=== PATIENT | female | born 1985 | race Caucasian/White ===

== ENCOUNTER 2022-11-20 17:04 | Emergency (ER) | payer OTHER, SELFPAY ==
[2022-11-20 17:05] VITALS: BP 129/73; PULSE 72; RESP 18; TEMP 36.4; O2SAT 99; BMI 31.2
[2022-11-20] MEDS: Ondansetron 4 MG/2 ML Vial IV (17:41)
[2022-11-20] MEDS: Ketorolac 15 MG/ML Vial IV (17:41)
[2022-11-20 17:51] LABS: Absolute Lymphocyte Count 1.77 X10^3/uL (0.83-4.51); Absolute Neutrophil Count 5.7 X10^3/uL (2.0-7.7); Basophil# 0.03 X10^3/uL; Basophil% 0.4 % (0-1); Eosinophil# 0.22 X10^3/uL; Eosinophils% 2.6 % (0-5); Hematocrit 34.5 % (37-47); Hemoglobin 11.7 g/dL (12.0-15.0); Lymphocyte # 1.77 X10^3/ul (0.83-4.51); Lymphocyte % 20.8 % (19-41); Mean Corp Hgb Conc 33.9 g/dL (32-36); Mean Corpuscular Hgb 28.2 pg (27.0-32.0); Mean Corpuscular Volume 83.1 fL (81-99); Mean Platelet Vol. 10.9 fl (6.2-12.0); Monocyte# 0.76 X10^3/uL; Monocyte% 8.9 % (0-10); NRBC Flagged by Analyzer 0 % (0-5); Neutrophil % 66.9 % (47-70); Platelet Count 283 K/mm3 (150-450); RBC Distribution Width CV 12.7 % (11.6-14.6); RBC Distribution Width SD 38.4 fl (35.1-43.9); Red Blood Count 4.15 M/mm3 (4.2-5.4); White Blood Count 8.5 K/mm3 (4.4-11.0)
[2022-11-20 17:56] LABS: Bacteria 0 SEEN /hpf (None Seen); Mucous, Urine 0 SEEN /hpf (<or=2+); Squamous Epithelial Cells - UA 0 SEEN /hpf (5-10); White Blood Cells 0 SEEN /hpf (0-5)
[2022-11-20 17:57] LABS: Color, Urine Yellow (Yellow); Glucose, Dipstick Normal (Normal); Ketone-Dipstick 5 mg/dl (Negative); Leukocyte Esterase-Dipstick 25 /ul (Negative); Nitrite-Dipstick Negative (Negative); Occult Blood-Urine 250 /ul (Negative); Protein-Dipstick 15 mg/dl (Negative); Specific Gravity, Urine 1.025 (1.002-1.030); Urine Bilirubin Dipstick Negative (Negative); Urine Clarity Clear (Clear); Urine Urobilinogen 4 mg/dl (Normal)
[2022-11-20 18:05] LABS: Internal QC Validated? YES +Cl - CLEAR BKGD; Pregnancy, Urine Negative Negative; Red Blood Cells-Urine 10-25 SEEN /hpf (0-5)
[2022-11-20 18:17] LABS: ALB/GLOB Ratio 1.3 RATIO (0.9-2.4); AST(SGOT) 14 U/L (15-37); Alanine Aminotransfer ALT/SGPT 16 U/L (13-56); Albumin, Serum 3.6 g/dL (3.2-5.0); Alkaline Phosphatase 52 U/L (45-117); Anion Gap 8 (5-15); BUN 16 mg/dL (7-18); BUN/Creat Ratio 26.8 RATIO (10-20); Calcium,Total 8.5 mg/dL (8.5-10.1); Chloride 106 mmol/L (98-107); EST Glomerular Filtration Rate 120 mL/min (>60); Est Glom Filt Rate - Afr Amer 145 mL/min (>60); Estimated Creatinine Clearance 120.18 ml/min; Globulin 2.8 g/dL (2.2-4.2); Glucose 99 mg/dL (74-106); Lipase 34 U/L (13-75); Potassium 3.7 mmol/L (3.5-5.1); Protein, Total 6.4 g/dL (6.4-8.2); Sodium Level 140 mmol/L (136-145)
--- NOTE | 2022-11-20 18:48 | EDS_ITS ---
HPI <JUAN ALBERTO Miner - Last Filed: 11/20/22 19:24> History of Present Illness Chief Complaint: Abd Pain Narrative Narrative: Patient presenting today due to pain above her epigastrium that she has had since earlier today. She reports that over the past few days she has felt nauseous and yesterday at work she felt a little lightheaded. She denies any fever, chills, vomiting, diarrhea, constipation, and urinary symptoms. She denies any previous abdominal surgery. Eating seems to make the pain worse and nothing seems to make it better. PFSH <JUAN ALBERTO Miner - Last Filed: 11/20/22 19:24> PFSH Medical History Anxiety and depression Home Medications clindamycin HCl 300 mg capsule (Cleocin HCl) 300 mg PO Q6H ##12 01/05/17 [Rx Last Taken Unknown] ondansetron 4 mg disintegrating tablet 4 mg PO Q8H PRN PRN Nausea #10 tabs 11/20/22 [Rx Last Taken Unknown] Allergy/AdvReac Type Severity Reaction Status Date / Time amoxicillin [Amoxicillin] Allergy Hives Verified 11/20/22 17:04 Penicillins Allergy Hives Verified 11/20/22 17:04 Social History Smoking Status: Never smoker ROS <JUAN ALBERTO Miner - Last Filed: 11/20/22 19:24> ROS ED Constitutional Constitutional ED: Denies chills or fever(s) Cardiovascular Cardiovascular: Denies chest pain Respiratory/Chest Respiratory/Chest: Denies cough or dyspnea Gastrointestinal Gastrointestinal: Reports abdominal pain and nausea; Denies constipation, diarrhea or vomiting Genitourinary Genitourinary ED: Denies dysuria, hematuria or urinary urgency Musculoskeletal Musculoskeletal: Denies arthralgias, back pain or myalgias Integumentary Denies rash Neurologic Neurologic: Denies weakness EXAM <JUAN ALBERTO Miner - Last Filed: 11/20/22 19:24> Physical Exam Const Vital Signs: 11/20/22 17:05 Temperature 97.6 F L Temperature Source Temporal Pulse Rate 72 Respiratory Rate 18 Blood Pressure 129/73 H Blood Pressure Mean 91 Pulse Ox 99 Oxygen Delivery Method Room Air Positive well nourished, well developed and no apparent distress General Appearance ED: well developed HEENT Reports normocephalic and head/scalp atraumatic Mouth ED: Yes moist mucous membranes normal Eyes PERRL and EOMs intact bilaterally Neck full ROM and supple Chest Wall inspection of chest normal Resp normal respiratory effort and clear to auscultation bilaterally Cardio regular rate and regular rhythm GI soft to palpation, non-distended and no masses GI Narrative: Very mild tenderness above the umbilicus without any tenderness to McBurney's point, negative Rovsing sign, no rigidity or guarding, no rebound tenderness. Back/Spine normal ROM and normal to inspection Extremity normal to inspection and full ROM Neuro oriented x3, CN's II-XII intact bilaterally, moves all extremities, no focal motor deficits and no sensory deficits noted Sensorium / Orientation: awake and alert Psych mental status grossly normal and thought process normal Skin no rashes or lesions noted and no wounds <Dr. Blas Xiao DO - Last Filed: 11/20/22 19:04> Physical Exam Const Vital Signs: 11/20/22 17:05 Temperature 97.6 F L Temperature Source Temporal Pulse Rate 72 Respiratory Rate 18 Blood Pressure 129/73 H Blood Pressure Mean 91 Pulse Ox 99 Oxygen Delivery Method Room Air MDM <JUAN ALBERTO Miner - Last Filed: 11/20/22 19:24> MDM MDM Narrative Medical decision making narrative: Patient presenting today due to pain just above her umbilicus that started today as well as nausea that she has had for the past few days. She is well- appearing and in distress vitals are unremarkable. Her abdomen is very benign on exam without any rigidity, guarding, or peritoneal signs. She has mild tenderness to palpation above the umbilicus/epigastrium but I do not feel that a CT scan is warranted at this time. Labs obtained to rule out leukocytosis, anemia, electrolyte abnormality, UTI, LANCE, and pancreatitis. Labs overall are unremarkable. She was given IV Toradol and Zofran and on repeat examination reports improvement of her symptoms. She was given a prescription for Zofran and is encouraged to follow-up with her PCP. She has been given return instructions and will be discharged home in stable condition. She is comfortable with plan. Lab Data Attestation: I reviewed the patient's lab results. Lab results narrative: H&H 11.7 and 34.5, lipase 34, CMP unremarkable, UA negative for UTI Labs: Laboratory Results - last 24 hr 11/20/22 11/20/22 17:42 17:50 WBC 8.5 RBC 4.15 L Hgb 11.7 L Hct 34.5 L MCV 83.1 MCH 28.2 MCHC 33.9 RDW Std Deviation 38.4 RDW Coeff of Bruce 12.7 Plt Count 283 MPV 10.9 Immature Gran % (Auto) 0.400 Neut % (Auto) 66.9 Lymph % (Auto) 20.8 [place] % (Auto) 8.9 Eos % (Auto) 2.6 Baso % (Auto) 0.4 Absolute Neuts (auto) 5.7 Absolute Lymphs (auto) 1.77 Nucleated RBC % 0 Sodium 140 Potassium 3.7 Chloride 106 Carbon Dioxide 26.0 Anion Gap 8 BUN 16 Creatinine 0.60 Estim Creat Clear Calc 120.18 Est GFR (MDRD) Af Amer 145 Est GFR (MDRD) Non-Af 120 BUN/Creatinine Ratio 26.8 H Glucose 99 Calcium 8.5 Total Bilirubin 0.40 AST 14 L ALT 16 Alkaline Phosphatase 52 Total Protein 6.4 Albumin 3.6 Globulin 2.8 Albumin/Globulin Ratio 1.3 Lipase 34 Urine Color Yellow Urine Clarity Clear Urine pH 6.0 Ur Specific [place] 1.025 Urine Protein 15 H Urine Glucose (UA) Normal Urine Ketones 5 H Urine Occult Blood 250 H Urine Nitrite Negative Urine Bilirubin Negative Urine Urobilinogen 4 H Ur Leukocyte Esterase 25 H Urine RBC 10-25 SEEN Urine WBC 0 SEEN Ur Squamous Epith Cells 0 SEEN Urine Bacteria 0 SEEN Urine Mucus 0 SEEN Urine Test Negative <Dr. Blas Xiao, DO - Last Filed: 11/20/22 19:04> [facility] Lab Data Labs: Laboratory Results - last 24 hr 11/20/22 11/20/22 17:42 17:50 WBC 8.5 RBC 4.15 L Hgb 11.7 L Hct 34.5 L MCV 83.1 MCH 28.2 MCHC 33.9 RDW Std Deviation 38.4 RDW Coeff of Bruce 12.7 Plt Count 283 MPV 10.9 Immature Gran % (Auto) 0.400 Neut % (Auto) 66.9 Lymph % (Auto) 20.8 [place] % (Auto) 8.9 Eos % (Auto) 2.6 Baso % (Auto) 0.4 Absolute Neuts (auto) 5.7 Absolute Lymphs (auto) 1.77 Nucleated RBC % 0 Sodium 140 Potassium 3.7 Chloride 106 Carbon Dioxide 26.0 Anion Gap 8 BUN 16 Creatinine 0.60 Estim Creat Clear Calc 120.18 Est GFR (MDRD) Af Amer 145 Est GFR (MDRD) Non-Af 120 BUN/Creatinine Ratio 26.8 H Glucose 99 Calcium 8.5 Total Bilirubin 0.40 AST 14 L ALT 16 Alkaline Phosphatase 52 Total Protein 6.4 Albumin 3.6 Globulin 2.8 Albumin/Globulin Ratio 1.3 Lipase 34 Urine Color Yellow Urine Clarity Clear Urine pH 6.0 Ur Specific [place] 1.025 Urine Protein 15 H Urine Glucose (UA) Normal Urine Ketones 5 H Urine Occult Blood 250 H Urine Nitrite Negative Urine Bilirubin Negative Urine Urobilinogen 4 H Ur Leukocyte Esterase 25 H Urine RBC 10-25 SEEN Urine WBC 0 SEEN Ur Squamous Epith Cells 0 SEEN Urine Bacteria 0 SEEN Urine Mucus 0 SEEN Urine Test Negative Treatment and Re-Evaluation :: I have personally performed a face to face assessment of the patient and have reviewed the RON Note. I performed a substantive portion of the visit including all aspects of the following. My [place] findings include: History: Patient presents with epigastric abdominal pain that began yesterday. Patient states it became worse today. Patient states pain is mainly over the epigastric and supraumbilical area. Patient admits to nausea but denies any vomiting. Patient denies any diarrhea, melena, or hematochezia. Patient denies any dysuria or hematuria. Patient denies any radiation of the pain into her back. Patient denies any chest pain or shortness of breath. Patient denies any fevers or chills. Exam: Vital signs are stable. Patient is afebrile. Patient is in no acute distress. Oral mucosa is pink and moist. Neck is supple. Trachea is midline. There is no JVD. Heart with regular rate and rhythm. Lungs are clear and equal bilaterally. Abdomen is soft. Bowel sounds are normal. There is epigas tric tenderness. There is no rebound or guarding noted. Cranial nerves II through XII are intact. There are no focal motor or sensory deficits noted. Medical Decision Making: Differential diagnosis includes gastric ulcer, pancreatitis, duodenal ulcer, pyelonephritis, urinary tract infection, and gastritis. CBC will be obtained to assess for leukocytosis and anemia. C omprehensive metabolic profile will be obtained to assess for electrolyte abnormality, hepatic function, and renal function. Urine hCG will be obtained to assess for . Urinalysis will be obtained to assess for urinary tract infection and hematuria. Lipase will be obtained to assess for pancreatitis. CBC was reviewed. There is mild anemia with a hemoglobin of 11.7 and hematocrit 34.5. Comprehensive metabolic profile was reviewed and was within normal limits. Urinalysis was reviewed. There is no evidence of urinary tract infection. There were 10-25 red blood cells and occult blood was 250. Urine hCG was reviewed and was negative. Lipase was reviewed and was normal at 34. Patient was advised of her findings. Patient was instructed to eat a bland diet. Patient was instructed to follow-up with her primary care physician in 5 to 7 days. Patient was instructed return if worse in any way. Patient understood and was agreeable with the plan. All questions were answered. Discharge Plan Triage Chief Complaint: Abd Pain ED Midlevel Provider: Kelsey Hansen ED Provider: Blas Xiao Dx/Rx/DC Orders Clinical Impression: Abdominal pain, Nausea Prescriptions: New ondansetron 4 mg tablet,disintegrating 4 mg PO Q8H PRN PRN (Reason: Nausea) Qty: 10 0RF No Action clindamycin HCl [Cleocin HCl] 300 MG capsule 300 mg PO Q6H Qty: 12 0RF Primary Care Provider: Zulma Goyal Referrals: Zulma Goyal MD [Primary Care Provider] - 5-7 Days Activity Restrictions/Additional Instructions: Please follow-up with your PCP and return for any worsening of your symptoms. Disposition Disposition: Home, Self Care Discharge Date/Time: 11/20/22 19:01
== END 2022-11-20 19:01 | disposition home or self-care (01) ==
PROVIDERS: Physician Assistant; Emergency Provider Emergency Medicine; PCP Internal Medicine; Visit Provider Emergency Medicine
DX: R10.9 Unspecified abdominal pain (principal); R11.0 Nausea
CPT/HCPCS: 80053; 81001; 81025; 83690; 85025; 96374; 96375; 99282; A4216; J2405

== ENCOUNTER 2023-10-18 11:26 | Emergency (ER) | payer OTHER, SELFPAY ==
[2023-10-18 11:27] VITALS: BP 136/85; PULSE 81; RESP 16; TEMP 36.4; O2SAT 98; BMI 33.0
[2023-10-18 11:48] LABS: Absolute Lymphocyte Count 1.44 X10^3/uL (0.83-4.51); Absolute Neutrophil Count 4.4 X10^3/uL (2.0-7.7); Basophil# 0.02 X10^3/uL; Basophil% 0.3 % (0-1); Eosinophil# 0.19 X10^3/uL; Eosinophils% 2.8 % (0-5); Hematocrit 35.3 % (37-47); Hemoglobin 11.9 g/dL (12.0-15.0); Lymphocyte # 1.44 X10^3/ul (0.83-4.51); Lymphocyte % 21.6 % (19-41); Mean Corp Hgb Conc 33.7 g/dL (32-36); Mean Corpuscular Volume 74.2 fL (81-99); Mean Platelet Vol. 10.7 fl (6.2-12.0); Monocyte# 0.59 X10^3/uL; Monocyte% 8.8 % (0-10); NRBC Flagged by Analyzer 0 % (0-5); Neutrophil # 4.41 X10^3/uL (2.7-7.7); Neutrophil % 66.2 % (47-70); Platelet Count 270 K/mm3 (150-450); RBC Distribution Width CV 13.2 % (11.6-14.6); RBC Distribution Width SD 34.6 fl (35.1-43.9); Red Blood Count 4.76 M/mm3 (4.2-5.4); White Blood Count 6.7 K/mm3 (4.4-11.0)
[2023-10-18 11:51] LABS: Mucous, Urine 0 SEEN /hpf (<or=2+); Red Blood Cells-Urine 0 SEEN /hpf (0-5)
[2023-10-18 11:54] LABS: Color, Urine Yellow (Yellow); Glucose, Dipstick Normal (Normal); Ketone-Dipstick Negative (Negative); Leukocyte Esterase-Dipstick 25 /ul (Negative); Nitrite-Dipstick Negative (Negative); Occult Blood-Urine Negative /ul (Negative); Protein-Dipstick Negative (Negative); Urine Bilirubin Dipstick Negative (Negative); Urine Clarity Sl. Cloudy (Clear); Urine Urobilinogen 1 mg/dl (Normal)
[2023-10-18 12:04] LABS: Bacteria 1+ /hpf (None Seen); Squamous Epithelial Cells - UA 0-5 SEEN /hpf (5-10); White Blood Cells 0-5 SEEN /hpf (0-5)
[2023-10-18 12:12] LABS: AST(SGOT) 27 U/L (15-37); Alanine Aminotransfer ALT/SGPT 19 U/L (13-56); Albumin, Serum 3.6 g/dL (3.2-5.0); Alkaline Phosphatase 61 U/L (45-117); Anion Gap 6 (5-15); BUN 13 mg/dL (7-18); BUN/Creat Ratio 19.2 RATIO (10-20); Calcium,Total 8.9 mg/dL (8.5-10.1); Chloride 107 mmol/L (98-107); Creatinine, Serum 0.68 mg/dL (0.55-1.02); EST Glomerular Filtration Rate 103 mL/min (>60); Est Glom Filt Rate - Afr Amer 125 mL/min (>60); Estimated Creatinine Clearance 128.71 ml/min; Globulin 3.7 g/dL (2.2-4.2); Glucose 111 mg/dL (74-106); Protein, Total 7.3 g/dL (6.4-8.2); Sodium Level 135 mmol/L (136-145)
--- NOTE | 2023-10-18 12:48 | US_ITS ---
STUDY: FIRST TRIMESTER OBSTETRICAL ULTRASOUND REASON FOR EXAM: Female, 38 years old Pelvic pain LMP: September 02, 2023. TECHNIQUE: Transvaginal TECHNICAL QUALITY: Adequate. PRIOR ULTRASOUND: None. FINDINGS: There is visualization of a single gestational sac in a normal intrauterine position. The mean sac diameter (MSD) measures 1.79 cm, indicating an estimated gestational age (EGA) of 6 weeks, 5 days. The gestational sac shape is within normal limits. There is a visualized yolk sac. The yolk sac measures 3.1 mm. The placenta is non-visualized. There is visualization of a live embryo. The crown-rump length (CRL) measures 6.2 mm, indicating an estimated gestational age (EGA) of 6 weeks, 4 days. There is demonstrated cardiac activity with a heart rate of 123 bpm. The estimated gestation age (EGA) by LMP is 6 weeks, 4 days. The estimated date of delivery (KESHAV) by LMP is June 08, 2024. The estimated gestation age (EGA) by US is 6 weeks, 5 days. The estimated date of delivery (KESHAV) by US is March 07, 2025. The uterus measures 11.2 cm x 6.6 cm x 6.7 cm. A large fibroid in the superior aspect of the uterus measuring 2.4 cm x 3.1+ by 2.8 cm is seen. There is a 1.5 cm x 1.4 cm x 0.4 cm subchorionic bleed. The cervix is closed. The right ovary measures 2.4 cm x 2.1 cm x 1.5 cm. There is no right ovarian cyst. There is no visualized right adnexal mass or complex lesion. The left ovary measures 2.6 cm x 2.2 cm x 2.4 cm. There is no left ovarian cyst. There is no visualized left adnexal mass or complex lesion. There is no fluid in the cul de sac. US/Transvaginal w/Preg US IMPRESSION: Single live intrauterine gestation with a mean gestational age of 6 weeks and 5 days. Uterine fibroid. Findings suggestive a 1.5 cm x 1.4 cm x 0.4 cm subchorionic bleed. Electronically Signed: Channing Roper MD at 15:30 EDT ,
--- NOTE | 2023-10-18 12:50 | EDS_ITS ---
HPI History of Present Illness Chief Complaint: Flank Pain Informant: patient Onset/Context/Timing Onset: Yesterday Context: Gradual Onset Timing: Continuous and Waxes and wanes Quality: Sharp Location: Right lower abdomen and lower back Worsened by: Nothing Relieved by: Nothing Narrative Narrative: Patient presents with right lower abdomen and back pain that began yesterday. Patient states the is almost 7 weeks . Patient states her pain has been waxing and waning since yesterday evening. Patient describes the pain as sharp. Patient states nothing makes it better and nothing makes it worse. Patient states she is 5 para 4. Patient denies any dysuria or hematuria. Patient denies any abnormal vaginal bleeding or discharge. Patient denies any nausea or vomiting. [facility] Medical History Anxiety and depression Home Medications ?Medication ?Instructions ?Recorded ?Last Taken ?Type clindamycin HCl 300 mg capsule 300 mg PO Q6H ##12 01/05/17 Unknown Rx (Cleocin HCl) ondansetron 4 mg disintegrating 4 mg PO Q8H PRN PRN Nausea #10 tabs 11/20/22 Un known Rx tablet Allergy/AdvReac Type Severity Reaction Status Date / Time amoxicillin (Amoxicillin) Allergy Hives Verified 10/18/23 11:27 Penicillins Allergy Hives Verified 10/18/23 11:27 Social History Smoking Status: Never smoker ROS ROS ED Constitutional Constitutional ED: Denies chills or fever(s) Eyes Eyes: Denies blurry vision or change in vision ENT ENT ED: Denies rhinorrhea or sore throat Cardiovascular Cardiovascular: Denies chest pain or palpitations Respiratory/Chest Respiratory/Chest: Denies cough or dyspnea Gastrointestinal Gastrointestinal: Reports abdominal pain; Denies nausea or vomiting Genitourinary Genitourinary ED: Denies dysuria or hematuria Musculoskeletal Musculoskeletal: Reports back pain; Denies neck pain Integumentary Denies abscess or rash Neurologic Neurologic: Denies headache(s) or weakness Allergic/Immunologic Allergic/Immunologic ED: Denies mouth swelling or urticaria EXAM Physical Exam Const Vital Signs: 10/18/23 11:27 10/18/23 13:26 10/18/23 15:00 Temperature 97.5 F L Temperature Source Temporal Pulse Rate 81 73 74 Respiratory Rate 16 16 16 Blood Pressure 136/85 H 114/68 117/71 Blood Pressure Mean 102 83 86 Pulse Ox 98 98 98 Oxygen Delivery Method Room Air Room Air Room Air 10/18/23 16:55 Temperature 97.6 F L Temperature Source Pulse Rate 72 Respiratory Rate 16 Blood Pressure 118/67 Blood Pressure Mean 84 Pulse Ox 98 Oxygen Delivery Method Positive well nourished and well developed General Appearance ED: well developed and NAD HEENT Reports moist mucous membranes Neck supple and no JVD Resp normal respiratory effort and clear to auscultation bilaterally Cardio regular rate and regular rhythm GI non-tender and non-distended Palpation: soft Extremity normal to inspection General Extremety ED: Negative for edema or tenderness General Extremity: Negative for edema Neuro oriented x3, CN's II-XII intact bilaterally and no sensory deficits noted Sensorium / Orientation: alert Motor Exam: strength 5/5 throughout Psych mental status grossly normal MDM MDM MDM Narrative Medical decision making narrative: Differential diagnosis includes ectopic , urinary tract infection, ureteral calculus, colitis, diverticulitis, and ovarian cyst. CBC will be obtained to assess for leukocytosis and anemia. Comprehensive metabolic profile will be obtained to assess for hepatic function, renal function, and electrolyte abnormality. Quantitative hCG will be obtained to assess for type and Rh will be obtained to assess for blood type urinalysis will be obtained to assess for urinary tract infection and hematuria. Pelvic ultrasound will be obtained to assess for ectopic , ovarian cyst, and ovarian torsion. Lab Data Attestation: I reviewed the patient's lab results. Lab results narrative: CBC was reviewed. There is a slight anemia with a hemoglobin of 11.9 and hematocrit of 35.3. Platelets were normal. Comprehensive metabolic profile was reviewed. Sodium was slightly low at 135. The remainder was within normal limits. Urinalysis was reviewed. There is no evidence of urinary tract infection or hematuria. Blood type was reviewed and was O+. Quantitative hCG was reviewed and was 17044. Labs: Laboratory Results - last 24 hr 10/18/23 10/18/23 10/18/23 11:40 11:47 12:50 WBC 6.7 RBC 4.76 Hgb 11.9 L Hct 35.3 L MCV 74.2 L MCH 25.0 L MCHC 33.7 RDW Std Deviation 34.6 L RDW Coeff of Bruce 13.2 Plt Count 270 MPV 10.7 Immature Gran % (Auto) 0.300 Neut % (Auto) 66.2 Lymph % (Auto) 21.6 [place] % (Auto) 8.8 Eos % (Auto) 2.8 Baso % (Auto) 0.3 Absolute Neuts (auto) 4.4 Absolute Lymphs (auto) 1.44 Nucleated RBC % 0 Sodium 135 L Potassium 4.0 Chloride 107 Carbon Dioxide 22.0 Anion Gap 6 BUN 13 Creatinine 0.68 Estim Creat Clear Calc 128.71 Est GFR (MDRD) Af Amer 125 Est GFR (MDRD) Non-Af 103 BUN/Creatinine Ratio 19.2 Glucose 111 H Calcium 8.9 Total Bilirubin 0.50 AST 27 ALT 19 Alkaline Phosphatase 61 Total Protein 7.3 Albumin 3.6 Globulin 3.7 Albumin/Globulin Ratio 1.0 HCG, Quant 38046 H Urine Color Yellow Urine Clarity Sl. Cloudy Urine pH 7.0 Ur Specific [place] 1.010 Urine Protein Negative Urine Glucose (UA) Normal Urine Ketones Negative Urine Occult Blood Negative Urine Nitrite Negative Urine Bilirubin Negative Urine Urobilinogen 1 H Ur Leukocyte Esterase 25 H Urine RBC 0 SEEN Urine WBC 0-5 SEEN Ur Squamous Epith Cells 0-5 SEEN Urine Bacteria 1+ Urine Mucus 0 SEEN Blood Type O POSITIVE Radiography Diagnostic Testing: Clinical Impression(s) from Imaging Studies Obstetrics Ultrasound 10/18/23 12:48 IMPRESSION: Single live intrauterine gestation with a mean gestational age of 6 weeks and 5 days. Uterine fibroid. Findings suggestive a 1.5 cm x 1.4 cm x 0.4 cm subchorionic bleed. Electronically Signed: Channing Roper MD at 15:30 EDT , Pelvic ultrasound was obtained. There is a single live intrauterine gestation with a mean gestational age of 6 weeks 5 days. There is a uterine fibroid. There is a 1.5 cm x 1.4 cm x 0.4 cm subchorionic bleed. This was interpreted by the radiologist was also independently reviewed by myself. Management Discussion w/another healthcare provider: Identifier Horse Treatment and Re-Evaluation :: Patient is resting comfortably on reevaluation. Patient was advised of her findings. Case was discussed with Dr. Greene from [facility]. She recommended to having the patient do pelvic rest. Patient will follow-up with [facility] in 3 to 5 days. Patient understood and was agreeable with the plan. All questions were answered. Discharge Plan Triage Chief Complaint: Flank Pain ED Provider: Blas Xiao Dx/Rx/DC Orders Clinical Impression: Pelvic pain, First trimester , Subchorionic hemorrhage in first trimester Instructions: ED Pelvic Pain, Unknown Cause, ED Established ... Prescriptions: No Action clindamycin HCl [Cleocin HCl] 300 MG capsule 300 mg PO Q6H Qty: 12 0RF ondansetron 4 mg tablet,disintegrating 4 mg PO Q8H PRN PRN (Reason: Nausea) Qty: 10 0RF Primary Care Provider: Zulma Goyal Referrals: Rani Dumont MD [Med Staff - Active Staff] - 3-5 Days Zulma Goyal MD [Primary Care Provider] - Activity Restrictions/Additional Instructions: Abstain from putting anything in the vagina, this includes no intercourse, no tampons, and no douching. Print Language: Tristanian Disposition Disposition: Home, Self Care Discharge Date/Time: 10/18/23 17:02
[2023-10-18 13:26] VITALS: BP 114/68; PULSE 73; RESP 16; O2SAT 98
[2023-10-18 14:18] LABS: hCG Titer Quant., Serum 23363 mIU/mL (1-3)
[2023-10-18 15:00] VITALS: BP 117/71; PULSE 74; RESP 16; O2SAT 98
[2023-10-18 16:55] VITALS: BP 118/67; PULSE 72; RESP 16; TEMP 36.4; O2SAT 98
== END 2023-10-18 17:02 | disposition home or self-care (01) ==
PROVIDERS: Emergency Provider Emergency Medicine; PCP Internal Medicine; Visit Provider Emergency Medicine
DX: O26.891 Other specified pregnancy related conditions, first trimester (principal); R10.2 Pelvic and perineal pain; O20.8 Other hemorrhage in early pregnancy; O09.521 Supervision of elderly multigravida, first trimester; Z3A.01 Less than 8 weeks gestation of pregnancy
CPT/HCPCS: 76817; 80053; 81001; 84702; 85025; 86900; 86901; 99282; A4216

== ENCOUNTER 2023-11-21 23:18 | Emergency (ER) | payer OTHER, SELFPAY ==
[2023-11-21 23:19] VITALS: BP 152/88; PULSE 72; RESP 16; TEMP 36.4; O2SAT 100; BMI 31.8
--- NOTE | 2023-11-21 23:49 | US_ITS ---
INDICATION: Vaginal bleeding EXAMINATION: Ultrasound US OB Transvaginal TECHNIQUE: Transabdominal pelvic ultrasound was performed. Grayscale, spectral waveform, and color flow Doppler evaluation of the adnexa. COMPARISON: No relevant prior comparison study available FINDINGS: UTERUS: 12 x 9 x 6.8 cm. Echogenic lesion in the uterus measures 3 cm and most likely represents a fibroid. RIGHT OVARY: 2.4 cm. Normal. LEFT OVARY: 3.9 cm. Normal. FREE FLUID: None. INTRAUTERINE GESTATIONAL SAC(s) (size/shape): Single. Size (Mean sac diameter) and shape. YOLK SAC: Identified POLE: Identified CRL 4.27 cm. ESTIMATED GESTATION AGE: 11 weeks and 4 days. HEART MOTION: 174 bpm. PLACENTA: Not visualized due to age. SUBCHORIONIC HEMORRHAGE: None. AMNIOTIC FLUID: Qualitatively normal. US/Transvaginal w/Preg US IMPRESSION: Single live intrauterine . Estimated gestational age is 11 weeks and 4 days. KESHAV is 06/15/2024. Electronically Signed: Cooper Trevino MD at 1:47 EDT ,
[2023-11-22 00:20] LABS: Absolute Lymphocyte Count 2.07 X10^3/uL (0.83-4.51); Basophil# 0.02 X10^3/uL; Basophil% 0.2 % (0-1); Eosinophil# 0.19 X10^3/uL; Eosinophils% 2.3 % (0-5); Hematocrit 37.4 % (37-47); Hemoglobin 12.5 g/dL (12.0-15.0); Lymphocyte # 2.07 X10^3/ul (0.83-4.51); Lymphocyte % 25.3 % (19-41); Mean Corp Hgb Conc 33.4 g/dL (32-36); Mean Corpuscular Hgb 25.4 pg (27.0-32.0); Mean Platelet Vol. 11.4 fl (6.2-12.0); Monocyte# 0.82 X10^3/uL; NRBC Flagged by Analyzer 0 % (0-5); Neutrophil # 4.99 X10^3/uL (2.7-7.7); Neutrophil % 61.1 % (47-70); Platelet Count 319 K/mm3 (150-450); RBC Distribution Width CV 14.3 % (11.6-14.6); RBC Distribution Width SD 38.9 fl (35.1-43.9); Red Blood Count 4.92 M/mm3 (4.2-5.4); White Blood Count 8.2 K/mm3 (4.4-11.0)
[2023-11-22 00:39] LABS: Bacteria 0 SEEN /hpf (None Seen); Mucous, Urine 0 SEEN /hpf (<or=2+); Red Blood Cells-Urine 0 SEEN /hpf (0-5); Squamous Epithelial Cells - UA 0 SEEN /hpf (5-10); White Blood Cells 0 SEEN /hpf (0-5)
[2023-11-22 00:40] LABS: Color, Urine Yellow (Yellow); Glucose, Dipstick Normal (Normal); Ketone-Dipstick 15 mg/dl (Negative); Leukocyte Esterase-Dipstick Negative /ul (Negative); Nitrite-Dipstick Negative (Negative); Occult Blood-Urine 10 /ul (Negative); Protein-Dipstick Negative (Negative); Specific Gravity, Urine 1.015 (1.002-1.030); Urine Bilirubin Dipstick Negative (Negative); Urine Clarity Clear (Clear); Urine Urobilinogen Normal (Normal)
[2023-11-22 00:55] LABS: hCG Titer Quant., Serum 118885 mIU/mL (1-3)
[2023-11-22 01:19] VITALS: BP 139/73; PULSE 92; RESP 18; O2SAT 97
--- NOTE | 2023-11-22 02:21 | EDS_ITS ---
HPI HPI - Female History of Present Illness Chief Complaint: Vag Bld, Preg Informant: patient Narrative Narrative: Patient is a G4, P5 female approximately 11 weeks . She states that this evening she went to get up and get ready for bed and use the bathroom and noticed that her underwear felt wet and there is a small amount of blood present. After that she noticed there has been mild blood-tinged discoloration with wiping. She denies any abdominal discomfort dysuria history of bleeding disorder or blood thinner use. However because of her status and the bleeding she was concerned about a potential miscarriage and comes in for evaluation [facility] Medical History Anxiety and depression Home Medications ?Medication ?Instructions ?Recorded ?Last Taken ?Type vit no.95-ferrous 1 tab PO DAILY 11/21/23 Unknown History fumarate 28 mg-folic acid 800 mcg tablet () Allergy/AdvReac Type Severity Reaction Status Date / Time amoxicillin (Amoxicillin) Allergy Hives Verified 11/21/23 23:19 Penicillins Allergy Hives Verified 11/21/23 23:19 Social History Smoking Status: Never smoker ROS ROS ED Constitutional Constitutional ED: Denies chills or fever(s) ENT ENT ED: Denies sore throat Cardiovascular Cardiovascular: Denies chest pain Respiratory/Chest Respiratory/Chest: Denies cough or dyspnea Gastrointestinal Gastrointestinal: Denies abdominal pain, diarrhea, nausea or vomiting Genitourinary Genitourinary ED: Reports other Details: Positive vaginal bleeding ; Denies dysuria Musculoskeletal Musculoskeletal: Denies myalgias Integumentary Denies rash Neurologic Neurologic: Denies headache(s) Psychiatric Psychiatric: Reports anxiety and depression Hematologic/Lymphatic Hematologic/Lymphatic: Denies easy bleeding or easy bruising EXAM Physical Exam Const Vital Signs: 11/21/23 23:19 11/22/23 01:19 Temperature 97.5 F L Temperature Source Temporal Pulse Rate 72 92 Respiratory Rate 16 18 Blood Pressure 152/88 H 139/73 H Blood Pressure Mean 109 95 Pulse Ox 100 97 Oxygen Delivery Method Room Air Positive well nourished and well developed General Appearance ED: well developed; Negative for pallor HEENT HEENT Narrative: Normocephalic atraumatic Eyes PERRL and EOMs intact bilaterally General Eye ED: Negative for pale conjunctiva or scleral icterus Neck supple Resp normal respiratory effort and clear to auscultation bilaterally Cardio regular rate and regular rhythm GI normal to inspection, nondistended, normoactive bowel sounds, soft to palpation, non-tender, non-distended and no masses Auscultation: normoactive bowel sounds Palpation: soft Narrative: Patient deferred Back/Spine no CVA tenderness Extremity normal to inspection and full ROM Neuro oriented x3, CN's II-XII intact bilaterally and no sensory deficits noted Sensorium / Orientation: alert Motor Exam: strength 5/5 throughout Psych mental status grossly normal Skin no rashes or lesions noted and no wounds Skin Narrative: Capillary refills less than 3 seconds General Skin Exam: Negative for jaundice or pallor MDM MDM MDM Narrative Medical decision making narrative: Patient arrived to the ER hypertensive but otherwise with stable vitals. With report of spontaneous vaginal bleeding there is concern for a threatened versus spontaneous miscarriage versus subchorionic hemorrhage versus UTI. Basic blood work was obtained and shows stable H&H indicating no acute blood loss anemia. Urine sample showed no sign of infection. The patient's quantitative hCG value has increased from approximately 23,000-119,000 indicating viable . Blood type is Rh+ and therefore there is no need for RhoGAM. An ultrasound was obtained secondary to her report of vaginal bleeding in and shows a single IUP with stable heart rate of 174 bpm. Therefore at this time without signs of acute blood loss anemia or infectious process or miscarriage I do not feel there is need for emergent MEDICAL BILLING SPECIALIST consultation and patient is otherwise safe for discharge History & Record Review Discussion w/independent historian: Patient Lab Data Attestation: I reviewed the patient's lab results. Labs: Laboratory Results - last 24 hr 11/21/23 11/22/23 23:52 00:34 WBC 8.2 RBC 4.92 Hgb 12.5 Hct 37.4 MCV 76.0 L MCH 25.4 L MCHC 33.4 RDW Std Deviation 38.9 RDW Coeff of Bruce 14.3 Plt Count 319 MPV 11.4 Immature Gran % (Auto) 1.100 H Neut % (Auto) 61.1 Lymph % (Auto) 25.3 [place] % (Auto) 10.0 Eos % (Auto) 2.3 Baso % (Auto) 0.2 Absolute Neuts (auto) 5.0 Absolute Lymphs (auto) 2.07 Nucleated RBC % 0 HCG, Quant [id number] H Urine Color Yellow Urine Clarity Clear Urine pH 6.0 Ur Specific [place] 1.015 Urine Protein Negative Urine Glucose (UA) Normal Urine Ketones 15 H Urine Occult Blood 10 H Urine Nitrite Negative Urine Bilirubin Negative Urine Urobilinogen Normal Ur Leukocyte Esterase Negative Urine RBC 0 SEEN Urine WBC 0 SEEN Ur Squamous Epith Cells 0 SEEN Urine Bacteria 0 SEEN Urine Mucus 0 SEEN Radiography Diagnostic Testing: Clinical Impression(s) from Imaging Studies Obstetrics Ultrasound 11/21/23 23:49 IMPRESSION: Single live intrauterine . Estimated gestational age is 11 weeks and 4 days. KESHAV is 06/15/2024. Electronically Signed: Cooper Trevino MD at 1:47 EDT , Discharge Plan Triage Chief Complaint: Vag Bld, Preg ED Provider: Jayson Alonso Dx/Rx/DC Orders Clinical Impression: Vaginal bleeding in , Anxiety and depression Instructions: Vaginal Bleeding During Prescriptions: No Action PNV cmb#95-ferrous fumarate-FA [] 28 mg iron- 800 mcg tablet 1 tab PO DAILY Primary Care Provider: Zulma Goyal Referrals: Zulma Goyal MD [Primary Care Provider] - Activity Restrictions/Additional Instructions: Your ultrasound shows the baby has a normal heart rate at 174 bpm but no obvious source of your bleeding. Follow-up with your MEDICAL BILLING SPECIALIST for repeat evaluation and return to the ER should you have any further concerns Print Language: Nigerian Disposition Disposition: Home, Self Care Discharge Date/Time: 11/22/23 02:27
[2023-11-22 02:26] VITALS: BP 118/75; PULSE 75; RESP 16; TEMP 37.1; O2SAT 97
== END 2023-11-22 02:27 | disposition home or self-care (01) ==
PROVIDERS: Emergency Provider Emergency Medicine; PCP Internal Medicine; Visit Provider Emergency Medicine
DX: O20.9 Hemorrhage in early pregnancy, unspecified (principal); O99.341 Other mental disorders complicating pregnancy, first trimester; O09.521 Supervision of elderly multigravida, first trimester; F41.9 Anxiety disorder, unspecified; F32.A Depression, unspecified; Z3A.11 11 weeks gestation of pregnancy
CPT/HCPCS: 76817; 81001; 84702; 85025; 99283; A4216

== ENCOUNTER 2024-09-20 05:57 | Day surgery (SDC) | payer OTHER, SELFPAY ==
--- NOTE | 2024-09-18 15:36 | PAT.ANE_ITS ---
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 When Was Last Pacemaker Check QUESTION #4 FULL TEXT: You/Your Family Experience fever (hyperthermia) with Anesthesia Last Oral Intake Last Oral intake: Last Oral Intake NPO since Meds taken in AM with sips of water? 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 Has anyone observed you stop No 09/18/24 10:13 breathing during sleep? STOP Results Negative 09/18/24 10:13 QUESTION #5 FULL TEXT : Do you snore loudly (louder than talking or can be heard through closed doors)? 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 Specify any problems Hx of Preganancy in last 3 No 09/18/24 10:13 Months Nurse Filling Out Transfusion DSCHRIBER 09/18/24 10:13 & Questions: Date: 09/18/24 09/18/24 10:13 Time: 10:14 09/18/24 10:13 Patient unable to answer at this time (ie. 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 cellar worker: /Reproductive Hx- brewery cellar worker Hx Now No 09/18/24 10:13 Gestational Age (in weeks): EDC: Hx Hx Para Hx Section SAB Yes 09/18/24 10:13 PFS Medical History History of a child Anxiety Syncope Non-smoker Cardiology follow-up encounter History of echocardiogram Hypertension Home Medications ?Medication ?Instructions ?Recorded ?Last Taken ?Type vit no.95-ferrous 1 tab PO DAILY 11/21/2304/03 History fumarate 28 mg-folic acid 800 mcg tablet () hydrochlorothiazide 25 mg tablet 25 mg PO DAILY 09/19/24 History losartan 50 mg tablet 50 mg PO BID 09/18/24 History nifedipine 60 mg tablet,extended 60 mg PO BID 09/18/24 09/19/24 History release 24 hr acetaminophen 325 mg tablet 650 mg (2 x 325 mg) PO Q6H PRN 09/20/24 Unknown Rx (Tylenol) pain #30 tabs ibuprofen 600 mg tablet 600 mg PO Q6H PRN pain #30 t abs 09/20/24 Unknown Rx Allergy/AdvReac Type Severity Reaction Status Date / Time amoxicillin (Amoxicillin) Allergy Hives Verified 09/20/24 06:39 Penicillins Allergy Hives Verified 09/20/24 06:39 Surgical History Hx of colonoscopy Social History Smoking Status: Never smoker Recommendation Anesthesia Recommendation Anesthesia recommendation: OPTIMIZED for anesthesia
--- NOTE | 2024-09-18 15:37 | PAT.ANESEVAL ---
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 When Was Last Pacemaker Check QUESTION #4 FULL TEXT: You/Your Family Experience fever (hyperthermia) with Anesthesia Last Oral Intake Last Oral intake: Last Oral Intake NPO since Meds taken in AM with sips of water? 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 Has anyone observed you stop No 09/18/24 10:13 breathing during sleep? STOP Results Negative 09/18/24 10:13 QUESTION #5 FULL TEXT : Do you snore loudly (louder than talking or can be heard through closed doors)? 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 Specify any problems Hx of Preganancy in last 3 No 09/18/24 10:13 Months Nurse Filling Out Transfusion DSCHRIBER 09/18/24 10:13 & Questions: Date: 09/18/24 09/18/24 10:13 Time: 10:14 09/18/24 10:13 Patient unable to answer at this time (ie. 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: /Reproductive Hx- construction director Hx Now No 09/18/24 10:13 Gestational Age (in weeks): EDC: Hx Hx Para Hx Section SAB Yes 09/18/24 10:13 PFS Medical History (Updated 09/18/24 @ 10:25 by Chelly Sweeney) History of a child Anxiety Syncope Non-smoker Cardiology follow-up encounter History of echocardiogram Hypertension Home Medications ?Medication ?Instructions ?Recorded ?Last Taken ?Type vit no.95-ferrous 1 tab PO DAILY 11/21/23 Unknown History fumarate 28 mg-folic acid 800 mcg tablet () hydrochlorothiazide 25 mg tablet 25 mg PO DAILY 09/18/24 Unknown History losartan 50 mg tablet 50 mg PO BID 09/18/24 Unknown History nifedipine 60 mg tablet,extended 60 mg PO BID 09/18/24 Unknown History release 24 hr Allergy/AdvReac Type Severity Reaction Status Date / Time amoxicillin (Amoxicillin) Allergy Hives Verified 09/18/24 10:09 Penicillins Allergy Hives Verified 09/18/24 10:09 Surgical History (Updated 09/18/24 @ 10:25 by Chelly Sweeney) Hx of colonoscopy Social History Smoking Status: Never smoker Audit: Pertinent Findings Pertinent Findings EKG Perinent findings: 06/12/2024. Normal sinus rhythm 66 bpm. Consult pertinent findings: Cardiology [facility]. 06/12/2024. For diagnosis of preeclampsia in third trimester. Echocardiogram was ordered July 2024. Showed EF of 61+/- 5%. Normal size and function. No further workup Recommendation Anesthesia Recommendation Anesthesia recommendation: OPTIMIZED for anesthesia
[2024-09-20] VITALS (9 sets, daily range): BP systolic 110–125; BP diastolic 68–83; PULSE 53–101; RESP 16; TEMP 36.3–36.9; O2SAT 95–100; BMI 36.3
--- OUTSIDE RECORDS SUMMARY | 2024-09-20 06:00 | XMS RPT_ITS | CCD ---
Author Organization [facility] Care Team Providers Care Fluorescent Lamp Replacer Name Role Phone Catherine Goyally Unavailable Unavailable [place], Ottoniel S Unavailable Unavailable Thomae DO, Luther Unavailable Unavailable [place] DO, Ottoniel Unavailable Unavailable [place], Ottoniel S Unavailable Unavailable [place], Ottoniel S Unavailable Unavailable Unavailable Ottoniel Goyal DO S Primary Care Provider Dr. Kiara Ramirez Attending Unavail able James, Dr. Kiara Ocampo Referring Unavail able , Dr. Ottoniel Fountain Primary Care Unavailabl e [place], Dr. Ottoniel Fountain Primary Care Unavailabl e [place], Dr. Ottoniel Fountain Attending Unavailabl e , Dr. Ottoniel Fountain Referring Unavailabl e [place], Dr. Ottoniel Fountain Primary Care Unavailabl e MD XIOMARA GUTIERREZ Attending Unava ilable MD XIOMARA GUTIERREZ Referring Unava ilable , Dr. Ottoniel Fountain Primary Care Unavailabl e MD XIOMARA GUTIERREZ Attending Unava ilable [place] Catherine JIMÉNEZly S Primary Care Provider [phone] [place] DO, Ottoniel S Unavailable XIOMARA GUTIERREZ Attending Unavailable NADIR GOYALBERLY S Primary Care Unavailable OTTONIEL GOYAL S Attending Unavailable ROYAL, OTTONIEL S Primary Care Unavailable GURMEET HUNTER Attending Unavailable GURMEET HUNTER Referring Unavailable PHYSICIAN, MISC. Primary Care Unavailable PHYSICIAN, MISC. Primary Care Unavailable LYNNETTE MONTESINOS Attending Unavailable LYNNETTE MONTESINOS Referring Unavailable ELISABET EASON Referring Unavailable PHYSICIAN, MISC. Primary Care Unavailable ELISABET EASON Attending Unavailable [place] DO Ottoniel S Primary Care Provider ROYAL, OTTONIEL S Primary Care Unavailable INES BURROWS Attending Unavailable XIOMARA GUTIERREZ Referring Unavailable ROYAL, OTTONIEL S Primary Care Unavailable ANILA PEPPER Attending Unavailable ROYAL, OTTONIEL S Primary Care Unavailable STEFANO CAMPOVERDE Admitting Unavailable ROYAL, OTTONIEL S Primary Care Unavailable RACHEL ROACH Admitting Unavailable KELIN JENKINS Attending Unavaila Jayson Jauregui Attending Unavailable [place], Ottoniel Primary Care Unavailable Blas Xiao Attending Unavailable [place], Ottoniel Primary Care Unavailable Wiswell, Ramona Referring Unavailable Wiswell, Ramona Attending Unavailable [place], Ottoniel Primary Care Unavailable ROYAL, OTTONIEL S Primary Care Unavailable FABBY PEDROZA Referring Unavailable RODO NOLAN Attending Unavailable ROYAL, OTTONIEL S Primary Care Unavailable MATRODO NAPOLES Referring Unavailable ROYAL, OTTONIEL S Primary Care Unavailable WISWELL RAMONA Attending Unavailable ROYAL, OTTONIEL S Primary Care Unavailable YULIYA GERONIMO Attending Unavailable ROYAL, OTTONIEL S Primary Care Unavailable ROYAL, OTTONIEL S Primary Care Unavailable ROYAL, OTTONIEL S Primary Care Unavailable EDIE SO Attending Unavailable ROYAL, OTTONIEL S Primary Care Unavailable RONAK BECK Attending Unavail able WISWELL, RAMONA Referring Unavailable ROYAL, OTTONIEL S Primary Care Unavailable ROYAL, OTTONIEL S Primary Care Unavailable WISWELL, RAMONA Referring Unavailable ROYAL, OTTONIEL S Primary Care Unavailable RODO NOLAN Referring Unavailable ROYAL, OTTONIEL S Primary Care Unavailable WISWELL, RAMONA Referring Unavailable ROYAL, OTTONIEL S Primary Care Unavailable WISWELL RAMONA Attending Unavailable ROYAL, OTTONIEL S Primary Care Unavailable HAURY, BALBINA Referring Unavailable ROYAL, OTTONIEL S Primary Care Unavailable WISWELL RAMONA Attending Unavailable ROYAL, OTTONIEL S Primary Care Unavailable HAURY, BALBINA Referring Unavailable ROYAL, OTTONIEL S Primary Care Unavailable LEIA QUIROZ Referring Unavailable ROYAL, OTTONIEL S Primary Care Unavailable LEIA QUIROZ Referring Unavailable WISWELL RAMONA Attending Unavailable ROYAL, OTTONIEL S Primary Care Unavailable JERRY MAAYA Attending Unavailable ROYAL, OTTONIEL S Primary Care Unavailable LEIA QUIROZ Attending Unavailable ROYAL, OTTONIEL S Primary Care Unavailable PEDRITO UMANZRO Attending Unavailable ROYAL, OTTONIEL S Primary Care Unavailable LEIA QUIROZ Referring Unavailable OTTONIEL GOYAL S Primary Care Unavailable YULIYA GERONIMO Attending Unavailable OTTONIEL GOYAL S Primary Care Unavailable BALBINA CORTES Attending Unavailable OTTONIEL GOYAL S Primary Care Unavailable EDIE SO Referring Unavailable OTTONIEL GOYAL S Primary Care Unavailable RAMONA ALEXANDER Attending Unavailable Allergies Allergy Classification Reported Allergen(s) Allergy Type Date of Onset Reaction(s) Facility Penicillins (antibiotic) (5 sources) Penicillins; Translations: [Penicillins] Drug Allergy [facility] and [address] Work Phone: Serotonin Reuptake Inhibitors (SSRIs) (5 sources) Sertraline; Translations: [Zoloft] Drug Allergy [facility] and [address] Work Phone: (16 sources) Penicillins; Translations: [Penicillins] drug allergy 10-25-2016 [place] [id number] Repository (10 sources) Sertraline; Translations: [Zoloft] Drug Allergy [facility] Work Phone: (20 sources) Penicillins Drug Allergy 10-25-2016 [facility] (20 sources) Sertraline; Translations: [SERTRALINE HCL] Drug Allergy 05-24-[address] [facility] (1 source) Amoxicillin Drug Allergy 11-20-2022 [facility] (1 source) Penicillins Allergy to substance 11-20-2022 [facility] (9 sources) Penicillins Drug Allergy 10-25-2016 [facility] (1 source) Amoxicillin Drug Allergy 11-21-2023 [facility] Repository (1 source) Penicillins Drug allergy (disorder) 11-21-2023 [facility] Repository Medications Current Medications Medication Drug Class(es) Dates Sig (Normalized) Sig (Original) clindamycin 300 mg oral capsule (1 source) Lincosamide Antibacterial Start: 01-06-20 17 take 1 capsule by mouth every six hours Clindamycin Hcl (Cleocin Hcl) 300 MG capsule Active 300 MG PO EVERY 6 HOURS January 05, 2017 12:00am hydrALAZINE hydrochloride 10 mg oral tablet (1 source) Arteriolar Vasodilator Start: 05-01-19 25 take 1 tablet by mouth three times daily hydrALAZINE (APRESOLINE) 10 mg tablet Take 1 tablet by mouth three times a day. 90 tablet 1 05/01/2024 Active hydroCHLOROthiazide 25 mg oral tablet (7 sources) Thiazide Diuretic Start: 07-19-19 take 1 tablet by mouth once daily hydroCHLOROthiazide 25 mg tablet Indications: Essential hypertension Take 1 tablet by mouth once daily. 90 tablet 3 07/18/2024 Active ketorolac tromethamine 10 mg oral tablet (3 sources) Nonsteroidal Anti-inflammatory Drug, Cyclooxygenase Inhibitor Start: 01-14-20 End: 01-19-20 take 1 tablet by mouth every six hours for pain ketorolac (Toradol) 10 mg tablet Indications: Cyst of left ovary Take 1 tablet (10 mg) by mouth every 6 hours if needed for moderate pain (4 - 6) for up to 5 days. 20 tablet 0 01/13/2023 01/18/2023 Active Start: 01-13-2023 End: 01-13-2023 ketorolac (Toradol) injectio n 15 mg losartan potassium 50 mg oral tablet (14 sources) Angiotensin 2 Receptor Edie Start: 07-18-2024 take 1 tablet by mouth twice daily losartan (COZAAR) 50 mg tablet Take 1 tablet by mouth two times a day. 07/18/2024 Active Start: 05-03-2024 End: 07-18-2024 take 3 tablets by mouth once daily losartan (COZAAR) 25 mg tablet Take 3 tablets by mouth once daily. 60 tablet 1 05/03/2024 07/18/2024 Discontinued lubiprostone 0.008 mg oral capsule (6 sources) Chloride Channel Activator Start: 10-15-2020 End: 12-30-2020 take 1 capsule by mouth twice daily Amitiza 8 MCG Oral Capsule Take 1 capsule twice daily Quantity: 60 Refills: 11 Ordered: 15-Oct-2020 Luther Rodas DO Start : 15-Oct-2020 End : 30-Dec-2020 Complete Start: 07-02-2020 take 1 capsule by [facility] twice daily Lubiprostone 8 MCG Oral Capsule TAKE 1 CAPSULE BY MOUTH TWICE A DAY Quantity: 60 Refills: 5 Ordered: 02-Jul-2020 Luther Rodas DO Start : 02-Jul-2020 Active NIFEdipine 30 mg osmotic 24 hr extended release oral tablet (19 sources) Dihydropyridine Calcium Channel Edie Start: 05-01-2024 take 1 tablet by mouth once daily NIFEdipine ER (PROCARDIA XL) 30 mg 24 hr tablet Take 1 tablet by mouth once daily. take with the 60 mg for a total of 90 mg a day 30 tablet 1 05/01/2024 Active Start: 04-27-2024 End: 10-24-2024 take 1 tablet by mouth twice daily NIFEdipine ER (PROCARDIA XL) 60 mg 24 hr tablet Take 1 tablet by mouth two times a day. 180 tablet 1 04/27/2024 11:58 AM EST 04/27/2024 10/24/2024 Active plecanatide 3 mg oral tablet (1 source) Start: 12-30-2020 take 1 tablet by mouth once daily Trulance 3 MG Oral Tablet Take 1 tablet daily Quantity: 30 Refills: 5 Ordered: 30-Dec-2020 Luther Rodas DO Start : 30-Dec-2020 Active Start: 12-30-2020 take 1 tablet by anirudh once daily Trulance 3 MG Oral Tablet Take 1 tablet daily Quantity: 30 Refills: 5 Ordered: 30-Dec-2020 Luther Rodas DO Start : 30-Dec-2020 Active vit/iron fum/folic ac ( VITAMIN WITH MINERALS ORAL) (14 sources) take 1 capsule by mo uth once daily before mealtime vit/iron fum/folic ac ( VITAMIN WITH MINERALS ORAL) Take 1 capsule by mouth once daily. Suspended take 1 capsule by mo uth once daily before mealtime vit/iron fum/folic ac ( VITAMIN WITH MINERALS ORAL) Take 1 capsule by mouth once daily. Active triamcinolone acetonide 1 mg/ml topical cream (1 source) Corticosteroid Start: 10-26-2023 End: 11-09-2023 triamcinolone acetonide (KENALOG) 0.1 % cream Indications: Contact dermatitis due to plant Apply 1 application to affected area two times a day for 14 days. Apply to affected area. Location: poison romero rash. Do not use on the face, arm pits, or groin. 30 g 0 10/26/2023 11/09/2023 Active Completed/Discontinued Medications Medication Drug Class(es) Dates Sig (Normalized) Sig (Original) acetaminophen 500 mg oral tablet (9 sources) Start: 04-27-2024 End: 06-12-2024 take 2 tablets by mouth every six hours as needed acetaminophen (TYLENOL) 500 mg tablet Take 2 tablets by mouth every 6 hours as needed for pain. 30 tablet 04/27/2024 11:58 AM EST 04/27/2024 06/12/2024 Discontinued ARIPiprazole 2 mg oral tablet (3 sources) Atypical Antipsychotic Start: 06-01-2022 take 1 tablet by mouth once daily ARIPiprazole 2 MG Oral Tablet TAKE 1 TABLET DAILY. Quantity: 30 Refills: 5 Ordered: 01-Jun-2022 Ottoniel Goyal DO Start : 01-Jun-2022 Active aspirin 81 mg delayed release oral tablet (19 sources) Platelet Aggregation Inhibitor, Nonsteroidal Anti-inflammatory Drug Start: 12-01-2023 End: 05-01-2024 take 1 tablet by mouth once daily aspirin, enteric coated (ECOTRIN LOW STRENGTH) 81 mg EC tablet Indications: with uncertain dates in first trimester Take 1 tablet by mouth once daily. 90 tablet 3 12/01/2023 05/01/2024 Discontinued azithromycin 250 mg oral tablet (3 sources) Macrolide Antimicrobial Start: 07-27-2021 Azithromycin 250 MG Oral Tablet TAKE DIRECTED PER PACKAGE INSTRUCTIONS. Quantity: 1 Refills: 0 Ordered: 27-Jul-2021 Ottoniel Goyal DO Start : 27-Jul-2021 Active Start: 04-16-2021 take 7 tablets by mouth once A zithromycin 250 MG Oral Tablet TAKE DIRECTED PER PACKAGE INSTRUCTIONS. Quantity: 1 Refills: 0 Ordered: 16-Apr-2021 Ottoniel Goyal DO Start : 16-Apr-2021 Active Probiotic CAPS (1 source) Probiotic CAPS R efills: 0 DO Active Biotin (14 sources) Biotin CAPS Tony tity: 0 Refills: 0 Ordered: 02-Jul-2020 DO Active Biotin CAPS Refi lls: 0 DO Active docusate sodium 100 mg oral capsule (9 sources) Start: 04-27-2024 End: 06-12-2024 take 1 capsule by mouth every twelve hours as needed docusate sodium (COLACE) 100 mg capsule Take 1 capsule by mouth two times a day as needed for constipation. 30 capsule 1 04/27/2024 11:58 AM EST 04/27/2024 06/12/2024 Discontinued ergocalciferol 1.25 mg oral capsule (14 sources) Provitamin D2 Compound take 1 capsule by mouth once Vitamin D (Ergocalciferol) 1.25 MG (88266 UT) Oral Capsule Quantity: 0 Refills: 0 Ordered: 02-Jul-2020 DO Active Vitamin D (Ergoc alciferol) 1.25 MG (85960 UT) Oral Capsule Refills: 0 DO Active escitalopram 20 mg oral tablet (14 sources) Serotonin Reuptake Inhibitor Start: 12-08-2021 take 1 tablet by mouth once daily Escitalopram Oxalate 20 MG Oral Tablet Take 1 tablet daily Quantity: 30 Refills: 5 Ordered: 08-Dec-2021 Ottoniel Goyal DO Start : 08-Dec-2021 Active Start: 11-04-2019 take 1 tablet by anirudh th once daily Escitalopram Oxalate 10 MG Oral Tablet take 1 tablet by mouth once daily Quantity: 30 Refills: 5 Ordered: 21-Apr-2021 Ottoniel Goyal DO Start : 04-Nov-2019 Active Ethinyl Estradiol / Ferrous fumarate / Norethindrone (2 sources) Estrogen Start: 01-09-2017 End: 08-14-2023 take 1 tablet by mouth once daily Norethin Ean-Eth Estrad-FE (LOESTRIN FE 1.5/30) 1.5 mg-30 mcg (21)/75 mg (7) tablet Take 1 tablet by mouth once daily. 1 Package 11 01/09/2017 08/14/2023 Discontinued (Course of therapy completed) Start: 01-09-2017 take 1 tablet by anirudh th once daily Norethin Ean-Eth Estrad-FE (LOESTRIN FE 1.5/30) 1.5 mg-30 mcg (21)/75 mg (7) tablet Take 1 tablet by mouth once daily. 1 Package 11 01/09/2017 Active Comment on above: Take 1 tablet by anirudh th once daily. famotidine 40 mg oral tablet (20 sources) Histamine-2 Receptor Antagonist Start: End: take 1 tablet by mouth once famotidine (PEPCID) 40 mg tablet Take 1 tablet by mouth every afternoon. 02/24/2024 06/12/2024 Discontinued Start: 01-19-2024 End: 02-18-2024 take 1 tablet by mouth once daily famotidine (PEPCID) 40 mg tablet Take 1 tablet by mouth once daily. 30 tablet 2 01/19/2024 02/18/2024 Active fluticasone propionate 0.05 mg/actuat metered dose nasal spray (20 sources) Corticosteroid Start: 03-02-2020 take 2 spray(s) nasal route once daily Fluticasone Propionate 50 MCG/ACT Nasal Suspension USE 2 SPRAY(S) IN EACH NOSTRIL ONCE DAILY Quantity: 16 Refills: 2 Ordered: 11-Oct-2021 Ottoniel Goyal DO Start : 02-Mar-2020 Active Start: 11-12-2017 End: 06-12-2024 take 2 spray(s) by mouth once daily fluticasone (FLONASE) 50 mcg/actuation nasal spray Use 2 Sprays in each nostril once daily. Rinse mouth after use. 1 Bottle 11/12/2017 06/12/2024 Discontinued Comment on above: Use 2 Sprays in each nostril once daily. Rinse mouth after use. hydrOXYzine hydrochloride 25 mg oral tablet (14 sources) Antihistamine Start: 11-04-19 hydrOXYzine HCl - 25 MG Oral Tablet TAKE 1 TABLET EVERY 6 TO 8 HOURS NEEDED FOR ANXIETY Quantity: 30 Refills: 1 Ordered: 04-Nov-2019 Ottoniel Goyal DO Start : 04-Nov-2019 Active ibuprofen 600 mg oral tablet (9 sources) Nonsteroidal Anti-inflammatory Drug Start: 04-27-19 End: 06-13-19 take 1 tablet by mouth every six hours as needed ibuprofen (MOTRIN) 600 mg tablet Take 1 tablet by mouth every 6 hours as needed for pain. 30 tablet 04/27/2024 11:58 AM EST 04/27/2024 06/12/2024 Discontinued iohexol (OMNIPaque) 350 mg iodine/mL injection 90 mL (1 source) Start: 01-13-20 End: 01-13-20 iohexol (OMNIPaque) 350 mg iodine/mL injection 90 mL labetalol hydrochloride 200 mg oral tablet (3 sources) beta-Adrenergic Edie Start: 04-27-19 End: 10-25-19 take 1 tablet by mouth every eight hours labetalol (TRANDATE) 200 mg tablet Take 1 tablet by mouth every 8 hours. 270 tablet 1 04/27/2024 05/01/2024 Discontinued linaclotide 0.145 mg oral capsule (8 sources) Guanylate Cyclase-C Agonist Start: 01-13-20 21 take 1 capsule by mouth once daily Linzess 145 MCG Oral Capsule TAKE 1 CAPSULE Daily Quantity: 30 Refills: 11 Ordered: 13-Jan-2021 Luther Rodas DO Start : 12-Jan-2021 Active LORazepam 0.5 mg oral tablet (7 sources) Benzodiazepine Start: 10-26-19 17 End: 12-01-19 24 take 1 tablet by mouth every eight hours LORazepam (ATIVAN) 0.5 mg tab Take 1 tablet by mouth every 8 hours. 0 10/25/2016 12/01/2023 Discontinued Comment on above: Take 1 tablet by anirudh th every 8 hours. MiraLax POWD (13 sources) MiraLax POWD Quantity: 0 Refills: 0 Ordered: 02-Jul-2020 DO Active ondansetron 4 mg oral tablet (13 sources) Serotonin-3 Receptor Antagonist Start: 02-24-20 24 End: 05-01-19 take 1 tablet by mouth every eight hours as needed ondansetron (ZOFRAN) 4 mg tablet Take 4 mg by mouth every 8 hours as needed. 02/24/2024 05/01/2024 Discontinued Start: 11-20-2022 take 4 mg by mouth e very eight hours as needed Ondansetron Active 4 MG PO EVERY 8 HOURS NEEDED November 20, 2022 12:00am MiraLax POWD (1 source) Osmotic Laxative MiraLax POWD Refills: 0 DO Active predniSONE 20 mg oral tablet (1 source) Start: 2 take 2 tablets by mouth once daily predniSONE 20 MG Oral Tablet TAKE 2 TABLETS DAILY. Quantity: 10 Refills: 0 Ordered: 14-Mar-2022 Kiara Ramirez MD Start : 14-Mar-2022 Active Probiotic CAPS (13 sources) Probiotic CAPS Quantity: 0 Refills: 0 Ordered: 02-Jul-2020 DO Active traZODone hydrochloride 50 mg oral tablet (19 sources) Serotonin Reuptake Inhibitor Start: 0 End: 4 take 1 tablet by mouth every twenty-four hours as needed traZODone (DESYREL) 50 mg tablet Take 50 mg by mouth at bedtime as needed. 0 03/14/2022 11/24/2023 Discontinued (Course of therapy completed) Comment on above: Take 50 mg by mouth at bedtime as needed. Problems Active Problems Problem Classification Problem Date Documented Da te Episodic/Chronic Abdominal pain (2 sources) Abdominal pain; Translations: [Unspecified abdominal pain] 11-20-2022 Episodic Anxiety disorders (20 sources) Anxiety; Translations: [Anxiety state, unspecified] Onset: 12-01-2023 Resolved: 12-01-2023 10-25-2016 Chronic Benign neoplasm of uterus (8 sources) Submucous leiomyoma of uterus; Translations: [Submucous leiomyoma of uterus] Onset: 08-02-2024 08-10-2024 Episodic Contraceptive and procreative management (1 source) Sterilization requested; Translations: [Encounter for sterilization] 09-16-2024 Episodic Diabetes mellitus without complication (3 sources) Hyperglycemia; Translations: [Other abnormal glucose] Episodic Endometriosis (1 source) Uterine adenomyosis; Translations: [Adenomyosis of the uterus] 08-10-2024 Chronic Essential hypertension (2 sources) Essential hypertension; Translations: [Essential (primary) hypertension] Onset: 08-02-2024 07-18-2024 Chronic Hypertension complicating ; childbirth and the puerperium (3 sources) Hypertension complicating , childbirth and the puerperium; Translations: [Unspecified maternal hypertension, complicating childbirth] Onset: 04-27-2024 04-27-2024 Chronic Immunizations and screening for infectious disease (20 sources) Patient encounter status; Translations: [Other specified vaccination] Onset: 04-23-2024 Resolved: 04-25-2024 12-01-2023 Episodic Menopausal disorders (1 source) Menorrhagia; Translations: [Excessive bleeding in the premenopausal period] 09-16-2024 Chronic Menstrual disorders (2 sources) Dysmenorrhea; Translations: [Dysmenorrhea, unspecified] 08-14-2023 Chronic Mood disorders (3 sources) Moderate major depression, single episode; Translations: [Major depressive affective disorder, single episode, moderate] Chronic Nausea and vomiting (1 source) Nausea; Translations: [Nausea] 11-20-2022 Episodic Other circulatory disease (6 sources) Elevated blood-pressure reading without diagnosis of hypertension; Translations: [Elevated blood-pressure reading, without diagnosis of hypertension] Onset: 04-18-2024 04-18-2024 Episodic Other complications of (1 source) Obesity complicating , second trimester; Translations: [Obesity affecting in second trimester, unspecified obesity type] Onset: 04-18-2024 Chronic Other female genital disorders (1 source) Abnormal uterine bleeding; Translations: [Other specified abnormal uterine and vaginal bleeding] 08-10-2024 Chronic Other female genital disorders (1 source) Abnormal uterine and vaginal bleeding, unspecified; Translations: [Abnormal uterine and vaginal bleeding, unspecified] Onset: 12-01-2023 Chronic Other female genital disorders (1 source) Other specified abnormal uterine and vaginal bleeding; Translations: [DUB (dysfunctional uterine bleeding)] Onset: 08-02-2024 Chronic Other gastrointestinal disorders (14 sources) Irritable bowel syndrome characterized by constipation; Translations: [Irritable bowel syndrome] Chronic Other gastrointestinal disorders (9 sources) Chronic constipation; Translations: [Constipation, unspecified] Episodic Other nutritional; endocrine; and metabolic disorders (5 sources) Obesity; Translations: [Obesity, unspecified] 10-25-2016 Chronic Other screening for suspected conditions (not mental disorders or infectious disease) (19 sources) Cancer cervix screening status; Translations: [Screening for malignant neoplasms of cervix] Onset: 12-07-2022 Episodic Other upper respiratory infections (5 sources) Acute sinusitis; Translations: [Acute sinusitis, unspecified] Episodic Otitis media and related conditions (18 sources) Dysfunction of eustachian tube; Translations: [Dysfunction of Eustachian tube] Episodic Residual codes; unclassified (14 sources) Insomnia; Translations: [Insomnia, unspecified] Chronic Residual codes; unclassified (15 sources) H/O: Disorder; Translations: [Personal history of other specified diseases] Episodic Residual codes; unclassified (14 sources) H/O: ; Translations: [Personal history of other genital system and obstetric disorders] Episodic Comment on above: 11/24/2003-38 WEEKS, VAGINAL, MALE, #7 8oz02/08/2007-39 WEEKS, VAGINAL, MALE, #8 7.5oz04/12/2008-36 WEEKS, VAGINAL, MALE, #7 4oz04/-38 WEEKS, VAGINAL, FEMALE, #7 1oz; Residual codes; unclassified (1 source) Gestation period, 12 weeks; Translations: [12 weeks gestation of ] 11-24-2023 Episodic Residual codes; unclassified (2 sources) Gestation period, 13 weeks; Translations: [13 weeks gestation of ] 12-01-2023 Episodic Residual codes; unclassified (1 source) Gestation period, 17 weeks; Translations: [17 weeks gestation of ] 12-29-2023 Episodic Residual codes; unclassified (1 source) Gestation period, 20 weeks; Translations: [20 weeks gestation of ] 01-24-2024 Episodic Residual codes; unclassified (1 source) Gestation period, 21 weeks; Translations: [21 weeks gestation of ] 01-26-2024 Episodic Residual codes; unclassified (1 source) Gestation period, 26 weeks; Translations: [26 weeks gestation of ] 03-04-2024 Episodic Residual codes; unclassified (2 sources) Gestation period, 29 weeks; Translations: [29 weeks gestation of ] 03-22-2024 Episodic Residual codes; unclassified (5 sources) Gestation period, 32 weeks; Translations: [32 weeks gestation of ] Onset: 04-18-2024 04-15-2024 Episodic Residual codes; unclassified (1 source) History of pre-eclampsia; Translations: [Personal history of other complications of , childbirth and the puerperium] 05-17-2024 Episodic Unclassified (18 sources) [facility] Onset: 04-27-2024 04-27-2024 Unclassified (4 sources) Patient encounter status 06-12-2024 Unclassified (1 source) Other specified diseases and conditions complicating ; Translations: [Other specified diseases and conditions complicating ] Onset: 11-14-2023 Unclassified (1 source) Pre-Op Visit Onset: 09-16-2024 Past or Other Problems Problem Classification Problem Date Documented Date Episodic/Chronic Administrative/social admission (1 source) Exercise counseling; Translations: [Exercise counseling] Onset: 06-12-2024 Episodic Allergic reactions (20 sources) Contact dermatitis due to plants; Translations: [Unspecified contact dermatitis due to plants, except food] Onset: 12-01-2023 10-26-2023 Episodic Early or threatened labor (12 sources) Premature delivery; Translations: [ labor with delivery, unspecified trimester, not applicable or unspecified] Onset: 06-12-2024 06-12-2024 Episodic Hemorrhage during ; abruptio placenta; placenta previa (20 sources) Bleeding from female genital tract during ; Translations: [Antepartum hemorrhage, unspecified, unspecified trimester] Onset: 12-01-2023 Resolved: 12-01-2023 11-24-2023 Episodic Hypertension complicating ; childbirth and the puerperium (20 sources) Severe pre-eclampsia; Translations: [Severe pre-eclampsia, third trimester] Onset: 04-18-2024 04-18-2024 Episodic Other complications of (20 sources) Maternal obesity complicating , childbirth and the puerperium, antepartum; Translations: [Obesity complicating , second trimester] Resolved: 08-10-2024 12-01-2023 Chronic Other complications of (20 sources) Multigravida of advanced maternal age; Translations: [Supervision of elderly multigravida, second trimester] Onset: 12-01-2023 Resolved: 08-10-2024 11-24-2023 Episodic Other complications of (20 sources) High risk ; Translations: [Supervision of high risk , unspecified, second trimester] Onset: 12-01-2023 12-01-2023 Episodic Other complications of (20 sources) Vomiting of , unspecified; Translations: [Unspecified vomiting of , unspecified as to episode of care or not applicable] Onset: 12-01-2023 Resolved: 04-18-2024 12-01-2023 Episodic Other complications of (15 sources) Pain in female pelvis; Translations: [Other specified related conditions, unspecified trimester] Onset: 01-24-2024 Resolved: 01-31-2024 01-24-2024 Episodic Other complications of (20 sources) Uterine leiomyoma; Translations: [Maternal care for benign tumor of corpus uteri, unspecified trimester] Onset: 01-31-2024 Resolved: 04-25-2024 01-31-2024 Episodic Other complications of (1 source) Supervision of elderly multigravida, unspecified trimester; Translations: [Antepartum multigravida of advanced maternal age] Onset: 06-12-2024 Episodic Other complications of (1 source) Supervision of elderly multigravida, second trimester; Translations: [Multigravida of advanced maternal age in second trimester] Onset: 04-18-2024 Episodic Other complications of (1 source) Supervision of high risk , unspecified, second trimester; Translations: [Encounter for supervision of high risk in second trimester, antepartum] Onset: 12-01-2023 Episodic Other connective tissue disease (3 sources) Swelling of lower limb; Translations: [Other specified soft tissue disorders] Onset: 04-26-2024 Resolved: 04-27-2024 04-27-2024 Episodic Other and delivery including normal (20 sources) with uncertain dates; Translations: [Encounter for supervision of normal , unspecified, first trimester] Onset: 12-01-2023 Resolved: 08-10-2024 12-01-2023 Episodic Ovarian cyst (9 sources) Cyst of left ovary; Translations: [Unspecified ovarian cyst, left side] Onset: 01-12-2023 01-12-2023 Episodic Residual codes; unclassified (20 sources) H/O: depression; Translations: [Personal history of other complications of , childbirth and the puerperium] Onset: 12-01-2023 12-01-2023 Episodic Residual codes; unclassified (20 sources) History of gestational hypertension; Translations: [Personal history of other complications of , childbirth and the puerperium] Onset: 12-01-2023 12-01-2023 Episodic Residual codes; unclassified (20 sources) Edema of foot; Translations: [Localized edema] Onset: 04-18-2024 Resolved: 04-18-2024 04-18-2024 Episodic Residual codes; unclassified (1 source) 32 weeks gestation of ; Translations: [32 weeks gestation of ] Onset: 04-15-2024 Episodic Residual codes; unclassified (1 source) 26 weeks gestation of ; Translations: [26 weeks gestation of ] Onset: 03-22-2024 Episodic Residual codes; unclassified (1 source) 21 weeks gestation of ; Translations: [21 weeks gestation of ] Onset: 01-26-2024 Episodic Residual codes; unclassified (1 source) 17 weeks gestation of ; Translations: [17 weeks gestation of ] Onset: 12-29-2023 Episodic Residual codes; unclassified (1 source) Personal history of other complications of , childbirth and the puerperium; Translations: [History of gestational hypertension] Onset: 12-01-2023 Episodic Residual codes; unclassified (1 source) 12 weeks gestation of ; Translations: [12 weeks gestation of ] Onset: 12-01-2023 Episodic Screening and history of mental health and substance abuse codes (20 sources) H/O: psychological trauma; Translations: [Personal history of other mental disorders] Onset: 12-01-2023 12-01-2023 Episodic Short gestation; low weight; and growth retardation (20 sources) Prematurity of infant; Translations: [ , unspecified weeks of gestation] Onset: 04-18-2024 Resolved: 04-26-2024 04-18-2024 Episodic Varicose veins of lower extremity (20 sources) Asymptomatic varicose veins of unspecified lower extremity; Translations: [Asymptomatic varicose veins] Onset: 03-04-2024 Resolved: 04-18-2024 03-04-2024 Episodic NEGATED: Highlighted row has not occurred!Residual codes; unclassified (8 sources) Disease Episodic Results Test Name Value Interpretation Reference Range Facility [facility] 09-18-2024 CNPN Telephone (CARDBD) -------- HARRISON GUNDERSON ([id number]) 1985 F Date Time Provider Department 09/18/24 RODO NOLAN During your visit today, we recorded the following information about you: Brannon Owen 09/18/2024 10:34 AM Signed Harrison is calling Rodo Nolan MD today with concern regarding Results ([facility] requesting last office visit note, echo and EKG report please be faxed to [phone]/Any questions, Brown [phone]) Patient has been identified by name and birthdate. Duration of symptoms: N/A Person calling: caregiver: Chelly Call patient at: [phone] (home) [phone] (cell) Was an appointment scheduled: No Closing statement: Symptom Call: Thank you for calling [facility], your call is very important. A nurse will call in approximately 2-4 hours during business hours. If this is an emergency, please contact 911. Teri Mcintosh RN 09/18/2024 11:55 AM Signed Printed off JOSE MANUEL, echo and EKG and faxed to Chelly at [facility] [phone] Allergies As of Date: 09/18/2024 Noted Allergy Reaction PENICILLINS 10/25/2016 2 - Rash ZOLOFT (SERTRALINE HCL) 05/24/2017 5 - Intolerance Date Reviewed: 09/16/2024 Reviewed by: Ramona Alexander MD - Fully Assessed Reason for Visit: Results [95] Cmt: [facility] requesting last office visit note, echo and EKG report please be faxed to [phone] Any questions, Brown [phone] Prescriptions as of 09/18/2024 - hydroCHLOROthiazide 25 mg tablet Take 1 tablet by mouth once daily. - losartan (COZAAR) 50 mg tablet Take 1 tablet by mouth two times a day. - NIFEdipine ER (PROCARDIA XL) 60 mg 24 hr tablet Take 1 tablet by mouth two times a day. Facility-Administered Medications as of 09/18/2024 - bupivacaine (PF) 0.0625%-fentaNYL (PF) 2 mcg/mL epidural in NaCl 0.9% 250 mL Problem List As Of Date 09/18/2024 Noted Resolved Obesity affecting in third trimester * 08/10/2024 Anxiety [F41.9] Antepartum multigravida of advanced maternal ag*12/01/2023 08/10/2024 PTSD (post-traumatic stress disorder) [F43.10] 12/01/2023 History of depression [Z87.59, Z86.5*12/01/2023 Penicillin allergy [Z88.0] 12/01/2023 Uterine fibroid during , antepartum [O*01/31/2024 04/25/2024 Varicose veins of lower leg [I83.90] 03/04/2024 04/18/2024 Pedal edema [R60.0] 04/18/2024 04/18/2024 Pre-eclampsia, severe, antepartum, third trimes*04/18/2024 Prematurity of fetus [P07.30] 04/18/2024 04/26/2024 care and examination (HCC) [Z39.2] 04/25/2024 08/10/2024 Pre-eclampsia in third trimester [O14.93] 05/01/2024 Exercise counseling [Z71.82] 06/12/2024 delivery [O60.10X0] 06/12/2024 Low weight [P07.10] 06/12/2024 Submucous uterine fibroid [D25.0] 08/10/2024 Encounter Status:Closed by BRANNON OWEN on 09/18/24 [facility] 09-17-2024 [facility] ([facility] -------- HARRISON GUNDERSON ([id number]) 1985 F Date Time Provider Department 09/17/24 RAMONA ALEXANDER OBGYW During your visit today, we recorded the following information about you: Anjum Sumner RN 09/17/2024 3:49 PM Addendum [facility] PAT called because they are unable to get ahold of patient for PAT. They do have her correct phone number that we have listed and are asking for message be sent to patient to call them [facility]. Surgery is scheduled for 09/20/24. Anjum Sumner RN Allergies As of Date: 09/17/2024 Noted Allergy Reaction PENICILLINS 10/25/2016 2 - Rash ZOLOFT (SERTRALINE HCL) 05/24/2017 5 - Intolerance Date Reviewed: 09/16/2024 Reviewed by: Ramona Alexander MD - Fully Assessed Reason for Visit: PAT appointment [Other] Prescriptions as of 09/17/2024 - hydroCHLOROthiazide 25 mg tablet Take 1 tablet by mouth once daily. - losartan (COZAAR) 50 mg tablet Take 1 tablet by mouth two times a day. - NIFEdipine ER (PROCARDIA XL) 60 mg 24 hr tablet Take 1 tablet by mouth two times a day. Facility-Administered Medications as of 09/17/2024 - bupivacaine (PF) 0.0625%-fentaNYL (PF) 2 mcg/mL epidural in NaCl 0.9% 250 mL Problem List As Of Date 09/17/2024 Noted Resolved Obesity affecting in third trimester * 08/10/2024 Anxiety [F41.9] Antepartum multigravida of advanced maternal ag*12/01/2023 08/10/2024 PTSD (post-traumatic stress disorder) [F43.10] 12/01/2023 History of depression [Z87.59, Z86.5*12/01/2023 Penicillin allergy [Z88.0] 12/01/2023 Uterine fibroid during , antepartum [O*01/31/2024 04/25/2024 Varicose veins of lower leg [I83.90] 03/04/2024 04/18/2024 Pedal edema [R60.0] 04/18/2024 04/18/2024 Pre-eclampsia, severe, antepartum, third trimes*04/18/2024 Prematurity of fetus [P07.30] 04/18/2024 04/26/2024 care and examination (HCC) [Z39.2] 04/25/2024 08/10/2024 Pre-eclampsia in third trimester [O14.93] 05/01/2024 Exercise counseling [Z71.82] 06/12/2024 delivery [O60.10X0] 06/12/2024 Low weight [P07.10] 06/12/2024 Submucous uterine fibroid [D25.0] 08/10/2024 Encounter Status:Closed by ANJUM SUMNER on 09/17/24 [facility] CNOVon 09-16-2024 CNOV Office Visit (OBGYWM ) -------- HARRISON GUNDERSON ([id number]) 1985 F Date Time Provider Department 09/16/24 9:30 AM RAMONA ALEXANDER During your visit today, we recorded the following information about you: Pulse Respiration Blood pressure Weight 78/minute 16/minute 110/78 95.8 kg Height 1.626 m Ramona Alexander MD 09/16/2024 11:25 AM Signed DATE OF SERVICE: September 16, 2024 PROBLEM: request sterilization, menorrhagia, dysmenorrhea DIAGNOSIS: as above PAST SURGICAL HISTORY: PAST SURGICAL HISTORY Procedure Laterality Date COLONOSCOPY SCREENING 2020 polyp, 5 year follow up PAST MEDICAL HISTORY: PAST MEDICAL HISTORY Diagnosis Date Anxiety History of gestational hypertension 12/01/2023 History of depression 12/01/2023 Obesity Uterine fibroid 2022 Vaginal bleeding during (HCC) 12/01/2023 SUBJECTIVE: Periods irregular while . Not sexually active at this time as she does not desire SOCIAL HISTORY: Social History Tobacco Use Smoking status: Never Smokeless tobacco: Never Vaping Use Vaping status: Never Used Substance Use Topics Alcohol use: No Drug use: No ALLERGIES Allergen Reactions Penicillins Rash Zoloft [Sertraline * Intolerance Current Outpatient Medications on File Prior to Visit Medication Sig hydroCHLOROthiazide 25 mg tablet Take 1 tablet by mouth once daily. losartan (COZAAR) 50 mg tablet Take 1 tablet by mouth two times a day. NIFEdipine ER (PROCARDIA XL) 60 mg 24 hr tablet Take 1 tablet by mouth two times a day. Current Facility-Administered Medications on File Prior to Visit Medication bupivacaine (PF) 0.0625%-fentaNYL (PF) 2 mcg/mL epidural in NaCl 0.9% 250 mL OBJECTIVE: VITALS: BP 110/78 Pulse 78 Resp 16 Ht 162.6 cm (5' 4) Wt 95.8 kg (211 lb 3.2 oz) LMP 09/02/2023 Yes BMI 36.25 kg/m? HEENT: Normocephalic, atraumatic, Mucus membranes moist without lesions. SKIN: No lesions. CHEST: Clear to auscultation. No wheezes or rales. Good air exchange. HEART: Regular rate and rhythm No S3 or S4. No gallops or rubs. BACK: Nontender. ABDOMEN: Non-distended. LOWER EXTREMITIES: There was no pitting edema. ASSESSMENT: pre op PLAN: 1) Discussed r/b/a hysteroscopy, DANDC, fibroid resection, progesterone IUD insertion, laparoscopic bilateral salpingectomy in detail. The rationale for the proposed surgery was discussed in addition to risks, benefits, and alternatives. General pre- and post-operative care was reviewed. Questions were answered. After discussion, the patient indicated a desire to proceed with the planned surgery. Ramona Alexander DO Medical Decision Making: Problems: Moderate: New problem with uncertain prognosis and 2+ stable chronic illnesses Risk: Moderate: Decision on minor surgery w/ risk factors Medical Decision Making Level: 4 - Moderate Allergies As of Date: 09/16/2024 Noted Allergy Reaction PENICILLINS 10/25/2016 2 - Rash ZOLOFT (SERTRALINE HCL) 05/24/2017 5 - Intolerance Date Reviewed: 09/16/2024 Reviewed by: Ramona Alexander MD - Fully Assessed Reason for Visit: Pre-Op Visit [1235] Primary Visit Diagnosis:Request for sterilization [Z30.2] Other Visit Diagnoses:Visit for pre-operative examination [Z01.818] Excessive bleeding in premenopausal period [N92.4] Dysmenorrhea [N94.6] Submucous leiomyoma of uterus [D25.0] Prescriptions as of 09/16/2024 - hydroCHLOROthiazide 25 mg tablet Take 1 tablet by mouth once daily. - losartan (COZAAR) 50 mg tablet Take 1 tablet by mouth two times a day. - NIFEdipine ER (PROCARDIA XL) 60 mg 24 hr tablet Take 1 tablet by mouth two times a day. Facility-Administered Medications as of 09/16/2024 - bupivacaine (PF) 0.0625%-fentaNYL (PF) 2 mcg/mL epidural in NaCl 0.9% 250 mL Problem List As Of Date 09/16/2024 Noted Resolved Obesity affecting in third trimester * 08/10/2024 Anxiety [F41.9] Antepartum multigravida of advanced maternal ag*12/01/2023 08/10/2024 PTSD (post-traumatic stress disorder) [F43.10] 12/01/2023 History of depression [Z87.59, Z86.5*12/01/2023 Penicillin allergy [Z88.0] 12/01/2023 Uterine fibroid during , antepartum [O*01/31/2024 04/25/2024 Varicose veins of lower leg [I83.90] 03/04/2024 04/18/2024 Pedal edema [R60.0] 04/18/2024 04/18/2024 Pre-eclampsia, severe, antepartum, third trimes*04/18/2024 Prematurity of fetus [P07.30] 04/18/2024 04/26/2024 care and examination (HCC) [Z39.2] 04/25/2024 08/10/2024 Pre-eclampsia in third trimester [O14.93] 05/01/2024 Exercise counseling [Z71.82] 06/12/2024 delivery [O60.10X0] 06/12/2024 Low weight [P07.10] 06/12/2024 Submucous uterine fibroid [D25.0] 08/10/2024 Disposition: Return in about 1 week (around 09/23/2024) for post op SW. Follow-up and Disposition History for Encounter Date Provider Depar (more content not included)... [facility] HISTORY PHYSICALon HISTORY PHYSICAL HNO ID: [id number] Author: RAMONA ALEXANDER MD Service: ? Author Type: Physician Type: H&P Filed: 09/16/2024 11:25 Note Text: DATE OF SERVICE: September 16, 2024 PROBLEM: request sterilization, menorrhagia, dysmenorrhea DIAGNOSIS: as above PAST SURGICAL HISTORY: PAST SURGICAL HISTORY Procedure Laterality Date COLONOSCOPY SCREENING 2020 polyp, 5 year follow up PAST MEDICAL HISTORY: PAST MEDICAL HISTORY Diagnosis Date Anxiety History of gestational hypertension 12/01/2023 History of depression 12/01/2023 Obesity Uterine fibroid 2022 Vaginal bleeding during (HCC) 12/01/2023 SUBJECTIVE: Periods irregular while . Not sexually active at this time as she does not desire SOCIAL HISTORY: Social History Tobacco Use Smoking status: Never Smokeless tobacco: Never Vaping Use Vaping status: Never Used Substance Use Topics Alcohol use: No Drug use: No ALLERGIES Allergen Reactions Penicillins Rash Zoloft [Sertraline * Intolerance Current Outpatient Medications on File Prior to Visit Medication Sig hydroCHLOROthiazide 25 mg tablet Take 1 tablet by mouth once daily. losartan (COZAAR) 50 mg tablet Take 1 tablet by mouth two times a day. NIFEdipine ER (PROCARDIA XL) 60 mg 24 hr tablet Take 1 tablet by mouth two times a day. Current Facility-Administered Medications on File Prior to Visit Medication bupivacaine (PF) 0.0625%-fentaNYL (PF) 2 mcg/mL epidural in NaCl 0.9% 250 mL OBJECTIVE: VITALS: BP 110/78 Pulse 78 Resp 16 Ht 162.6 cm (5' 4) Wt 95.8 kg (211 lb 3.2 oz) LMP 09/02/2023 Yes BMI 36.25 kg/m? HEENT: Normocephalic, atraumatic, Mucus membranes moist without lesions. SKIN: No lesions. CHEST: Clear to auscultation. No wheezes or rales. Good air exchange. HEART: Regular rate and rhythm No S3 or S4. No gallops or rubs. BACK: Nontender. ABDOMEN: Non-distended. LOWER EXTREMITIES: There was no pitting edema. ASSESSMENT: pre op PLAN: 1) Discussed r/b/a hysteroscopy, DANDC, fibroid resection, progesterone IUD insertion, laparoscopic bilateral salpingectomy in detail. The rationale for the proposed surgery was discussed in addition to risks, benefits, and alternatives. General pre- and post-operative care was reviewed. Questions were answered. After discussion, the patient indicated a desire to proceed with the planned surgery. Ramona Alexander, Medical Decision Making: Problems: Moderate: New problem with uncertain prognosis and 2+ stable chronic illnesses Risk: Moderate: Decision on minor surgery w/ risk factors Medical Decision Making Level: 4 - Moderate [facility] US Pelvison 08-10-2024 Indication Dysfunctional uterine bleeding, uterine leiomyoma Impression The uterus is anteverted and measures 96 mm x 51 mm x 62 mm. The myometrium is asymmetrically thickened, heterogeneous, and contains cystic lakes and is suggestive of adenomyosis. The endometrial thickness is 18 mm. There is an anterior submucous fibroid that measures 9 mm x 9 mm x 12 mm. The right ovary measures 25 mm x 16 mm x 15 mm. The left ovary measures 29 mm x 32 mm x 32 mm. There is no free fluid visualized. Technique: Three dimensional imaging was created on a dedicated stand-alone 3D workstation with images created and archived, and supervised and reviewed by the interpreting physician utilizing images from a US Scan performed on 08/07/24. Duplex scan was performed using B-Mode/hoffman scale imaging and Doppler spectral analysis and color flow. Recommendations Consider SIS for further evaluation of endometrial cavity if clinically indicated. Ultrasound findings suggestive for adenomyosis. Clinical correlation is recommended. Menstrual History LMP on 07/19/2024 Method Transabdominal, transvaginal, 3D ultrasound examination, Color Doppler examination. View: Adequate visualization Uterus Uterus: Visualized Uterus position: anteverted Description of uterine malformations: none Myometrium: asymmetrically thickened, heterogeneous, and contains cystic lakes Endometrium: submucosal fibroid noted, three-layer pattern, endometrial-myometrial junction: not defined Cervix details: normal Uterus length 96 mm Uterus width 62 mm Uterus height 51 mm Uterus Vol 159.2 cm Endometrial thickness, total 18.0 mm Fibroids: Fibroids identified Uterine fibroid D1 9 mm Uterine fibroid D2 9 mm Uterine fibroid D3 12 mm Uterine fibroid mean 9.9 mm Uterine fibroid vol 0.498 cm Uterine fibroids findings: anterior Submucous, visualized without fluid enhancement Polyps: No polyps identified Right Ovary Rt ovary: Visualized Rt ovary morphology: premenopausal normal follicular Rt ovary D1 25 mm Rt ovary D2 16 mm Rt ovary D3 15 mm Rt ovary Vol 3.0 cm Rt ovarian cyst(s): No cysts identified Left Ovary Lt ovary: Visualized Lt ovary morphology: premenopausal with dominant follicle Lt ovary D1 29 mm Lt ovary D2 32 mm Lt ovary D3 32 mm Lt ovary Vol 15.4 cm Lt ovarian cyst(s): No cysts identified Lt ovarian follicle(s): Follicles identified Lt ovarian follicle findings: Leading follicle Cul de Sac Visualized. no free fluid visualized Procedure To characterize the submucosal fibroid, three dimensional imaging was created on a dedicated stand-alone 3D workstation with images created and archived, and supervised and reviewed by the interpreting physician utilizing images from an ultrasound scan performed today. Performed By: Viktoriya Martinez RDMS Read By: Alcira Alvarado M.D. MATERNAL MEDICINE [facility] Cherie 08-09-2024 RONY Telephone (OBGYWM) -------- HARRISON GUNDERSON ([id number]) 1985 F Date Time Provider Department 08/09/24 RAMONA ALEXANDER OBGYWMiguel During your visit today, we recorded the following information about you: Kena Mario RN 08/09/2024 11:25 AM Signed Ramona Alexander MD to [facility] Scientist Pool 08/09/24 8:22 AM Result Note Please notify pt her pap test is normal but HPV test is positive. Given prior normal pap smear, and HPV 16 and 18 are negative, the recommendation is for repeat cotesting at 12 months BACTERIAL VAGINOSIS NAAT; TI/TRICHOMONAS NAAT; PAP TEST; HIGH RISK HUMAN PAPILLOMA VIRUS (HPV), PCR FOR DETECTION AND GENOTYPING Kena Mario RN 08/09/2024 11:25 AM Signed Left message for patient to call office. RENATE Romero Jennifer, RN 08/09/2024 11:31 AM Signed Patient notified. Yuliya Villatoro RN Allergies As of Date: 08/09/2024 Noted Allergy Reaction PENICILLINS 10/25/2016 2 - Rash ZOLOFT (SERTRALINE HCL) 05/24/2017 5 - Intolerance Date Reviewed: 08/02/2024 Reviewed by: Lucien An MA - Fully Assessed Reason for Visit: Results [95] Prescriptions as of 08/09/2024 - hydroCHLOROthiazide 25 mg tablet Take 1 tablet by mouth once daily. - losartan (COZAAR) 50 mg tablet Take 1 tablet by mouth two times a day. - NIFEdipine ER (PROCARDIA XL) 60 mg 24 hr tablet Take 1 tablet by mouth two times a day. Facility-Administered Medications as of 08/09/2024 - bupivacaine (PF) 0.0625%-fentaNYL (PF) 2 mcg/mL epidural in NaCl 0.9% 250 mL Problem List As Of Date 08/09/2024 Noted Resolved Obesity affecting in third trimester * Anxiety [F41.9] Antepartum multigravida of advanced maternal ag*12/01/2023 PTSD (post-traumatic stress disorder) [F43.10] 12/01/2023 History of depression [Z87.59, Z86.5*12/01/2023 Penicillin allergy [Z88.0] 12/01/2023 Uterine fibroid during , antepartum [O*01/31/2024 04/25/2024 Varicose veins of lower leg [I83.90] 03/04/2024 04/18/2024 Pedal edema [R60.0] 04/18/2024 04/18/2024 Pre-eclampsia, severe, antepartum, third trimes*04/18/2024 Prematurity of fetus [P07.30] 04/18/2024 04/26/2024 care and examination [Z39.2] 04/25/2024 Pre-eclampsia in third trimester [O14.93] 05/01/2024 Exercise counseling [Z71.82] 06/12/2024 delivery [O60.10X0] 06/12/2024 Low weight [P07.10] 06/12/2024 Encounter Status:Closed by YULIYA VILLATORO on 08/09/24 Normal [facility] US Pelvison 08-08-2024 Radiology Study observation (narrative) [facility] BACTERIAL VAGINOSIS NAATon 0 08-02-2024 Lactobacillus crispatus+gasseri+roya senii + Gardnerella vaginalis + Atopobium vaginae rRNA ROSAMARIA+probe Ql (Vag fld) Not detected Normal Not detected [facility] Comment on above: Order Comment: Speci men Type: SWABOrdering Facility: [facility] Address: [address] [place] [address] Performed By: #### C VTV, BVAMP ####[facility] LABCLIA [id number] [address] [place] [facility] TI/TRICHOMONAS NAATon 0 08-02-2024 C. glabrata RNA ROSAMARIA+probe Ql (Vag fld) Not detected Normal Not detected [facility] Comment on above: Order Comment: Speci men Type: SWABOrdering Facility: [facility] Address: [address] [place] [address] Performed By: #### C VTV, BVAMP ####[facility] LABCLIA [id number] [place] [address] [place] Ti sp DNA ROSAMARIA+probe Ql (Vag fld) Not detected Normal Not detected [facility] Comment on above: Order Comment: Speci men Type: SWABOrdering Facility: [facility] Address: [address] [place] [address] Result Comment: The Ti species group target includes C. albicans, C. tropicalis, C. parapsilosis, and C. dubliniensis. Performed By: #### C VTV, BVAMP ####[facility] LABCLIA [id number] [place] [address] [place] T. vaginalis DNA ROSAMARIA+probe Ql (Unsp spec) Not detected Normal Not detected [facility] Comment on above: Order Comment: Speci men Type: SWABOrdering Facility: [facility] Address: [address] [place] [address] Performed By: #### C VTV, BVAMP ####[facility] LABIA [id number] [place] [address] [place] CBC panel Auto (Bld)on 08-02 Erythrocyte distribution width (RBC) [Ratio] 13.3 % Normal 11.5-15.0 [facility] Comment on above: Order Comment: Speci men Type: BLOOD SPECIMENOrdering Facility: [facility] Address: [address] [place] [address] Performed By: #### 5 [id number] ####[facility] [id number] [place] [address] [place] Hematocrit (Bld) [Volume fraction] 37.4 % Normal 36.0-46.0 [facility] Comment on above: Order Comment: Speci men Type: BLOOD SPECIMENOrdering Facility: [facility] Address: [address] [place] [address] Performed By: #### 5 8410-2 ####[facility] GENEVAWEMILYLIA [id number] [place] [address] [place] Hemoglobin (Bld) [Mass/Vol] 13.5 g/dL Normal 11.5-15.5 [facility] Comment on above: Order Comment: Speci men Type: BLOOD SPECIMENOrdering Facility: [facility] Address: [address] [place] [address] Performed By: #### 5 8410-2 ####[facility] BOULEVARDEMILYLIA [id number] [place] [address] [place] MCH (RBC) [Entitic mass] 28.3 pg Normal 26.0-34.0 [facility] Comment on above: Order Comment: Speci men Type: BLOOD SPECIMENOrdering Facility: [facility] Address: [address] [place] [address] Performed By: #### 5 8410-2 ####[facility] BOULEVARDEMILYLIA [id number] [place] [address] [place] MCHC (RBC) [Mass/Vol] 36.1 g/dL High 30.5-36.0 [facility] Comment on above: Order Comment: Speci men Type: BLOOD SPECIMENOrdering Facility: [facility] Address: [address] [place] [address] Performed By: #### 5 8410-2 ####[facility] BOULEVARDEMILYLIA [id number] [place] [address] [place] MCV (RBC) [Entitic vol] 78.4 fL Low 80.0-100.0 [facility] Comment on above: Order Comment: Speci men Type: BLOOD SPECIMENOrdering Facility: [facility] Address: [address] [place] [address] Performed By: #### 5 8410-2 ####[facility] BOULEVARDEMILYRamin [id number] [place] [address] [place] Nucleated RBC (Bld) [#/Vol] 10*3/uL Normal <0.01 [facility] Comment on above: Order Comment: Speci men Type: BLOOD SPECIMENOrdering Facility: [facility] Address: [address] [place] [address] Performed By: #### 5 8410-2 ####[facility] [id number] [place] [address] [place] Platelet mean volume (Bld) [Entitic vol] 10.0 fL Normal 9.0-12.7 [facility] Comment on above: Order Comment: Speci men Type: BLOOD SPECIMENOrdering Facility: [facility] Address: [address] [place] [address] Performed By: #### 5 8410-2 ####[facility] [id number] [place] [address] [place] Platelets (Bld) [#/Vol] 332 10*3/uL Normal 150-400 [facility] Comment on above: Order Comment: Speci men Type: BLOOD SPECIMENOrdering Facility: [facility] Address: [address] [place] [address] Performed By: #### 5 8410-2 ####[facility] SYSTEM[facility] [id number] [place] [address] [place] RBC (Bld) [#/Vol] 4.77 10*6/uL Normal 3.90-5.20 [facility] Comment on above: Order Comment: Speci men Type: BLOOD SPECIMENOrdering Facility: [facility] Address: [address] [place] [address] Performed By: #### 5 8410-2 ####[facility] [id number] [place] [address] [place] WBC (Bld) [#/Vol] 6.96 10*3/uL Normal 3.70-11.00 [facility] Comment on above: Order Comment: Speci men Type: BLOOD SPECIMENOrdering Facility: [facility] Address: [address] [place] [address] Performed By: #### 5 8410-2 ####[facility] RAYA KASHLANKINNCLIRamin [id number] [place] [address] [place] CNOVon 08-02-2024 CNOV Office Visit (OBGYWM ) -------- HARRISON GUNDERSON ([id number]) 1985 F Date Time Provider Department 08/02/24 10:50 AM RAMONA ALEXANDER OBGYWM During your visit today, we recorded the following information about you: Blood pressure Weight 120/80 95.3 kg Ramona Alexander MD 08/02/2024 1:57 PM Signed Harrison Gunderson is a 39 year old female who presents for problem visit - discuss sterilization. HPI: She had a pelvic US in 2022 that showed a 2.8 cm submucosal fibroid. She is interested in a hysterectomy or sterilization. Daughter is 3 months old and . Bleeding is sporadic without a pattern. Bleeding can last 3-5 days with clots, dysmenorrhea and menorrhagia. Pap smear normal 2016. Had colonoscopy 2020 and she reports there was a polyp and to have 5 year follow up. Reports she was on control pills and a patch in the past and had irregular bleeding. Had migraines using CHC. Right now abstinent. 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 Scientist History Comments: Sexual Activity: Yes; Male Contraception: Condom PAST MEDICAL HISTORY Diagnosis Date Anxiety History of gestational hypertension 12/01/2023 History of depression 12/01/2023 Obesity Uterine fibroid 2022 Vaginal bleeding during (HCC) 12/01/2023 PAST SURGICAL HISTORY Procedure Laterality Date COLONOSCOPY SCREENING 2020 polyp, 5 year follow up FAMILY HISTORY Problem Relation Age of Onset Diabetes Mother Anxiety disorder Mother Hypertension Mother None Father Social History Tobacco Use Smoking status: Never Smokeless tobacco: Never Vaping Use Vaping status: Never Used Substance Use Topics Alcohol use: No Drug use: No Current Outpatient Medications Medication Sig hydroCHLOROthiazide 25 mg tablet Take 1 tablet by mouth once daily. losartan (COZAAR) 50 mg tablet Take 1 tablet by mouth two times a day. NIFEdipine ER (PROCARDIA XL) 60 mg 24 hr tablet Take 1 tablet by mouth two times a day. No current facility-administered medications for this visit. Facility-Administered Medications Ordered in Other Visits Medication Dose Route Frequency bupivacaine (PF) 0.0625%-fentaNYL (PF) 2 mcg/mL epidural in NaCl 0.9% 250 mL EPIDURAL X (ONE-STEP ONLY) CONTINUOUS PRN Allergies As of Date: 08/02/2024 Allergen Noted Reaction PENICILLINS 10/25/2016 Rash ZOLOFT [SERTRALINE HCL] 05/24/2017 Intolerance Fully Assessed 08/02/2024 REVIEW OF SYSTEMS Expanded ROS: N/A Allergies and current medication updated:Yes SENSITIVE EXAM: The sensitive examination was discussed with the Patient or Patient's Authorized Fluorescent Lamp Replacer. As applicable, any other physician, advance practice provider, medical student, or other health professional student that will be observing or involved in the sensitive examination for educational or training purposes was discussed with the Patient or Authorized Fluorescent Lamp Replacer. The Patient or Authorized Fluorescent Lamp Replacer has agreed to proceed with the sensitive examination. (Sensitive examination includes inspection and/or palpation of the breasts, pelvis, prostate and anorectal regions). EXAM: BP 120/80 Wt 210 lb (95.3kg) LMP 09/02/2023 GENERAL: pleasant, female in no apparent distress HEENT: Normocephalic and atraumatic CHEST: Normal inspiratory effort ABDOMEN: soft, non-tender, and no masses PELVIC: external genitalia normal, normal Bartholin's glands, urethra, [place]'s glands, no vulvar lesions, no cervical lesions, good vaginal support, normal appearing perineal body and perianal region, thin yellow discharge present and bleeding after pap test NEURO: exam grossly non-focal EXTREMITIES: normal ASSESSMENT AND PLAN: Assessment AND Plan DUB (dysfunctional uterine bleeding) Orders: PELVIC US WHI; Future Uterine leiomyoma, unspecified location Orders: PELVIC US WHI; Future Pap smear for cervical cancer screening Orders: PAP TEST Screening for HPV (human papillomavirus) Orders: PAP TEST Vaginal discharge Orders: BACTERIAL VAGINOSIS NAAT TI/TRICHOMONAS NAAT Request for sterilization Discussed r/b/a hysterectomy vs laparoscopic bilateral salpingectomy, hysteroscopy, DANDC, fibroid resection and possible progesterone IUD insertion. Patient considering IUD. She has a 3 month old at home so would like to proceed with laparoscopic bilateral salpingectomy, hysteroscopy, DANDC, fibroid resection and possible IUD at this time. Questions answered. Check pap test and BV, yeast. Check pelvic US prior to any surgical intervention. Surgery sheet completed. Ramona Alexander DO Medical Decision Making: Problems: Low: Acute, uncomplicated illness or injury Moderate: 1+ chronic illne (more content not included)... Normal [facility] CRP SerPl HS-mCncon 08-03-19 CRP High sensitivity method [Mass/Vol] 0.6 mg/L Normal <3.1 [facility] Comment on above: Order Comment: Speci men Type: BLOOD SPECIMEN Ordering Facility: [facility] Address: [address] [place] [address] Result Comment: hsCR P < 1.0 mg/L, relative risk is low hsCRP 1.0-3.0 mg/L, relative risk is average hsCRP > 3.0 mg/L, relative risk is high Reference: Beverly TA, Alexander GA, Mina RW, et al. Markers of Inflammation and Cardiovascular Disease. Application to Clinical and Public Health Practice. A Statement for Healthcare Professionals from the Centers for Disease Control and Prevention and the [place] [employer]. Circulation 2003;107:499-511. Performed By: #### A FPMAT #### [facility] CLIA [id number] [address] [place] [address] [place] [address] [place] Comprehensive metabolic 2000 panelon 08-02-2024 Albumin [Mass/Vol] 4.6 g/dL Normal 3.9-4.9 [facility] Comment on above: Order Comment: Speci men Type: BLOOD SPECIMENOrdering Facility: [facility] Address: [address] [place], [place] [address] Performed By: #### 2 4323-8 ####[facility] RAYA MILLTOWNCLIA [id number] [place] [address] [place] ALP [Catalytic activity/Vol] 83 U/L Normal 34-123 [facility] Comment on above: Order Comment: Speci men Type: BLOOD SPECIMENOrdering Facility: [facility] Address: [address] [place] [address] Performed By: #### 2 4323-8 ####[facility] MILLTOWNCLIA [id number] [place] [address] [place] ALT [Catalytic activity/Vol] 15 U/L Normal 7-38 [facility] Comment on above: Order Comment: Speci men Type: BLOOD SPECIMENOrdering Facility: [facility] Address: [address] [place] [address] Performed By: #### 2 4323-8 ####[facility] MILLSUSANWNCLIA [id number] [place] [address] [place] Anion gap [Moles/Vol] 8 mmol/L Normal 8-15 [facility] Comment on above: Order Comment: Speci men Type: BLOOD SPECIMENOrdering Facility: [facility] Address: [address] [place] [address] Performed By: #### 2 4323-8 ####[facility] MILLTOWNCLIA [id number] [place] [address] [place] AST [Catalytic activity/Vol] 18 U/L Normal 13-35 [facility] Comment on above: Order Comment: Speci men Type: BLOOD SPECIMENOrdering Facility: [facility] Address: [address] [place], [place] [address] Performed By: #### 2 4323-8 ####[facility] RAYA MILLTOWNCLIA [id number] [place] [address] [place] Bilirubin [Mass/Vol] 0.5 mg/dL Normal 0.2-1.3 [facility] Comment on above: Order Comment: Speci men Type: BLOOD SPECIMENOrdering Facility: [facility] Address: [address] [place] [address] Performed By: #### 2 4323-8 ####[facility] MILLWNCLIA [id number] [place] [address] [place] Calcium [Mass/Vol] 9.9 mg/dL Normal 8.5-10.2 [facility] Comment on above: Order Comment: Speci men Type: BLOOD SPECIMENOrdering Facility: [facility] Address: [address] [place] [address] Performed By: #### 2 4323-8 ####[facility] SYSTEM[facility] [id number] [place] [address] [place] Chloride [Moles/Vol] 101 mmol/L Normal 98-107 [facility] Comment on above: Order Comment: Speci men Type: BLOOD SPECIMENOrdering Facility: [facility] Address: [address] [place] [address] Performed By: #### 2 4323-8 ####[facility] SYSTEMWNCLIA [id number] [place] [address] [place] CO2 [Moles/Vol] 29 mmol/L Normal 22-30 [facility] Comment on above: Order Comment: Speci men Type: BLOOD SPECIMENOrdering Facility: [facility] Address: [address] [place] [address] Performed By: #### 2 4323-8 ####[facility] BOULEVARDNCLIA [id number] [place] [address] [place] Creatinine [Mass/Vol] 0.59 mg/dL Normal 0.58-0.96 [facility] Comment on above: Order Comment: Rylee rodgers Type: BLOOD SPECIMENOrdering Facility: [facility] Address: [address] [place] [address] Performed By: #### 2 4323-8 ####[facility] [id number] [place] [address] [place] Creatinine and Glomerular filtration rate.predicted panel (S/P/Bld) 118 mL/min/1.73m??? Normal >=60 [facility] Comment on above: Order Comment: Rylee rodgers Type: BLOOD SPECIMENOrdering Facility: [facility] Address: [address] [place] [address] Result Comment: Harshal mated Glomerular Filtration Rate (eGFR) is calculated using the 2020 CKD-EPI creatinine equation. This equation utilizes serum creatinine, sex, and age as parameters. The creatinine assay has traceable calibration to isotope dilution-mass spectrometry. Refer to KDIGO guidelines for clinical interpretation. In patients with unstable renal function, e.g. those with acute kidney injury, the eGFR may not accurately reflect actual GFR. Performed By: #### 2 4323-8 ####[facility] [id number] [place] [address] [place] Glucose [Mass/Vol] 101 mg/dL High 74-99 [facility] Comment on above: Order Comment: Rylee rodgers Type: BLOOD SPECIMENOrdering Facility: [facility] Address: [address] [place] [address] Result Comment: The [place] Diabetes Association (ADA) provides guidance for cutoff values for fasting glucose and random glucose. The ADA defines fasting as no caloric intake for at least 8 hours. Fasting plasma glucose results between 100 to 125 mg/dL indicate increased risk for diabetes (prediabetes). Fasting plasma glucose results greater than or equal to 126 mg/dL meet the criteria for diagnosis of diabetes. In the absence of unequivocal hyperglycemia, results should be confirmed by repeat testing. In a patient with classic symptoms of hyperglycemia or hyperglycemic crisis, random plasma glucose results greater than or equal to 200 mg/dL meet the criteria for diagnosis of diabetes. Reference: Standards of Medical Care in Diabetes 2016, [place] Diabetes Association. Diabetes Care. 2016.39(Suppl 1). Performed By: #### 2 4323-8 ####[facility] RAYA HEWITTKIELLIA [id number] [place] [address] [place] Potassium [Moles/Vol] 4.3 mmol/L Normal 3.7-5.1 [facility] Comment on above: Order Comment: Speci men Type: BLOOD SPECIMENOrdering Facility: [facility] Address: [address] [place] [address] Performed By: #### 2 4323-8 ####[facility] KASHKIELLIRamin [id number] [place] [address] [place] Protein [Mass/Vol] 7.3 g/dL Normal 6.3-8.0 [facility] Comment on above: Order Comment: Speci men Type: BLOOD SPECIMENOrdering Facility: [facility] Address: [address] [place] [address] Performed By: #### 2 4323-8 ####[facility] [id number] [place] [address] [place] Sodium [Moles/Vol] 138 mmol/L Normal 136-144 [facility] Comment on above: Order Comment: Speci men Type: BLOOD SPECIMENOrdering Facility: [facility] Address: [address] [place] [address] Performed By: #### 2 4323-8 ####[facility] KASHKIELLIA [id number] [place] [address] [place] Urea nitrogen [Mass/Vol] 18 mg/dL Normal 7-21 [facility] Comment on above: Order Comment: Speci men Type: BLOOD SPECIMENOrdering Facility: [facility] Address: [address] [place] [address] Performed By: #### 2 4323-8 ####[facility] [id number] [place] [address] [place] HIGH RISK HUMAN PAPILLOMA GHASSAN (HPV), PCR FOR DETECTION AND GENOTYPINGon 08-02-2024 HPV 16 Ag Ql (Unsp spec) Not detected Normal Not detected [facility] Comment on above: Order Comment: Speci men Type: BLOOD SPECIMEN Order[facility] Facility: [facility] Address: [address] [place] [address] Performed By: #### A FPMAT #### [facility] CLIA [id number] [address] [place] [address] [place] HPV 18 Ag Ql (Unsp spec) Not detected Normal Not detected [facility] Comment on above: Order Comment: Speci men Type: BLOOD SPECIMEN Ordering Facility: [facility] Address: [address] [place] [address] Performed By: #### A FPMAT #### [facility] CLIA [id number] [address] [place] [address] [place] HPV 31+33+35+39+45+51+52+ 56+58+59+66+68 DNA ROSAMARIA+probe Ql (Cvx) Detected Abnormal Not detected [facility] Comment on above: Order Comment: Speci men Type: BLOOD SPECIMEN Ordering Facility: [facility] Address: [address] [place] [address] Result Comment: High Risk HPV Other Type includes HPV types 31, 33, 35, 39, 45, 51, 52, 56, 58, 59, 66 and 68. Performed By: #### A FPMAT #### [facility] CLIA [id number] [address] [place] [address] [place] LIPID PANEL, NONFASTINGon Cholesterol [Mass/Vol] 275 mg/dL High <200 [facility] Comment on above: Order Comment: Speci men Type: BLOOD SPECIMEN Ordering Facility: [facility] Address: [address] [place] [address] Result Comment: <200 mg/dL, Desirable 200-239 mg/dL, Borderline high >239 mg/dL, High Performed By: #### A FPMAT #### [facility] CLIA [id number] [address] [place] [address] HDL CHOLESTEROL, NF 47 mg/dL Normal >39 [facility] Comment on above: Order Comment: Rylee rodgers Type: BLOOD SPECIMEN Order[facility] Facility: [facility] Address: [address] [place] [address] Result Comment: 40-5 9 mg/dL, Acceptable >59 mg/dL, High: Negative risk factor for coronary heart disease <40 mg/dL, Low: Positive risk factor for coronary heart disease Performed By: #### A FPMAT #### [facility] CLIA [id number] [address] [place] [address] LDL CHOLESTEROL CALCULATED, NF 168 mg/dL High <100 [facility] Comment on above: Order Comment: Rylee rodgers Type: BLOOD SPECIMEN Order[facility] Facility: [facility] Address: [address] [place] [address] Result Comment: <100 mg/dL, Optimal 100-129 mg/dL, Near optimal/above optimal 130-159 mg/dL, Borderline high 160-189 mg/dL, High >189 mg/dL, Very high Secondary prevention optimal LDL Cholesterol levels are recommended to be <70 mg/dL LDL cholesterol is calculated using the Siu-NIH equation. Performed By: #### A FPMAT #### [facility] CLIA [id number] [address] [place] [address] [facility] LDL/HDL RATIO, NF 3.57 mg/dL High <2.54 [facility] Comment on above: Order Comment: Rylee vishal Type: BLOOD SPECIMEN Ordering Facility: [facility] Address: [address] [place] [address] Result Comment: Refe rence: 1. National Cholesterol Education Program ATP III Guideline At-A-Glance Quick Desk Reference: National Heart, Lung, and Blood [place]. National Institutes of Health. 2001: NIH Publication No. 01-3305. 2. An International Atherosclerosis Society position paper: global recommendations for the management of dyslipidemia: executive summary, Atherosclerosis. 2014: 232(2):410-413. Performed By: #### A FPMAT #### [facility] CLIA [id number] [address] [place] [address] [place] NON HDL CHOL, NF 228 mg/dL High <130 [facility] Comment on above: Order Comment: Rylee rodgers Type: BLOOD SPECIMEN Ordering Facility: [facility] Address: [address] [place] [address] Result Comment: <130 mg/dL, Optimal 130-159 mg/dL, Near optimal/above optimal 160-189 mg/dL, Borderline high 190-219 mg/dL, High >219 mg/dL, Very high Secondary prevention optimal non HDL Cholesterol levels are recommended to be <100 mg/dL Performed By: #### A FPMAT #### [facility] CLIA [id number] [address] [place] [address] [facility] T CHOL/HDL RATIO NF 5.85 mg/dL High <5.10 [facility] Comment on above: Order Comment: Rylee rodgers Type: BLOOD SPECIMEN Ordering Facility: [facility] Address: [address] [place] [address] Performed By: #### A FPMAT #### [facility] CLIA [id number] [address] [place] [address] [place] TRIGLYCERIDES, NF 317 mg/dL High <150 [facility] Comment on above: Order Comment: Rylee rodgers Type: BLOOD SPECIMEN Ordering Facility: [facility] Address: [address] [place] [address] Result Comment: <150 mg/dL, Normal 150-199 mg/dL, Borderline high 200-499 mg/dL, High >499 mg/dL, Very high Performed By: #### A FPMAT #### [facility] CLIA [id number] [address] [place] [address] [place] VLDL CHOLESTEROL, NF 63 mg/dL High <30 [facility] Comment on above: Order Comment: Speci men Type: BLOOD SPECIMEN Ordering Facility: [facility] Address: [address] [place] [address] Performed By: #### A FPMAT #### [facility] CLIA [id number] [address] [place] [address] [place] NT-proBNP SerPl-mCncon 08-02 Natriuretic peptide.B prohormone N-Terminal [Mass/Vol] <36 Normal <125 [facility] Comment on above: Order Comment: Speci men Type: BLOOD SPECIMEN Ordering Facility: [facility] Address: [address] [place] [address] Performed By: #### A FPMAT #### [facility] CLIA [id number] [address] [place] [address] [place] PAP TESTon 08-02-2024 ADEQUACY Normal [facility] Comment on above: Order Comment: Speci men Type: FLUID SPECIMENOrdering Facility: [facility] Address: [address] [place] [address] Result Comment: Sati sfactory for interpretation. Transformation zone present Performed By: #### L [id number] ####[facility] LABCLIA [id number] [address] [place] CASE REPORT Normal [facility] Comment on above: Order Comment: Speci men Type: FLUID SPECIMENOrdering Facility: [facility] Address: [address] [place] [address] Result Comment: Gyne cologic Cytology Report Case: [id number] Authorizing Provider: Ramona Alexander MD Collected: 08/02/2024 11:31 AM Ordering Location: OB/Gynecology Received: 08/02/2024 11:56 AM First Screen: Brenda Prince, CT, ASCP Pathologist: Giorgi Renteria MD Specimen: Pap Test, ThinPrep, Cervix Performed By: #### L [id number] ####[facility] LABCLIA [id number] [address] [place] [address] [place] CLINICAL HISTORY, CYTOLOGY, MIRROR INSPECTOR Routine Exam Normal [facility] Comment on above: Order Comment: Speci men Type: FLUID SPECIMENOrdering Facility: [facility] Address: [address] [place], [place] [address] Performed By: #### L [id number] ####[facility] LABCLIA [id number] [address] [place] [address] [place] FINAL PERFORMING LAB [facility] Comment on above: Order Comment: Speci men Type: FLUID SPECIMENOrdering Facility: [facility] Address: [address] [place] [address] Result Comment: Tech nical component, excel vba developer screening performed at: [facility], [address] [place], [place] [id number] CLIA: [id number] Diagnostic interpretation performed at: [facility], [address] [place] [address] [place] [address] CLIA# [id number] Plate Grinder: Boone Delgado MD Performed By: #### L [id number] ####[facility] LABCLIA [id number] [address] [place] [address] [place] INTERPRETATION, CYTOLOGY, MIRROR INSPECTOR [facility] Comment on above: Order Comment: Speci men Type: FLUID SPECIMENOrdering Facility: [facility] Address: [address] [place] [address] Result Comment: Nega tive for intraepithelial lesion or malignancy. at 1238 EDT Performed By: #### L [id number] ####[facility] LABCLIA [id number] [address] [place] [address] [place] LMP 08/02/2024 [facility] Comment on above: Order Comment: Speci men Type: FLUID SPECIMENOrdering Facility: [facility] Address: [address] [place] [address] Result Comment: Comm ent: unknown - Performed By: #### L [id number] ####[facility] LABCLIA [id number] [place] [address] [place] PAP DISCLAIMER COMMENT The Pap Smear is a screening test for cervical cancer. False negative results occur with all screening tests, emphasizing the need for rescreening at recommended intervals, and clinical correlation. [facility] Comment on above: Order Comment: Speci men Type: FLUID SPECIMENOrdering Facility: [facility] Address: [address] [place] [address] Performed By: #### L [id number] ####[facility] LABCLIA [id number] [place] [address] [place] PAP CUT OFF SAW OPERATOR PIPE BLANKS COMMENT This specimen has be en analyzed by the ThinPrep Imaging System, an automated imaging and review system, which assists the laboratory in evaluating cells on ThinPrep Pap tests. Following automated imaging, selected elaine from every slide are reviewed by a excel vba developer. [facility] Comment on above: Order Comment: Speci men Type: FLUID SPECIMENOrdering Facility: [facility] Address: [address] [place] [address] Performed By: #### L [id number] ####[facility] LABCLIA [id number] [place] [address] [place] T4 Free SerPl-mCncon 025 Free T4 [Mass/Vol] 1.1 ng/dL Normal 0.9-1.7 [facility] Comment on above: Order Comment: Speci men Type: BLOOD SPECIMEN [facility] Address: [address] [place] [address] Performed By: #### A FPMAT #### [facility] CLIA [id number] [address] [place], [place] [address] [place] [address] [place] TSH SerPl-aCncon 08-02-2024 TSH Qn 1.880 m[IU]/L Normal 0.270-4.200 [facility] Comment on above: Order Comment: Speci men Type: BLOOD SPECIMEN [facility] Address: [address] [place] [address] Result Comment: If t he patient is , TSH reference range varies by gestational period: First Trimester (weeks 9-12): 0.180-2.990 mIU/L Second Trimester: 0.110-3.980 mIU/L Third Trimester: 0.480-4.710 mIU/L Mirza Villegas et al. A Practical Approach for the Verifications and Determination of Site- and Trimester-Specific Reference Intervals for Thyroid Function tests in . Thyroid, 2019:29:3:412-420. Mina Toney et al. 2017 Guidelines of the [place] Thy[employer] for the Diagnosis and Management of Thyroid Disease during and the . Thyroid, 2017:27:3:315-389. Performed By: #### A FPMAT #### [facility] CLIA [id number] [address] [place] [address] [place] ANES POSTPROC EVALon 025 ANES POSTPROC EVAL HNO ID: [id number] Author: GORDY GARCIA APRN.CRNA Service: Anesthesiology Author Type: Nurse Toby Maker Type: Anesthesia Postprocedure Evaluation Filed: 08/01/2024 08:46 Note Text: POST ANESTHESIA EVALUATION NOTE : 1985 Procedure Summary Date: 04/23/24 Room / Location: Anesthesia Start: Anesthesia Stop: Procedure: LABOR ANALGESIA Diagnosis: Scheduled Providers: Responsible Provider: Gordy Garcia APRN.REPAIRER PUMP Anesthesia Type: epidural ASA Status: 3 Anesthesia Type: No value filed. Last Vitals Vitals Value Taken Time BP 110/60 08/01/24 0843 Temp 36.7 08/01/24 0843 Pulse 69 08/01/24 0843 Resp 16 08/01/24 0843 SpO2 98 08/01/24 0843 Janusz Morejon [[id number]] Baby Delivery: 04/24/2024 1124 Post Anesthesia Patient Status Patient Evaluation: bedside. Anticipated Disposition: inpatient floor planned admission. Neurological Status: aware and responsive. Pulmonary Status: breathing comfortably on room air Airway Control: returned to baseline unsupported. Cardiovascular Status: stable. Pain Management: clinically adequate Postoperative Hydration: acceptable. Intraoperative Events: no significant anesthesia events Post Operative Nausea/Vomiting Status: no significant post operative nausea or vomiting Recommendation: continue current plan of care. Anesthesia Observations No Documentation SIGNATURE: Gordy Garcia APRN.CRNA PATIENT NAME: Harrison Gunderson DATE: August 01, 2024 TIME: 8:43 AM CSN: [id number] [facility] 07-18-2024 CNPN Telephone (CARDBD) -------- HARRISON GUNDERSON ([id number]) 1985 F Date Time Provider Department 07/18/24 RODO NOLAN CARDJESSICA During your visit today, we recorded the following information about you: Rodo Nolan MD 07/18/2024 4:10 PM Signed Request from Dr. 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 Hysterectomy She was last seen by me on 06/12/2024 for preeclampsia, AMA, /LBW delivery in the heart clinic. In the interim we have titrated her medication as OPD for better control. Echo showed normal structure and function. She cannot tolerate hormonal control and is planning sterilization procedure. Impression CONCLUSIONS: - Exam indication: Hypertension - The left ventricle is normal in size. Left ventricular systolic function is normal. EF = 61 ? 5% (2D 4-ch.) Normal left ventricular diastolic function. - The right ventricle is normal in size. Right ventricular systolic function is normal. - The patient has not had a prior CC echocardiographic exam for comparison. I have reviewed her most recent home blood pressure log. Blood pressure remains borderline elevated and we will add hydrochlorothiazide 25 mg daily. She is at acceptable cardiovascular risk to proceed with intermediate risk gynecological surgery as indicated. This was communiciated to Dr. Alexander via secure chat Rodo Nolan MD Time spent: 7 minutes MD Catherine Carreno Sara, MD 07/19/2024 8:20 AM Signed Patient marked as no show for visit 05/30/24 for BP check and to discuss tubal sterilization. Please check with patient to see if she would still like to proceed with sterilization Portia Sadler RN 07/19/2024 9:05 AM Signed Left message to call office. Portia Sadler RN Allergies As of Date: 07/18/2024 Noted Allergy Reaction PENICILLINS 10/25/2016 2 - Rash ZOLOFT (SERTRALINE HCL) 05/24/2017 5 - Intolerance Date Reviewed: 06/12/2024 Reviewed by: Erika Rabago MA - Fully Assessed Reason for Visit: Cardiac Clearance [4105] Primary Visit Diagnosis:Pre-operative cardiovascular examination [Z01.810] Other Visit Diagnosis:Essential hypertension [I10] Order(s):hydroCHLOROthia zide 25 mg tabletTake 1 tablet by mouth once daily.Disp: 90 tabletRfl: 3 BASIC METABOLIC PANEL [SQBMP] Order #: [id number] FUTURE losartan (COZAAR) 50 mg tabletTake 1 tablet by mouth two times a day.Disp: Rfl: Prescriptions as of 07/19/2024 - hydroCHLOROthiazide 25 mg tablet Take 1 tablet by mouth once daily. - losartan (COZAAR) 50 mg tablet Take 1 tablet by mouth two times a day. - NIFEdipine ER (PROCARDIA XL) 60 mg 24 hr tablet Take 1 tablet by mouth two times a day. Facility-Administered Medications as of 07/19/2024 - bupivacaine (PF) 0.0625%-fentaNYL (PF) 2 mcg/mL epidural in NaCl 0.9% 250 mL Problem List As Of Date 07/18/2024 Noted Resolved Obesity affecting in third trimester * Anxiety [F41.9] Antepartum multigravida of advanced maternal ag*12/01/2023 PTSD (post-traumatic stress disorder) [F43.10] 12/01/2023 History of depression [Z87.59, Z86.5*12/01/2023 Penicillin allergy [Z88.0] 12/01/2023 Uterine fibroid during , antepartum [O*01/31/2024 04/25/2024 Varicose veins of lower leg [I83.90] 03/04/2024 04/18/2024 Pedal edema [R60.0] 04/18/2024 04/18/2024 Pre-eclampsia, severe, antepartum, third trimes*04/18/2024 Prematurity of fetus [P07.30] 04/18/2024 04/26/2024 care and examination [Z39.2] 04/25/2024 Pre-eclampsia in third trimester [O14.93] 05/01/2024 Exercise counseling [Z71.82] 06/12/2024 delivery [O60.10X0] 06/12/2024 Low weight [P07.10] 06/12/2024 Prescriptions ordered this encounter Disp Refills Start End HYDROCHLOROTHIAZIDE 25 MG TABLET 90 t* 3 07/18/2024 Route: ORAL Sig: Take 1 tablet by mouth once daily. LOSARTAN 50 MG TABLET 07/18/2024 Class: Med Update Route: ORAL Sig: Take 1 tablet by mouth two times a day. Medications Discontinued During This Encounter Prescriptions - losartan (COZAAR) 25 mg tablet (Discontinued) Take 3 tablets by mouth once daily. Encounter Status:Closed by RODO NOLAN on 07/18/24 [facility] ECHOon 07-10-2024 Echocardiography Echocardiography Rep ort: Transthoracic Echo [facility] Office Date of service: 07/10/2024 7:55:14 AM ASSISTANT Ordering physician: RODO NOLAN Indication: Hypertension Technologist: Shanae Bradford [facility] Interpreting physician: Leanne Lizarraga MD PATIENT: Name: HARRISON GUNDERSON : 1985 Age: 39 years Gender: F Primary rhythm: sinus. Height: 165.10 cm BSA: 2.09 m Weight: 94.80 kg BMI: 34.8 kg/m Heart rate 71 bpm Blood pressure 117/75 mmHg Color Doppler was utilized to interrogate the cardiac valves assessed and spectral Doppler was utilized to determine the flow velocities and pressure gradients reported in this exam. Myocardial strain analysis was performed in this exam to aid in the assessment of cardiac function. MEASUREMENTS: Value Indexed Normal Max aortic dimension 2.9 cm Ao < 3.8 Left atrial volume 42 ml (Farfan's) 21 ml/m Genoveva <= 34 LV ID (diastole) 4.6 cm (2D) 2.19 cm/m LV ID (systole) 2.6 cm (2D) 1.24 cm/m IVS, leaflet tips 1.0 cm (2D) Posterior wall thickness 1.0 cm (2D) Left ventricular mass 156 g (2D) 75 g/m Global peak long strain -23.6 % LV stroke volume 66 ml (2D 4-ch.) LV end diastolic volume 108 ml (2D 4-ch.) 51.9 ml/m 29<=EDVi<62 LV end systolic volume 42 ml (2D 4-ch.) 20.1 ml/m Ejection Fraction 61 % (2D 4-ch.) EF > 54 FINDINGS: LEFT VENTRICLE The left ventricle is normal in size. Left ventricular systolic function is normal. Global LV myocardial strain is normal. Normal left ventricular diastolic function. Mitral annular lateral E/e': 10.7. Mitral annular septal E/e': 12.2. Wall Motion: All scored segments are normal. RIGHT VENTRICLE The right ventricle is normal in size. Right ventricular systolic function is normal. RV systolic tissue Doppler velocity is 12.2 cm/s. Tricuspid annular displacement is 2.2 cm. Estimated right ventricular systolic pressure is 23 mmHg consistent with normal pulmonary artery pressures. Estimated right atrial pressure is 8 mmHg based on IVC assessment. LEFT ATRIUM The left atrial cavity is normal in size. RIGHT ATRIUM The right atrial cavity is normal in size. Inferior Vena Cava: The inferior vena cava appears normal measuring 1.6 cm. The vessel decreases less than 50 percent with inspiration. MITRAL VALVE The mitral valve leaflets are structurally normal. There is trace mitral valve regurgitation. There is mild thickening. The pressure half time is 70 msec. The peak mitral E/A ratio is 1.10. The average mitral E/e' ratio is 11.4. The mitral flow deceleration time is 243 msec. TRICUSPID VALVE The tricuspid valve leaflets are structurally normal. There is trace (trace - 1+) tricuspid valve regurgitation. AORTIC VALVE The aortic valve morphology was not well seen. There is trace aortic valve regurgitation. PULMONIC VALVE The pulmonic valve cusps are structurally normal. There is trace pulmonic valve regurgitation. AORTA The visualized aorta is normal in size. Measurements - Mid ascending aorta 2.9 cm. PERICARDIUM There is a trivial pericardial effusion adjacent to the right ventricle. There is an epicardial fat pad. CONCLUSIONS: - Exam indication: Hypertension - The left ventricle is normal in size. Left ventricular systolic function is normal. EF = 61 5% (2D 4-ch.) Normal left ventricular diastolic function. - The right ventricle is normal in size. Right ventricular systolic function is normal. - The patient has not had a prior CC echocardiographic exam for comparison. * * * Final * * * CC [employer] [facility] Image : [id number] ID [facility] CNOVon 06-12-2024 CNOV Office Visit (CARDBD ) -------- HARRISON GUNDERSON ([id number]) 1985 F Date Time Provider Department 06/12/24 1:00 PM RODO NOLAN During your visit today, we recorded the following information about you: Pulse Blood pressure Weight Height 66/minute 124/86 94.8 kg 1.651 m Rodo Nolan MD 06/12/2024 2:37 PM Signed [facility] [place] Department of Cardiology [address] [place] [address] (office) [phone] (fax) 06/12/2024 This note was written using medical terminology and is intended to be used for medical purposes by other health adult care manager Patient presents with: Care HPI: Ms. Gunderson is a 39 year old female with below PMH who is referred for a Heart visit for severe preeclampsia, AMA, /LBW delivery. She presented at 32 +6 for preeclampsia with severe features. The decision was made to induce at 33+5. She was discharged with labetalol 200 mg every 8 hours and nifedipine 60 mg twice daily. She then presented back to the hospital after an increase in nifedipine and the addition of hydralazine did not control her blood pressures. Her blood pressure normalized with nifedipine 60 mg twice daily and losartan 75 mg daily. She is still taking both medications. At home her blood pressures have been ranging from 140/80-90 to 115/90. She has also had some normal range blood pressures. She has had some chest tightness and upper back tightness with activity along with some shortness of breath. The swelling in her feet and and ankles has resolved. She has had headaches with increases in activity which will become migraines if she does not stop her activity. This is new since her delivery. This was her 5th . She had preeclampsia with her first and was induced but did not require medications. The subsequent 3 were uneventful. She lives at home with her 5 kids and her boyfriend. She plans on having a hysterectomy for fibroids. She is not currently sexually active because she is not able to use control due to increased bleeding. If she were to decide to be sexually active she would use condoms. 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 She feels safe at home. Her mood is stable. Her mom has type 2 diabetes otherwise her family history is unremarkable for cardiac concerns. Home Bps 120-150/60-80's. Weight 206lbs pre-baby. Delivery Date: 04/24/2024 Weeks at Delivery: 33+5 Mode of Delivery: Vaginal ?: Yes On aspirin for PEC prevention during ?: Yes, aspirin 81 mg daily Discharged on blood pressure meds?: Yes Discharged on diabetes meds?: No Cardiology: The review of symptoms was negative for shortness of breath, orthopnea, paroxysmal nocturnal dyspnea, palpitation, edema General ROS: Otherwise 14 systems ROS is negative except as stated above. PAST MEDICAL HISTORY Diagnosis Date Anxiety History of gestational hypertension 12/01/2023 History of depression 12/01/2023 Obesity Uterine fibroid 2022 Vaginal bleeding during 12/01/2023 PAST SURGICAL HISTORY Procedure Laterality Date COLONOSCOPY SCREENING 2019 Current Outpatient Medications: losartan (COZAAR) 25 mg tablet, Take 3 tablets by mouth once daily., Disp: 60 tablet, Rfl: 1 NIFEdipine ER (PROCARDIA XL) 60 mg 24 hr tablet, Take 1 tablet by mouth two times a day., Disp: 180 tablet, Rfl: 1 No current facility-administered medications for this visit. Facility-Administered Medications Ordered in Other Visits: bupivacaine (PF) 0.0625%-fentaNYL (PF) 2 mcg/mL epidural in NaCl 0.9% 250 mL, , EPIDURAL, X (ONE-STEP ONLY) CONTINUOUS PRN, Negin, Shantel, CIRCULATION MAN.REPAIRER PUMP ALLERGIES Allergen Reactions Penicillins Rash Zoloft [Sertraline * Intolerance AVAILABLE LABS, EKGS, CARDIAC TESTING/PROCEDURES, FAMILY HISTORY AND SOCIAL HISTORY WERE REVIEWED AND UPDATED IN [facility]. ECG 06/12/2024 Normal Sinus Rhythm Normal ECG No previous cardiac testing available LABORATORY TESTS: CBC: WBC HGB PLT 8.25 11.8 292 CHEMISTRY: NA K CA CHLOR CO2 GLUC BUN CREAT 138 4.6 9.5 102 23 88 16 0.66 HEPATIC: ALT AST 9 22 METABOLIC: CHOL LDL HDL TG TSH HBA1C No results found for this basename: CHOL:1 No results found for this basename: LDL:1 No results found for this basename: HDL:1 No results found for this basename: T 1.530 4.8 COAG: APTT INR No results found for this basename: APTT:1 No results found for this basename: INR:1 PHYSICAL EXAM: BP 124/86 Pulse 66 Ht 165.1 cm (5' 5) Wt 94.8 kg (209 lb) LMP 09/02/2023 Yes BMI 34.78 kg/m? PHQ= 2 , Med Diet Score= 9 General: Well appearing, in no acute distress, speaking in complete sentences. Skin: No clubbing, no cyanosis. Eyes: Extra ocular movements int (more content not included)... [facility] ECG COMPLETEon 06-12-2024 Atrial Rate 66 BPM [facility] Calculated P [place] [facility] Calculated R [place] 43 degrees [facility] Calculated T Victoria 35 degrees [facility] P-R Interval [address] [facility] QRS Duration 98 ms [facility] QT Interval [address] [facility] QTC Calculation (Bazett) [address] [facility] Ventricular Rate 66 BPM [facility] NORMAL SINUS RHYTHM NORMAL ECG Confirmed by RODO NOLAN MD ([id number]), editor producer ERIKA RABAGO ([id number]) on 06/12/2024 3:24:22 PM [facility] NAME : HARRISON GUNDERSON PID : [id number] : 1985 Gender : Female Race : ORD : [id number] Procedure Date : Jun 12 2024 12:55:04 Edit Date : Jun 12 2024 15:24:24 Diagnosis: NORMAL SINUS RHYTHM NORMAL ECG Confirmed by RODO NOLAN MD ([id number]), editor producer ERIKA RABAGO ([id number]) on 06/12/2024 3:24:22 PM Test Reason : O14.93 Pre-eclampsia in third trimester Location : 503 : [facility] Overread By : RODO NOLAN MD Edited By : ERIKA RABAGO Referred By : FABBY PEDROZA Acquired by : [facility] ECG COMPLETE Ventricular Rate : 6 6 BPM Atrial Rate : 66 BPM P-R Interval : 126 ms QRS Duration : 98 ms Q-T Interval : 408 ms QTC Calculation(Bazett) : 427 ms Calculated P Victoria : 13 degrees Calculated R Victoria : 43 degrees Calculated T Victoria : 35 degrees NORMAL SINUS RHYTHM NORMAL ECG Confirmed by RODO NOLAN MD ([id number]), editor producer ERIKA RABAGO ([id number]) on 06/12/2024 3:24:22 PM NAME : HARRISON GUNDERSON PID : [id number] : 1985 Gender : Female Race : ORD : [id number] Procedure Date : Jun 12 2024 12:55:04 Edit Date : Jun 12 2024 15:24:24 Diagnosis: NORMAL SINUS RHYTHM NORMAL ECG Confirmed by RODO NOLAN MD ([id number]), editor producer ERIKA RABAGO ([id number]) on 06/12/2024 3:24:22 PM Test Reason : O14.93 Pre-eclampsia in third trimester Location : 503 : [facility] Overread By : RODO NOLAN MD Edited By : ERIKA RABAGO Referred By : FABBY PEDROZA [facility] HNO ID: [id number] Author: SUMIT ALLEN MD Service: Obstetrics Author Type: Resident Type: Discharge Summary Filed: 05/03/2024 12:22 Note Text: -------- Attestation signed by Sumit Allen MD at 05/03/2024 12:22 PM I reviewed the progress note and agree with the resident?s findings and plans as written. Case discussed with resident. Sumit Allen MD Maternal Medicine -------- DISCHARGE NOTE (Patient Admitted Less than 48 Hours) SERVICE DATE: 05/03/2024 SERVICE TIME: 7:23 AM ADMISSION DATE: 05/01/2024 DISCHARGE DISPOSITION: Home with Self Care Patient is a 39-year-old now readmitted on PPD#5 for severe pre-eclampsia based on BP criteria. She is status post magnesium from her prior admission, she did not require acute treatment during this admission. Blood pressures were initially mild range to high mild range on admission. Patient's current regimen is Procardia 60 mg XL twice daily and losartan 75 mg daily. She has had normal range blood pressures overnight with this new regimen and has remained asymptomatic. Patient is asymptomatic other than mild headache yesterday resolving with tylenol. DIET: Regular ACTIVITY AFTER DISCHARGE: Resume pre-hospital activity FOLLOW UP CARE REQUIRED: Follow up with primary OBGYN as scheduled for blood pressure check DISCHARGE MEDICATIONS: Medication List START taking these medications losartan 25 mg tablet Commonly known as: COZAAR Take 3 tablets by mouth once daily. CHANGE how you take these medications NIFEdipine ER 60 mg 24 hr tablet Commonly known as: PROCARDIA XL Take 1 tablet by mouth two times a day. What changed: Another medication with the same name was removed. Continue taking this medication, and follow the directions you see here. CONTINUE taking these medications acetaminophen 500 mg tablet Commonly known as: TYLENOL Take 2 tablets by mouth every 6 hours as needed for pain. docusate sodium 100 mg capsule Commonly known as: COLACE Take 1 capsule by mouth two times a day as needed for constipation. famotidine 40 mg tablet Commonly known as: PEPCID fluticasone 50 mcg/actuation nasal spray Commonly known as: FLONASE Use 2 Sprays in each nostril once daily. Rinse mouth after use. ibuprofen 600 mg tablet Commonly known as: MOTRIN Take 1 tablet by mouth every 6 hours as needed for pain. STOP taking these medications hydrALAZINE 10 mg tablet Commonly known as: APRESOLINE VITAMIN WITH MINERALS ORAL Where to Get Your Medications These medications were sent to [facility] [address] [place] [id number] [place] [address] losartan 25 mg tablet FINAL DIAGNOSIS: complicated by preeclampsia with severe features in the period Plan of care discussed with Provider, RN, Patient SIGNATURE: Kaykay Muñoz DO PATIENT NAME: Harrison Gunderson DATE: May 03, 2024 TIME: 7:19 AM Normal [facility] CBC panel Auto (Bld)on 05-02 Erythrocyte distribution width (RBC) [Ratio] 16.3 % High 11.5-15.0 [facility] Comment on above: Order Comment: Specrachael rodgers Type: BLOOD SPECIMENOrdering Facility: [facility] Address: [address] [place] [address] Performed By: #### 5 8410-2 ####[facility] LABORATORYCLIA [id number] [place] [address] [place] Hematocrit (Bld) [Volume fraction] 37.7 % Normal 36.0-46.0 [facility] Comment on above: Order Comment: Rylee rodgers Type: BLOOD SPECIMENOrdering Facility: [facility] Address: [address] [place] [address] Performed By: #### 5 8410-2 ####[facility] LABORATORYCLIA [id number] [place] [address] Hemoglobin (Bld) [Mass/Vol] 11.8 g/dL Normal 11.5-15.5 [facility] Comment on above: Order Comment: Speci men Type: BLOOD SPECIMENOrdering Facility: [facility] Address: [address] [place] [address] Performed By: #### 5 8410-2 ####[facility] LABORATORYCLIA [id number] [address] STATES [place] [facility] MCH (RBC) [Entitic mass] 24.7 pg Low 26.0-34.0 [facility] Comment on above: Order Comment: Speci men Type: BLOOD SPECIMENOrdering Facility: [facility] Address: [address] [place] [address] Performed By: #### 5 8410-2 ####[facility] LABORATORYCLIA [id number] [address] STATES [facility] MCHC (RBC) [Mass/Vol] 31.3 g/dL Normal 30.5-36.0 [facility] Comment on above: Order Comment: Speci men Type: BLOOD SPECIMENOrdering Facility: [facility] Address: [address] [place] [address] Performed By: #### 5 8410-2 ####[facility]ORATORYCLIA [id number] [address] OF [facility] MCV (RBC) [Entitic vol] 78.9 fL Low 80.0-100.0 [facility] Comment on above: Order Comment: Speci men Type: BLOOD SPECIMENOrdering Facility: [facility] Address: [address] [place] [address] Performed By: #### 5 8410-2 ####[facility] LABORATORYCLIA [id number] [address] Nucleated RBC (Bld) [#/Vol] 10*3/uL Normal <0.01 [facility] Comment on above: Order Comment: Speci men Type: BLOOD SPECIMENOrdering Facility: [facility] Address: [address] [place] [address] Performed By: #### 5 8410-2 ####[facility]ORATORYCLIA [id number] [address] Platelet mean volume (Bld) [Entitic vol] 10.4 fL Normal 9.0-12.7 [facility] Comment on above: Order Comment: Speci men Type: BLOOD SPECIMENOrdering Facility: [facility] Address: [address] [place] [address] Performed By: #### 5 8410-2 ####[facility]ORATORYCLIA [id number] [address] [place] Platelets (Bld) [#/Vol] 292 10*3/uL Normal 150-400 [facility] Comment on above: Order Comment: Speci men Type: BLOOD SPECIMENOrdering Facility: [facility] Address: [address] [place] [address] Performed By: #### 5 8410-2 ####[facility]ORATORYCLIA [id number] [address] STATES [facility] RBC (Bld) [#/Vol] 4.78 10*6/uL Normal 3.90-5.20 [facility] Comment on above: Order Comment: Speci men Type: BLOOD SPECIMENOrdering Facility: [facility] Address: [address] [place] [address] Performed By: #### 5 8410-2 ####[facility]ORATORYCLIA [id number] [place] [address] [place] WBC (Bld) [#/Vol] 8.25 10*3/uL Normal 3.70-11.00 [facility] Comment on above: Order Comment: Speci men Type: BLOOD SPECIMENOrdering Facility: [facility] Address: [address] [place] [address] Performed By: #### 5 8410-2 ####[facility]ORATORYCLIA [id number] [address] [place] Comprehensive metabolic 2000 panelon 05-02-2024 Albumin [Mass/Vol] 3.8 g/dL Low 3.9-4.9 [facility] Comment on above: Order Comment: Speci men Type: BLOOD SPECIMENOrdering Facility: [facility] Address: [address] [place] [address] Performed By: #### 2 4323-8 ####[facility]ORATORYCLIA [id number] [address] [place] ALP [Catalytic activity/Vol] 102 U/L Normal 34-123 [facility] Comment on above: Order Comment: Speci men Type: BLOOD SPECIMENOrdering Facility: [facility] Address: [address] [place] [address] Performed By: #### 2 4323-8 ####[facility]ORATORYCLIA [id number] [address] STATES [facility] ALT With P-5'-P [Catalytic activity/Vol] Normal [facility] Comment on above: Order Comment: Speci men Type: BLOOD SPECIMENOrdering Facility: [facility] Address: [address] [place] [address] Result Comment: Unab le to assay due to interference from hemolysis. Suggest reorder as clinically indicated. Performed By: #### 2 4323-8 ####[facility]ORATORYCLIA [id number] [address] Anion gap [Moles/Vol] 13 mmol/L Normal 8-15 [facility] Comment on above: Order Comment: Speci men Type: BLOOD SPECIMENOrdering Facility: [facility] Address: [address] [place] [address] Performed By: #### 2 4323-8 ####[facility]ORATORYCLIA [id number] [address] [place] AST With P-5'-P [Catalytic activity/Vol] Normal [facility] Comment on above: Order Comment: Speci men Type: BLOOD SPECIMENOrdering Facility: [facility] Address: [address] [place] [address] Result Comment: Unab le to assay due to interference from hemolysis. Suggest reorder as clinically indicated. Performed By: #### 2 4323-8 ####[facility]ATORYCLIA [id number] [address] [place] Bilirubin [Mass/Vol] 0.2 mg/dL Normal 0.2-1.3 [facility] Comment on above: Order Comment: Speci men Type: BLOOD SPECIMENOrdering Facility: [facility] Address: [address] [place] [address] Performed By: #### 2 4323-8 ####[facility]ORATORYCLIA [id number] [place] [address] [place] Calcium [Mass/Vol] 9.5 mg/dL Normal 8.5-10.2 [facility] Comment on above: Order Comment: Speci men Type: BLOOD SPECIMENOrdering Facility: [facility] Address: [address] [place] [address] Performed By: #### 2 4323-8 ####[facility]ORATORYCLIA [id number] [place] [address] [place] Chloride [Moles/Vol] 102 mmol/L Normal 98-107 [facility] Comment on above: Order Comment: Speci men Type: BLOOD SPECIMENOrdering Facility: [facility] Address: [address] [place] [address] Performed By: #### 2 4323-8 ####[facility]ORATORYCLIA [id number] [place] [address] [place] CO2 [Moles/Vol] 23 mmol/L Normal 22-30 [facility] Comment on above: Order Comment: Speci men Type: BLOOD SPECIMENOrdering Facility: [facility] Address: [address] [place] [address] Performed By: #### 2 4323-8 ####[facility]ORATORYCLIA [id number] [address] [place] Creatinine [Mass/Vol] 0.66 mg/dL Normal 0.58-0.96 [facility] Comment on above: Order Comment: Speci men Type: BLOOD SPECIMENOrdering Facility: [facility] Address: [address] [place] [address] Performed By: #### 2 4323-8 ####[facility]MELCLIA [id number] [place] [id number] [place] Creatinine and Glomerular filtration rate.predicted panel (S/P/Bld) 115 mL/min/1.73m??? Normal >=60 [facility] Comment on above: Order Comment: Rylee rodgers Type: BLOOD SPECIMENOrdering Facility: [facility] Address: [address] [place] [address] Result Comment: Harshal mated Glomerular Filtration Rate (eGFR) is calculated using the 2020 CKD-EPI creatinine equation. This equation utilizes serum creatinine, sex, and age as parameters. The creatinine assay has traceable calibration to isotope dilution-mass spectrometry. Refer to KDIGO guidelines for clinical interpretation. In patients with unstable renal function, e.g. those with acute kidney injury, the eGFR may not accurately reflect actual GFR. Performed By: #### 2 4323-8 ####[facility] HAMMONDIA [id number] [place] [address] [place] Glucose [Mass/Vol] 88 mg/dL Normal 74-99 [facility] Comment on above: Order Comment: Rylee rodgers Type: BLOOD SPECIMENOrdering Facility: [facility] Address: [address] [place] [address] Result Comment: The [place] [employer] (ADA) provides guidance for cutoff values for fasting glucose and random glucose. The ADA defines fasting as no caloric intake for at least 8 hours. Fasting plasma glucose results between 100 to 125 mg/dL indicate increased risk for diabetes (prediabetes). Fasting plasma glucose results greater than or equal to 126 mg/dL meet the criteria for diagnosis of diabetes. In the absence of unequivocal hyperglycemia, results should be confirmed by repeat testing. In a patient with classic symptoms of hyperglycemia or hyperglycemic crisis, random plasma glucose results greater than or equal to 200 mg/dL meet the criteria for diagnosis of diabetes. Reference: Standards of Medical Care in Diabetes 2016, [place] [employer]. Diabetes Care. 2016.39(Suppl 1). Performed By: #### 2 4323-8 ####[facility]ORATORYCLIA [id number] [address] [place] [facility] Potassium [Moles/Vol] 4.6 mmol/L Normal 3.7-5.1 [facility] Comment on above: Order Comment: Speci men Type: BLOOD SPECIMENOrdering Facility: [facility] Address: [address] [place] [address] Performed By: #### 2 4323-8 ####[facility]ORATORYCLIA [id number] [address] [place] [facility] Protein [Mass/Vol] 7.0 g/dL Normal 6.3-8.0 [facility] Comment on above: Order Comment: Speci men Type: BLOOD SPECIMENOrdering Facility: [facility] Address: [address] [place] [address] Performed By: #### 2 4323-8 ####[facility]ORATORYCLIA [id number] [address] Sodium [Moles/Vol] 138 mmol/L Normal 136-144 [facility] Comment on above: Order Comment: Speci men Type: BLOOD SPECIMENOrdering Facility: [facility] Address: [address] [place] [address] Performed By: #### 2 4323-8 ####[facility]ORATORYCLIA [id number] [address] STATES [facility] Urea nitrogen [Mass/Vol] 16 mg/dL Normal 7-21 [facility] Comment on above: Order Comment: Speci men Type: BLOOD SPECIMENOrdering Facility: [facility] Address: [address] [place] [address] Performed By: #### 2 4323-8 ####[facility]ORATORYCLIA [id number] [address] OF [facility] HISTORY PHYSICALon HISTORY PHYSICAL HNO ID: [id number] Author: SUMIT ALLEN MD Service: Obstetrics Author Type: Resident Type: H&P Filed: 05/02/2024 10:47 Note Text: -------- Attestation signed by Sumit Allen MD at 05/02/2024 10:47 AM Attending Note I evaluated the patient and personally participated in the pinzon components. I agree with the resident's findings and plan as documented and have discussed the case and management of the patient's care with the resident. BP improved with losartan but still above goal, will increase to 75 daily and continue to monitor. Mild headache improves with Tylenol, otherwise asymptomatic. Signature: Dr. Sumit Allen MD Date: May 02, 2024 Time: 10:46 AM -------- OBSTETRICS HISTORY AND PHYSICAL SERVICE DATE: May 02, 2024 SERVICE TIME: 12:01 AM Subjective Patient's stated reason for arrival: follow up to pre e symptoms. CHIEF COMPLAINT: High blood pressure HISTORY OF THE PRESENT ILLNESS: The patient is a 39 year old female, , who is day #6 after . Patient is here due to elevated blood pressures. She will be admitted for better control of BP. She was seen by her primary OBGYN yesterday who started her on Procardia 90mg XL BID and Hydralazine 10mg. She has only taken her Procardia 60mg XL this morning, which was her medication regimen at discharge. She is asymptomatic, denies headache, vision changes, chest pain, shortness of breath, and right upper quadrant pain. HISTORY REVIEW PAST MEDICAL HISTORY Diagnosis Date Anxiety History of gestational hypertension 12/01/2023 History of depression 12/01/2023 Obesity Uterine fibroid 2022 Vaginal bleeding during 12/01/2023 PAST SURGICAL HISTORY Procedure Laterality Date COLONOSCOPY SCREENING 2019 FAMILY HISTORY Problem Relation Age of Onset Diabetes Mother Anxiety disorder Mother Hypertension Mother None Father Social History Tobacco Use Smoking status: Never Smokeless tobacco: Never Vaping Use Vaping status: Never Used Substance Use Topics Alcohol use: No Drug use: No Obstetric History T5 L6 SAB0 IAB0 Ectopic0 Multiple0 Live Births6 Name of Baby 1: Not recorded Date: Not recorded GA: Not recorded Type: Not recorded Apgar1: Not recorded Apgar5: Not recorded Living: Living Name of Baby 2: Not recorded Date: 11/24/03 GA: 38w0d Type: Vaginal, Spontaneous Apgar1: Not recorded Apgar5: Not recorded Living: Living Name of Baby 3: Not recorded Date: 05/15/07 GA: 39w0d Type: Vaginal, Spontaneous Apgar1: Not recorded Apgar5: Not recorded Living: Living Name of Baby 4: Not recorded Date: 07/17/08 GA: 38w0d Type: Vaginal, Spontaneous Apgar1: Not recorded Apgar5: Not recorded Living: Living Name of Baby 5: Not recorded Date: 08/06/10 GA: 38w3d Type: Vaginal, Spontaneous Apgar1: Not recorded Apgar5: Not recorded Living: Living Name of Baby 6: Leilani Gunderson Date: 04/24/24 GA: 33w5d Type: Vaginal, Spontaneous Apgar1: 8 Apgar5: 9 Living: Living Name of Baby 7: Not recorded Date: Not recorded GA: Not recorded Type: Not recorded Apgar1: Not recorded Apgar5: Not recorded Living: Not recorded ALLERGIES Allergen Reactions Penicillins Rash Zoloft [Sertraline * Intolerance Prior to Admission Medications Prescriptions Last Dose Informant Patient Reported? Taking? NIFEdipine ER (PROCARDIA XL) 30 mg 24 hr tablet No No Sig: Take 1 tablet by mouth once daily. take with the 60 mg for a total of 90 mg a day NIFEdipine ER (PROCARDIA XL) 60 mg 24 hr tablet No No Sig: Take 1 tablet by mouth two times a day. acetaminophen (TYLENOL) 500 mg tablet No No Sig: Take 2 tablets by mouth every 6 hours as needed for pain. docusate sodium (COLACE) 100 mg capsule No No Sig: Take 1 capsule by mouth two times a day as needed for constipation. famotidine (PEPCID) 40 mg tablet Yes No Sig: Take 1 tablet by mouth every afternoon. fluticasone (FLONASE) 50 mcg/actuation nasal spray No No Sig: Use 2 Sprays in each nostril once daily. Rinse mouth after use. hydrALAZINE (APRESOLINE) 10 mg tablet No No Sig: Take 1 tablet by mouth three times a day. ibuprofen (MOTRIN) 600 mg tablet No No Sig: Take 1 tablet by mouth every 6 hours as needed for pain. vit/iron fum/folic ac ( VITAMIN WITH MINERALS ORAL) Yes No Sig: Take 1 capsule by mouth once daily. Facility-Administered Medications: None REVIEW OF SYSTEMS: See HPI. Objective LAST VITALS: Pulse BP Resp O2 Sat Temp Pain 63 151/107 16 98 % 36.1 ?C (97 ?F) 3 Patient Vitals for the past 24 hrs: BP 05/02/24 0056 147/100 05/02/24 0015 156/108 05/02/24 0000 156/101 05/01/24 2345 151/107 05/01/24 2330 145/103 05/01/24 2315 144/100 05/01/24 2300 154/105 05/01/24 2245 159/83 05/01/24 22 (more content not included)... Normal [facility] CNDSon 04-27-2024 [facility] HNO ID: [id number] Author: FABBY PEDROZA DO Service: Obstetrics Author Type: Physician Type: Discharge Summary Filed: 04/27/2024 09:00 Note Text: DISCHARGE SUMMARY OBSTETRICS PATIENT NAME: Harrison Gunderson ADMISSION DATE: 04/18/2024 DISCHARGE DATE: 04/27/2024 Attending Physician: Yuliya Kapadia, * Code Status: Not on file Treatment Team: Attending Provider: Yuliya Kapadia MD Maternal Obstetric Provider: Edie So Reason for Hospitalization: Intrauterine . Principal Problem: Pre-eclampsia, severe, antepartum, third trimester (POA: Yes) Active Problems: Obesity affecting in third trimester (POA: Yes) Hypertension complicating , delivered, current hospitalization (POA: Yes) Resolved Problems: Multigravida of advanced maternal age in second trimester (POA: Yes) Uterine fibroid during , antepartum (POA: Yes) Prematurity of fetus (POA: Unknown) Encounter for induction of labor (POA: Unknown) care following vaginal delivery (POA: Unknown) Leg swelling (POA: Unknown) PROCEDURES/SURGERY DURING HOSPITALIZATION: Delivery Summary: Leilani Gunderson [[id number]] Delivery Information: Delivery Date: 04/24/24 Delivery type: Vaginal, Spontaneous Delivering Clinician: Ayden Trevizo I, MD Vacuum Used: No Forceps Used: No Shoulder Dystocia Present: No Lacerations: None Episiotomy: None [place]: Gender: Female Weight (grams): 1700 g One Minute : 8 Five Minute : 9 Procedures (if applicable) OB Bedside Procedures (From admission, onward) Cervical Ripening Balloon ONCE Hospital Course: 39 year old female who is Day #3 from delivery as noted above. Pt's peripartum course was complicated by preeclampsia with severe features. Consulting Teams During Hospitalization: None Patient Condition @ Discharge: Good Discharge Disposition: Home/Self Care Specific Concerns for Follow-up Post Discharge: Routine Care and Pre- eclampsia Information Provided to Patient: Activity When You Leave the Hospital Gradually increase your activity until back to normal. Walking and stairs as tolerated. You are expected to maintain pelvic rest for six weeks post which includes no sexual activity, tampons or douching. You may drive as tolerated You may shower daily. Gently pat your perineum with a soapy washcloth and rinse. Sitz baths are also helpful, but avoid baths until your bleeding has stopped. Diet Instructions Resume a regular diet with emphasis on healthy and iron rich foods. Nursing moms need 500 EXTRA calories a day to support breast milk production. Wound/Surgical Site Care Use kapil/squirt bottle to rinse your perineal area with warm water after urination or bowel movements Use kapil/squirt bottle to rinse your perineal area with warm water until vaginal bleeding/drainage ceases You may spot bleed for up to six week post- Discharge Medications: Medication List START taking these medications acetaminophen 500 mg tablet Commonly known as: TYLENOL Take 2 tablets by mouth every 6 hours as needed for pain. Blood Pressure Monitor Use as directed docusate sodium 100 mg capsule Commonly known as: COLACE Take 1 capsule by mouth two times a day as needed for constipation. ibuprofen 600 mg tablet Commonly known as: MOTRIN Take 1 tablet by mouth every 6 hours as needed for pain. labetalol 200 mg tablet Commonly known as: TRANDATE Take 1 tablet by mouth every 8 hours. NIFEdipine ER 60 mg 24 hr tablet Commonly known as: PROCARDIA XL Take 1 tablet by mouth two times a day. CONTINUE taking these medications aspirin, enteric coated 81 mg EC tablet Commonly known as: ECOTRIN LOW STRENGTH Take 1 tablet by mouth once daily. famotidine 40 mg tablet Commonly known as: PEPCID fluticasone 50 mcg/actuation nasal spray Commonly known as: FLONASE Use 2 Sprays in each nostril once daily. Rinse mouth after use. ondansetron 4 mg tablet Commonly known as: ZOFRAN VITAMIN WITH MINERALS ORAL Where to Get Your Medications These medications were sent to [facility] [address] [place] [address] Hours: Monday-Monday, 8am-7pm, Monday 9am-1pm acetaminophen 500 mg tablet docusate sodium 100 mg capsule ibuprofen 600 mg tablet labetalol 200 mg tablet NIFEdipine ER 60 mg 24 hr tablet You can get these medications from any pharmacy Bring a paper prescription for each of these medications Blood Pressure Monitor ALLERGIES Allergen Reactions Penicillins Rash Zoloft [Sertraline * Intolerance Future Appointments: Follow Up Appointments Follow-Up Appointment - Pre-eclampsia with severe features and/or Superimposed Pre-Eclampsia with Meds (within 72 hours) for Blood Pressure check within 72 hours With: Primary OBGYN When: In: Comment - within 72 (more content not included)... 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 Plan of Care: Follow-Up: Tech Reassessment Nursing Admission Assessment Malnutrition Score: Nutrition Intake: Diet Orders (From admission, onward) Start Ordered 04/24/24 1200 DIET REGULAR START NOW 04/24/24 1158 Average intake over: Unable to determine Appetite: Good GI Symptoms: Gaseous (no bowel movement post delivery) Anthropometrics: Body mass index is 39.99 kg/m?. Usual Weight: 83.9 kg (185 lb) (pre- weight) Weight Change: Decreased (post delivery) MNT Billing: $ Routine Care : 1-15 minutes SIGNATURE: Krista Adair DTR PATIENT NAME: Harrison Gunderson DATE: April 26, 2024 TIME: 3:31 PM Normal [facility] NURSING PROGon 04-25-2024 NURSING PROG HNO ID: [id number] Author: STEFANO FRANKS RN Service: ? Author Type: Registered Nurse Type: Nursing Progress Note Filed: 04/25/2024 21:54 Note Text: Patient presents with +2 bilateral lower extremity edema. Right foot is slightly more edematous than the left foot and Harrison expresses some discomfort in her right lower extremity. Normal [facility] US DVT LOWER BILon US DVT LOWER JAMEY * * *Final Report* * * DATE OF EXAM: Apr 25 2024 11:22PM [place] 1005 - US DVT LOWER JAMEY / PROCEDURE REASON: Leg swelling * * * * Physician Interpretation * * * * EXAMINATION: RIGHT AND LEFT LOWER EXTREMITY DEEP VENOUS ULTRASOUND WITH DOPPLER IMAGING CLINICAL HISTORY: with right greater than left foot swelling TECHNIQUE: Grayscale with compression maneuvers, color Doppler and spectral Doppler imaging of the right and left proximal deep veins was performed. Grayscale with compression maneuvers of the right and left peroneal and posterior tibial veins was performed. The right and left great and small saphenous veins were evaluated at their insertion to the deep system. Images were obtained and stored in a permanent archive. MQ: [id number]_1 COMPARISON: None RESULT: RIGHT LOWER EXTREMITY PROXIMAL DEEP VEINS Distal External Iliac, Common Femoral and Proximal Profunda Veins: Compression: Normal Doppler: Normal, spontaneous respirophasic flow. Normal response to augmentation. Femoral vein: Compression: Normal Doppler: Normal, spontaneous respirophasic flow. Normal response to augmentation. Popliteal vein: Compression: Normal Doppler: Normal, spontaneous respirophasic flow. Normal response to augmentation. CALF DEEP VEINS Peroneal veins: Normal compression. Posterior tibial veins: Normal compression. Gastrocnemius and Soleal veins: Not imaged. SUPERFICIAL VEINS Great saphenous: Patent and compressible at insertion into common femoral vein; not otherwise assessed. Small Saphenous: Patent and compressible in the proximal calf, not otherwise assessed. LEFT LOWER EXTREMITY PROXIMAL DEEP VEINS Distal External Iliac, Common Femoral and Proximal Profunda Veins: Compression: Normal Doppler: Normal, spontaneous respirophasic flow. Normal response to augmentation. Femoral vein: Compression: Normal Doppler: Normal, spontaneous respirophasic flow. Normal response to augmentation. Popliteal vein: Compression: Normal Doppler: Normal, spontaneous respirophasic flow. Normal response to augmentation. CALF DEEP VEINS Peroneal veins: Normal compression. Posterior tibial veins: Normal compression. Gastrocnemius and Soleal veins: Not imaged. SUPERFICIAL VEINS Great saphenous: Patent and compressible at insertion into common femoral vein; not otherwise assessed. Small Saphenous: Patent and compressible in the proximal calf, not otherwise assessed. IMPRESSION: Negative study for proximal DVT in the left and right lower extremities. Negative study for calf DVT in the left and right lower extremities. Negative study for superficial thrombophlebitis in the imaged segments of the left and right lower extremities. Conductor And Engineer: [facility] Transcribe Date/Time: Apr 26 2024 12:47A Dictated by : RORO DYE MD This examination was interpreted and the report reviewed and electronically signed by: RORO DYE MD on Apr 26 2024 12:50AM EST [id number] Normal [facility] LD NOTEon 04-24-2024 LD NOTE HNO ID: [id number] Author: AYDEN TREVIZO MD Service: Obstetrics Author Type: Physician Type: L&D Delivery Note Filed: 04/25/2024 06:30 Note Text: OBSTETRICS DELIVERY SUMMARY - VAGINAL DELIVERY Gestational Age at Delivery: 33w5d Service Date: 04/24/24 Service Time: 11:24 AM Labor Events Rupture Date: 04/24/2024 Rupture Time: 2:10 AM Total Time from ROM to Delivery: 9h 14m Rupture Type: AROM Total Hours from ROM to Onset of Labor hours Fluid Color: Clear Fluid Odor: No Odor Induction: Yes Induction Method: Oxytocin;Misoprostol;VALENTE Gunderson, Leilani Salazar [[id number]] Episiotomy/Laceration: Episiotomy: None Lacerations: None Date and Time of : Date of : 04/24/24 Time of : 1124 Delivery Information: Primary Reason for Delivery : Hypertension Additional Clinicial Indicator(s) for delivery: N/A Hypertension Type: Severe Pre/Eclampsia Delivery type: Vaginal, Spontaneous Intrapartum Complications: None Delivery between 22w0d - 36w6d?: Yes What was the indication for ?: Medically-indicated (preeclampsia, maternal complications, distress or other complications) Has the patient completed their course of steroids?: Full Course Was the course Initiated?: Yes Shoulder Dystocia Present: No Vacuum Used: No Forceps Used: No Presentation AND Position Presentation: Vertex Was patient breech in the past month and version attempted?: No Position: OA Cord: Complications: None Delayed Cord Clampin-60 sec Placenta: Delivered: 04/24/2024 11:30 AM Removal: Spontaneous Appearance: Intact Anesthesia: Method: None Measurements, Apgars: Resuscitation Team Present: Yes Type of Resuscitation Team Needed: Planned Resuscitation Needed: Yes, see Resuscitation Record I/O Blood Loss per time range on right. Intrapartum AND : 04/23/24 2324 - 04/24/24 1147 Delivery Admission: 04/18/24 1718 - 04/24/24 1147 Intrapartum AND Delivery Admission Calculated Blood Loss (mL) Hospital Encounter 294 294 Total 294 cc 294 cc Clinical Course: Harrison Gunderson is a 39 year old year old female who presented to [facility] with Estimated Date of Delivery: 06/07/24 at 32w6d for pre-eclampsia with severe features managed expectantly. Patient developed persistently severe range blood pressures requiring several acute treatments. Decision was made to proceed with induction of labor for pre-eclampsia with severe features at 33w5d. Patient was otherwise complicated by advanced maternal age, BMI. The patient was GBS negative. Labor Course: At the time of initiating induction, the patient was found to be 0.5cm dilated. She was started on cytotec and pitocin for induction. Amniotomy was performed for clear fluid. Patient then made quick change to active phase of labor followed by rapid progression through active phase to 7cm. Patient was then brought to the OR to prepare for possible epidural for maternal analgesia and to be prepared for imminent delivery with NICU team available for potential resuscitation. While in OR, patient made further rapid change to complete cervical dilation with a strong urge to push. Vertex began to crown and was delivered over an intact perineum from the occiput anterior position which restituted to the maternal right. After delivery of the head, the anterior and posterior shoulders were then delivered without difficulty followed by the remainder of the infant's body. The infant was crying spontaneously. Delayed cord clamping was performed for one minute. The cord was then doubly clamped and cut and the was passed above to the NICU team. The placenta delivered spontaneously. pitocin was then started. Vaginal exploration revealed no perineal lacerations. Excellent hemostasis was noted. The patient tolerated the procedure well without complications. All needle, sponge and instrument counts were correct x2. Sponge, lap, and needle counts were correct times two. Mother is stable, baby is with NICU team. Expected post-delivery care and anticipated transfer reviewed. Plan of care discussed with: Provider, RN, Patient. SIGNATURE: Kaykay Muñoz DO PATIENT NAME: Harrison Gunderson DATE: April 24, 2024 TIME: 11:47 AM Normal [facility] SURGICAL PATHOLOGYon 025 CASE REPORT Normal [facility] Comment on above: Order Comment: Speci men Type: TISSUE SPECIMENOrdering Facility: [facility] Address: [address] [place] [address] Result Comment: Surg ica Pathology Report Case: [id number] Authorizing Provider: Yuliya Kapadia MD Collected: 04/24/2024 05:40 PM Ordering Location: [place] [address] POST Received: 04/25/2024 12:23 PM Pathologist: Karen Fermin MD Specimen: Placenta, Single Performed By: #### S ####[facility] LABCLIA [id number] [place] [address] [place] CLINICAL HISTORY pre-eclampsia Normal [facility] Comment on above: Order Comment: Speci men Type: TISSUE SPECIMENOrdering Facility: [facility] Address: [address] [place] [address] Performed By: #### S ####[facility] LABCLIA [id number] [place] [address] [place] DIAGNOSIS COMMENT The birthweig ht to placental weight ratio is diminished, but within normal limits at 5.2. The expected mean ratio at this gestational age is 6.0. [facility] Comment on above: Order Comment: Speci men Type: TISSUE SPECIMENOrdering Facility: [facility] Address: [address] [place] [address] Performed By: #### S ####[facility] LABCLIA [id number] [address] [place] FINAL DIAGNOSIS [facility] Comment on above: Order Comment: Speci men Type: TISSUE SPECIMENOrdering Facility: [facility] Address: [address] [place] [address] Result Comment: Jes waldrop, 33 weeks and 5 days gestation, vaginal delivery: - Formalin fixed placenta weight 324 g, appropriate for gestational age - Hypercoiled umbilical cord - Villous maturation appropriate for age - Incomplete adaptation of basal decidual vessels for (decidual arteriopathy), suggestive of maternal vascular malperfusion - Laminar decidual necrosis AH 04/30/2024 Performed By: #### S ####[facility] LABCLIA [id number] [address] STATES [facility] FINAL PERFORMING LAB Normal [facility] Comment on above: Order Comment: Speci men Type: TISSUE SPECIMENOrdering Facility: [facility] Address: [address] [place] [address] Result Comment: Diag nostic interpretation performed at: [facility], [address] [place] [address] CLIA# [id number] Plate Grinder: Boone Delgado MD Performed By: #### S ####[facility] LABCLIA [id number] [address] [place] GROSS DESCRIPTION [facility] Comment on above: Order Comment: Speci men Type: TISSUE SPECIMENOrdering Facility: [facility] Address: [address] [place] [address] Result Comment: Jes waldrop, Single Received in formalin, labeled as placenta single is a single placental disc with an attached umbilical cord and membranes. The white umbilical cord measures 18 cm in length x 1.5 cm in maximum diameter. It shows 12 coils and inserts eccentrically, 3 cm from the nearest disc margin. It contains 3 vessels on the cut section. The translucent membranes attach 100% circummarginate. The area of membrane rupture is located 1.0 cm from the closest placental margin. The round trimmed placental disc weighs 324 g and measures 12.5 x 12.5 x 3.0 cm. The surface is purple-blue with magistral dispersion of chorionic plate vessels. The maternal surface demonstrates a partially detached cotyledon. Serial sectioning through the placental disc at 1 cm intervals reveals spongy dark red parenchyma with no gross identifiable lesions. Photographs are taken before and after sectioning. Fluorescent Lamp Replacer sections are submitted as follows: A1-Umbilical cord, end, and two membrane rolls A2-Umbilical cord, placental end, and chorionic plate section near cord insertion P6-O8-[id number] placenta, full-thickness section A5-area of partially detached cotyledon Gross examination performed at [facility], [address] [place] [address] April 26, 2024 9:21 AM Performed By: #### S ####[facility] S[facility]IA [id number] [address] STATES [facility] MICROSCOPIC DESCRIPTION Normal [facility] Comment on above: Order Comment: Speci men Type: TISSUE SPECIMENOrdering Facility: [facility] Address: [address] [place] [address] Result Comment: Umbi lical cord: 3 vessels, no abnormalities membranes: No abnormalities Membranous decidua: Focal laminar necrosis Chorionic plate: No abnormalities Chorionic plate vasculature: No abnormalities Stem villi: No abnormalities Terminal villi: Slightly immature, appropriately developed for gestational age; nucleated red blood cells in circulation #5 in 10 high-power elaine Intervillous space: No abnormalities Basal plate/decidua basalis: Focal persistence of vascular smooth muscle Performed By: #### S ####[facility] LABIA [id number] [address] [place] ANES PRE-OPon 04-23-2024 ANES PRE-OP HNO ID: [id number] Author: LYNNETTE BANG APRN.REPAIRER PUMP Service: Anesthesiology Author Type: Nurse Toby Maker Type: Anesthesia Preprocedure Evaluation Filed: 04/23/2024 21:55 Note Text: OB ANESTHESIA PRE-PROCEDURE ASSESSMENT PATIENT NAME: Harrison Gunderson : 1985 [facility] 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 pre-eclampsia pre-eclampsia GERD: GERD well controlled with no positional symptoms induction for pre-e with severe features Relevant Problems CARDIO (+) Pre-eclampsia, severe, antepartum, third trimester NEURO-PSYCH (+) History of anxiety (+) History of gestational hypertension (+) History of depression I - PHYSICAL EVALUATION AIRWAY Patient intubated: No. Tracheostomy tube not present Mallampati: III. TM distance: >3 FB. Neck ROM: full ROM without neurological symptoms. Mouth opening: adequate. Short neck: no. Thick neck: no DENTAL Dental findings: teeth intact. II - ANESTHESIA PLAN ASA Score: 3 Anesthetic Plan: epidural The patient is not a current smoker. NPO Status: inadequate (clears in labor) Anesthetic plan additional comments: Pt admitted for pre-e with severe features, now being induced d/t persistent severe BP readings. Per pt, never labored with an epidural in the past, but open to the option if needed. Thorough discussion with pt regarding risks/benefits of labor epidural, especially with BP readings and in the event of labor to section (including GA risk w/o epidural/non-functioning epidural), and timing of placement. All questions answered, written consent signed. Plts 217k today. Beta Edie Monitoring Plan Monitoring plan: standard ASA. Post Procedure Analgesic Plan Informed Consent Anesthetic risks, benefits, alternatives, personnel and consent discussed: yes. Patient / Responsible Libertarian agrees to proceed: yes Patient / Surrogate agrees to blood products: Yes EPIC CHART REVIEW: ACTIVE PROBLEM LIST Obesity Affecting in Second Trimester Encounter for Supervision of High Risk in Second Trimester, Antepartum Multigravida of Advanced Maternal Age in Second Trimester Ptsd (Post-Traumatic Stress Disorder) History of Depression Penicillin Allergy History of Gestational Hypertension History of Anxiety Uterine Fibroid During , Antepartum Elevated Blood Pressure Reading Without Diagnosis of Hypertension Pre-Eclampsia, Severe, Antepartum, Third Trimester Prematurity of Fetus Encounter for Induction of Labor PAST MEDICAL HISTORY Diagnosis Date Anxiety History of gestational hypertension 12/01/2023 History of depression 12/01/2023 Obesity Uterine fibroid 2022 Vaginal bleeding during 12/01/2023 PAST SURGICAL HISTORY Procedure Laterality Date COLONOSCOPY SCREENING 2019 FAMILY HISTORY Problem Relation Age of Onset Diabetes Mother Anxiety disorder Mother Hypertension Mother None Father Social History Tobacco Use Smoking status: Never Smokeless tobacco: Never Vaping Use Vaping status: Never Used Substance Use Topics Alcohol use: No Drug use: No famotidine (PEPCID) 40 mg tablet, Take 1 tablet by mouth every afternoon., Disp: , Rfl: ondansetron (ZOFRAN) 4 mg tablet, Take 4 mg by mouth every 8 hours as needed., Disp: , Rfl: vit/iron fum/folic ac ( VITAMIN WITH MINERALS ORAL), Take 1 capsule by mouth once daily., Disp: , Rfl: aspirin, enteric coated (ECOTRIN LOW STRENGTH) 81 mg EC tablet, Take 1 tablet by mouth once daily., Disp: 90 tablet, Rfl: 3 fluticasone (FLONASE) 50 mcg/actuation nasal spray, Use 2 Sprays in each nostril once daily. Rinse mouth after use., Disp: 1 Bottle, Rfl: 0 Inpatient medications reviewed in EPIC I have interviewed and examined the patient. I have reviewed the medical record and/or the pre-anesthesia evaluation, pertinent labs, and test results. This contains updated information obtained within 48 hours of Surgery/Procedure. SIGNATURE: Lynnette Bang APRN.REPAIRER PUMP PATIENT NAME: Harrison Gunderson DATE: April 23, 2024 TIME: 9:39 PM : 1985 Normal [facility] CBC panel Auto (Bld)on 04-23 Erythrocyte distribution width (RBC) [Ratio] 14.5 % Normal 11.5-15.0 [facility] Comment on above: Order Comment: Speci men Type: BLOOD SPECIMENOrdering Facility: [facility] Address: [address] [place] [address] Performed By: #### 5 8410-2 ####[facility] LABORATORYCLIA [id number] [address] STATES [facility] Hematocrit (Bld) [Volume fraction] 35.4 % Low 36.0-46.0 [facility] Comment on above: Order Comment: Speci men Type: BLOOD SPECIMENOrdering Facility: [facility] Address: [address] [place] [address] Performed By: #### 5 8410-2 ####[facility] LABORATORYCLIA [id number] [address] STATES [facility] Hemoglobin (Bld) [Mass/Vol] 11.3 g/dL Low 11.5-15.5 [facility] Comment on above: Order Comment: Speci men Type: BLOOD SPECIMENOrdering Facility: [facility] Address: [address] [place] [address] Performed By: #### 5 8410-2 ####[facility] LABORATORYCLIA [id number] [address] STATES [facility] MCH (RBC) [Entitic mass] 24.2 pg Low 26.0-34.0 [facility] Comment on above: Order Comment: Speci men Type: BLOOD SPECIMENOrdering Facility: [facility] Address: [address] [place] [address] Performed By: #### 5 8410-2 ####[facility] LABORATORYCLIA [id number] [address] [place] MCHC (RBC) [Mass/Vol] 31.9 g/dL Normal 30.5-36.0 [facility] Comment on above: Order Comment: Speci men Type: BLOOD SPECIMENOrdering Facility: [facility] Address: [address] [place] [address] Performed By: #### 5 8410-2 ####[facility] LABORATORYCLIA [id number] [address] MCV (RBC) [Entitic vol] 75.8 fL Low 80.0-100.0 [facility] Comment on above: Order Comment: Speci men Type: BLOOD SPECIMENOrdering Facility: [facility] Address: [address] [place] [address] Performed By: #### 5 8410-2 ####[facility] LABORATORYCLIA [id number] [address] [place] Nucleated RBC (Bld) [#/Vol] 0.03 10*3/uL High <0.01 [facility] Comment on above: Order Comment: Speci men Type: BLOOD SPECIMENOrdering Facility: [facility] Address: [address] [place] [address] Performed By: #### 5 8410-2 ####[facility]ORATORYCLIA [id number] [address] [place] Platelet mean volume (Bld) [Entitic vol] 11.5 fL Normal 9.0-12.7 [facility] Comment on above: Order Comment: Speci men Type: BLOOD SPECIMENOrdering Facility: [facility] Address: [address] [place] [address] Performed By: #### 5 8410-2 ####[facility] LABORATORYCLIA [id number] [address] [place] Platelets (Bld) [#/Vol] 217 10*3/uL Normal 150-400 [facility] Comment on above: Order Comment: Speci men Type: BLOOD SPECIMENOrdering Facility: [facility] Address: [address] [place] [address] Performed By: #### 5 8410-2 ####[facility]ORATORYCLIA [id number] [address] [place] RBC (Bld) [#/Vol] 4.67 10*6/uL Normal 3.90-5.20 [facility] Comment on above: Order Comment: Speci men Type: BLOOD SPECIMENOrdering Facility: [facility] Address: [address] [place] [address] Performed By: #### 5 8410-2 ####[facility] LABORATORYCLIA [id number] [place] [address] [place] WBC (Bld) [#/Vol] 12.32 10*3/uL High 3.70-11.00 [facility] Comment on above: Order Comment: Speci men Type: BLOOD SPECIMENOrdering Facility: [facility] Address: [address] [place] [address] Performed By: #### 5 8410-2 ####[facility] LABORATORYCLIA [id number] [address] OF [facility] Comprehensive metabolic 2000 panelon 04-23-2024 Albumin [Mass/Vol] 3.2 g/dL Low 3.9-4.9 [facility] Comment on above: Order Comment: Speci men Type: BLOOD SPECIMENOrdering Facility: [facility] Address: [address] [place] [address] Performed By: #### 2 4323-8 ####[facility] LABORATORYCLIA [id number] [address] [place] ALP [Catalytic activity/Vol] 120 U/L Normal 34-123 [facility] Comment on above: Order Comment: Speci men Type: BLOOD SPECIMENOrdering Facility: [facility] Address: [address] [place] [address] Performed By: #### 2 4323-8 ####[facility] LABORATORYCLIA [id number] [address] ALT With P-5'-P [Catalytic activity/Vol] 9 U/L Normal 7-38 [facility] Comment on above: Order Comment: Speci men Type: BLOOD SPECIMENOrdering Facility: [facility] Address: [address] [place] [address] Performed By: #### 2 4323-8 ####[facility] LABORATORYCLIA [id number] [address] Anion gap [Moles/Vol] 12 mmol/L Normal 8-15 [facility] Comment on above: Order Comment: Speci men Type: BLOOD SPECIMENOrdering Facility: [facility] Address: [address] [place] [address] Performed By: #### 2 4323-8 ####[facility]ORATORYCLIA [id number] [place] [address] [place] AST With P-5'-P [Catalytic activity/Vol] 22 U/L Normal 13-35 [facility] Comment on above: Order Comment: Speci men Type: BLOOD SPECIMENOrdering Facility: [facility] Address: [address] [place] [address] Performed By: #### 2 4323-8 ####[facility]ORATORYCLIA [id number] [place] [address] [place] Bilirubin [Mass/Vol] 0.2 mg/dL Normal 0.2-1.3 [facility] Comment on above: Order Comment: Speci men Type: BLOOD SPECIMENOrdering Facility: [facility] Address: [address] [place] [address] Performed By: #### 2 4323-8 ####[facility] LABORATORYCLIA [id number] [address] [place] Calcium [Mass/Vol] 8.6 mg/dL Normal 8.5-10.2 [facility] Comment on above: Order Comment: Speci men Type: BLOOD SPECIMENOrdering Facility: [facility] Address: [address] [place] [address] Performed By: #### 2 4323-8 ####[facility] LABORATORYCLIA [id number] [address] [place] Chloride [Moles/Vol] 100 mmol/L Normal 98-107 [facility] Comment on above: Order Comment: Speci men Type: BLOOD SPECIMENOrdering Facility: [facility] Address: [address] [place] [address] Performed By: #### 2 4323-8 ####[facility]ORATORYCLIA [id number] [place] [address] [place] CO2 [Moles/Vol] 20 mmol/L Low 22-30 [facility] Comment on above: Order Comment: Speci men Type: BLOOD SPECIMENOrdering Facility: [facility] Address: [address] [place] [address] Performed By: #### 2 4323-8 ####[facility] LABORATORYCLIA [id number] [place] [id number] [place] [facility] Creatinine [Mass/Vol] 0.64 mg/dL Normal 0.58-0.96 [facility] Comment on above: Order Comment: Rylee rodgers Type: BLOOD SPECIMENOrdering Facility: [facility] Address: [address] [place] [address] Performed By: #### 2 4323-8 ####[facility]ELCLIA [id number] [address] Creatinine and Glomerular filtration rate.predicted panel (S/P/Bld) 115 mL/min/1.73m??? Normal >=60 [facility] Comment on above: Order Comment: Rylee rodgers Type: BLOOD SPECIMENOrdering Facility: [facility] Address: [address] [place] [address] Result Comment: Harshal mated Glomerular Filtration Rate (eGFR) is calculated using the 2020 CKD-EPI creatinine equation. This equation utilizes serum creatinine, sex, and age as parameters. The creatinine assay has traceable calibration to isotope dilution-mass spectrometry. Refer to KDIGO guidelines for clinical interpretation. In patients with unstable renal function, e.g. those with acute kidney injury, the eGFR may not accurately reflect actual GFR. Performed By: #### 2 4323-8 ####[facility]ORATORYCLIA [id number] [address] [place] [facility] Glucose [Mass/Vol] 72 mg/dL Low 74-99 [facility] Comment on above: Order Comment: Rylee rodgers Type: BLOOD SPECIMENOrdering Facility: [facility] Address: [address] [place] [address] Result Comment: The [place] Diabetes [employer] (ADA) provides guidance for cutoff values for fasting glucose and random glucose. The ADA defines fasting as no caloric intake for at least 8 hours. Fasting plasma glucose results between 100 to 125 mg/dL indicate increased risk for diabetes (prediabetes). Fasting plasma glucose results greater than or equal to 126 mg/dL meet the criteria for diagnosis of diabetes. In the absence of unequivocal hyperglycemia, results should be confirmed by repeat testing. In a patient with classic symptoms of hyperglycemia or hyperglycemic crisis, random plasma glucose results greater than or equal to 200 mg/dL meet the criteria for diagnosis of diabetes. Reference: Standards of Medical Care in Diabetes 2016, [place] [employer]. Diabetes Care. 2016.39(Suppl 1). Performed By: #### 2 4323-8 ####[facility]ORATORYCLIA [id number] [place] [address] [place] Potassium [Moles/Vol] 4.2 mmol/L Normal 3.7-5.1 [facility] Comment on above: Order Comment: Speci [facility] Type: BLOOD SPECIMENOrdering Facility: [facility] Address: [address] [place] [address] Performed By: #### 2 4323-8 ####[facility]ORATORYCLIA [id number] [place] [address] [place] Protein [Mass/Vol] 6.0 g/dL Low 6.3-8.0 [facility] Comment on above: Order Comment: Speci men Type: BLOOD SPECIMENOrdering Facility: [facility] Address: [address] [place] [address] Performed By: #### 2 4323-8 ####[facility] LABORATORYCLIA [id number] [address] [place] Sodium [Moles/Vol] 132 mmol/L Low 136-144 [facility] Comment on above: Order Comment: Speci men Type: BLOOD SPECIMENOrdering Facility: [facility] Address: [address] [place] [address] Performed By: #### 2 4323-8 ####[facility] LABORATORYCLIA [id number] [place] [address] [place] Urea nitrogen [Mass/Vol] 17 mg/dL Normal 7-21 [facility] Comment on above: Order Comment: Speci men Type: BLOOD SPECIMENOrdering Facility: [facility] Address: [address] [place] [address] Performed By: #### 2 4323-8 ####[facility] LABORATORYCLIA [id number] [place] [id number] [place] TYPE + SCREEN PRENATALon ABO O Normal [facility] Comment on above: Order Comment: Speci men Type: BLOOD SPECIMENOrdering Facility: [facility] Address: [address] [place] [address] Performed By: #### T SPN ####[facility] BLOOD BANKCLIA [id number] [place] [address] [place] Rh Nom (Bld) Positive Normal [facility] Comment on above: Order Comment: Speci men Type: BLOOD SPECIMENOrdering Facility: [facility] Address: [address] [place] [address] Performed By: #### T SPN ####[facility] BLOOD BANKCLIA [id number] [address] STATES [facility] TYPE AND SCREEN EXPIRATION 04/26/2024 23:59 Normal [facility] Comment on above: Order Comment: Speci men Type: BLOOD SPECIMENOrdering Facility: [facility] Address: [address] [place] [address] Performed By: #### T SPN ####[facility] BLOOD BANKCLIA [id number] [address] [place] TYPE + SCREEN PRENATALon ABO O [facility] Comment on above: Order Comment: Speci men Type: BLOOD SPECIMENOrdering Facility: [facility] Address: [address] [place] [address] Performed By: #### T SPN ####[facility] BLOOD BANKCLIA [id number] [address] [place] Rh Nom (Bld) Positive [facility] Comment on above: Order Comment: Speci men Type: BLOOD SPECIMENOrdering Facility: [facility] Address: [address] [place] [address] Performed By: #### T SPN ####[facility] BLOOD BANKCLIA [id number] [address] [place] TYPE AND SCREEN EXPIRATION 04/24/2024 23:59 Normal [facility] Comment on above: Order Comment: Speci men Type: BLOOD SPECIMENOrdering Facility: [facility] Address: [address] [place] [address] Performed By: #### T SPN ####[facility] BLOOD BANKCLIA [id number] [address] [place] CBC panel Auto (Bld)on 04-20 Erythrocyte distribution width (RBC) [Ratio] 14.6 % Normal 11.5-15.0 [facility] Comment on above: Order Comment: Speci men Type: BLOOD SPECIMENOrdering Facility: [facility] Address: [address] [place] [address] Performed By: #### 5 8410-2 ####[facility] LABORATORYCLIA [id number] [address] STATES [facility] Hematocrit (Bld) [Volume fraction] 30.9 % Low 36.0-46.0 [facility] Comment on above: Order Comment: Speci men Type: BLOOD SPECIMENOrdering Facility: [facility] Address: [address] [place] [address] Performed By: #### 5 8410-2 ####[facility] LABORATORYCLIA [id number] [address] [place] Hemoglobin (Bld) [Mass/Vol] 9.9 g/dL Low 11.5-15.5 [facility] Comment on above: Order Comment: Speci men Type: BLOOD SPECIMENOrdering Facility: [facility] Address: [address] [place] [address] Performed By: #### 5 8410-2 ####[facility] LABORATORYCLIA [id number] [address] [place] MCH (RBC) [Entitic mass] 24.3 pg Low 26.0-34.0 [facility] Comment on above: Order Comment: Speci men Type: BLOOD SPECIMENOrdering Facility: [facility] Address: [address] [place] [address] Performed By: #### 5 8410-2 ####[facility] LABORATORYCLIA [id number] [address] MCHC (RBC) [Mass/Vol] 32.0 g/dL Normal 30.5-36.0 [facility] Comment on above: Order Comment: Speci men Type: BLOOD SPECIMENOrdering Facility: [facility] Address: [address] [place] [address] Performed By: #### 5 8410-2 ####[facility] LABORATORYCLIA [id number] [address] MCV (RBC) [Entitic vol] 75.9 fL Low 80.0-100.0 [facility] Comment on above: Order Comment: Speci men Type: BLOOD SPECIMENOrdering Facility: [facility] Address: [address] [place] [address] Performed By: #### 5 8410-2 ####[facility] LABORATORYCLIA [id number] [address] Nucleated RBC (Bld) [#/Vol] 0.02 10*3/uL High <0.01 [facility] Comment on above: Order Comment: Speci men Type: BLOOD SPECIMENOrdering Facility: [facility] Address: [address] [place] [address] Performed By: #### 5 8410-2 ####[facility] LABORATORYCLIA [id number] [address] Platelet mean volume (Bld) [Entitic vol] 11.7 fL Normal 9.0-12.7 [facility] Comment on above: Order Comment: Speci men Type: BLOOD SPECIMENOrdering Facility: [facility] Address: [address] [place] [address] Performed By: #### 5 8410-2 ####[facility] LABORATORYCLIA [id number] [address] [place] Platelets (Bld) [#/Vol] 223 10*3/uL Normal 150-400 [facility] Comment on above: Order Comment: Speci men Type: BLOOD SPECIMENOrdering Facility: [facility] Address: [address] [place] [address] Performed By: #### 5 8410-2 ####[facility] LABORATORYCLIA [id number] [address] STATES OF [facility] RBC (Bld) [#/Vol] 4.07 10*6/uL Normal 3.90-5.20 [facility] Comment on above: Order Comment: Speci men Type: BLOOD SPECIMENOrdering Facility: [facility] Address: [address] [place] [address] Performed By: #### 5 8410-2 ####[facility] LABORATORYCLIA [id number] [address] OF [facility] WBC (Bld) [#/Vol] 10.97 10*3/uL Normal 3.70-11.00 [facility] Comment on above: Order Comment: Speci men Type: BLOOD SPECIMENOrdering Facility: [facility] Address: [address] [place] [address] Performed By: #### 5 8410-2 ####[facility] LABORATORYCLIA [id number] [address] OF [facility] Comprehensive metabolic 2000 panelon 04-20-2024 Albumin [Mass/Vol] 3.0 g/dL Low 3.9-4.9 [facility] Comment on above: Order Comment: Speci men Type: BLOOD SPECIMENOrdering Facility: [facility] Address: [address] [place] [address] Performed By: #### 2 4323-8 ####[facility] LABORATORYCLIA [id number] [address] ALP [Catalytic activity/Vol] 113 U/L Normal 34-123 [facility] Comment on above: Order Comment: Speci men Type: BLOOD SPECIMENOrdering Facility: [facility] Address: [address] [place] [address] Performed By: #### 2 4323-8 ####[facility] LABORATORYCLIA [id number] [place] [address] [place] ALT With P-5'-P [Catalytic activity/Vol] 8 U/L Normal 7-38 [facility] Comment on above: Order Comment: Speci men Type: BLOOD SPECIMENOrdering Facility: [facility] Address: [address] [place] [address] Performed By: #### 2 4323-8 ####[facility] LABORATORYCLIA [id number] [place] [address] [place] Anion gap [Moles/Vol] 11 mmol/L Normal 8-15 [facility] Comment on above: Order Comment: Speci men Type: BLOOD SPECIMENOrdering Facility: [facility] Address: [address] [place] [address] Performed By: #### 2 4323-8 ####[facility] LABORATORYCLIA [id number] [address] [place] AST With P-5'-P [Catalytic activity/Vol] 16 U/L Normal 13-35 [facility] Comment on above: Order Comment: Speci men Type: BLOOD SPECIMENOrdering Facility: [facility] Address: [address] [place] [address] Performed By: #### 2 4323-8 ####[facility] LABORATORYCLIA [id number] [place] [address] [place] Bilirubin [Mass/Vol] 0.2 mg/dL Normal 0.2-1.3 [facility] Comment on above: Order Comment: Speci men Type: BLOOD SPECIMENOrdering Facility: [facility] Address: [address] [place] [address] Performed By: #### 2 4323-8 ####[facility] LABORATORYCLIA [id number] [address] [place] Calcium [Mass/Vol] 6.9 mg/dL Low 8.5-10.2 [facility] Comment on above: Order Comment: Speci men Type: BLOOD SPECIMENOrdering Facility: [facility] Address: [address] [place] [address] Performed By: #### 2 4323-8 ####[facility] LABORATORYCLIA [id number] [address] [place] Chloride [Moles/Vol] 104 mmol/L Normal 98-107 [facility] Comment on above: Order Comment: Speci men Type: BLOOD SPECIMENOrdering Facility: [facility] Address: [address] [place] [address] Performed By: #### 2 4323-8 ####[facility] LABORATORYCLIA [id number] [address] [place] CO2 [Moles/Vol] 16 mmol/L Low 22-30 [facility] Comment on above: Order Comment: Speci men Type: BLOOD SPECIMENOrdering Facility: [facility] Address: [address] [place] [address] Performed By: #### 2 4323-8 ####[facility] LABORATORYCLIA [id number] [address] [facility] Creatinine [Mass/Vol] 0.59 mg/dL Normal 0.58-0.96 [facility] Comment on above: Order Comment: Speci men Type: BLOOD SPECIMENOrdering Facility: [facility] Address: [address] [place] [address] Performed By: #### 2 4323-8 ####[facility] LABORATORYCLIA [id number] [address] Creatinine and Glomerular filtration rate.predicted panel (S/P/Bld) 118 mL/min/1.73m??? Normal >=60 [facility] Comment on above: Order Comment: Speci men Type: BLOOD SPECIMENOrdering Facility: [facility] Address: [address] [place] [address] Result Comment: Harshal mated Glomerular Filtration Rate (eGFR) is calculated using the 2020 CKD-EPI creatinine equation. This equation utilizes serum creatinine, sex, and age as parameters. The creatinine assay has traceable calibration to isotope dilution-mass spectrometry. Refer to KDIGO guidelines for clinical interpretation. In patients with unstable renal function, e.g. those with acute kidney injury, the eGFR may not accurately reflect actual GFR. Performed By: #### 2 4323-8 ####[facility] LABORATORYCLIA [id number] [place] [address] [place] Glucose [Mass/Vol] 129 mg/dL High 74-99 [facility] Comment on above: Order Comment: Rylee vishal Type: BLOOD SPECIMENOrdering Facility: [facility] Address: [address] [place] [address] Result Comment: The [place] Diabetes [employer] (ADA) provides guidance for cutoff values for fasting glucose and random glucose. The ADA defines fasting as no caloric intake for at least 8 hours. Fasting plasma glucose results between 100 to 125 mg/dL indicate increased risk for diabetes (prediabetes). Fasting plasma glucose results greater than or equal to 126 mg/dL meet the criteria for diagnosis of diabetes. In the absence of unequivocal hyperglycemia, results should be confirmed by repeat testing. In a patient with classic symptoms of hyperglycemia or hyperglycemic crisis, random plasma glucose results greater than or equal to 200 mg/dL meet the criteria for diagnosis of diabetes. Reference: Standards of Medical Care in Diabetes 2016, [place] [employer] Association. Diabetes Care. 2016.39(Suppl 1). Performed By: #### 2 4323-8 ####[facility] LABORATORYCLIA [id number] [place] [address] [place] Potassium [Moles/Vol] 3.7 mmol/L Normal 3.7-5.1 [facility] Comment on above: Order Comment: Rylee rodgers Type: BLOOD SPECIMENOrdering Facility: [facility] Address: [address] [place] [address] Performed By: #### 2 4323-8 ####[facility] LABORATORYCLIA [id number] [place] [id number] [place] Protein [Mass/Vol] 5.5 g/dL Low 6.3-8.0 [facility] Comment on above: Order Comment: Rylee vishal Type: BLOOD SPECIMENOrdering Facility: [facility] Address: [address] [place] [address] Performed By: #### 2 4323-8 ####[facility] LABORATORYCLIA [id number] [place] [address] [place] [facility] Sodium [Moles/Vol] 131 mmol/L Low 136-144 [facility] Comment on above: Order Comment: Speci men Type: BLOOD SPECIMENOrdering Facility: [facility] Address: [address] [place] [address] Performed By: #### 2 4323-8 ####[facility] LABORATORYCLIA [id number] [place] [id number] [place] Urea nitrogen [Mass/Vol] 16 mg/dL Normal 7-21 [facility] Comment on above: Order Comment: Speci men Type: BLOOD SPECIMENOrdering Facility: [facility] Address: [address] [place] [address] Performed By: #### 2 4323-8 ####[facility] LABORATORYCLIA [id number] [place] [id number] [facility] CONSULTon 04-19-2024 CONSULT HNO ID: [id number] Author: CHANDANA QUIÑONES MD Service: Neonatology Author Type: Physician Type: Consults Filed: 04/19/2024 13:47 Note Text: NEONATOLOGY CONSULT SERVICE DATE: 04/19/2024 Admission Date: 04/18/2024 SERVICE TIME: 1:30PM Date of : 1985 Age: [age] year old Sex: female Primary Care Physician: Ottoniel Goyal DO Consulting Data Analyst: Chandana Quiñones MD Subjective Consultation for this evaluation was requested by Dr. Thomas. Reason for consultation: with Preeclampsia Recommendations will be communicated back to the requesting physician by way of shared medical record or letter. Objective MATERNAL HISTORY: Mother is a 39 year old female, , who is at 33w0d with an KESHAV of 06/07/2024, by Ultrasound dating method. LMP: Patient's last menstrual period was 09/02/2023. Maternal Hospital Problems: ACTIVE PROBLEM LIST Obesity Affecting in Second Trimester Encounter for Supervision of High Risk in Second Trimester, Antepartum Multigravida of Advanced Maternal Age in Second Trimester Ptsd (Post-Traumatic Stress Disorder) History of Depression Penicillin Allergy History of Gestational Hypertension History of Anxiety Uterine Fibroid During , Antepartum Elevated Blood Pressure Reading Without Diagnosis of Hypertension Pre-Eclampsia, Severe, Antepartum, Third Trimester 32 Weeks Gestation of Prematurity of Fetus Maternal Meds: No current facility-administered medications on file prior to encounter. Current Outpatient Medications on File Prior to Encounter Medication Sig famotidine (PEPCID) 40 mg tablet Take 1 tablet by mouth every afternoon. ondansetron (ZOFRAN) 4 mg tablet Take 4 mg by mouth every 8 hours as needed. vit/iron fum/folic ac ( VITAMIN WITH MINERALS ORAL) Take 1 capsule by mouth once daily. aspirin, enteric coated (ECOTRIN LOW STRENGTH) 81 mg EC tablet Take 1 tablet by mouth once daily. fluticasone (FLONASE) 50 mcg/actuation nasal spray Use 2 Sprays in each nostril once daily. Rinse mouth after use. Current Facility-Administered Medications Medication Dose Route Frequency famotidine 40 mg tab(s) (PEPCID) 40 mg ORAL DAILY acetaminophen 1,000 mg tab(s) (TYLENOL) 1,000 mg ORAL Pre-Op PRN sodium citrate-citric acid 500-334 mg/5 mL 30 mL oral liquid (BICITRA) 30 mL ORAL Pre-Op PRN metoclopramide HCl 10 mg injection (REGLAN) 10 mg INTRAVENOUS Pre-Op PRN NaCl 0.9% iv flush bag 20 mL INTRAVENOUS PRN ceFAZolin iv piggyback 2 g in D5W (iso-osmotic) 100 mL (ANCEF) 2 g INTRAVENOUS Pre-Op PRN azithromycin 500 mg in D5W 250 mL Vial-Bag (ZITHROMAX) 500 mg INTRAVENOUS Pre-Op PRN betamethasone acetate-betamethasone sodium phosphate 12 mg injection (CELESTONE) 12 mg INTRAMUSCULAR q 24 HR NIFEdipine ER 30 mg tab(s) (PROCARDIA XL) 30 mg ORAL BID vitamin with folic acid 1 mg 1 tablet 1 tablet ORAL DAILY magnesium sulfate 20 gram/500mL iv 2 g/hr INTRAVENOUS CONTINUOUS calcium gluconate 1 g injection 1 g INTRAVENOUS PRN complications: Pre-eclampsia The following was discussed with mother GENERAL: Neonatology presence and role at delivery: Yes Possible need for resuscitation: Yes DNR status: Full resuscitation requested Need for admission to NICU: Yes Offered tour of NICU: No Discharge criteria: Yes Survival odds/morbidity AND mortality: Yes RESPIRATORY Risk of RDS/breathing problems: Yes Possible need for respiratory support: Yes CARDIOVASCULAR Discussed Hypotension, potential medical treatment: N/A Other (e.g. congenital heart disease): N/A NEUROLOGIC Risk of IVH/Neuro developmental delays: N/A Discussed need for evaluation by Stop Attacher for ROP: N/A Discussed risk for hearing deficit: N/A FEN Mother?s Preference: Breast: Yes. Benefits of breast milk: Yes Bottle: Yes Need for supplemental nutrition and/or IVFs: Yes INFECTION Risk factors for infection- congenital and nosocomial: Yes Need to start antibiotics: Yes HEME Possible need for blood transfusion: Yes. Verbal consent obtained: N/A ACCESS Possible need for UAC/UVC/PICC: N/A. Verbal consent obtained: No MISC. Name if [employer], if known: Unknown, please contact patient's primary care physician Possible need for transfer to outside hospital: No Possible need for subspecialty evaluation: No Additional discussion: N/A Impression/Recommendatio ns Assessment: A 33 week mother with a galvez fetus, mom has preeclampsia on magnesium infusion, received 1 dose of steroid. OB team plan to deliver the baby at 34 weeks of gestation. Plan: - NICU team will attend the delivery, full code - Baby will be admitted to the NICU due to prematurity Physician [id number] total time, including discussion: 30 minutes, more than 50 % of time devoted to coordination of care and/or counseling. SIGNATURE (more content not included)... Normal [facility] Prot/Creat Uron 04-19-2024 Protein/Creatinine (U) [Mass ratio] 0.70 mg/mg High <0.15 [facility] Comment on above: Order Comment: Speci men Type: URINE SPECIMENOrdering Facility: [facility] Address: [address] [place] [address] Result Comment: Adul t Proteinuria Categories: <0.15 mg/mg is considered normal to mildly increased 0.15 - 0.50 mg/mg is considered moderately increased >0.50 mg/mg is considered severely increased KDIGO. (2013). KDIGO 2012 Clinical Practice Guideline for the Evaluation and Management of Chronic Kidney Disease. Official Journal of the International Society of Nephrology, 3(1), 1-150. Performed By: #### 2 890-2 ####[facility] LABORATORYCLIA [id number] [address] [place] [facility] Protein/Creatinine (U) [Mass ratio]on 04-19-2024 Creatinine (U) [Mass/Vol] 70.4 mg/dL Normal 42.2-237.9 [facility] Comment on above: Order Comment: Speci men Type: URINE SPECIMENOrdering Facility: [facility] Address: [address] [place] [address] Performed By: #### 2 890-2 ####[facility] LABORATORYCLIA [id number] [address] [place] Protein (U) [Mass/Vol] 49 mg/dL High 0-20 [facility] Comment on above: Order Comment: Speci men Type: URINE SPECIMENOrdering Facility: [facility] Address: [address] [place] [address] Performed By: #### 2 890-2 ####[facility] LABORATORYCLIA [id number] [address] CBC panel Auto (Bld)on 04-18 Erythrocyte distribution width (RBC) [Ratio] 14.4 % Normal 11.5-15.0 [facility] Comment on above: Order Comment: Speci men Type: BLOOD SPECIMENOrdering Facility: [facility] Address: [address] [place] [address] Performed By: #### 5 8410-2 ####[facility] LABORATORYCLIA [id number] [address] [place] Hematocrit (Bld) [Volume fraction] 32.9 % Low 36.0-46.0 [facility] Comment on above: Order Comment: Speci men Type: BLOOD SPECIMENOrdering Facility: [facility] Address: [address] [place] [address] Performed By: #### 5 8410-2 ####[facility] LABORATORYCLIA [id number] [address] [place] Hemoglobin (Bld) [Mass/Vol] 10.8 g/dL Low 11.5-15.5 [facility] Comment on above: Order Comment: Speci men Type: BLOOD SPECIMENOrdering Facility: [facility] Address: [address] [place] [address] Performed By: #### 5 8410-2 ####[facility] LABORATORYCLIA [id number] [address] MCH (RBC) [Entitic mass] 24.9 pg Low 26.0-34.0 [facility] Comment on above: Order Comment: Speci men Type: BLOOD SPECIMENOrdering Facility: [facility] Address: [address] [place] [address] Performed By: #### 5 8410-2 ####[facility] LABORATORYCLIA [id number] [address] MCHC (RBC) [Mass/Vol] 32.8 g/dL Normal 30.5-36.0 [facility] Comment on above: Order Comment: Speci men Type: BLOOD SPECIMENOrdering Facility: [facility] Address: [address] [place] [address] Performed By: #### 5 8410-2 ####[facility] LABORATORYCLIA [id number] [address] MCV (RBC) [Entitic vol] 76.0 fL Low 80.0-100.0 [facility] Comment on above: Order Comment: Speci men Type: BLOOD SPECIMENOrdering Facility: [facility] Address: [address] [place] [address] Performed By: #### 5 8410-2 ####[facility] LABORATORYCLIA [id number] [address] Nucleated RBC (Bld) [#/Vol] 0.02 10*3/uL High <0.01 [facility] Comment on above: Order Comment: Speci men Type: BLOOD SPECIMENOrdering Facility: [facility] Address: [address] [place] [address] Performed By: #### 5 8410-2 ####[facility] LABORATORYCLIA [id number] [address] STATES [facility] Platelet mean volume (Bld) [Entitic vol] 12.1 fL Normal 9.0-12.7 [facility] Comment on above: Order Comment: Speci men Type: BLOOD SPECIMENOrdering Facility: [facility] Address: [address] [place] [address] Performed By: #### 5 8410-2 ####[facility] LABORATORYCLIA [id number] [address] [place] Platelets (Bld) [#/Vol] 230 10*3/uL Normal 150-400 [facility] Comment on above: Order Comment: Speci men Type: BLOOD SPECIMENOrdering Facility: [facility] Address: [address] [place] [address] Performed By: #### 5 8410-2 ####[facility] [id number] [address] STATES [facility] RBC (Bld) [#/Vol] 4.33 10*6/uL Normal 3.90-5.20 [facility] Hospital Comment on above: Order Comment: Speci men Type: BLOOD SPECIMENOrdering Facility: [facility] Address: [address] [place] [address] Performed By: #### 5 8410-2 ####[facility] LABORATORYCLIA [id number] [address] [place] WBC (Bld) [#/Vol] 8.97 10*3/uL Normal 3.70-11.00 [facility] Comment on above: Order Comment: Speci men Type: BLOOD SPECIMENOrdering Facility: [facility] Address: [address] [place] [address] Performed By: #### 5 8410-2 ####[facility] LABORATORYCLIA [id number] [address] Cherie 04-18-2024 RONY Telephone (OBGYWM) -------- HARRISON GUNDERSON ([id number]) 1985 F Date Time Provider Department 04/18/24 PEDRITO UMANZOR During your visit today, we recorded the following information about you: Yuliya Villatoro RN 04/18/2024 11:25 AM Addendum 32w6d Patient called with c/o bilateral leg swelling. 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 It was 200/110 after patient had just come down a flight of stairs. Nurse rechecked after patient resting. BP was then 148/106. Patient denies BAILEY, vision changes, RUQ abdominal pain. She is having some SOB, mostly with movements, but can occur while sitting. This started today. Scheduled patient with CP at 3:15 PM today for a BP check, unless you would like patient added to schedule sooner. Thank you. REANTE Bhat Karmon, MD 04/18/2024 12:20 PM Signed Noted AND agree with 3:15 today. MD Fabiano Bob Tara, RN 04/18/2024 3:31 PM Signed Called [facility] Buckfabiano [facility] to inform them Pt was coming from out office d/t BP 152/100, hyperreflexes, bilateral ankle edema, hx of pre-e AND GHTN. Kena Mario RN Allergies As of Date: 04/18/2024 Noted Allergy Reaction PENICILLINS 10/25/2016 2 - Rash ZOLOFT (SERTRALINE HCL) 05/24/2017 5 - Intolerance Date Reviewed: 04/18/2024 Reviewed by: Wilson Diaz MA - Fully Assessed Reason for Visit: OB Elevated BP [Other] Prescriptions as of 04/18/2024 - famotidine (PEPCID) 40 mg tablet Take 1 tablet by mouth every afternoon. - ondansetron (ZOFRAN) 4 mg tablet Take 4 mg by mouth every 8 hours as needed. - vit/iron fum/folic ac ( VITAMIN WITH MINERALS ORAL) Take 1 capsule by mouth once daily. - aspirin, enteric coated (ECOTRIN LOW STRENGTH) 81 mg EC tablet Take 1 tablet by mouth once daily. - fluticasone (FLONASE) 50 mcg/actuation nasal spray Use 2 Sprays in each nostril once daily. Rinse mouth after use. Problem List As Of Date 04/18/2024 Noted Resolved Obesity affecting in second trimester* Anxiety [F41.9] 12/01/2023 Encounter for supervision of high risk pregnanc*12/01/2023 Multigravida of advanced maternal age in second*12/01/2023 PTSD (post-traumatic stress disorder) [F43.10] 12/01/2023 History of depression [Z87.59, Z86.5*12/01/2023 Penicillin allergy [Z88.0] 12/01/2023 History of gestational hypertension [Z87.59] 12/01/2023 History of anxiety [Z86.59] 12/01/2023 Nausea and vomiting during [O21.9] 12/01/2023 Vaginal bleeding during [O46.90] 12/01/2023 12/01/2023 Pelvic pressure in [O26.899, R10.2] 01/24/2024 01/31/2024 Uterine fibroid during , antepartum [O*01/31/2024 Varicose veins of lower leg [I83.90] 03/04/2024 Encounter Status:Closed by YULIYA VILLATORO on 04/18/24 Normal [facility] metabolic 2000 panelon 04-18-2024 Albumin [Mass/Vol] 3.1 g/dL Low 3.9-4.9 [facility] Comment on above: Order Comment: Speci men Type: BLOOD SPECIMENOrdering Facility: [facility] Address: [address] [place] [address] Performed By: #### 2 4323-8 ####[facility] LABORATORYCLIA [id number] [place] [address] [place] ALP [Catalytic activity/Vol] 120 U/L Normal 34-123 [facility] Comment on above: Order Comment: Speci men Type: BLOOD SPECIMENOrdering Facility: [facility] Address: [address] [place], [place] [address] Performed By: #### 2 4323-8 ####[facility] LABORATORYCLIA [id number] [place] [address] [place] ALT With P-5'-P [Catalytic activity/Vol] 10 U/L Normal 7-38 [facility] Comment on above: Order Comment: Speci men Type: BLOOD SPECIMENOrdering Facility: [facility] Address: [address] [place] [address] Performed By: #### 2 4323-8 ####[facility] LABORATORYCLIA [id number] [place] [address] [place] Anion gap [Moles/Vol] 12 mmol/L Normal 8-15 [facility] Comment on above: Order Comment: Speci men Type: BLOOD SPECIMENOrdering Facility: [facility] Address: [address] [place] [address] Performed By: #### 2 4323-8 ####[facility] LABORATORYCLIA [id number] [address] STATES [place] [facility] AST With P-5'-P [Catalytic activity/Vol] 19 U/L Normal 13-35 [facility] Comment on above: Order Comment: Speci men Type: BLOOD SPECIMENOrdering Facility: [facility] Address: [address] [place] [address] Performed By: #### 2 4323-8 ####[facility] LABORATORYCLIA [id number] [address] [place] Bilirubin [Mass/Vol] 0.2 mg/dL Normal 0.2-1.3 [facility] Comment on above: Order Comment: Speci men Type: BLOOD SPECIMENOrdering Facility: [facility] Address: [address] [place] [address] Performed By: #### 2 4323-8 ####[facility] LABORATORYCLIA [id number] [place] [address] [place] Calcium [Mass/Vol] 9.7 mg/dL Normal 8.5-10.2 [facility] Comment on above: Order Comment: Speci men Type: BLOOD SPECIMENOrdering Facility: [facility] Address: [address] [place] [address] Performed By: #### 2 4323-8 ####[facility] LABORATORYCLIA [id number] [address] [place] Chloride [Moles/Vol] 104 mmol/L Normal 98-107 [facility] Comment on above: Order Comment: Speci men Type: BLOOD SPECIMENOrdering Facility: [facility] Address: [address] [place] [address] Performed By: #### 2 4323-8 ####[facility] LABORATORYCLIA [id number] [address] [place] CO2 [Moles/Vol] 20 mmol/L Low 22-30 [facility] Comment on above: Order Comment: Speci men Type: BLOOD SPECIMENOrdering Facility: [facility] Address: [address] [place] [address] Performed By: #### 2 4323-8 ####[facility] LABORATORYCLIA [id number] [address] [place] Creatinine [Mass/Vol] 0.64 mg/dL Normal 0.58-0.96 [facility] Comment on above: Order Comment: Speci men Type: BLOOD SPECIMENOrdering Facility: [facility] Address: [address] [place] [address] Performed By: #### 2 4323-8 ####[facility] LABORATORYCLIA [id number] [address] Creatinine and Glomerular filtration rate.predicted panel (S/P/Bld) 115 mL/min/1.73m??? Normal >=60 [facility] Comment on above: Order Comment: Speci men Type: BLOOD SPECIMENOrdering Facility: [facility] Address: [address] [place] [address] Result Comment: Harshal mated Glomerular Filtration Rate (eGFR) is calculated using the 2020 CKD-EPI creatinine equation. This equation utilizes serum creatinine, sex, and age as parameters. The creatinine assay has traceable calibration to isotope dilution-mass spectrometry. Refer to KDIGO guidelines for clinical interpretation. In patients with unstable renal function, e.g. those with acute kidney injury, the eGFR may not accurately reflect actual GFR. Performed By: #### 2 4323-8 ####[facility] LABORATORYCLIA [id number] [place] [address] [place] Glucose [Mass/Vol] 72 mg/dL Low 74-99 [facility] Comment on above: Order Comment: Rylee rodgers Type: BLOOD SPECIMENOrdering Facility: [facility] Address: [address] [place] [address] Result Comment: The [place] Diabetes Association (ADA) provides guidance for cutoff values for fasting glucose and random glucose. The ADA defines fasting as no caloric intake for at least 8 hours. Fasting plasma glucose results between 100 to 125 mg/dL indicate increased risk for diabetes (prediabetes). Fasting plasma glucose results greater than or equal to 126 mg/dL meet the criteria for diagnosis of diabetes. In the absence of unequivocal hyperglycemia, results should be confirmed by repeat testing. In a patient with classic symptoms of hyperglycemia or hyperglycemic crisis, random plasma glucose results greater than or equal to 200 mg/dL meet the criteria for diagnosis of diabetes. Reference: Standards of Medical Care in Diabetes 2016, [place] [employer] Association. Diabetes Care. 2016.39(Suppl 1). Performed By: #### 2 4323-8 ####[facility] LABORATORYCLIA [id number] [place] [address] [place] Potassium [Moles/Vol] 3.7 mmol/L Normal 3.7-5.1 [facility] Comment on above: Order Comment: Rylee rodgers Type: BLOOD SPECIMENOrdering Facility: [facility] Address: [address] [place] [address] Performed By: #### 2 4323-8 ####[facility] LABORATORYCLIA [id number] [place] [address] [place] Protein [Mass/Vol] 5.9 g/dL Low 6.3-8.0 [facility] Comment on above: Order Comment: Rylee rodgers Type: BLOOD SPECIMENOrdering Facility: [facility] Address: [address] [place] [address] Performed By: #### 2 4323-8 ####[facility] LABORATORYCLIA [id number] [place] [id number] [facility] Sodium [Moles/Vol] 136 mmol/L Normal 136-144 [facility] Comment on above: Order Comment: Speci men Type: BLOOD SPECIMENOrdering Facility: [facility] Address: [address] [place] [address] Performed By: #### 2 4323-8 ####[facility] LABORATORYCLIA [id number] [place] [id number] [facility] Urea nitrogen [Mass/Vol] 15 mg/dL Normal 7-21 [facility] Comment on above: Order Comment: Speci men Type: BLOOD SPECIMENOrdering Facility: [facility] Address: [address] [place] [address] Performed By: #### 2 4323-8 ####[facility] LABORATORYCLIA [id number] [place] [id number] [facility] ED Triage Noteon 04-18-2024 ED Triage Note HNO ID: [id number] Author: CURTIS ZEPEDA PA-C Service: Emergency Medicine Author Type: Physician Benchroom Shop Optician Type: ED Triage Notes Filed: 04/18/2024 17:20 Note Text: ED TRIAGE PROVIDER NOTE Patient Name: Harrison Gunderson Service Date: 04/18/24 BRIEF HPI: This is a 39 year old female who presents to the ED with: Hypertension. 33 weeks . Was seen by OB today, had elevated blood pressure, there was concern for hyperreflexia as well, patient does report some lower extremity swelling, was sent in by OB for concerns for preeclampsia. Reports history of preeclampsia with her first child, has had elevated blood pressure in before. BRIEF EXAM: NAD 162/105 lower extremities. Mildly edematous Awake and Alert Non labored breathing INITIAL WORKUP AND DECISION MAKING: Spoke with Dr. Jenkins in OB triage, excepted patient will be transported up via irrigation technician. Orders Placed This Encounter No orders of the defined types were placed in this encounter. SIGNATURE: Curtis Zepeda PA-C Normal [facility] GROUP B STREPTOCOCCUS BY PCR , ROUTINE SCREENINGon 04-18-2024 GROUP B STREPTOCOCCUS BY PCR, ROUTINE SCREENING GROUP B STREP PCR: Negative for Group B Streptococcus by PCR. Normal [facility] Comment on above: Performed By: #### G BPCR ####[facility] LABORATORYCLIA [id number] [place] [address] [place] HISTORY PHYSICALon HISTORY PHYSICAL HNO ID: [id number] Author: ROCKY THOMAS MD Service: Obstetrics Author Type: Resident Type: H&P Filed: 04/19/2024 09:42 Note Text: -------- Attestation signed by Rocky Thomas MD at 04/19/2024 9:42 AM Attending Note I evaluated the patient and personally participated in the pinzon components. I agree with the resident's findings and plan as documented and have discussed the case and management of the patient's care with the resident. 39-year-old G6, P5 at 32 weeks and 6 days admitted with severe range blood pressure x 2. Patient otherwise asymptomatic for preeclampsia. CBC and CMP within normal limits. No urine protein obtained on admission. Patient with a prior history of preeclampsia with delivery at term. Now meeting criteria for preeclampsia with severe features based on blood pressure criteria. Was on baby aspirin. Received 3 doses of p.o. Procardia for acute therapy. Currently on Procardia 30 mg twice daily. Agree with magnesium sulfate for seizure prophylaxis and betamethasone for lung maturation. Plan was delivery at 34 weeks or earlier if indicated. All questions answered. Signature: Rocky Thomas MD Date: 04/19/2024 Time: 9:39 AM -------- OBSTETRICS HISTORY AND PHYSICAL SERVICE DATE: April 18, 2024 SERVICE TIME: 7:08 PM Subjective Patient's stated reason for arrival: sent by OB for preeclampsia CHIEF COMPLAINT: High blood pressure HISTORY OF THE PRESENT ILLNESS: The patient is a 39 year old female, , who is at 32w6d with an KESHAV of 06/07/2024, by Ultrasound dating method. Patient is here due to elevated BP. She had a high blood pressure at home and was advised to go to the hospital. While in the main ED, she had a severe range blood pressure (162/105) and was transferred to the [facility]. While in the [facility], she had a repeat severe range blood pressure. She reports a history of gestational hypertension or pre-eclampsia, she does not remember which. Denies headache, vision changes, chest pain, shortness of breath, right upper quadrant pain, vaginal bleeding, leaking of fluid, discharge, leg pain, diarrhea, or dysuria. POST DELIVERY CONTRACEPTION: Discussed post-delivery contraception options. Patient does not desire post-delivery contraception. HISTORY REVIEW PAST MEDICAL HISTORY Diagnosis Date Anxiety History of gestational hypertension 12/01/2023 History of depression 12/01/2023 Obesity Uterine fibroid 2022 Vaginal bleeding during 12/01/2023 PAST SURGICAL HISTORY Procedure Laterality Date COLONOSCOPY SCREENING 2019 FAMILY HISTORY Problem Relation Age of Onset Diabetes Mother Anxiety disorder Mother Hypertension Mother None Father Social History Tobacco Use Smoking status: Never Smokeless tobacco: Never Vaping Use Vaping status: Never Used Substance Use Topics Alcohol use: No Drug use: No Obstetric History T5 L4 SAB0 IAB0 Ectopic0 Multiple0 Live Births4 Name of Baby 1: Not recorded Date: Not recorded GA: Not recorded Type: Not recorded Apgar1: Not recorded Apgar5: Not recorded Living: Not recorded Name of Baby 2: Not recorded Date: 11/24/03 GA: 38w0d Type: Vaginal, Spontaneous Apgar1: Not recorded Apgar5: Not recorded Living: Living Name of Baby 3: Not recorded Date: 05/15/07 GA: 39w0d Type: Vaginal, Spontaneous Apgar1: Not recorded Apgar5: Not recorded Living: Living Name of Baby 4: Not recorded Date: 07/17/08 GA: 38w0d Type: Vaginal, Spontaneous Apgar1: Not recorded Apgar5: Not recorded Living: Living Name of Baby 5: Not recorded Date: 08/06/10 GA: 38w3d Type: Vaginal, Spontaneous Apgar1: Not recorded Apgar5: Not recorded Living: Living Name of Baby 6: Not recorded Date: Not recorded GA: Not recorded Type: Not recorded Apgar1: Not recorded Apgar5: Not recorded Living: Not recorded ALLERGIES Allergen Reactions Penicillins Rash Zoloft [Sertraline * Intolerance Prior to Admission Medications Prescriptions Last Dose Informant Patient Reported? Taking? aspirin, enteric coated (ECOTRIN LOW STRENGTH) 81 mg EC tablet No No Sig: Take 1 tablet by mouth once daily. famotidine (PEPCID) 40 mg tablet Yes No Sig: Take 1 tablet by mouth every afternoon. fluticasone (FLONASE) 50 mcg/actuation nasal spray No No Sig: Use 2 Sprays in each nostril once daily. Rinse mouth after use. ondansetron (ZOFRAN) 4 mg tablet Yes No Sig: Take 4 mg by mouth every 8 hours as needed. vit/iron fum/folic ac ( VITAMIN WITH MINERALS ORAL) Yes No Sig: Take 1 capsule by mouth once daily. Facility-Administered Medications: None REVIEW OF SYSTEMS: See HPI. Objective LAST VITALS: Pulse BP Resp O2 Sat Temp Pain 79 155/87 16 97 % 36.6 ?C (97.9 ?F) 0 HT/WT/BMI: Height Weight BMI 162.6 (more content not included)... Normal [facility] Reagin and Treponema pallidu m IgG and IgM [Interp]on 04-18-2024 T. pallidum IgG+IgM IA Ql (S) Non-Reactive Normal Nonreactive [facility] Comment on above: Order Comment: Speci men Type: BLOOD SPECIMENOrdering Facility: [facility] Address: [address] [place] [address] Performed By: #### 7 3752-8 ####[facility] LABCLIA [id number] [place] [address] [place] Reagin+T pallidum IgG+IgM Se rPl-Impon 04-18-2024 Reagin and Treponema pallidum IgG and IgM [Interp] Cannot exclude recent Treponemal infection if specimen collected within 7-10 days after appearance of suspect lesions or 2-3 weeks after an exposure. Clinical correlation is required. Normal [facility] Comment on above: Order Comment: Speci men Type: BLOOD SPECIMENOrdering Facility: [facility] Address: [address] [place] [address] Performed By: #### 7 3752-8 ####[facility] LABCLIA [id number] [address] [place] TYPE + SCREEN PRENATALon ABO O Normal [facility] Comment on above: Order Comment: Speci men Type: BLOOD SPECIMENOrdering Facility: [facility] Address: [address] [place] [address] Performed By: #### T SPN ####[facility] BLOOD BANKIA [id number] [address] [place] Rh Nom (Bld) Positive Normal [facility] Comment on above: Order Comment: Speci men Type: BLOOD SPECIMENOrdering Facility: [facility] Address: [address] [place] [address] Performed By: #### T SPN ####[facility] BLOOD BANKIA [id number] [place] [id number] [place] [facility] TYPE AND SCREEN EXPIRATION 04/21/2024 23:59 Normal [facility] Comment on above: Order Comment: Speci men Type: BLOOD SPECIMENOrdering Facility: [facility] Address: [address] [place] [address] Performed By: #### T SPN ####[facility] BLOOD BANKIA [id number] [place] [id number] [place] Examination level ultrasound on 04-15-[address] [facility] Radiology Study observation (narrative) [facility] CBC W Auto Differential pane l (Bld)on 03-22-2024 Basophils (Bld) [#/Vol] 0.03 10*3/uL Normal <0.11 [facility] Comment on above: Order Comment: Speci men Type: BLOOD SPECIMENOrdering Facility: [facility] Address: [address] [place] [address] Performed By: #### 5 7021-8 ####[facility] KASHWNCLIA [id number] [place] [address] [place] Basophils/100 WBC (Bld) 0.3 % Normal [facility] Comment on above: Order Comment: Speci men Type: BLOOD SPECIMENOrdering Facility: [facility] Address: [address] [place] [address] Performed By: #### 5 7021-8 ####[facility] SYSTEMLIA [id number] [place] [address] [place] Differential cell count method Nom (Bld) Auto Normal [facility] Comment on above: Order Comment: Speci men Type: BLOOD SPECIMENOrdering Facility: [facility] Address: [address] [place] [address] Performed By: #### 5 7021-8 ####[facility] SYSTEMLIA [id number] [place] [address] [place] Eosinophils (Bld) [#/Vol] 0.16 10*3/uL Normal <0.46 [facility] Comment on above: Order Comment: Speci men Type: BLOOD SPECIMENOrdering Facility: [facility] Address: [address] [place] [address] Performed By: #### 5 7021-8 ####[facility] SYSTEMWNCLIA [id number] [place] [address] [place] Eosinophils/100 WBC (Bld) 1.8 % Normal [facility] Comment on above: Order Comment: Speci men Type: BLOOD SPECIMENOrdering Facility: [facility] Address: [address] [place] [address] Performed By: #### 5 7021-8 ####[facility] KASHShahlaNCLIA [id number] [place] [address] [place] Erythrocyte distribution width (RBC) [Ratio] 14.0 % Normal 11.5-15.0 [facility] Comment on above: Order Comment: Speci men Type: BLOOD SPECIMENOrdering Facility: [facility] Address: [address] [place] [address] Performed By: #### 5 7021-8 ####[facility] BOULEVARDEMILYLIA [id number] [place] [address] [place] Hematocrit (Bld) [Volume fraction] 33.0 % Low 36.0-46.0 [facility] Comment on above: Order Comment: Speci men Type: BLOOD SPECIMENOrdering Facility: [facility] Address: [address] [place] [address] Performed By: #### 5 7021-8 ####[facility] BOULEVARDNCLIA [id number] [place] [address] [place] Hemoglobin (Bld) [Mass/Vol] 11.0 g/dL Low 11.5-15.5 [facility] Comment on above: Order Comment: Speci men Type: BLOOD SPECIMENOrdering Facility: [facility] Address: [address] [place] [address] Performed By: #### 5 7021-8 ####[facility] SYSTEMLIA [id number] [place] [address] [place] Immature granulocytes (Bld) [#/Vol] 0.07 10*3/uL Normal <0.10 [facility] Comment on above: Order Comment: Speci men Type: BLOOD SPECIMENOrdering Facility: [facility] Address: [address] [place] [address] Performed By: #### 5 7021-8 ####[facility] BOULEVARDNCLI [id number] [place] [address] [place] Immature granulocytes/100 WBC (Bld) 0.8 % Normal [facility] Comment on above: Order Comment: Speci men Type: BLOOD SPECIMENOrdering Facility: [facility] Address: [address] [place] [address] Performed By: #### 5 7021-8 ####[facility]ITALA [id number] [place] [address] [place] Lymphocytes (Bld) [#/Vol] 1.64 10*3/uL Normal 1.00-4.00 [facility] Comment on above: Order Comment: Speci men Type: BLOOD SPECIMENOrdering Facility: [facility] Address: [address] [place] [address] Performed By: #### 5 7021-8 ####[facility] [id number] [place] [address] [place] Lymphocytes/100 WBC (Bld) 18.5 % Normal [facility] Comment on above: Order Comment: Speci men Type: BLOOD SPECIMENOrdering Facility: [facility] Address: [address] [place] [address] Performed By: #### 5 7021-8 ####[facility] BOULEVARDNCLI [id number] [place] [address] [place] MCH (RBC) [Entitic mass] 25.1 pg Low 26.0-34.0 [facility] Comment on above: Order Comment: Speci men Type: BLOOD SPECIMENOrdering Facility: [facility] Address: [address] [place] [address] Performed By: #### 5 7021-8 ####[facility] [id number] [place] [address] [place] MCHC (RBC) [Mass/Vol] 33.3 g/dL Normal 30.5-36.0 [facility] Comment on above: Order Comment: Speci men Type: BLOOD SPECIMENOrdering Facility: [facility] Address: [address] [place] [address] Performed By: #### 5 7021-8 ####[facility] KASHNICHELLE [id number] [place] [address] [place] MCV (RBC) [Entitic vol] 75.3 fL Low 80.0-100.0 [facility] Comment on above: Order Comment: Speci men Type: BLOOD SPECIMENOrdering Facility: [facility] Address: [address] [place] [address] Performed By: #### 5 7021-8 ####[facility] BOU[facility]ARDNCSHANAE [id number] [place] [address] [place] Monocytes (Bld) [#/Vol] 0.80 10*3/uL Normal <0.87 [facility] Comment on above: Order Comment: Speci men Type: BLOOD SPECIMENOrdering Facility: [facility] Address: [address] [place] [address] Performed By: #### 5 7021-8 ####[facility] B[facility]ARDNCA [id number] [place] [address] [place] Monocytes/100 WBC (Bld) 9.0 % Normal [facility] Comment on above: Order Comment: Speci men Type: BLOOD SPECIMENOrdering Facility: [facility] Address: [address] [place] [address] Performed By: #### 5 7021-8 ####[facility]ARDNCLIA [id number] [place] [address] [place] Neutrophils (Bld) [#/Vol] 6.17 10*3/uL Normal 1.45-7.50 [facility] Comment on above: Order Comment: Speci men Type: BLOOD SPECIMENOrdering Facility: [facility] Address: [address] [place] [address] Performed By: #### 5 7021-8 ####[facility] SYSTEMWNCLIA [id number] [place] [address] [place] Neutrophils/100 WBC (Bld) 69.6 % Normal [facility] Comment on above: Order Comment: Speci men Type: BLOOD SPECIMENOrdering Facility: [facility] Address: [address] [place] [address] Performed By: #### 5 7021-8 ####[facility] SYSTEML[facility] [id number] [place] [address] [place] Nucleated RBC (Bld) [#/Vol] 10*3/uL Normal <0.01 [facility] Comment on above: Order Comment: Speci men Type: BLOOD SPECIMENOrdering Facility: [facility] Address: [address] [place] [address] Performed By: #### 5 7021-8 ####[facility] [id number] [place] [address] [place] Nucleated RBC/100 WBC (Bld) [Ratio] 0.0 /100 WBC Normal [facility] Comment on above: Order Comment: Speci men Type: BLOOD SPECIMENOrdering Facility: [facility] Address: [address] [place] [address] Performed By: #### 5 7021-8 ####[facility] [id number] [place] [address] [place] Platelet mean volume (Bld) [Entitic vol] 11.4 fL Normal 9.0-12.7 [facility] Comment on above: Order Comment: Speci men Type: BLOOD SPECIMENOrdering Facility: [facility] Address: [address] [place] [address] Performed By: #### 5 7021-8 ####[facility] BOULEVARDNCLI [id number] [place] [address] [place] Platelets (Bld) [#/Vol] 284 10*3/uL Normal 150-400 [facility] Comment on above: Order Comment: Speci men Type: BLOOD SPECIMENOrdering Facility: [facility] Address: [address] [place] [address] Performed By: #### 5 7021-8 ####[facility]ARDNCLIA [id number] [place] [address] [place] RBC (Bld) [#/Vol] 4.38 10*6/uL Normal 3.90-5.20 [facility] Comment on above: Order Comment: Speci men Type: BLOOD SPECIMENOrdering Facility: [facility] Address: [address] [place] [address] Performed By: #### 5 7021-8 ####[facility]ARDNCLIA [id number] [place] [address] [place] WBC (Bld) [#/Vol] 8.87 10*3/uL Normal 3.70-11.00 [facility] Comment on above: Order Comment: Speci men Type: BLOOD SPECIMENOrdering Facility: [facility] Address: [address] [place] [address] Performed By: #### 5 7021-8 ####[facility]ARDNCLIA [id number] [place] [address] [place] GESTATIONAL GLUCOSE SCREEN, 1-HOUR, 50 GRAM, NON-FASTINGon 03-22-2024 Glucose [Mass/Vol] 125 mg/dL Normal 74-134 [facility] Comment on above: Order Comment: Speci men Type: BLOOD SPECIMENOrdering Facility: [facility] Address: [address] [place] [address] Result Comment: [facility] Congress of Obstetricians and Gynecologists (Charlee/Krishna) guidelines state a gestational diabetes mellitus positive screen is made, in women not previously diagnosed with overt diabetes, when the 1 hr plasma glucose level is equal to or above 140 mg/dL. The [facility] Agency Service Coordinator and [facility] [place] recommends a 135 mg/dL cutoff. Performed By: #### G LTGST ####[facility] [id number] [place] [address] [place] Reagin and Treponema pallidu m IgG and IgM [Interp]on 03-22-2024 T. pallidum IgG+IgM IA Ql (S) Non-Reactive Normal Nonreactive [facility] Comment on above: Order Comment: Speci men Type: BLOOD SPECIMENOrdering Facility: [facility] Address: [address] [place] [address] Performed By: #### 7 3752-8 ####[facility] LABCLIA [id number] [place] [address] [place] Reagin+T pallidum IgG+IgM Se rPl-Impon 03-22-2024 Reagin and Treponema pallidum IgG and IgM [Interp] Cannot exclude recent Treponemal infection if specimen collected within 7-10 days after appearance of suspect lesions or 2-3 weeks after an exposure. Clinical correlation is required. Normal [facility] Comment on above: Order Comment: Speci men Type: BLOOD SPECIMENOrdering Facility: [facility] Address: [address] [place] [address] Performed By: #### 7 3752-8 ####[facility] LABCLIA [id number] [place] [id number] [place] Examination level ultrasound on 01-26-2024 Indication Detailed anatomic survey. Advanced maternal age, Maternal obesity, BMI >30 Impression The patient is referred for a detailed anatomic survey. - Single, live, intrauterine . - biometry is consistent with the established gestational age. - No malformations were visualized on a complete detailed anatomic survey. - The amniotic fluid volume is normal amount. - The placenta is posterior, fundal. - The Transabdominal cervical length measures 34.7 mm with no evidence of funneling or other dynamic changes. - Not all structural malformations can be detected by ultrasound examination. Maternal Structures: Uterus: Fibroid(s): Size 42 mm x 23 mm x 37 mm. Mean 33.9 mm. Vol 18.378 cm . FIGO score: 1 - < 50% intramural, Anterior Recommendations - growth at 32 weeks. - Additional follow up as clinically indicated. Maternal Assessment Height 163 cm Height (ft) 5 ft Height (in) 4 in Physical Exam Initial weight (lb) 206 lb Initial BMI 35.36 kg/m Method Transabdominal ultrasound examination. View: Adequate visualization Galvez . Number of fetuses: 1 Dating GA by prior assessment 21 w + 0 d KESHAV by prior assessment: 06/07/2024 Ultrasound examination on: 01/26/2024 GA by U/S based upon: AC, BPD, Femur, HC GA by U/S 20 w + 3 d KESHAV by U/S: 06/11/2024 Assigned: based on stated KESHAV, selected on 12/01/2023 Assigned GA 21 w + 0 d Assigned KESHAV: 06/07/2024 General Evaluation Cardiac activity present. FHR 148 bpm. movements: present. Presentation: transverse bottom Placenta: Placental site: posterior, fundal Umbilical cord: Cord vessels: 3 vessel cord. Insertion site: normal insertion Amniotic fluid: Amount of AF: normal amount. MVP 6.4 cm Growth Overview Exam date GA BPD (mm) HC (mm) AC (mm) FL (mm) HL (mm) EFW (g) 12/29/2023 17w 0d 35.9 50% 134.7 41% 114.7 58% 19.5 12% 18.6 8% 161 20% 01/26/2024 21w 0d 49.2 44% 179 30% 153.3 28% 31.3 19% 28.7 4% 337 12% Biometry Standard BPD 49.2 mm 20w 6d 44% Hadlock OFD 62.8 mm 20w 1d 29% Nicolaides HC 179.0 mm 20w 2d 30% Zohreh Cerebellum tr 22.2 mm 20w 5d 55% Hill Nuchal fold 3.1 mm AC 153.3 mm 20w 4d 28% Hadlock Femur 31.3 mm 19w 6d 19% Zohreh Humerus 28.7 mm 19w 2d 4% Zohreh EFW 337 g 20w 1d 12% Hadlock EFW (lb) 0 lb EFW (oz) 12 oz EFW by: Hadlock (HC-AC-FL) Extended Pinion Sorter 6.5 mm CM 4.0 mm 14% Nicolaides Nasal bone 7.4 mm Extremities / Bony Struc FL / HC 0.17 1% Hadlock Other Structures FHR 148 bpm Anatomy Cranium: normal Lateral ventricles: normal Choroid plexus: normal Midline falx: normal Cavum septi pellucidi: normal Cerebellum: normal Cisterna magna: normal Head / Neck Vermis: normal Neck: normal Nuchal fold: normal Lips: normal Profile: normal Nose: normal Face Maxilla: normal Mandible: normal Orbits: normal Lens: normal 4-chamber view: normal RVOT view: normal LVOT view: normal 3-vessel view: normal 5-jzhels-jjnzkld view: normal Heart / Thorax Situs: situs solitus (normal) Aortic arch view: normal SVC: normal IVC: normal Cardiac axis: normal Rt lung: normal Lt lung: normal Diaphragm: normal Cord insertion: normal Stomach: normal Kidneys: normal Bladder: normal Genitals: normal Abdomen Abdom. wall: normal Cervical spine: normal Thoracic spine: normal Lumbar spine: normal Sacral spine: normal Arms: normal Legs: normal Rt upper arm: normal Rt forearm: normal Rt hand: normal Rt fingers: normal Lt upper arm: normal Lt forearm: normal Lt hand: normal Lt fingers: normal Rt upper leg: normal Rt lower leg: normal Rt foot: normal Lt upper leg: normal Lt lower leg: normal Lt foot: normal sex: female sex: normal Wants to know sex: yes Maternal Structures Uterus / Cervix Uterus: Visualized Uterine fibroid D1 42 mm Uterine fibroid D2 23 mm Uterine fibroid D3 37 mm Uterine fibroid mean 33.9 mm Uterine fibroid vol 18.378 cm Uterine fibroids findings: FIGO score: 1 - < 50% intramural, Anterior Cervix: Visualized Approach: Transabdominal Cervical length 34.7 mm Other: Patient declined transvaginal ultrasound for cervical length. Ovaries / Tubes / Adnexa Rt ovary: Normal Lt ovary: Normal Performed By: Love Gant RDMS Read By: Yamel Moore M.D. MATERNAL MEDICINE [facility] Radiology Study observation (narrative) [facility] UA DIP, URINE (POC)on 2023 BILIRUBIN UA (POCT) Negative Negative [facility] CLARITY UA (POCT) Clear [facility] COLOR UA (POCT) Yellow [facility] GLUCOSE UA (POCT) Negative Negative mg/dL [facility] Hemoglobin Ql (U) Negative Negative [facility] Interpretation and review of laboratory results Abnormal [facility] KETONE UA (POCT) 15 mg/dL Abnormal Negative [facility] LEUKOCYTES UA (POCT) Negative [facility] NITRITE UA (POCT) Negative Negative [facility] PH UA (POCT) 5.5 4.5 - 8.[address] [facility] Protein Ql (U) Negative Negative mg/dL [facility] SPECIFIC GRAVITY UA (POCT) >=1.030 1.005 - 1.[address] [facility] UROBILINOGEN UA (POCT) 0.2 Normal E.U./dL [facility] Location:[facility], [address] [facility], [place], [place], [id number] [place] [address] POINT OF CARE [facility] ALPHA FETOPRO MATERNALon AFP, MATERNAL 1.68 MoM Normal [facility] Comment on above: Order Comment: Speci men Type: BLOOD SPECIMEN Ordering Facility: [facility] Address: [address] [place] [address] Result Comment: 52.8 5 ng/mL Performed By: #### A FPMAT #### [facility] CLIA [id number] [address] [place] [address] [place] DATE OF COLLECTION #1 12/29/23 Normal [facility] Comment on above: Order Comment: Speci men Type: BLOOD SPECIMEN Ordering Facility: [facility] Address: [address] [place] [address] Performed By: #### A FPMAT #### [facility] CLIA [id number] [address] [place] [address] [place] DATE RECEIVED 01/01/24 Normal [facility] Comment on above: Order Comment: Speci men Type: BLOOD SPECIMEN Ordering Facility: [facility] Address: [address] [place] [address] Performed By: #### A FPMAT #### [facility] CLIA [id number] [address] [place] [address] [place] KESHAV 06/07/24 Normal [facility] Comment on above: Order Comment: Speci men Type: BLOOD SPECIMEN Ordering Facility: [facility] Address: [address] [place] [address] Performed By: #### A FPMAT #### [facility] CLIA [id number] [address] [place] [address] [place] GESTATION AT DATE OF SAMPLE 17 weeks 0 days (by scan) Normal [facility] Comment on above: Order Comment: Speci men Type: BLOOD SPECIMEN Ordering Facility: [facility] Address: [address] [place] [address] Performed By: #### A FPMAT #### [facility] CLIA [id number] [address] [place] [address] [place] INSULIN DEPENDENT DIABETES None Normal [facility] Comment on above: Order Comment: Speci men Type: BLOOD SPECIMEN Ordering Facility: [facility] Address: [address] [place] [address] Performed By: #### A FPMAT #### [facility] CLIA [id number] [address] [place] [address] [place] IVF No Normal [facility] Comment on above: Order Comment: Speci men Type: BLOOD SPECIMEN Ordering Facility: [facility] Address: [address] [place] [address] Performed By: #### A FPMAT #### [facility] CLIA [id number] [address] [place] [address] [place] MATERNAL AFP COMMENT See comments below Normal [facility] Comment on above: Order Comment: Speci men Type: BLOOD SPECIMEN Ordering Facility: [facility] Address: [address] [place] [address] Result Comment: INTE RPRETATION Screening result : Screen negative Risk of NTD : 1 in 1,800 Comment : The interpretation is for NTD only A screen negative result does not exclude the possibility of a neural tube defect, because screening does not detect all affected pregnancies Performed By: #### A FPMAT #### [facility] CLIA [id number] [address] [place] [address] [place] MATERNAL AGE AT KESHAV 39 years Normal [facility] Comment on above: Order Comment: Rylee rodgers Type: BLOOD SPECIMEN Ordering Facility: [facility] Address: [address] [place] [address] Performed By: #### A FPMAT #### [facility] CLIA [id number] [address] [place] [address] [place] PATIENT'S WEIGHT DAY OF COLLECTION 206 lb. Normal [facility] Comment on above: Order Comment: Rylee rodgers Type: BLOOD SPECIMEN Ordering Facility: [facility] Address: [address] [place] [address] Performed By: #### A FPMAT #### [facility] CLIA [id number] [address] [place] [address] [place] INTERP-MATERNAL AFP Negative Normal Screen Negative [facility] Comment on above: Order Comment: Rylee rodgers Type: BLOOD SPECIMEN Ordering Facility: [facility] Address: [address] [place] [address] Performed By: #### A FPMAT #### [facility] CLIA [id number] [address] [place] [address] [place] PREVIOUS NTD None Normal [facility] Comment on above: Order Comment: Rylee rodgers Type: BLOOD SPECIMEN Ordering Facility: [facility] Address: [address] [place] [address] Performed By: #### A FPMAT #### [facility] CLIA [id number] [address] [place] [address] [place] RISK OF NTD ;1:1800 Normal [facility] Comment on above: Order Comment: Speci men Type: BLOOD SPECIMEN Ordering Facility: [facility] Address: [address] [place] [address] Performed By: #### A FPMAT #### [facility] CLIA [id number] [address] [place] [address] [place] SAMPLE #1 [id number] Normal [facility] Comment on above: Order Comment: Speci men Type: BLOOD SPECIMEN Ordering Facility: [facility] Address: [address] [place] [address] Performed By: #### A FPMAT #### [facility] CLIA [id number] [address] [place] [address] OF [place] STAFF REVIEW (MATERNAL SCREENS) Reviewed by Kee Sifuentes MD, Ph.D ([id number]) Normal [facility] Comment on above: Order Comment: Speci men Type: BLOOD SPECIMEN Ordering Facility: [facility] Address: [address] [place] [address] Performed By: #### A FPMAT #### [facility] CLIA [id number] [address] [place] [address] [place] Examination level ultrasound on 12-29-2023 Indication Early anatomic survey Advanced maternal age, Maternal obesity, BMI >35 Impression REMOTE READ The patient is referred for an early anatomic survey because of identified risk factors. - Single, live, intrauterine . - biometry is consistent with the established gestational age. - No malformations were visualized on an early anatomic assessment, although some anatomical structures were suboptimally seen as detailed below. - The amniotic fluid volume is normal amount. - The placenta is anterior, fundal. - Uterine fibroid as noted below - Not all structural malformations can be detected by ultrasound examination. Recommendations Return around 20 weeks for detailed anatomic survey Maternal Assessment Height 163 cm Height (ft) 5 ft Height (in) 4 in Physical Exam Initial weight (lb) 206 lb Initial BMI 35.36 kg/m Maternal assessment other: 6 Para 4 Method Transabdominal ultrasound examination Galvez . Number of fetuses: 1 Dating GA by prior assessment 17 w + 0 d KESHAV by prior assessment: 06/07/2024 Ultrasound examination on: 12/29/2023 GA by U/S based upon: AC, BPD, Femur, HC GA by U/S 16 w + 5 d KESHAV by U/S: 06/09/2024 Assigned: based on stated KESHAV, selected on 12/01/2023 Assigned GA 17 w + 0 d Assigned KESHAV: 06/07/2024 General Evaluation Cardiac activity present. FHR 145 bpm. movements: present. Presentation: breech Placenta: posterior Umbilical cord: Cord vessels: 3 vessel cord Amniotic fluid: Amount of AF: normal amount Biometry Standard BPD 35.9 mm 17w 0d 50% Hadlock OFD 47.3 mm 16w 2d 38% Nicolaides HC 134.7 mm 16w 5d 41% Zohreh AC 114.7 mm 17w 2d 58% Hadlock Femur 19.5 mm 15w 5d 12% Zohreh Humerus 18.6 mm 15w 3d 8% Zohreh EFW 161 g 16w 3d 20% Hadlock EFW (lb) 0 lb EFW (oz) 6 oz EFW by: Hadlock (HC-AC-FL) Extended Pinion Sorter 6.0 mm Extremities / Bony Struc FL / HC 0.14 <1% Hadlock Other Structures FHR 145 bpm Anatomy Cranium: normal Lateral ventricles: normal Choroid plexus: normal Midline falx: normal Cerebellum: normal Cisterna magna: normal Lips: normal Profile: normal 4-chamber view: suboptimal RVOT view: suboptimal LVOT view: suboptimal 3-vessel view: normal 8-butcsc-abftrxv view: suboptimal Heart / Thorax Situs: situs solitus (normal) Aortic arch view: normal SVC: normal IVC: normal Diaphragm: normal Cord insertion: normal Stomach: normal Kidneys: normal Bladder: normal Cervical spine: normal Thoracic spine: normal Lumbar spine: normal Sacral spine: normal Arms: normal Legs: normal Rt upper arm: normal Rt forearm: normal Rt hand: normal Lt upper arm: normal Lt forearm: normal Lt hand: normal Rt upper leg: normal Rt lower leg: normal Rt foot: normal Lt upper leg: normal Lt lower leg: normal Lt foot: normal sex: female Wants to know sex: yes Maternal Structures Uterus / Cervix Uterus: Visualized Fibroids: Fibroids identified Uterine fibroid D1 41 mm Uterine fibroid D2 29 mm Uterine fibroid D3 38 mm Uterine fibroid mean 36.0 mm Uterine fibroid vol 23.657 cm Uterine fibroids findings: Anterior Approach: Transabdominal Cervical length 33.5 mm Ovaries / Tubes / Adnexa Rt ovary: Not visualized Lt ovary: Not visualized Performed By: Portia Escalante, DONAVON, RVT Read By: Yamel Moore M.D. MATERNAL MEDICINE [facility] Radiology Study observation (narrative) [facility] Bacteria Ur Culton Bacteria identified Cx Nom (U) ORGANISM ID: 1 10,000 -<50,000 CFU/ml Normal urogenital wilbur Normal [facility] Comment on above: Performed By: #### 6 30-4 ####[facility] LABCLIA [id number] [address] [facility] CBC panel Auto (Bld)on 11-30 Erythrocyte distribution width (RBC) [Ratio] 14.6 % 11.5 - 15.0 % [facility] Hematocrit (Bld) [Volume fraction] 36.6 % 36.0 - 46.0 % [facility] Hemoglobin (Bld) [Mass/Vol] 12.4 g/dL 11.5 - 15.5 g/dL [facility] Interpretation and review of laboratory results Abnormal [facility] MCH (RBC) [Entitic mass] 25.4 pg Low 26.0 - 34.[address] [facility] MCHC (RBC) [Mass/Vol] 33.9 g/dL 30.5 - 36.0 g/dL [facility] MCV (RBC) [Entitic vol] 75.0 fL Low 80.0 - 100.[address] [facility] Nucleated RBC (Bld) [#/Vol] NINF [facility] Platelet mean volume (Bld) [Entitic vol] 11.1 fL 9.0 - 12.[address] [facility] Platelets (Bld) [#/Vol] 296 10*3/uL [facility] RBC (Bld) [#/Vol] 4.88 10*6/uL 3.90 - 5.2 0 m/uL [facility] WBC (Bld) [#/Vol] 7.87 10*3/uL [facility] Erythrocyte distribution width (RBC) [Ratio] 14.6 % Normal 11.5-15.0 [facility] Comment on above: Order Comment: Speci men Type: BLOOD SPECIMENOrdering Facility: [facility] Address: [address] [place] [address] Performed By: #### 5 8410-2 ####[facility]DEMILYA [id number] [place] [address] [place] Hematocrit (Bld) [Volume fraction] 36.6 % Normal 36.0-46.0 [facility] Comment on above: Order Comment: Speci men Type: BLOOD SPECIMENOrdering Facility: [facility] Address: [address] [place] [address] Performed By: #### 5 8410-2 ####[facility] [id number] [place] [address] [place] Hemoglobin (Bld) [Mass/Vol] 12.4 g/dL Normal 11.5-15.5 [facility] Comment on above: Order Comment: Speci men Type: BLOOD SPECIMENOrdering Facility: [facility] Address: [address] [place] [address] Performed By: #### 5 8410-2 ####[facility]ARDEMILYLIA [id number] [place] [address] [place] MCH (RBC) [Entitic mass] 25.4 pg Low 26.0-34.0 [facility] Comment on above: Order Comment: Speci men Type: BLOOD SPECIMENOrdering Facility: [facility] Address: [address] [place] [address] Performed By: #### 5 8410-2 ####[facility]ARDRANDI [id number] [place] [address] [place] MCHC (RBC) [Mass/Vol] 33.9 g/dL Normal 30.5-36.0 [facility] Comment on above: Order Comment: Speci men Type: BLOOD SPECIMENOrdering Facility: [facility] Address: [address] [place] [address] Performed By: #### 5 8410-2 ####[facility] [id number] [place] [address] [place] MCV (RBC) [Entitic vol] 75.0 fL Low 80.0-100.0 [facility] Comment on above: Order Comment: Speci men Type: BLOOD SPECIMENOrdering Facility: [facility] Address: [address] [place] [address] Performed By: #### 5 8410-2 ####[facility] [id number] [place] [address] [place] Nucleated RBC (Bld) [#/Vol] 10*3/uL Normal <0.01 [facility] Comment on above: Order Comment: Speci men Type: BLOOD SPECIMENOrdering Facility: [facility] Address: [address] [place] [address] Performed By: #### 5 8410-2 ####[facility] [id number] [place] [address] [place] Platelet mean volume (Bld) [Entitic vol] 11.1 fL Normal 9.0-12.7 [facility] Comment on above: Order Comment: Speci men Type: BLOOD SPECIMENOrdering Facility: [facility] Address: [address] [place] [address] Performed By: #### 5 8410-2 ####[facility]ARDNCLI [id number] [place] [address] [place] Platelets (Bld) [#/Vol] 296 10*3/uL Normal 150-400 [facility] Comment on above: Order Comment: Speci men Type: BLOOD SPECIMENOrdering Facility: [facility] Address: [address] [place] [address] Performed By: #### 5 8410-2 ####[facility]CL[facility] [id number] [place] [address] [place] RBC (Bld) [#/Vol] 4.88 10*6/uL Normal 3.90-5.20 [facility] Comment on above: Order Comment: Speci men Type: BLOOD SPECIMENOrdering Facility: [facility] Address: [address] [place] [address] Performed By: #### 5 8410-2 ####[facility]ARDNCLIA [id number] [place] [address] [place] WBC (Bld) [#/Vol] 7.87 10*3/uL Normal 3.70-11.00 [facility] Comment on above: Order Comment: Speci men Type: BLOOD SPECIMENOrdering Facility: [facility] Address: [address] [place] [address] Performed By: #### 5 8410-2 ####[facility]ARDNCLIA [id number] [place] [address] [place] CNCOon 12-01-2023 CNCO Letter Text Normal [facility] Comprehensive metabolic 2000 panelOrdered By: Kiara Valdes on 12-01-2023 Albumin [Mass/Vol] 4.3 g/dL 3.9 - 4.9 g/dL [facility] ALP [Catalytic activity/Vol] 71 U/L 34 - 123 U/L [facility] ALT [Catalytic activity/Vol] 10 U/L 7 - 38 U/L [facility] Anion gap [Moles/Vol] 12 mmol/L 8 - 15 mmol/L [facility] AST [Catalytic activity/Vol] 13 U/L 13 - 35 U/L [facility] Bilirubin [Mass/Vol] 0.3 mg/dL 0.2 - 1 .3 mg/dL [facility] Calcium [Mass/Vol] 9.7 mg/dL 8.5 - 10. 2 mg/dL [facility] Chloride [Moles/Vol] 104 mmol/L 98 - 10 7 mmol/L [facility] CO2 [Moles/Vol] 19 mmol/L Low 22 - 30 mmol/L [facility] Creatinine [Mass/Vol] 0.55 mg/dL Low 0.58 - 0.96 mg/dL [facility] GFR/1.73 sq M.predicted among non-blacks MDRD (S/P/Bld) [Vol rate/Area] 120 mL/min/{1.73_m2} - PINF [facility] Comment on above: Estimated Glomerular Filtration Rate (eGFR) is calculated using the 2020 CKD-EPI creatinine equation. This equation utilizes serum creatinine, sex, and age as parameters. The creatinine assay has traceable calibration to isotope dilution-mass spectrometry. Refer to KDIGO guidelines for clinical interpretation. In patients with unstable renal function, e.g. those with acute kidney injury, the eGFR may not accurately reflect actual GFR. Glucose [Mass/Vol] 83 mg/dL 74 - 99 mg/dL [facility] Comment on above: The [place] Diabete s Association (ADA) provides guidance for cutoff values for fasting glucose and random glucose. The ADA defines fasting as no caloric intake for at least 8 hours. Fasting plasma glucose results between 100 to 125 mg/dL indicate increased risk for diabetes (prediabetes). Fasting plasma glucose results greater than or equal to 126 mg/dL meet the criteria for diagnosis of diabetes. In the absence of unequivocal hyperglycemia, results should be confirmed by repeat testing. In a patient with classic symptoms of hyperglycemia or hyperglycemic crisis, random plasma glucose results greater than or equal to 200 mg/dL meet the criteria for diagnosis of diabetes. Reference: Standards of Medical Care in Diabetes 2016, [place] Diabetes Association. Diabetes Care. 2016.39(Suppl 1). Interpretation and review of laboratory results Abnormal [facility] Potassium [Moles/Vol] 3.8 mmol/L 3.7 - 5.1 mmol/L [facility] Protein [Mass/Vol] 7.4 g/dL 6.3 - 8.0 g/dL Cl [facility] Sodium [Moles/Vol] 135 mmol/L Low 136 - 144 mmol/L [facility] Urea nitrogen [Mass/Vol] 10 mg/dL 7 - 21 mg/dL [facility] Comprehensive metabolic 2000 panelon 12-01-2023 Albumin [Mass/Vol] 4.3 g/dL Normal 3.9-4.9 [facility] Comment on above: Order Comment: Speci men Type: BLOOD SPECIMENOrdering Facility: [facility] Address: [address] [place] [address] Performed By: #### 2 4323-8 ####[facility] SYSTEMWUTLIA [id number] [place] [address] [place] ALP [Catalytic activity/Vol] 71 U/L Normal 34-123 [facility] Comment on above: Order Comment: Speci men Type: BLOOD SPECIMENOrdering Facility: [facility] Address: [address] [place] [address] Performed By: #### 2 4323-8 ####[facility]ARDNCLIA [id number] [place] [address] [place] ALT [Catalytic activity/Vol] 10 U/L Normal 7-38 [facility] Comment on above: Order Comment: Speci men Type: BLOOD SPECIMENOrdering Facility: [facility] Address: [address] [place] [address] Performed By: #### 2 4323-8 ####[facility] SYSTEM[facility] [id number] [place] [address] [place] Anion gap [Moles/Vol] 12 mmol/L Normal 8-15 [facility] Comment on above: Order Comment: Speci men Type: BLOOD SPECIMENOrdering Facility: [facility] Address: [address] [place] [address] Performed By: #### 2 4323-8 ####[facility]ARDNCLIA [id number] [place] [address] [place] AST [Catalytic activity/Vol] 13 U/L Normal 13-35 [facility] Comment on above: Order Comment: Speci men Type: BLOOD SPECIMENOrdering Facility: [facility] Address: [address] [place] [address] Performed By: #### 2 4323-8 ####[facility] [id number] [place] [address] [place] Bilirubin [Mass/Vol] 0.3 mg/dL Normal 0.2-1.3 [facility] Comment on above: Order Comment: Speci men Type: BLOOD SPECIMENOrdering Facility: [facility] Address: [address] [place] [address] Performed By: #### 2 4323-8 ####[facility] [id number] [place] [address] [place] Calcium [Mass/Vol] 9.7 mg/dL Normal 8.5-10.2 [facility] Comment on above: Order Comment: Speci men Type: BLOOD SPECIMENOrdering Facility: [facility] Address: [address] [place] [address] Performed By: #### 2 4323-8 ####[facility] [id number] [place] [address] [place] Chloride [Moles/Vol] 104 mmol/L Normal 98-107 [facility] Comment on above: Order Comment: Speci men Type: BLOOD SPECIMENOrdering Facility: [facility] Address: [address] [place] [address] Performed By: #### 2 4323-8 ####[facility] [id number] [place] [address] [place] CO2 [Moles/Vol] 19 mmol/L Low 22-30 [facility] Comment on above: Order Comment: Speci men Type: BLOOD SPECIMENOrdering Facility: [facility] Address: [address] [place] [address] Performed By: #### 2 4323-8 ####[facility] [id number] [place] [address] [place] Creatinine [Mass/Vol] 0.55 mg/dL Low 0.58-0.96 [facility] Comment on above: Order Comment: Rylee rodgers Type: BLOOD SPECIMENOrdering Facility: [facility] Address: [address] [place] [address] Performed By: #### 2 4323-8 ####[facility] [id number] [place] [address] [place] Creatinine and Glomerular filtration rate.predicted panel (S/P/Bld) 120 mL/min/1.73m??? Normal >=60 [facility] Comment on above: Order Comment: Rylee rodgers Type: BLOOD SPECIMENOrdering Facility: [facility] Address: [address] [place] [address] Result Comment: Harshal mated Glomerular Filtration Rate (eGFR) is calculated using the 2020 CKD-EPI creatinine equation. This equation utilizes serum creatinine, sex, and age as parameters. The creatinine assay has traceable calibration to isotope dilution-mass spectrometry. Refer to KDIGO guidelines for clinical interpretation. In patients with unstable renal function, e.g. those with acute kidney injury, the eGFR may not accurately reflect actual GFR. Performed By: #### 2 4323-8 ####[facility] [id number] [place] [address] [place] Glucose [Mass/Vol] 83 mg/dL Normal 74-99 [facility] Comment on above: Order Comment: Rylee rodgers Type: BLOOD SPECIMENOrdering Facility: [facility] Address: [address] [place] [address] Result Comment: The [place] Diabetes Association (ADA) provides guidance for cutoff values for fasting glucose and random glucose. The ADA defines fasting as no caloric intake for at least 8 hours. Fasting plasma glucose results between 100 to 125 mg/dL indicate increased risk for diabetes (prediabetes). Fasting plasma glucose results greater than or equal to 126 mg/dL meet the criteria for diagnosis of diabetes. In the absence of unequivocal hyperglycemia, results should be confirmed by repeat testing. In a patient with classic symptoms of hyperglycemia or hyperglycemic crisis, random plasma glucose results greater than or equal to 200 mg/dL meet the criteria for diagnosis of diabetes. Reference: Standards of Medical Care in Diabetes 2016, [place] Diabetes Association. Diabetes Care. 2016.39(Suppl 1). Performed By: #### 2 4323-8 ####[facility] RAYA MILLTOWNCLIA [id number] [place] [address] [place] Potassium [Moles/Vol] 3.8 mmol/L Normal 3.7-5.1 [facility] Comment on above: Order Comment: Speci men Type: BLOOD SPECIMENOrdering Facility: [facility] Address: [address] [place] [address] Performed By: #### 2 4323-8 ####[facility] SYSTEMWNCLIA [id number] [place] [address] [place] Protein [Mass/Vol] 7.4 g/dL Normal 6.3-8.0 [facility] Comment on above: Order Comment: Speci men Type: BLOOD SPECIMENOrdering Facility: [facility] Address: [address] [place] [address] Performed By: #### 2 4323-8 ####[facility] SYSTEMWUTLIA [id number] [place] [address] [place] Sodium [Moles/Vol] 135 mmol/L Low 136-144 [facility] Comment on above: Order Comment: Speci men Type: BLOOD SPECIMENOrdering Facility: [facility] Address: [address] [place] [address] Performed By: #### 2 4323-8 ####[facility] SYSTEMWNCLIA [id number] [place] [address] [place] Urea nitrogen [Mass/Vol] 10 mg/dL Normal 7-21 [facility] Comment on above: Order Comment: Speci men Type: BLOOD SPECIMENOrdering Facility: [facility] Address: [facility] [place] [address] Performed By: #### 2 4323-8 ####[facility] RAYA BEANWEMILYLIRamin [id number] [place] [id number] [place] nuchal translucency me asured by USon 12-01-2023 Indication First trimester anatomic survey Advanced maternal age, Maternal obesity, BMI >35 Impression REMOTE READ The patient is referred for a first trimester anatomy scan including nuchal translucency measurement as clinically indicated. - Single, live, intrauterine . - Harrington rump length measurement is consistent with the established gestational age. - A qualitative screen of the nuchal translucency and other anatomic structures was unremarkable on a complete first trimester anatomic assessment. - Not all structural malformations can be detected by ultrasound examination. Maternal Structures: Right Ovary: Size 15 mm x 21 mm x 16 mm Left Ovary: Size 35 mm x 25 mm x 22 mm Recommendations - A standard anatomic survey at 16 weeks and a detailed exam at 20 weeks is recommended for increased risk. Maternal Assessment Height 163 cm Height (ft) 5 ft Height (in) 4 in Physical Exam Initial weight (lb) 206 lb Initial BMI 35.36 kg/m Maternal assessment other: 6 Para 4 Method Transabdominal ultrasound examination Galvez . Number of fetuses: 1 Dating GA by prior assessment 13 w + 0 d KESHAV by prior assessment: 06/07/2024 Ultrasound examination on: 12/01/2023 GA by U/S based upon: CRL GA by U/S 12 w + 3 d KESHAV by U/S: 06/11/2024 Assigned: based on stated KESHAV, selected on 12/01/2023 Assigned GA 13 w + 0 d Assigned KESHAV: 06/07/2024 General Evaluation Cardiac activity present Placenta: posterior Cord vessels: 3 vessel cord Amniotic fluid: normal amount Biometry Standard FHR 171 bpm CRL 58.6 mm 12w 3d 8% Hadlock First Trimester Anatomy Calvarium: normal Falx cerebri: normal Choroid plexus: normal Profile: normal Nasal bone: normal Retronasal triangle: normal Maxilla: normal Mandible: normal Nuchal translucency: Unremarkable Situs: normal Cardiac position: normal Cardiac axis: normal 4-chamber view: normal 4-chamber view with color: normal [id number] view: normal Abdominal cord insertion: normal Stomach: normal Kidneys: normal Bladder: normal Color doppler of perivesical umbilical arteries: normal Vertebral alignment: normal Arms: normal Hands: normal Legs: normal Feet: normal Maternal Structures Uterus / Cervix Uterus: Visualized Uterus length 147 mm Uterus width 94 mm Uterus height 75 mm Uterus Vol 543.5 cm Fibroids: Fibroids identified Uterine fibroid D1 35 mm Uterine fibroid D2 31 mm Uterine fibroid D3 33 mm Uterine fibroid mean 33.0 mm Uterine fibroid vol 18.747 cm Uterine fibroids findings: Anterior Ovaries / Tubes / Adnexa Rt ovary: Visualized Rt ovary D1 15 mm Rt ovary D2 21 mm Rt ovary D3 16 mm Rt ovary Vol 2.6 cm Lt ovary: Visualized Lt ovary D1 35 mm Lt ovary D2 25 mm Lt ovary D3 22 mm Lt ovary Vol 10.0 cm Performed By: Portia Escalante RDMS, RVT Read By: Yamel Moore M.D. MATERNAL MEDICINE [facility] Radiology Study observation (narrative) [facility] HBV surface Ag Ser Qlon 11-09 HBV surface Ag Ql (S) Negative Normal Negative [facility] Comment on above: Order Comment: Speci men Type: BLOOD SPECIMENOrdering Facility: [facility] Address: [address] [place] [address] Performed By: #### 5 195-3, 48347-7, 11785-4 ####[facility] LABCLIA [id number] [place] [address] [place] HCV Ab Ser Qlon 12-01-2023 HCV Ab Ql (S) Negative Normal Negative [facility] Comment on above: Order Comment: Speci men Type: BLOOD SPECIMEN [facility] Address: [address] [place] [address] Result Comment: The result suggests no evidence of active infection with Hepatitis C virus. Should recent infection be suspected, repeat testing may be considered 4-6 weeks after this draw. Performed By: #### A FPMAT #### [facility] CLIA [id number] [address] [place] [address] [place] HIV 1+2 Ab IA Qlon 4 HIV 1 and 2 Ab IA.rapid Nom (S/P/Bld) Normal [facility] Comment on above: Order Comment: Speci men Type: BLOOD SPECIMENOrdering Facility: [facility] Address: [address] [place] [address] Result Comment: Test not indicated. Performed By: #### 5 195-3, 47054-2, 62096-0 ####[facility] LABCLIA [id number] [place] [address] [place] HIV 1+2 Ab+HIV1 p24 Ag IA Ql Non-Reactive Normal Nonreactive [facility] Comment on above: Order Comment: Speci men Type: BLOOD SPECIMENOrdering Facility: [facility] Address: [address] [place] [address] Performed By: #### 5 195-3, 33647-2, 13583-1 ####[facility] LABCLIA [id number] [place] [address] [place] HIV immunoassay testing algorithm interpretation (S/P/Bld) [Interp] Normal [facility] Comment on above: Order Comment: Speci men Type: BLOOD SPECIMENOrdering Facility: [facility] Address: [address] [place] [address] Result Comment: No e vidence of HIV-1 or HIV-2 infection. Should recent infection be suspected, repeat testing may be considered 2-3 weeks after this draw. [place] Rev. Code 3701.243(E): This information has been disclosed to you from confidential records protected from disclosure by state law. ???You shall make no further disclosure of this information without the specific, written, and informed release of the individual to whom it pertains or as otherwise permitted by state law. A general authorization for the release of medical or other information is not sufficient for the purpose of the release of HIV test results or diagnoses. Performed By: #### 5 195-3, 65944-1, 57685-0 ####[facility] LABCLIA [id number] [place] [address] [place] HbA1c (Bld)on 12-01-2023 Average glucose Estimated from glycated hemoglobin (Bld) [Mass/Vol] 91 mg/dL Normal [facility] Comment on above: Order Comment: Speci men Type: BLOOD SPECIMENOrdering Facility: [facility] Address: [address] [place] [address] Result Comment: eAG: (Estimated average glucose) is a calculated value from HgbA1c and is insurance service representative of the average blood glucose level in the last 2-3 month period. Performed By: #### 5 5454-3 ####[facility] LABIA [id number] [address] HbA1c (Bld) [Mass fraction] 4.8 % Normal 4.3-5.6 [facility] Comment on above: Order Comment: Speci men Type: BLOOD SPECIMENOrdering Facility: [facility] Address: [address] [place] [address] Result Comment: [place] Diabetes Association guidelines indicate that patients with HgbA1c in the range 5.7-6.4% are at increased risk for development of diabetes, and intervention by lifestyle modification may be beneficial. HgbA1c greater or equal to 6.5% is considered diagnostic of diabetes. Performed By: #### 5 5454-3 ####[facility] LABCLIA [id number] [address] OF [place] [id number] PLUSon 12-01-2023 Cell-free DNA./Cell-free DNA.total Dosage of chromosome-specific cfDNA (cfDNA) [Molar fraction] 6% Normal [facility] Comment on above: Order Comment: Speci men Type: BLOOD SPECIMEN [facility] Address: [address] [place] [address] Performed By: #### A FPMAT #### [facility] CLIA [id number] [address] [place] [address] [place] Chr 13+18+21+X+Y aneuploidy Dosage of chromosome-specific cfDNA Ql (cfDNA) Negative Normal [facility] Comment on above: Order Comment: Speci men Type: BLOOD SPECIMEN [facility] Address: [address] [place] [address] Performed By: #### A FPMAT #### [facility] CLIA [id number] [address] [place] [address] OF [place] Chr 21 trisomy Dosage of chromosome-specific cfDNA Ql (cfDNA) Negative Normal [facility] Comment on above: Order Comment: Speci men Type: BLOOD SPECIMEN [facility] Address: [address] [place] [address] Performed By: #### A FPMAT #### [facility] CLIA [id number] [address] [place] [address] OF [place] Chr X and Y aneuploidy risk Sequencing Ql (cfDNA) [Interp] Not detected Normal [facility] Comment on above: Order Comment: Speci men Type: BLOOD SPECIMEN [facility] Address: [address] [place] [address] Result Comment: Not Detected Not Detected Performed By: #### A FPMAT #### [facility] CLIA [id number] [address] [place] [address] [place] Citation Robbi (Reference lab test) Comment Normal [facility] Comment on above: Order Comment: Speci men Type: BLOOD SPECIMEN [facility] Address: [address] [place] [address] Result Comment: 1. P true MARIE, et al. Cassie Med. 2012;14(3):296-305. 2. Geremias GALLO et al. Prenat Diag. 2013;33(6):591-597. 3. Sumeet Coley et al. Clin Chem. 2015 Apr;61(4):608-616. 4. Augusto MARIE, et al. Cassie Med. 2011;13(11):913-920. 5. ACOG/SMFM Practice Bulletin No. 226, Jan 2020. Performed By: #### A FPMAT #### [facility] CLIA [id number] [address] [place] [address] [place] Gestational age Estimated from conception date Galvez Normal [facility] Comment on above: Order Comment: Speci men Type: BLOOD SPECIMEN [facility] Address: [address] [place] [address] Performed By: #### A FPMAT #### [facility] CLIA [id number] [address] [place] [address] [place] GESTATIONALAGE AGE > OR = 9W Yes Normal [facility] Comment on above: Order Comment: Speci men Type: BLOOD SPECIMEN [facility] Address: [address] [place] [address] Performed By: #### A FPMAT #### [facility] CLIA [id number] [address] [place] [address] [place] Laboratory comment Robbi (Report) Comment Normal [facility] Comment on above: Order Comment: Mali vishal Type: BLOOD SPECIMEN [facility] Address: [address] [place] [address] Result Comment: The MaterniT(R) 21 PLUS laboratory-developed test (LDT) analyzes circulating cell-free DNA from a maternal blood sample. This test is used for screening purposes and not diagnostic. Clinical correlation is recommended. Validation data on twin pregnancies is limited and the ability of this test to detect aneuploidy in higher multiple gestations has not yet been validated. Performed By: #### A FPMAT #### [facility] CLIA [id number] [address] [place] [address] [place] health information director name Nom (Provider) Comment Normal [facility] Comment on above: Order Comment: Speci men Type: BLOOD SPECIMEN [facility] Address: [address] [place] [address] Result Comment: This specimen showed an expected representation of chromosome 21, 18 and 13 material. Clinical correlation is suggested. Comment Roman Nixon MD, PhD, Director, [employer] Performed By: #### A FPMAT #### [facility] CLIA [id number] [address] [place] [address] [place] [address] [place] LIMITATIONS OF THE TEST Comment Normal [facility] Comment on above: Order Comment: Speci men Type: BLOOD SPECIMEN Ordering Facility: [facility] Address: [address] [place] [address] Result Comment: Lorenzo toney the results of these tests are highly reliable, discordant results, including inaccurate sex prediction, may occur due to placental, maternal, or mosaicism or neoplasm; vanishing twin; prior maternal organ transplant; or other causes. These tests are screening tests and not diagnostic; they do not replace the accuracy and precision of diagnosis with CVS or amniocentesis. A patient with a positive test result should be referred for genetic counseling and offered invasive diagnosis for confirmation of test results.[5] The results of this testing, including the benefits and limitations, should be discussed with a qualified healthcare provider. management decisions, including termination of the , should not be based on the results of these tests alone. The healthcare provider is responsible for the use of this information in the management of their patient. Sex chromosomal aneuploidies are not reportable for known multiple gestations. A negative result does not ensure an unaffected nor does it exclude the possibility of other chromosomal abnormalities or defects which are not a part of these tests. An uninformative result may be reported, the causes of which may include, but are not limited to, insufficient sequencing coverage, noise or artifacts in the region, amplification or sequencing bias, or insufficient fraction. These tests are not intended to identify pregnancies at risk for neural tube defects or ventral wall defects. Testing for whole chromosome abnormalities (including sex chromosomes) and for subchromosomal abnormalities could lead to the potential discovery of both and maternal genomic abnormalities that could have major, minor, or no, clinical significance. Evaluating the significance of a positive or a non-reportable result may involve both invasive testing and additional studies on the mother. Such investigations may lead to a diagnosis of maternal chromosomal or subchromosomal abnormalities, which on occasion may be associated with benign or malignant maternal neoplasms. These tests may not accurately identify triploidy, balanced rearrangements, or the precise location of subchromosomal duplications or deletions; these may be detected by diagnosis with CVS or amniocentesis. The ability to report results may be impacted by maternal BMI, maternal weight, maternal systemic lupus erythematosus (SLE) and/or by certain pharmaceutical agents such as low molecular weight heparin (for example: Lovenox(R), Xaparin(R), Clexane(R) and Fragmin(R)). Performed By: #### A FPMAT #### [facility] CLIA [id number] [address] [place] [address] Monosomy X risk Dosage of chromosome-specific cfDNA Ql (Plasma cell-free+WBC DNA) [Interp] Not detected Normal [facility] Comment on above: Order Comment: Specrachael rodgers Type: BLOOD SPECIMEN Ordering Facility: [facility] Address: [address] [place] [address] Performed By: #### A FPMAT #### [facility] CLIA [id number] [address] [place] [address] NEGATIVE PREDICTIVE VALUE Note Normal [facility] Comment on above: Order Comment: Rylee rodgers Type: BLOOD SPECIMEN Ordering Facility: [facility] Address: [address] [place] [address] Result Comment: The Negative Predictive Value (NPV) for trisomy 21, 18, and 13 is greater than 99%. The NPV for SCA and ESS cannot be calculated as SCA and ESS are only reported when an abnormality is detected. Performed By: #### A FPMAT #### [facility] CLIA [id number] [address] [place] [address] [place] NOTE Comment Normal [facility] Comment on above: Order Comment: Rylee rodgers Type: BLOOD SPECIMEN Ordering Facility: [facility] Address: [address] [place] [address] Result Comment: See Notes [employer]. is a subsidiary of [employer], using the brand [employer]. This test was developed and its performance characteristics determined by [employer]. It has not been cleared or approved by the Food and Drug Administration. This laboratory is certified under the Clinical Laboratory Improvement Amendments (CLIA) as qualified to perform high complexity clinical laboratory testing and accredited by the [employer] (CAP). If there is future clinical need for adding MaterniT GENOME testing, this specimen will be available until term. [facility] samples will not be retained beyond 60 days. [facility] patients will have to send a new sample for re-sequencing ([facility] Test Code: 002177). Performed By: #### A FPMAT #### [facility] CLIA [id number] [address] [place], [place] [address] PERFORMANCE CHARACTERISTICS Note Normal [facility] Comment on above: Order Comment: Rylee rodgers Type: BLOOD SPECIMEN Ordering Facility: [facility] Address: [address] [place] [address] Result Comment: ! Sex ! Accuracy: 99.4% ! ! ! ! Region (associated syndrome) ! Est. Sens# ! Est. Spec ! ! ! ! Trisomy 21 (Down Syndrome) ! 99.1% ! 99.9% ! ! ! ! Trisomy 18 (Sousa Syndrome) ! >99.9% ! 99.6% ! ! ! ! Trisomy 13 (Patau Syndrome) ! 91.7% ! 99.7% ! ! ! ! Sex Chromosome Aneuploidies## ! 96.2% ! 99.7% ! ! ! * As reported in [employer] database nstd37 [https://www.ncbi.nlm.nih.gov/dbvar/studies/nstd37/ ] # Estimated Sensitivity. Sensitivity estimated across the observed size distribution of each syndrome [per [facility] database nstd37] and across the range of fractions observed in routine clinical NIPT. Actual sensitivity can also be influenced by other factors such as the size of the event, total sequence counts, amplification bias, or sequence bias. ## Galvez gestation only. Performed By: #### A FPMAT #### [facility] CLIA [id number] [address] [place] [address] [place] POSITIVE PREDICTIVE VALUE N/A [facility] Comment on above: Order Comment: Speci men Type: BLOOD SPECIMEN Ordering Facility: [facility] Address: [address] [place] [address] Performed By: #### A FPMAT #### [facility] CLIA [id number] [address] [place] [address] [place] Reference Lab Test Method Comment Normal [facility] Comment on above: Order Comment: Speci men Type: BLOOD SPECIMEN Ordering Facility: [facility] Address: [address] [place] [address] Result Comment: See Notes Circulating cell-free DNA was purified from the plasma component of maternal blood. The extracted DNA was then converted into a genomic DNA library for aneuploidy analysis of chromosomes 21, 18, and 13 via next generation sequencing.[1] Optional findings based on the test order include sex chromosome aneuploidy (SCA)[2], and enhanced sequencing series (ESS)[3], which will only be reported on as an additional finding when an abnormality is detected. SCA testing includes information on X and Y representation, while ESS testing includes deletions in selected regions (22q, 15q, 11q, 8q, 5p, 4p, 1p) and trisomy of chromosomes 16 and 22. Performed By: #### A FPMAT #### [facility] CLIA [id number] [address] [place] [address] [place] Sex Dosage of chromosome-specific cfDNA Nom (cfDNA) Comment Normal [facility] Comment on above: Order Comment: Speci men Type: BLOOD SPECIMEN Ordering Facility: [facility] Address: [address] [place] [address] Result Comment: Cons istent with Female Performed By: #### A FPMAT #### [facility] CLIA [id number] [address] [place] [address] [place] Test performance information Robbi (Unsp spec) Comment Normal [facility] Comment on above: Order Comment: Speci men Type: BLOOD SPECIMEN Ordering Facility: [facility] Address: [address] [place] [address] Result Comment: The performance characteristics of the MaterniT(R) 21 PLUS laboratory-developed test (LDT) have been determined in a clinical validation study with women at increased risk for chromosomal aneuploidy.[1-4] Performed By: #### A FPMAT #### [facility] CLIA [id number] [address] [place] [address] [place] Trisomy 13 risk Dosage of chromosome-specific cfDNA Ql (cfDNA) [Interp] Negative Normal [facility] Comment on above: Order Comment: Speci men Type: BLOOD SPECIMEN Ordering Facility: [facility] Address: [address] [place] [address] Performed By: #### A FPMAT #### [facility] CLIA [id number] [address] [place] [address] [place] Trisomy 18 risk Dosage of chromosome-specific cfDNA Ql (Plasma cell-free+WBC DNA) [Interp] Negative Normal [facility] Comment on above: Order Comment: Speci men Type: BLOOD SPECIMEN Ordering Facility: [facility] Address: [address] [place] [address] Performed By: #### A FPMAT #### [facility] IA [id number] [address] [place] [address] [place] Prot/Creat Uron 12-01-2023 Protein/Creatinine (U) [Mass ratio] 0.13 mg/mg Normal <0.15 [facility] Comment on above: Order Comment: Speci men Type: URINE SPECIMEN Ordering Facility: [facility] Address: [address] [place] [address] Result Comment: Adul t Proteinuria Categories: <0.15 mg/mg is considered normal to mildly increased 0.15 - 0.50 mg/mg is considered moderately increased >0.50 mg/mg is considered severely increased KDIGO. (2013). KDIGO 2012 Clinical Practice Guideline for the Evaluation and Management of Chronic Kidney Disease. Official Journal of the International Society of Nephrology, 3(1), 1-150. Performed By: #### 2 890-2 #### [facility] IA [id number] [address] [place] [address] [place] Protein/Creatinine (U) [Mass ratio]on 12-01-2023 Creatinine (U) [Mass/Vol] 53.1 mg/dL Normal 20.0-300.0 [facility] Comment on above: Order Comment: Speci men Type: URINE SPECIMEN Ordering Facility: [facility] Address: [address] [place] [address] Performed By: #### 2 890-2 #### [facility] CLIA [id number] [address] [place] [address] [place] Protein (U) [Mass/Vol] 7 mg/dL Normal 0-20 [facility] Comment on above: Order Comment: Speci men Type: URINE SPECIMEN Ordering Facility: [facility] Address: [address] [place] [address] Performed By: #### 2 890-2 #### [facility] CLIA [id number] [address] [place] [address] [place] RUBELLA IGG ANTIBODYon 11-30 RUBELLA IGG AB, QUAL Positive Normal Positive [facility] Comment on above: Order Comment: Speci men Type: BLOOD SPECIMENOrdering Facility: [facility] Address: [address] [place] [address] Result Comment: The result suggests recent or past exposure to Rubella virus or history of Rubella vaccination. Positive result may also be seen due to presence of passively-transferred antibodies. Please correlate with patient's history. Performed By: #### R UBIGG ####[facility] [id number] [place] [address] [place] Reagin and Treponema pallidu m IgG and IgM [Interp]on 12-01-2023 T. pallidum IgG+IgM IA Ql (S) Non-Reactive Normal Nonreactive [facility] Comment on above: Order Comment: Speci men Type: BLOOD SPECIMENOrdering Facility: [facility] Address: [address] [place] [address] Performed By: #### 5 195-3, 23987-8, 89556-4 ####[facility] [id number] [place] [address] [place] Reagin+T pallidum IgG+IgM Se rPl-Impon 12-01-2023 Reagin and Treponema pallidum IgG and IgM [Interp] Cannot exclude recent Treponemal infection if specimen collected within 7-10 days after appearance of suspect lesions or 2-3 weeks after an exposure. Clinical correlation is required. [facility] Comment on above: Order Comment: Speci men Type: BLOOD SPECIMENOrdering Facility: [facility] Address: [address] [place] [address] Performed By: #### 5 195-3, 53994-7, 35270-5 ####[facility] [id number] [place] [address] [place] TSH SerPl-aCncon 12-01-2023 TSH Qn 1.530 m[IU]/L Normal 0.270-4.200 [facility] Comment on above: Order Comment: Speci men Type: BLOOD SPECIMENOrdering Facility: [facility] Address: [address] [place] [address] Result Comment: If t he patient is , TSH reference range varies by gestational period: First Trimester (weeks 9-12): 0.180-2.990 mIU/L Second Trimester: 0.110-3.980 mIU/L Third Trimester: 0.480-4.710 mIU/L Mirza Villegas et al. A Practical Approach for the Verifications and Determination of Site- and Trimester-Specific Reference Intervals for Thyroid Function tests in . Thyroid, 2019:29:3:412-420. Mina E, et al. 2017 Guidelines of the [place] Thy[employer] Association for the Diagnosis and Management of Thyroid Disease during and the . Thyroid, 2017:27:3:315-389. Performed By: #### 3 016-3 ####[facility] [id number] [place] [address] [place] TYPE + SCREEN PRENATALon ABO O Normal [facility] Comment on above: Order Comment: Speci men Type: BLOOD SPECIMENOrdering Facility: [facility] Address: [address] [place] [address] Performed By: #### T SPN ####[facility] [id number] [address] [place] HISTORICAL AB SCR STATUS Negative Normal [facility] Comment on above: Order Comment: Speci men Type: BLOOD SPECIMENOrdering Facility: [facility] Address: [address] [place] [address] Performed By: #### T SPN ####[facility]CLIA [id number] [place] [address] [place] Rh Nom (Bld) Positive Normal [facility] Comment on above: Order Comment: Speci men Type: BLOOD SPECIMENOrdering Facility: [facility] Address: [address] [place] [address] Performed By: #### T SPN ####[facility]ANKCLIA [id number] [address] STATES OF [facility] TYPE AND SCREEN EXPIRATION 12/04/2023 23:59 Normal [facility] Comment on above: Order Comment: Speci men Type: BLOOD SPECIMENOrdering Facility: [facility] Address: [address] [place] [address] Performed By: #### T SPN ####[facility]ANKCLIA [id number] [place] [address] [place] C. trachomatis+N. gonorrhoea e DNA ROSAMARIA+probe Ql (Unsp spec)on 11-24-2023 C. trachomatis rRNA ROSAMARIA+probe Ql (Unsp spec) Negative Normal Negative for Chlamydia trachomatis by amplificaton [facility] Comment on above: Order Comment: Speci men Type: SWABOrdering Facility: [facility] Address: [address] [place] [address] Performed By: #### 3 6902-5 ####[facility] [id number] [place] [address] [place] N. gonorrhoeae rRNA ROSAMARIA+probe Ql (Unsp spec) Negative Normal Negative for Neisseria gonorrhoeae by amplification [facility] Comment on above: Order Comment: Speci men Type: SWABOrdering Facility: [facility] Address: [address], [place] [address] Performed By: #### 3 6902-5 ####[facility] [id number] [address] [id number] [address] [place] CBC W/Diff, Automatedon 08-04 13-2023 Absolute Lymph 2.07 X10 3/uL Normal 0.83-4.51 [facility] Comment on above: Performed By: #### L 700.8000, L100.0100 #### [facility] [address] [place], [address] Absolute Neut 5.0 X10 3/uL Normal 2.0-7.7 [facility] Comment on above: Performed By: #### L 700.8000, L100.0100 #### [facility] [address] [place], [address] Basophils/100 WBC (Bld) 0.2 % Normal 0-1 [facility] Comment on above: Performed By: #### L 700.8000, L100.0100 #### [facility] [address] [place], [address] Eosinophils/100 WBC (Bld) 2.3 % Normal 0-5 [facility] Comment on above: Performed By: #### L 700.8000, L100.0100 #### [facility] [address] [place], [address] Erythrocyte distribution width (RBC) [Ratio] 14.3 % Normal 11.6-14.6 [facility] Comment on above: Performed By: #### L 700.8000, L100.0100 #### [facility] [address] [place], [address] Hematocrit (Bld) [Volume fraction] 37.4 % Normal 37-47 [facility] Comment on above: Performed By: #### L 700.8000, L100.0100 #### [facility] [address] [place], [address] Hemoglobin (Bld) [Mass/Vol] 12.5 g/dL Normal 12.0-15.0 [facility] Comment on above: Performed By: #### L 700.8000, L100.0100 #### [facility] [address] [place], [address] IG% 1.100 High 0.0-0.9 [facility] Comment on above: Result Comment: IG% - Immature Granulocytes (promyelocytes, myelocytes and metamyelocytes) > 1% indicates that a LEFT SHIFT is Present. Performed By: #### L 700.8000, L100.0100 #### [facility] [address] [place], [address] Lymphocytes/100 WBC (Bld) 25.3 % Normal 19-41 [facility] Comment on above: Performed By: #### L 700.8000, L100.0100 #### [facility] [address] [place], [address] MCH (RBC) [Entitic mass] 25.4 pg Low 27.0-32.0 [facility] Comment on above: Performed By: #### L 700.8000, L100.0100 #### [facility] [address] [place], [address] MCHC (RBC) [Mass/Vol] 33.4 g/dL Normal 32-36 [facility] Comment on above: Performed By: #### L 700.8000, L100.0100 #### [facility] [address] [place], [address] MCV (RBC) [Entitic vol] 76.0 fL Low 81-99 [facility] Comment on above: Performed By: #### L 700.8000, L100.0100 #### [facility] [address] [place], [address] Monocytes/100 WBC (Bld) 10.0 % Normal 0-10 [facility] Comment on above: Performed By: #### L 700.8000, L100.0100 #### [facility] [address] [place], [address] Neutrophils/100 WBC (Bld) 61.1 % Normal 47-70 [facility] Comment on above: Performed By: #### L 700.8000, L100.0100 #### [facility] [address] [place], [address] Nucleated RBC (Bld) [#/Vol] 0 10*3/uL Normal 0-5 [facility] Comment on above: Performed By: #### L 700.8000, L100.0100 #### [facility] [address] [place], [address] Platelet mean volume (Bld) [Entitic vol] 11.4 fL Normal 6.2-12.0 [facility] Comment on above: Performed By: #### L 700.8000, L100.0100 #### [facility] [address] [place], [address] Platelets (Bld) [#/Vol] 319 10*3/uL Normal 150-450 [facility] Comment on above: Performed By: #### L 700.8000, L100.0100 #### [facility] [address] [place], [address] RBC (Bld) [#/Vol] 4.92 10*6/uL Normal 4.2-5.4 [facility] Comment on above: Performed By: #### L 700.8000, L100.0100 #### [facility] [address] [place], [address] RDW SD 38.9 fl Normal 35.1-43.9 [facility] Comment on above: Performed By: #### L 700.8000, L100.0100 #### [facility] [address] [place], [address] WBC (Bld) [#/Vol] 8.2 10*3/uL Normal 4.4-11.0 [facility] Comment on above: Performed By: #### L 700.8000, L100.0100 #### [facility] [address] [place], [address] Emergency Department Summary on 11-22-2023 Emergency Department Summary [facility] Medical Records Department [address] [place] [address] Emergency Department Summary 11/22/23 MR#: [id number] Acct: [id number] Name: HARRISON GUNDERSON Rep #: [id number] : 1985 38 From: Jayson Alonso DO PCP: Dr. Ottoniel Goyal MD Status:DEP ER Location: ED HPI HPI - Female History of Present Illness Chief Complaint: Vag Bld, Preg Informant: patient Narrative Narrative: Patient is a G4, P5 female approximately 11 weeks . She states that this evening she went to get up and get ready for bed and use the bathroom and noticed that her underwear felt wet and there is a small amount of blood present. After that she noticed there has been mild blood-tinged discoloration with wiping. She denies any abdominal discomfort dysuria history of bleeding disorder or blood thinner use. However because of her status and the bleeding she was concerned about a potential miscarriage and comes in for evaluation [facility] Medical History Anxiety and depression Home Medications ???Medication ???Instructions ???Recorded ???Last Taken ???Type vit no.95-ferrous 1 tab PO DAILY 11/21/23 Unknown History fumarate 28 mg-folic acid 800 mcg tablet () Allergy/AdvReac Type Severity Reaction Status Date / Time amoxicillin (Amoxicillin) Allergy Hives Verified 11/21/23 23:19 Penicillins Allergy Hives Verified 11/21/23 23:19 Social History Smoking Status: Never smoker ROS ROS ED Constitutional Constitutional ED: Denies chills or fever(s) ENT ENT ED: Denies sore throat Cardiovascular Cardiovascular: Denies chest pain Respiratory/Chest Respiratory/Chest: Denies cough or dyspnea Gastrointestinal Gastrointestinal: Denies abdominal pain, diarrhea, nausea or vomiting Genitourinary Genitourinary ED: Reports other Details: Positive vaginal bleeding ; Denies dysuria Musculoskeletal Musculoskeletal: Denies myalgias Integumentary Denies rash Neurologic Neurologic: Denies headache(s) Psychiatric Psychiatric: Reports anxiety and depression Hematologic/Lymphatic Hematologic/Lymphatic: Denies easy bleeding or easy bruising EXAM Physical Exam Const Vital Signs: 11/21/23 23:19 11/22/23 01:19 Temperature 97.5 F L Temperature Source Temporal Pulse Rate 72 92 Respiratory Rate 16 18 Blood Pressure 152/88 H 139/73 H Blood Pressure Mean 109 95 Pulse Ox 100 97 Oxygen Delivery Method Room Air Positive well nourished and well developed General Appearance ED: well developed; Negative for pallor HEENT HEENT Narrative: Normocephalic atraumatic Eyes PERRL and EOMs intact bilaterally General Eye ED: Negative for pale conjunctiva or scleral icterus Neck supple Resp normal respiratory effort and clear to auscultation bilaterally Cardio regular rate and regular rhythm GI normal to inspection, nondistended, normoactive bowel sounds, soft to palpation, non-tender, non- distended and no masses Auscultation: normoactive bowel sounds Palpation: soft Narrative: Patient deferred Back/Spine no CVA tenderness Extremity normal to inspection and full ROM Neuro oriented x3, CN's II-XII intact bilaterally and no sensory deficits noted Sensorium / Orientation: alert Motor Exam: strength 5/5 throughout Psych mental status grossly normal Skin no rashes or lesions noted and no wounds Skin Narrative: Capillary refills less than 3 seconds General Skin Exam: Negative for jaundice or pallor MDM MDM MDM Narrative Medical decision making narrative: Patient arrived to the ER hypertensive but otherwise with stable vitals. With report of spontaneous vaginal bleeding there is concern for a threatened versus spontaneous miscarriage versus subchorionic hemorrhage versus UTI. Basic blood work was obtained and shows stable H H indicating no acute blood loss anemia. Urine sample showed no sign of infection. The patient's quantitative hCG value has increased from approximately 23,000-119,000 indicating viable . Blood type is Rh+ and therefore there is no need for RhoGAM. An ultrasound was obtained secondary to her report of vaginal bleeding in and shows a single IUP with stable heart rate of 174 bpm. Therefore at this time without signs of acute blood loss anemia or infectious process or miscarriage I do not feel there is need for emergent [employer]IMMER consultation and patient is otherwise safe for discharge History Record Review Discussion w/independent historian: Patient Lab Data Attestation: I reviewed the patient's lab results. Labs: Laboratory Results - last 24 hr 11/21/23 11/22/23 23:52 00:34 WBC 8.2 RBC 4.92 (more content not included)... Normal [facility] Urinalysis, Completeon 11-21 BACTERIA 0 SEEN Normal None Seen [facility] Comment on above: Order Comment: CLEAN CATCH Performed By: #### L 400.0001 #### [facility] [address] [place], [address] EPI,SQUAMOUS 0 SEEN Normal 5-10 [facility] Comment on above: Order Comment: CLEAN CATCH Performed By: #### L 400.0001 #### [facility] [address] [place], [address] Mucus Ql (Urine sed) 0 SEEN Normal [facility] Comment on above: Order Comment: CLEAN CATCH Performed By: #### L 400.0001 #### [facility] [address] [place], [address] RBC 0 SEEN Normal 0-5 [facility] Comment on above: Order Comment: CLEAN CATCH Performed By: #### L 400.0001 #### [facility] [address] [place], [address] WBC 0 SEEN Normal 0-5 [facility] Comment on above: Order Comment: CLEAN CATCH Performed By: #### L 400.0001 #### [facility] [address] [place], [address] hCG Titer Quant., Serumon HCG QUANT. 429167 mIU/mL High 1-3 [facility] Comment on above: Result Comment: hCG levels with Gestational Age Gestational Age hCG mIU/mL (IU/L) 0.2 - 1 week 5 - 50 1-2 weeks 50 - 500 2-3 weeks 100 - 5000 3-4 weeks 500 - 26188 4-5 weeks 1000 - 21205 5-6 weeks 27573 - 100,000 6-8 weeks 45904 - 200,000 2-3 months 06283 - 100,000 Performed By: #### L 700.8000, L100.0100 #### [facility] [address] [place], [address] Transvaginal w/Preg USon Transvaginal w/Preg US [facility] Imaging Services [address] [place] [address] Transvaginal w/Preg US MR#: [id number] Acct: [id number] Name: HARRISON GUNDERSON Rep #: [id number] : 1985 F 38 From: Cooper Sewell PCP: Dr. Ottoniel Goyal MD Status: DEP ER Study: Transvaginal w/Preg US Date of Exam: 11/21/23 Exam# [id number] Ordering Dr: Jayson Alonso DO ADDENDUM by Dr. Cooper Trevino MD on 12/04/23 at 0003 == ADDENDUM == [id number] INDICATION: Vaginal bleeding EXAMINATION: Ultrasound US OB Transvaginal TECHNIQUE: Transvaginal (for optimal evaluation of the adnexa) pelvic ultrasound was performed. Grayscale, spectral waveform, and color flow Doppler evaluation of the adnexa. COMPARISON: No relevant prior comparison study available FINDINGS: UTERUS: 12 x 9 x 6.8 cm. Echogenic lesion in the uterus measures 3 cm and most likely represents a fibroid. RIGHT OVARY: 2.4 cm. Normal. LEFT OVARY: 3.9 cm. Normal. FREE FLUID: None. INTRAUTERINE GESTATIONAL SAC(s) (size/shape): Single. Size (Mean sac diameter) and shape. YOLK SAC: Identified POLE: Identified CRL 4.27 cm. ESTIMATED GESTATION AGE: 11 weeks and 4 days. HEART MOTION: 174 bpm. PLACENTA: Not visualized due to age. SUBCHORIONIC HEMORRHAGE: None. AMNIOTIC FLUID: Qualitatively normal. 12/04/23 0003 Date cc: Dr. Ottoniel Goyal MD; Jayson Alonso DO * Signed ADDENDUM by Dr. Cooper Trevino MD on 12/04/23 at 0003 US/Transvaginal w/Preg US IMPRESSION: Single live intrauterine . Estimated gestational age is 11 weeks and 4 days. KESHAV is 06/15/2024. Electronically Signed: Cooper Trevino MD at 0:03 EDT , 12/04/23 0010 Date cc: Dr. Ottoniel Goyal MD; Jayson Alonso DO * Signed [id number] INDICATION: Vaginal bleeding EXAMINATION: Ultrasound US OB Transvaginal TECHNIQUE: Transabdominal pelvic ultrasound was performed. Grayscale, spectral waveform, and color flow Doppler evaluation of the adnexa. COMPARISON: No relevant prior comparison study available FINDINGS: UTERUS: 12 x 9 x 6.8 cm. Echogenic lesion in the uterus measures 3 cm and most likely represents a fibroid. RIGHT OVARY: 2.4 cm. Normal. LEFT OVARY: 3.9 cm. Normal. FREE FLUID: None. INTRAUTERINE GESTATIONAL SAC(s) (size/shape): Single. Size (Mean sac diameter) and shape. YOLK SAC: Identified POLE: Identified CRL 4.27 cm. ESTIMATED GESTATION AGE: 11 weeks and 4 days. HEART MOTION: 174 bpm. PLACENTA: Not visualized due to age. SUBCHORIONIC HEMORRHAGE: None. AMNIOTIC FLUID: Qualitatively normal. US/Transvaginal w/Preg US IMPRESSION: Single live intrauterine . Estimated gestational age is 11 weeks and 4 days. KESHAV is 06/15/2024. Electronically Signed: Cooper Trevino MD at 1:47 EDT , CC: Dr. Ottoniel Goyal MD; Jayson Alonso DO Conductor And Engineer: Signed Normal [facility] CNOVon 10-26-2023 CNOV Office Visit (WSTR ) -------- HARRISON GUNDERSON ([id number]) 1985 F Date Time Provider Department 10/26/23 9:15 AM EDDIE JARQUIN [facility] During your visit today, we recorded the following information about you: Temperature Pulse Respiration Blood pressure 97.9 degrees 90/minute 20/minute 148/90 Weight 93.4 kg Eddie Jarquin MD 10/26/2023 11:00 AM Signed Patient presents with: Rash: Poison romero x 1 week HPI: Rash: Location: arms, neck, body, face, scalp Duration: 5 days Pruritis: Yes Pain: right antecubital area townsend Change: spreading Bleeding/ulceration/blis ter/pustule: red, raised, blistering, seeping Contacts with rash: No Exposure: No new soaps, detergents, fabric softeners, lotions. Outdoor exposure: was doing yard work before the rash occured. Recent illness: No. Treatment: oral and topical benadryl, oatmeal bath, laundering Currently 8 weeks . PAST MEDICAL HISTORY Diagnosis Date Anxiety Obesity Uterine fibroid 2022 MEDICATIONS: fluticasone (FLONASE) 50 mcg/actuation nasal spray Use 2 Sprays in each nostril once daily. Rinse mouth after use. traZODone (DESYREL) 50 mg tablet Take 50 mg by mouth at bedtime as needed. (Patient not taking: Reported on 10/26/2023) LORazepam (ATIVAN) 0.5 mg tab Take 1 tablet by mouth every 8 hours. (Patient not taking: Reported on 10/26/2023) ALLERGIES: ALLERGIES Allergen Reactions Penicillins Rash Zoloft [Sertraline * Intolerance VITALS: BP 148/90 Pulse 90 Temp 36.6 ?C (97.9 ?F) Resp 20 Wt 93.4 kg (205 lb 14.6 oz) LMP 08/03/2023 (Exact Date) SpO2 98% BMI 34.27 kg/m? PHYSICAL EXAM: GEN: pleasant, no acute distress, alert SKIN: Face: faint erythematous areas left and right cheek without defined borders. Neck: 3cm slightly raised erythematous area left anterior mid neck. Arms: right arm has confluent erythema with induration and some vesicles in the antecubital fossa and dorsal upper arm and proximal forearm. Erythematous indurated area in the left antecubital fossa. Patches and papules of erythema on the distal forearms/wrists. ASSESSMENT/PLAN: 1. Contact dermatitis due to plant - ICD9: 692.6, ICD10: L25.5 Allergic dermatitis treatment is complicated by presence of rash on the face and 8 week . Topical steroid may be used on the body and extremities. - TRIAMCINOLONE ACETONIDE 0.1 % TOPICAL CREAM She may continue diphenhydramine as needed for pruritus. She has been to [place] [facility] and is scheduled for first OB appointment tomorrow. Oral prednisone may be used if needed since little is transferred through the placenta but may be associated with increased risk of PROM, PIH, infection, and gestational DM. She has her initial OB appointment tomorrow, and I will discuss adding an oral steroid with them. Eddie Jarquin MD Allergies As of Date: 10/26/2023 Noted Allergy Reaction PENICILLINS 10/25/2016 2 - Rash ZOLOFT (SERTRALINE HCL) 05/24/2017 5 - Intolerance Date Reviewed: 10/26/2023 Reviewed by: Shyann Kunz MA - Fully Assessed Reason for Visit: Rash [1087] Cmt: Poison romero x 1 week Primary Visit Diagnosis:Contact dermatitis due to plant [L25.5] Order(s):triamcinolone acetonide (KENALOG) 0.1 % creamApply 1 application to affected area two times a day for 14 days. Apply to affected area. Location: poison romero rash. Do not use on the face, arm pits, or groin.Disp: 30 gRfl: 0 Prescriptions as of 10/26/2023 - triamcinolone acetonide (KENALOG) 0.1 % cream Apply 1 application to affected area two times a day for 14 days. Apply to affected area. Location: poison romero rash. Do not use on the face, arm pits, or groin. - traZODone (DESYREL) 50 mg tablet Take 50 mg by mouth at bedtime as needed. - fluticasone (FLONASE) 50 mcg/actuation nasal spray Use 2 Sprays in each nostril once daily. Rinse mouth after use. - LORazepam (ATIVAN) 0.5 mg tab Take 1 tablet by mouth every 8 hours. Problem List As Of Date 10/26/2023 Noted Resolved Obesity [E66.9] Anxiety [F41.9] Prescriptions ordered this encounter Disp Refills Start End TRIAMCINOLONE ACETONIDE 0.1 % TOPICA* 30 g 0 10/26/2023 11/09/2023 Route: TOPICAL Sig: Apply 1 application to affected area two times a day for 14 days. Apply to affected area. Location: poison romero rash. Do not use on the face, arm pits, or groin. Encounter Status:Closed by EDDIE JARQUIN on 10/26/23 [facility] [id number] 10-18-2023 ABO and Rh group Nom (Bld) Blood group O Rh(D) positive Normal [facility] Comment on above: Performed By: #### B 882-1 #### [facility] Laboratory [address] [place], [address] CBC W/Diff, Automatedon 10-08-2023 Absolute Lymph 1.44 X10 3/uL Normal 0.83-4.51 [facility] Comment on above: Performed By: #### L 100.0100, L500.4050 #### [facility] [address] [place], [address] Absolute Neut 4.4 X10 3/uL Normal 2.0-7.7 [facility] Comment on above: Performed By: #### L 100.0100, L500.4050 #### [facility] [address] [place], [address] Basophils/100 WBC (Bld) 0.3 % Normal 0-1 [facility] Comment on above: Performed By: #### L 100.0100, L500.4050 #### [facility] [address] [place], [address] Eosinophils/100 WBC (Bld) 2.8 % Normal 0-5 [facility] Comment on above: Performed By: #### L 100.0100, L500.4050 #### [facility] [address] [place], [address] Erythrocyte distribution width (RBC) [Ratio] 13.2 % Normal 11.6-14.6 [facility] Comment on above: Performed By: #### L 100.0100, L500.4050 #### [facility] [address] [place], [address] Hematocrit (Bld) [Volume fraction] 35.3 % Low 37-47 [facility] Comment on above: Performed By: #### L 100.0100, L500.4050 #### [facility] [address] [place], [address] Hemoglobin (Bld) [Mass/Vol] 11.9 g/dL Low 12.0-15.0 [facility] Comment on above: Performed By: #### L 100.0100, L500.4050 #### [facility] [address] [place], [address] IG% 0.300 Normal 0.0-0.9 [facility] Comment on above: Result Comment: IG% - Immature Granulocytes (promyelocytes, myelocytes and metamyelocytes) > 1% indicates that a LEFT SHIFT is Present. Performed By: #### L 100.0100, L500.4050 #### [facility] [address] [place], [address] Lymphocytes/100 WBC (Bld) 21.6 % Normal 19-41 [facility] Comment on above: Performed By: #### L 100.0100, L500.4050 #### [facility] [address] [place], [address] MCH (RBC) [Entitic mass] 25.0 pg Low 27.0-32.0 [facility] Comment on above: Performed By: #### L 100.0100, L500.4050 #### [facility] [address] [place], [address] MCHC (RBC) [Mass/Vol] 33.7 g/dL Normal 32-36 [facility] Comment on above: Performed By: #### L 100.0100, L500.4050 #### [facility] [address] [place], [address] MCV (RBC) [Entitic vol] 74.2 fL Low 81-99 [facility] Comment on above: Performed By: #### L 100.0100, L500.4050 #### [facility] [address] [place], [address] Monocytes/100 WBC (Bld) 8.8 % Normal 0-10 [facility] Comment on above: Performed By: #### L 100.0100, L500.4050 #### [facility] [address] [place], [address] Neutrophils/100 WBC (Bld) 66.2 % Normal 47-70 [facility] Comment on above: Performed By: #### L 100.0100, L500.4050 #### [facility] [address] [place], [address] Nucleated RBC (Bld) [#/Vol] 0 10*3/uL Normal 0-5 [facility] Comment on above: Performed By: #### L 100.0100, L500.4050 #### [facility] [address] [place], [address] Platelet mean volume (Bld) [Entitic vol] 10.7 fL Normal 6.2-12.0 [facility] Comment on above: Performed By: #### L 100.0100, L500.4050 #### [facility] [address] [place], [address] Platelets (Bld) [#/Vol] 270 10*3/uL Normal 150-450 [facility] Comment on above: Performed By: #### L 100.0100, L500.4050 #### [facility] [address] [place], [address] RBC (Bld) [#/Vol] 4.76 10*6/uL Normal 4.2-5.4 [facility] Comment on above: Performed By: #### L 100.0100, L500.4050 #### [facility] [address] [place], [address] RDW SD 34.6 fl Low 35.1-43.9 [facility] Comment on above: Performed By: #### L 100.0100, L500.4050 #### [facility] [address] [place], [address] WBC (Bld) [#/Vol] 6.7 10*3/uL Normal 4.4-11.0 [facility] Comment on above: Performed By: #### L 100.0100, L500.4050 #### [facility] [address] [place], [address] Comprehensive Metabolic Prof ilon 10-18-2023 Albumin [Mass/Vol] 3.6 g/dL Normal 3.2-5.0 [facility] Comment on above: Performed By: #### L 100.0100, L500.4050 #### [facility] [address] [place], [address] Albumin/Globulin [Mass ratio] 1.0 {ratio} Normal 0.9-2.4 [facility] Comment on above: Performed By: #### L 100.0100, L500.4050 #### [facility] [address] [place], [address] ALK P 61 U/L Normal 45-117 [facility] Comment on above: Performed By: #### L 100.0100, L500.4050 #### [facility] [address] [place], [address] ALT [Catalytic activity/Vol] 19 U/L Normal 13-56 [facility] Comment on above: Performed By: #### L 100.0100, L500.4050 #### [facility] [address] [place], [address] AST [Catalytic activity/Vol] 27 U/L Normal 15-37 [facility] Comment on above: Result Comment: Mode rate Hemolysis, Result may be falsely increased. Performed By: #### L 100.0100, L500.4050 #### [facility] [address] [place], [address] Bilirubin [Mass/Vol] 0.50 mg/dL Normal 0.20-1.00 [facility] Comment on above: Result Comment: For patients on eltrombopag therapy, use of Dimension Mcclure TBIL is not recommended. Performed By: #### L 100.0100, L500.4050 #### [facility] [address] [place], [address] BUN/CRE 19.2 RATIO Normal 10-20 [facility] Comment on above: Performed By: #### L 100.0100, L500.4050 #### [facility] [address] [place], [address] CA,Total 8.9 mg/dL Normal 8.5-10.1 [facility] Comment on above: Performed By: #### L 100.0100, L500.4050 #### [facility] [address] [place], [address] Chloride [Moles/Vol] 107 mmol/L Normal 98-107 [facility] Comment on above: Performed By: #### L 100.0100, L500.4050 #### [facility] [address] [place], [address] CO2 [Moles/Vol] 22.0 mmol/L Normal 21.0-32.0 [facility] Comment on above: Performed By: #### L 100.0100, L500.4050 #### [facility] [address] [place], [address] Creatinine [Mass/Vol] 0.68 mg/dL Normal 0.55-1.02 [facility] Comment on above: Result Comment: The validity of the calculated GFR GFRAA in patients over 70 years has not been determined. Clinical correlation is essential. Performed By: #### L 100.0100, L500.4050 #### [facility] [address] [place], [address] ECRCL 128.71 ml/min Normal [facility] Comment on above: Performed By: #### L 100.0100, L500.4050 #### [facility] [address] [place], [address] EST GFR - AA 125 mL/min Normal >60 [facility] Comment on above: Result Comment: Afri can Filipino GFR Calc Performed By: #### L 100.0100, L500.4050 #### [facility] [address] [place], [address] GAP 6 Normal 5-15 [facility] Comment on above: Performed By: #### L 100.0100, L500.4050 #### [facility] [address] [place], [address] GFR/1.73 sq M.predicted among non-blacks MDRD (S/P/Bld) [Vol rate/Area] 103 mL/min/{1.73_m2} Normal >60 [facility] Comment on above: Result Comment: Non- GFR Calc Performed By: #### L 100.0100, L500.4050 #### [facility] [address] [place], [address] Globulin (S) [Mass/Vol] 3.7 g/dL Normal 2.2-4.2 [facility] Comment on above: Performed By: #### L 100.0100, L500.4050 #### [facility] [address] [place], [address] Glucose [Mass/Vol] 111 mg/dL High 74-106 [facility] Comment on above: Result Comment: Fast ing Glucose result from 100 to 125 mg/dL suggests IMPAIRED HOMEOSTASIS per A.D.A. criteria. Performed By: #### L 100.0100, L500.4050 #### [facility] [address] [place], [address] Potassium [Moles/Vol] 4.0 mmol/L Normal 3.5-5.1 [facility] Comment on above: Result Comment: Mode rate Hemolysis, Result may be falsely increased. Performed By: #### L 100.0100, L500.4050 #### [facility] [address] [place], [address] Sodium [Moles/Vol] 135 mmol/L Low 136-145 [facility] Comment on above: Performed By: #### L 100.0100, L500.4050 #### [facility] [address] [place], [address] T PROT 7.3 g/dL Normal 6.4-8.2 [facility] Comment on above: Performed By: #### L 100.0100, L500.4050 #### [facility] [address] [place], [address] Urea nitrogen [Mass/Vol] 13 mg/dL Normal 7-18 [facility] Comment on above: Performed By: #### L 100.0100, L500.4050 #### [facility] [address] [place], [address] Emergency Department Summary on 10-18-2023 Emergency Department Summary [facility] Medical Records Department [address] [place] [address] Emergency Department Summary 10/18/23 MR#: [id number] Acct: [id number] Name: HARRISON GUNDERSON Rep #: [id number] : 1985 38 From: Blas Xiao DO PCP: Dr. Ottoniel Goyal MD Status:DEP ER Location: ED HPI History of Present Illness Chief Complaint: Flank Pain Informant: patient Onset/Context/Timing Onset: Yesterday Context: Gradual Onset Timing: Continuous and Waxes and wanes Quality: Sharp Location: Right lower abdomen and lower back Worsened by: Nothing Relieved by: Nothing Narrative Narrative: Patient presents with right lower abdomen and back pain that began yesterday. Patient states the is almost 7 weeks . Patient states her pain has been waxing and waning since yesterday evening. Patient describes the pain as sharp. Patient states nothing makes it better and nothing makes it worse. Patient states she is 5 para 4. Patient denies any dysuria or hematuria. Patient denies any abnormal vaginal bleeding or discharge. Patient denies any nausea or vomiting. [facility] Medical History Anxiety and depression Home Medications ???Medication ???Instructions ???Recorded ???Last Taken ???Type clindamycin HCl 300 mg capsule 300 mg PO Q6H ##12 01/05/17 Unknown Rx (Cleocin HCl) ondansetron 4 mg disintegrating 4 mg PO Q8H PRN PRN Nausea #10 tabs 11/20/22 Unknown Rx tablet Allergy/AdvReac Type Severity Reaction Status Date / Time amoxicillin (Amoxicillin) Allergy Hives Verified 10/18/23 11:27 Penicillins Allergy Hives Verified 10/18/23 11:27 Social History Smoking Status: Never smoker ROS ROS ED Constitutional Constitutional ED: Denies chills or fever(s) Eyes Eyes: Denies blurry vision or change in vision ENT ENT ED: Denies rhinorrhea or sore throat Cardiovascular Cardiovascular: Denies chest pain or palpitations Respiratory/Chest Respiratory/Chest: Denies cough or dyspnea Gastrointestinal Gastrointestinal: Reports abdominal pain; Denies nausea or vomiting Genitourinary Genitourinary ED: Denies dysuria or hematuria Musculoskeletal Musculoskeletal: Reports back pain; Denies neck pain Integumentary Denies abscess or rash Neurologic Neurologic: Denies headache(s) or weakness Allergic/Immunologic Allergic/Immunologic ED: Denies mouth swelling or urticaria EXAM Physical Exam Const Vital Signs: 10/18/23 11:27 10/18/23 13:26 10/18/23 15:00 Temperature 97.5 F L Temperature Source Temporal Pulse Rate 81 73 74 Respiratory Rate 16 16 16 Blood Pressure 136/85 H 114/68 117/71 Blood Pressure Mean 102 83 86 Pulse Ox 98 98 98 Oxygen Delivery Method Room Air Room Air Room Air 10/18/23 16:55 Temperature 97.6 F L Temperature Source Pulse Rate 72 Respiratory Rate 16 Blood Pressure 118/67 Blood Pressure Mean 84 Pulse Ox 98 Oxygen Delivery Method Positive well nourished and well developed General Appearance ED: well developed and NAD HEENT Reports moist mucous membranes Neck supple and no JVD Resp normal respiratory effort and clear to auscultation bilaterally Cardio regular rate and regular rhythm GI non-tender and non-distended Palpation: soft Extremity normal to inspection General Extremety ED: Negative for edema or tenderness General Extremity: Negative for edema Neuro oriented x3, CN's II-XII intact bilaterally and no sensory deficits noted Sensorium / Orientation: alert Motor Exam: strength 5/5 throughout Psych mental status grossly normal MDM MDM MDM Narrative Medical decision making narrative: Differential diagnosis includes ectopic , urinary tract infection, ureteral calculus, colitis, diverticulitis, and ovarian cyst. CBC will be obtained to assess for leukocytosis and anemia. Comprehensive metabolic profile will be obtained to assess for hepatic function, renal function, and electrolyte abnormality. Quantitative hCG will be obtained to assess for type and Rh will be obtained to assess for blood type urinalysis will be obtained to assess for urinary tract infection and hematuria. Pelvic ultrasound will be obtained to assess for ectopic , ovarian cyst, and ovarian torsion. Lab Data Attestation: I reviewed the patient's lab results. Lab results narrative: CBC was reviewed. There is a slight anemia with a hemoglobin of 11.9 and hematocrit of 35.3. Platelets were normal. Comprehensive metabolic profile was reviewed. Sodium was slightly low at 135. The remainder was within normal limits. Urinalysis was reviewed. There is no evidence of urinary tract infection or hematuria. Blood type was review (more content not included)... Normal [facility] Transvaginal w/Preg USon Transvaginal w/Preg [facility] Imaging Services [address], [place] [id number] Transvaginal w/Preg MR#: [id number] Acct: [id number] Name: HARRISON GUNDERSON Rep #: [id number] : 1985 F 38 From: Channing lu MD PCP: Dr. Ottoniel Goyal MD Status: REG ER Study: Transvaginal w/Preg US Date of Exam: 10/18/23 Exam# [id number] Ordering Dr: Blas Xiao DO [id number] STUDY: FIRST TRIMESTER OBSTETRICAL ULTRASOUND REASON FOR EXAM: Female, 38 years old Pelvic pain LMP: September 02, 2023. TECHNIQUE: Transvaginal TECHNICAL QUALITY: Adequate. PRIOR ULTRASOUND: None. FINDINGS: There is visualization of a single gestational sac in a normal intrauterine position. The mean sac diameter (MSD) measures 1.79 cm, indicating an estimated gestational age (EGA) of 6 weeks, 5 days. The gestational sac shape is within normal limits. There is a visualized yolk sac. The yolk sac measures 3.1 mm. The placenta is non-visualized. There is visualization of a live embryo. The crown-rump length (CRL) measures 6.2 mm, indicating an estimated gestational age (EGA) of 6 weeks, 4 days. There is demonstrated cardiac activity with a heart rate of 123 bpm. The estimated gestation age (EGA) by LMP is 6 weeks, 4 days. The estimated date of delivery (KESHAV) by LMP is June 08, 2024. The estimated gestation age (EGA) by US is 6 weeks, 5 days. The estimated date of delivery (KESHAV) by US is March 07, 2025. The uterus measures 11.2 cm x 6.6 cm x 6.7 cm. A large fibroid in the superior aspect of the uterus measuring 2.4 cm x 3.1+ by 2.8 cm is seen. There is a 1.5 cm x 1.4 cm x 0.4 cm subchorionic bleed. The cervix is closed. The right ovary measures 2.4 cm x 2.1 cm x 1.5 cm. There is no right ovarian cyst. There is no visualized right adnexal mass or complex lesion. The left ovary measures 2.6 cm x 2.2 cm x 2.4 cm. There is no left ovarian cyst. There is no visualized left adnexal mass or complex lesion. There is no fluid in the cul de sac. US/Transvaginal w/Preg US IMPRESSION: Single live intrauterine gestation with a mean gestational age of 6 weeks and 5 days. Uterine fibroid. Findings suggestive a 1.5 cm x 1.4 cm x 0.4 cm subchorionic bleed. Electronically Signed: Channing Roper MD at 15:30 EDT , CC: Dr. Blas Xiao, DO; Dr. Ottoniel Goyal MD Conductor And Engineer: Signed Normal [facility] Urinalysis, Completeon 10-17 BACTERIA 1+ /hpf Normal None Seen [facility] Comment on above: Order Comment: ANNETTE CTOR TO SPECIFY Performed By: #### L 400.0001 ####[facility] [address] [place], [address] EPI,SQUAMOUS 0-5 SEEN Normal 5-10 [facility] Comment on above: Order Comment: ANNETTE CTOR TO SPECIFY Performed By: #### L 400.0001 ####[facility] [address] [place], [address] WBC 0-5 SEEN Normal 0-5 [facility] Comment on above: Order Comment: ANNETTE CTOR TO SPECIFY Performed By: #### L 400.0001 ####[facility] [address] [place], [address] Mucus Ql (Urine sed) 0 SEEN Normal [facility] Comment on above: Order Comment: ANNETTE CTOR TO SPECIFY Performed By: #### L 400.0001 ####[facility] [address] [place], [address] RBC 0 SEEN Normal 0-5 [facility] Comment on above: Order Comment: ANNETTE CTOR TO SPECIFY Performed By: #### L 400.0001 ####[facility] [address] [facility] [place], [place], [address] hCG Titer Quant., Serumon HCG QUANT. 01615 mIU/mL High 1-3 [facility] Comment on above: Result Comment: hCG levels with Gestational Age Gestational Age hCG mIU/mL (IU/L) 0.2 - 1 week 5 - 50 1-2 weeks 50 - 500 2-3 weeks 100 - 5000 3-4 weeks 500 - 55913 4-5 weeks 1000 - 17101 5-6 weeks 24124 - 100,000 6-8 weeks 35672 - 200,000 2-3 months 33050 - 100,000 Performed By: #### L 700.8000 ####[facility] [address] [facility] [place], [address] 2019 Novel Coronavirus (CoVI D-19), NAAon 06-26-2023 SARS-CoV-2 (COVID-19) RNA ROSAMARIA+probe Ql (Unsp spec) Not detected Normal Not Detected [facility] Comment on above: Result Comment: This nucleic acid amplification test was developed and its performance characteristics determined by [employer]. Nucleic acid amplification tests include RT-PCR and TMA. This test has not been FDA cleared or approved. This test has been authorized by FDA under an Emergency Use Authorization (EUA). This test is only authorized for the duration of time the declaration that circumstances exist justifying the authorization of the emergency use of in vitro diagnostic tests for detection of SARS-CoV-2 virus and/or diagnosis of COVID-19 infection under section 564(b)(1) of the Act, 21 U.S.C. 360bbb-3(b) (1), unless the authorization is terminated or revoked sooner. When diagnostic testing is negative, the possibility of a false negative result should be considered in the context of a patient's recent exposures and the presence of clinical signs and symptoms consistent with COVID-19. An individual without symptoms of COVID-19 and who is not shedding SARS-CoV-2 virus would expect to have a negative (not detected) result in this assay. Performed at: [address] [place] [id number] Compound Specialist: Zain Osman MD, Phone: [phone] Performed By: #### L COV #### [address] [address] CTHRon 06-26-2023 CTHR Patient: TORIE GUNDERSON [id number] Location: [facility] Aount: [id number] : 1985 Age: 38 Sex F Lab NumbEr [id number] Requested by: LYNNETTE MONTESINOS Admitdate: 06/26/23 Source: THR Collected: 06/26/23 12:00 Site: Received : 06/26/23 20:08 Culture, Throat FINAL 06/28/23 05:21 06/27/23 Performing Lab: [address] [address] Director: Kelin Lima MD -- AEROBIC CULTURE RESULTS: NORMAL WILBUR Normal [facility] Comment on above: Performed By: #### M IC2 #### [address] [address] [place] Pelvis transvaginalon Interval decreased s ize of previously seen left ovarian cyst. Similar appearing submucosal mass within the endometrial region measuring up to 2.8 x 2.6 x 2.5 cm. This is again favored to represent a submucosal fibroid, however consider corollary saw hysterogram for exclusion of an underlying polyp. MACRO: None Signed by: Dimitri Quevedo 02/14/2023 1:36 PM Dictation workstation: [id number] [facility] Interpreted By: Dimitri Becker, STUDY: US PELVIS TRANSABDOMINAL WITH TRANSVAGINAL 02/13/2023 10:23 am INDICATION: 37 y/o F with Signs/Symptoms:hemorrhag ic cyst COMPARISON: 01/13/2023 ACCESSION NUMBER(S): [id number] ORDERING CLINICIAN: XIOMARA GUTIERREZ TECHNIQUE: Routine ultrasound of the pelvis was performed with duplex Doppler (color and spectral) evaluation. Evaluation of the female pelvis was performed by transabdominal technique . Static images were obtained for remote interpretation. FINDINGS: UTERUS: Size: 9.5 x 6.5 x 5.1 cm Masses: Redemonstration of a rounded submucosal mass measuring up to 2.8 x 2.6 x 2.5 cm, previously measuring 2.5 x 2.1 x 2.3 cm. Endometrial thickness: Endometrium is somewhat obscured due to a for mentioned lesion CERVIX: Normal. RIGHT OVARY: Right ovary size: 2.8 x 1.9 x 1.4 cm No dominant cyst or ovarian mass. Color/arterial flow is seen. LEFT OVARY: Left ovary size: 4.0 x 2.8 x 2.7 cm Previously seen left ovarian cyst now measures approximately 2.1 x 1.9 x 1.8 cm, previously measuring 4.6 x 4.5 x 4.3 cm. Color/arterial flow is seen. No adnexal mass seen. FREE FLUID: None. MMODAL Dimitri Quevedo MD - 02/14/2023 Interpreted By: Dimitri Quevedo, STUDY: US PELVIS TRANSABDOMINAL WITH TRANSVAGINAL 02/13/2023 10:23 am INDICATION: 37 y/o F with Signs/Symptoms:hemorrhag ic cyst COMPARISON: 01/13/2023 ACCESSION NUMBER(S): [id number] ORDERING CLINICIAN: XIOMARA GUTIERREZ TECHNIQUE: Routine ultrasound of the pelvis was performed with duplex Doppler (color and spectral) evaluation. Evaluation of the female pelvis was performed by transabdominal technique . Static images were obtained for remote interpretation. FINDINGS: UTERUS: Size: 9.5 x 6.5 x 5.1 cm Masses: Redemonstration of a rounded submucosal mass measuring up to 2.8 x 2.6 x 2.5 cm, previously measuring 2.5 x 2.1 x 2.3 cm. Endometrial thickness: Endometrium is somewhat obscured due to a for mentioned lesion CERVIX: Normal. RIGHT OVARY: Right ovary size: 2.8 x 1.9 x 1.4 cm No dominant cyst or ovarian mass. Color/arterial flow is seen. LEFT OVARY: Left ovary size: 4.0 x 2.8 x 2.7 cm Previously seen left ovarian cyst now measures approximately 2.1 x 1.9 x 1.8 cm, previously measuring 4.6 x 4.5 x 4.3 cm. Color/arterial flow is seen. No adnexal mass seen. FREE FLUID: None. IMPRESSION: Interval decreased size of previously seen left ovarian cyst. Similar appearing submucosal mass within the endometrial region measuring up to 2.8 x 2.6 x 2.5 cm. This is again favored to represent a submucosal fibroid, however consider corollary saw hysterogram for exclusion of an underlying polyp. MACRO: None Signed by: Dimitri Quevedo 02/14/2023 1:36 PM Dictation workstation: [id number] [facility] Work Phone: US Pelvis transvaginalOrdere d By: Dimitri Quevedo on 02-14-2023 [facility] Work Phone: US PELVIS TRANSABDOMINAL WIT H TRANSVAGINALon 02-13-2023 US PELVIS TRANSABDOMINAL WITH TRANSVAGINAL Interpreted By: Dimitri Quevedo, STUDY: US PELVIS TRANSABDOMINAL WITH TRANSVAGINAL 02/13/2023 10:23 am INDICATION: 37 y/o F with Signs/Symptoms:hemorrhag ic cyst COMPARISON: 01/13/2023 ACCESSION NUMBER(S): [id number] ORDERING CLINICIAN: XIOMARA GUTIERREZ TECHNIQUE: Routine ultrasound of the pelvis was performed with duplex Doppler (color and spectral) evaluation. Evaluation of the female pelvis was performed by transabdominal technique . Static images were obtained for remote interpretation. FINDINGS: UTERUS: Size: 9.5 x 6.5 x 5.1 cm Masses: Redemonstration of a rounded submucosal mass measuring up to 2.8 x 2.6 x 2.5 cm, previously measuring 2.5 x 2.1 x 2.3 cm. Endometrial thickness: Endometrium is somewhat obscured due to a for mentioned lesion CERVIX: Normal. RIGHT OVARY: Right ovary size: 2.8 x 1.9 x 1.4 cm No dominant cyst or ovarian mass. Color/arterial flow is seen. LEFT OVARY: Left ovary size: 4.0 x 2.8 x 2.7 cm Previously seen left ovarian cyst now measures approximately 2.1 x 1.9 x 1.8 cm, previously measuring 4.6 x 4.5 x 4.3 cm. Color/arterial flow is seen. No adnexal mass seen. FREE FLUID: None. IMPRESSION: Interval decreased size of previously seen left ovarian cyst. Similar appearing submucosal mass within the endometrial region measuring up to 2.8 x 2.6 x 2.5 cm. This is again favored to represent a submucosal fibroid, however consider corollary saw hysterogram for exclusion of an underlying polyp. MACRO: None Signed by: Dimitri Quevedo 02/14/2023 1:36 PM Dictation workstation: [id number] [facility] US Pelvis transvaginalon Radiology Study observation (narrative) [facility] Work Phone: US PELVISon 01-13-2023 US PELVIS Interpreted By: Mikael Green, STUDY: US PELVIS; ; 01/13/2023 1:29 am INDICATION: Signs/Symptoms:Possible torsion. COMPARISON: Correlation made to CT abdomen and pelvis of 01/12/2023. ACCESSION NUMBER(S): [id number] ORDERING CLINICIAN: INES BURROWS TECHNIQUE: Grayscale, color and spectral Doppler ultrasound evaluation of the pelvis was performed transabdominally and transvaginally. FINDINGS: UTERUS: Uterus measures 8.8 x 5.2 x 6.4 cm. ENDOMETRIUM: Endometrium is not well seen. There is a mildly heterogeneous rounded hypoechoic submucosal mass measuring 2.5 x 2.1 x 2.3 cm, that most likely represents a fibroid. RIGHT OVARY: Normal, measuring 2.9 x 1.9 x 1.4 cm. Normal arterial and venous flow present. LEFT OVARY: There is a hemorrhagic cyst in the left ovary measuring up to 4.6 cm in diameter. The left ovary measures 5.2 x 4.8 x 4.9 cm in transaxial diameters. Arterial and venous spectral Doppler waveforms are seen in the left ovary, however which are dampened relative to the contralateral ovary, which probably relates to technical factors, and makes complete torsion unlikely; incomplete torsion or torsion and spontaneous detorsion are possibilities, however, in the appropriate clinical context. CUL DE SAC: No free-fluid. IMPRESSION: There is a hemorrhagic cyst in the left ovary measuring up to 4.6 cm in diameter. The left ovary measures 5.2 x 4.8 x 4.9 cm in transaxial diameters. Arterial and venous spectral Doppler waveforms are seen in the left ovary, however which are dampened relative to the contralateral ovary, which probably relates to technical factors, and makes complete torsion unlikely; incomplete torsion or torsion and spontaneous detorsion are possibilities, however, in the appropriate clinical context. Gynecology consultation recommended; correlate clinically with the need for laparoscopic correlation. Endometrium is not well seen. There is a mildly heterogeneous rounded hypoechoic submucosal mass measuring 2.5 x 2.1 x 2.3 cm, that most likely represents a fibroid. Normal right ovary. MACRO: None Signed by: Mikael Rojas 01/13/2023 1:38 AM Dictation workstation: [id number] [facility] US Pelvison 01-13-2023 There is a hemorrhag ic cyst in the left ovary measuring up to 4.6 cm in diameter. The left ovary measures 5.2 x 4.8 x 4.9 cm in transaxial diameters. Arterial and venous spectral Doppler waveforms are seen in the left ovary, however which are dampened relative to the contralateral ovary, which probably relates to technical factors, and makes complete torsion unlikely; incomplete torsion or torsion and spontaneous detorsion are possibilities, however, in the appropriate clinical context. Gynecology consultation recommended; correlate clinically with the need for laparoscopic correlation. Endometrium is not well seen. There is a mildly heterogeneous rounded hypoechoic submucosal mass measuring 2.5 x 2.1 x 2.3 cm, that most likely represents a fibroid. Normal right ovary. MACRO: None Signed by: Mikael Rojas 01/13/2023 1:38 AM Dictation workstation: [id number] [facility] Interpreted By: Mikael Green, STUDY: US PELVIS; ; 01/13/2023 1:29 am INDICATION: Signs/Symptoms:Possible torsion. COMPARISON: Correlation made to CT abdomen and pelvis of 01/12/2023. ACCESSION NUMBER(S): [id number] ORDERING CLINICIAN: INES BURROWS TECHNIQUE: Grayscale, color and spectral Doppler ultrasound evaluation of the pelvis was performed transabdominally and transvaginally. FINDINGS: UTERUS: Uterus measures 8.8 x 5.2 x 6.4 cm. ENDOMETRIUM: Endometrium is not well seen. There is a mildly heterogeneous rounded hypoechoic submucosal mass measuring 2.5 x 2.1 x 2.3 cm, that most likely represents a fibroid. RIGHT OVARY: Normal, measuring 2.9 x 1.9 x 1.4 cm. Normal arterial and venous flow present. LEFT OVARY: There is a hemorrhagic cyst in the left ovary measuring up to 4.6 cm in diameter. The left ovary measures 5.2 x 4.8 x 4.9 cm in transaxial diameters. Arterial and venous spectral Doppler waveforms are seen in the left ovary, however which are dampened relative to the contralateral ovary, which probably relates to technical factors, and makes complete torsion unlikely; incomplete torsion or torsion and spontaneous detorsion are possibilities, however, in the appropriate clinical context. CUL DE SAC: No free-fluid. [facility] Mikael Rojas MD - 01/13/2023 Interpreted By: Mikael Rojas, STUDY: US PELVIS; ; 01/13/2023 1:29 am INDICATION: Signs/Symptoms:Possible torsion. COMPARISON: Correlation made to CT abdomen and pelvis of 01/12/2023. ACCESSION NUMBER(S): [id number] ORDERING CLINICIAN: INES BURROWS TECHNIQUE: Grayscale, color and spectral Doppler ultrasound evaluation of the pelvis was performed transabdominally and transvaginally. FINDINGS: UTERUS: Uterus measures 8.8 x 5.2 x 6.4 cm. ENDOMETRIUM: Endometrium is not well seen. There is a mildly heterogeneous rounded hypoechoic submucosal mass measuring 2.5 x 2.1 x 2.3 cm, that most likely represents a fibroid. RIGHT OVARY: Normal, measuring 2.9 x 1.9 x 1.4 cm. Normal arterial and venous flow present. LEFT OVARY: There is a hemorrhagic cyst in the left ovary measuring up to 4.6 cm in diameter. The left ovary measures 5.2 x 4.8 x 4.9 cm in transaxial diameters. Arterial and venous spectral Doppler waveforms are seen in the left ovary, however which are dampened relative to the contralateral ovary, which probably relates to technical factors, and makes complete torsion unlikely; incomplete torsion or torsion and spontaneous detorsion are possibilities, however, in the appropriate clinical context. CUL DE SAC: No free-fluid. IMPRESSION: There is a hemorrhagic cyst in the left ovary measuring up to 4.6 cm in diameter. The left ovary measures 5.2 x 4.8 x 4.9 cm in transaxial diameters. Arterial and venous spectral Doppler waveforms are seen in the left ovary, however which are dampened relative to the contralateral ovary, which probably relates to technical factors, and makes complete torsion unlikely; incomplete torsion or torsion and spontaneous detorsion are possibilities, however, in the appropriate clinical context. Gynecology consultation recommended; correlate clinically with the need for laparoscopic correlation. Endometrium is not well seen. There is a mildly heterogeneous rounded hypoechoic submucosal mass measuring 2.5 x 2.1 x 2.3 cm, that most likely represents a fibroid. Normal right ovary. MACRO: None Signed by: Mikael Rojas 01/13/2023 1:38 AM Dictation workstation: [id number] [facility] Work Phone: [facility] Work Phone: Radiology Study observation (narrative) [facility] Work Phone: CBC W Auto Differential pane l (Bld)on 01-12-2023 Basophils (Bld) [#/Vol] 0.04 10*3/uL [facility] Basophils/100 WBC (Bld) 0.5 % 0.0 - 2.0 % [facility] Eosinophils (Bld) [#/Vol] 0.28 10*3/uL [facility] Eosinophils/100 WBC (Bld) 3.7 % 0.0 - 6.0 % [facility] Erythrocyte distribution width (RBC) [Ratio] 13.1 % 11.5 - 14.5 % [facility] Hematocrit (Bld) [Volume fraction] 32.5 % Low 36.0 - 46.0 % [facility] Hemoglobin (Bld) [Mass/Vol] 10.9 g/dL Low 12.0 - 16.0 g/dL [facility] Immature granulocytes (Bld) [#/Vol] 0.02 10*3/uL [facility] Immature granulocytes/100 WBC (Bld) 0.3 % 0.0 - 0.9 % [facility] Comment on above: Immature Granulocyte Count (IG) includes promyelocytes, myelocytes and metamyelocytes but does not include bands. Percent differential counts (%) should be interpreted in the context of the absolute cell counts (cells/UL). Interpretation and review of laboratory results Abnormal [facility] Lymphocytes (Bld) [#/Vol] 2.08 10*3/uL [facility] Lymphocytes/100 WBC (Bld) 27.4 % 13.0 - 44.0 % [facility] MCH (RBC) [Entitic mass] 27.5 pg 26.0 - 34.0 pg [facility] MCHC (RBC) [Mass/Vol] 33.5 g/dL 32.0 - 36.0 g/dL [facility] MCV (RBC) [Entitic vol] 82 fL 80 - 100 fL [facility] Monocytes (Bld) [#/Vol] 0.79 10*3/uL [facility] Monocytes/100 WBC (Bld) 10.4 % 2.0 - 10.0 % [facility] Neutrophils (Bld) [#/Vol] 4.39 10*3/uL [facility] Comment on above: Percent differential counts (%) should be interpreted in the context of the absolute cell counts (cells/uL). Neutrophils/100 WBC (Bld) 57.7 % 40.0 - 80.0 % [facility] Nucleated RBC/100 WBC (Bld) [Ratio] 0.0 % [facility] Platelet mean volume (Bld) [Entitic vol] 10.7 fL 7.5 - 11.5 fL [facility] Platelets (Bld) [#/Vol] 281 10*3/uL [facility] RBC (Bld) [#/Vol] 3.97 10*6/uL Low [facility] WBC (Bld) [#/Vol] 7.6 10*3/uL [facility] Basophils (Bld) [#/Vol] 0.04 x10*3/uL Normal 0.00-0.10 [facility] Comment on above: Performed By: #### 5 7021-8 #### LOYDA NOVAK ([id number]) [facility] ([facility]) [address] [place] [address] Basophils/100 WBC (Bld) 0.5 % Normal 0.0-2.0 [facility] Comment on above: Performed By: #### 5 7021-8 #### LOYDA NOVAK ([id number]) [facility] ([facility]) [address] [place] [address] Eosinophils (Bld) [#/Vol] 0.28 x10*3/uL Normal 0.00-0.70 [facility] Comment on above: Performed By: #### 5 7021-8 #### LOYDA ONVAK ([id number]) [facility] ([facility]) [address] [place] [address] Eosinophils/100 WBC (Bld) 3.7 % Normal 0.0-6.0 [facility] Comment on above: Performed By: #### 5 7021-8 #### LOYDA NOVAK ([id number]) [facility] ([facility]) [address] [place] [address] Erythrocyte distribution width (RBC) [Ratio] 13.1 % Normal 11.5-14.5 [facility] Comment on above: Performed By: #### 5 7021-8 #### LOYDA NOVAK ([id number]) [facility] ([facility]) [address] [place] [address] Hematocrit (Bld) [Volume fraction] 32.5 % Low 36.0-46.0 [facility] Comment on above: Performed By: #### 5 7021-8 #### LOYDA NOVAK ([id number]) [facility] ([facility]) [address] [place] [address] 15949 Hemoglobin (Bld) [Mass/Vol] 10.9 g/dL Low 12.0-16.0 [facility] Comment on above: Performed By: #### 5 7021-8 #### LOYDA NOVAK ([id number]) [facility] ([facility]) [address] [place] [address] 94275 Immature granulocytes (Bld) [#/Vol] 0.02 x10*3/uL Normal 0.00-0.70 [facility] Comment on above: Performed By: #### 5 7021-8 #### LOYDA NOVAK ([id number]) [facility] ([facility]) [address] [place] [address] 31563 Immature granulocytes/100 WBC (Bld) 0.3 % Normal 0.0-0.9 [facility] Comment on above: Result Comment: Claudine ture Granulocyte Count (IG) includes promyelocytes, myelocytes and metamyelocytes but does not include bands. Percent differential counts (%) should be interpreted in the context of the absolute cell counts (cells/UL). Performed By: #### 5 7021-8 #### LOYDA NOVAK ([id number]) [facility] ([facility]) [address] [place], [place] [address] Lymphocytes (Bld) [#/Vol] 2.08 x10*3/uL Normal 1.20-4.80 [facility] Comment on above: Performed By: #### 5 7021-8 #### LOYDA NOVAK ([id number]) [facility] ([facility]) [address] [place] [address] 02003 Lymphocytes/100 WBC (Bld) 27.4 % Normal 13.0-44.0 [facility] Comment on above: Performed By: #### 5 7021-8 #### LOYDA NOVAK ([id number]) [facility] ([facility]) [address] [place] [address] 19228 MCH (RBC) [Entitic mass] 27.5 pg Normal 26.0-34.0 [facility] Comment on above: Performed By: #### 5 7021-8 #### LOYDA NOVAK ([id number]) [facility] ([facility]) [address] [place] [address] 56623 MCHC (RBC) [Mass/Vol] 33.5 g/dL Normal 32.0-36.0 [facility] Comment on above: Performed By: #### 5 7021-8 #### LOYDA NOVAK ([id number]) [facility] ([facility]) [address] [place] [address] 87731 MCV (RBC) [Entitic vol] 82 fL Normal 80-100 [facility] Comment on above: Performed By: #### 5 7021-8 #### LOYDA NOVAK ([id number]) [facility] ([facility]) [address] [place] [address] 22140 Monocytes (Bld) [#/Vol] 0.79 x10*3/uL Normal 0.10-1.00 [facility] Comment on above: Performed By: #### 5 7021-8 #### LOYDA NOVAK ([id number]) [facility] ([facility]) [address] [place] [address] 76818 Monocytes/100 WBC (Bld) 10.4 % Normal 2.0-10.0 [facility] Comment on above: Performed By: #### 5 7021-8 #### LOYDA NOVAK ([id number]) [facility] ([facility]) [address] [place] [address] 98839 Neutrophils (Bld) [#/Vol] 4.39 x10*3/uL Normal 1.20-7.70 [facility] Comment on above: Result Comment: Perc ent differential counts (%) should be interpreted in the context of the absolute cell counts (cells/uL). Performed By: #### 5 7021-8 #### LOYDA NOVAK ([id number]) [facility] ([facility]) [address] [place] [address] 52478 Neutrophils/100 WBC (Bld) 57.7 % Normal 40.0-80.0 [facility] Comment on above: Performed By: #### 5 7021-8 #### LOYDA NOVAK ([id number]) [facility] ([facility]) [address] [place] [address] 33898 Nucleated RBC/100 WBC (Bld) [Ratio] 0.0 /100 WBCs Normal 0.0-0.0 [facility] Comment on above: Performed By: #### 5 7021-8 #### LOYDA NOVAK ([id number]) [facility] ([facility]) [address] [place] [address] 04745 Platelet mean volume (Bld) [Entitic vol] 10.7 fL Normal 7.5-11.5 [facility] Comment on above: Performed By: #### 5 7021-8 #### LOYDA NOVAK ([id number]) [facility] ([facility]) [address] [place] [address] Platelets (Bld) [#/Vol] 281 x10*3/uL Normal 150-450 [facility] Comment on above: Performed By: #### 5 7021-8 #### LOYDA NOVAK ([id number]) [facility] ([facility]) [facility] [place] [address] RBC (Bld) [#/Vol] 3.97 x10*6/uL Low 4.00-5.20 [facility] Comment on above: Performed By: #### 5 7021-8 #### LOYDA NOVAK ([id number]) [facility] ([facility]) [address] [place] [address] WBC (Bld) [#/Vol] 7.6 x10*3/uL Normal 4.4-11.3 [facility] Comment on above: Performed By: #### 5 7021-8 #### LOYDA NOVAK ([id number]) [facility] ([facility]) [address] [place] [address] CT ABDOMEN PELVIS W IV CONTR Yadira 01-12-2023 CT ABDOMEN PELVIS W IV CONTRAST Interpreted By: Mikael Rojas, STUDY: CT ABDOMEN PELVIS W IV CONTRAST; ; 01/12/2023 11:18 pm INDICATION: . Abdominal pain. COMPARISON: None. ACCESSION NUMBER(S): [id number] ORDERING CLINICIAN: INES BURROWS TECHNIQUE: Axial CT images of the abdomen and pelvis with coronal and sagittal reconstructed images performed after intravenous administration of 90 cc Omnipaque 350. FINDINGS: LOWER CHEST: No acute abnormality of the lung bases. BONES: No acute osseous abnormality. ABDOMINAL WALL: Within normal limits. ABDOMEN: LIVER: Enlarged. No focal lesion. BILE DUCTS: Normal caliber. GALLBLADDER: No calcified gallstones. No wall thickening. PANCREAS: Within normal limits. SPLEEN: Within normal limits. ADRENALS: Within normal limits. KIDNEYS and URETERS: 3 mm nonobstructing calculus in the interpolar right kidney. Otherwise, normal. VESSELS: No aortic aneurysm. RETROPERITONEUM: No pathologically enlarged retroperitoneal lymph nodes. PELVIS: REPRODUCTIVE ORGANS: 5.2-cm left ovarian cyst. Uterus and right adnexae appear within normal limits. There is mottled air and fluid density in the vaginal canal compatible with the presence of a tampon. BLADDER: Within normal limits. BOWEL: No dilated or thickened bowel. Stomach appears within normal limits. Normal appendix. PERITONEUM: No ascites or free air, no fluid collection. IMPRESSION: No definite evidence of acute pathology. 5.2-cm left ovarian cyst. Correlate clinically with the need for pelvic ultrasound to exclude ovarian torsion. 3 mm nonobstructing right renal calculus. Hepatomegaly. Additional findings as discussed above. MACRO: None Signed by: Mikael Rojas 01/12/2023 11:42 PM Dictation workstation: [id number] [facility] CT Abdomen and Pelvis W cont rast Rema 01-12-2023 No definite evidence of acute pathology. 5.2-cm left ovarian cyst. Correlate clinically with the need for pelvic ultrasound to exclude ovarian torsion. 3 mm nonobstructing right renal calculus. Hepatomegaly. Additional findings as discussed above. MACRO: None Signed by: Mikael Rojas 01/12/2023 11:42 PM Dictation workstation: [id number] Interpreted By: Mikael Green, STUDY: CT ABDOMEN PELVIS W IV CONTRAST; ; 01/12/2023 11:18 pm INDICATION: . Abdominal pain. COMPARISON: None. ACCESSION NUMBER(S): [id number] ORDERING CLINICIAN: INES BURROWS TECHNIQUE: Axial CT images of the abdomen and pelvis with coronal and sagittal reconstructed images performed after intravenous administration of 90 cc Omnipaque 350. FINDINGS: LOWER CHEST: No acute abnormality of the lung bases. BONES: No acute osseous abnormality. ABDOMINAL WALL: Within normal limits. ABDOMEN: LIVER: Enlarged. No focal lesion. BILE DUCTS: Normal caliber. GALLBLADDER: No calcified gallstones. No wall thickening. PANCREAS: Within normal limits. SPLEEN: Within normal limits. ADRENALS: Within normal limits. KIDNEYS and URETERS: 3 mm nonobstructing calculus in the interpolar right kidney. Otherwise, normal. VESSELS: No aortic aneurysm. RETROPERITONEUM: No pathologically enlarged retroperitoneal lymph nodes. PELVIS: REPRODUCTIVE ORGANS: 5.2-cm left ovarian cyst. Uterus and right adnexae appear within normal limits. There is mottled air and fluid density in the vaginal canal compatible with the presence of a tampon. BLADDER: Within normal limits. BOWEL: No dilated or thickened bowel. Stomach appears within normal limits. Normal appendix. PERITONEUM: No ascites or free air, no fluid collection. MMODAL Mikael Rojas MD - 01/12/2023 Interpreted By: Mikael Rojas, STUDY: CT ABDOMEN PELVIS W IV CONTRAST; ; 01/12/2023 11:18 pm INDICATION: . Abdominal pain. COMPARISON: None. ACCESSION NUMBER(S): [id number] ORDERING CLINICIAN: INES BURROWS TECHNIQUE: Axial CT images of the abdomen and pelvis with coronal and sagittal reconstructed images performed after intravenous administration of 90 cc Omnipaque 350. FINDINGS: LOWER CHEST: No acute abnormality of the lung bases. BONES: No acute osseous abnormality. ABDOMINAL WALL: Within normal limits. ABDOMEN: LIVER: Enlarged. No focal lesion. BILE DUCTS: Normal caliber. GALLBLADDER: No calcified gallstones. No wall thickening. PANCREAS: Within normal limits. SPLEEN: Within normal limits. ADRENALS: Within normal limits. KIDNEYS and URETERS: 3 mm nonobstructing calculus in the interpolar right kidney. Otherwise, normal. VESSELS: No aortic aneurysm. RETROPERITONEUM: No pathologically enlarged retroperitoneal lymph nodes. PELVIS: REPRODUCTIVE ORGANS: 5.2-cm left ovarian cyst. Uterus and right adnexae appear within normal limits. There is mottled air and fluid density in the vaginal canal compatible with the presence of a tampon. BLADDER: Within normal limits. BOWEL: No dilated or thickened bowel. Stomach appears within normal limits. Normal appendix. PERITONEUM: No ascites or free air, no fluid collection. IMPRESSION: No definite evidence of acute pathology. 5.2-cm left ovarian cyst. Correlate clinically with the need for pelvic ultrasound to exclude ovarian torsion. 3 mm nonobstructing right renal calculus. Hepatomegaly. Additional findings as discussed above. MACRO: None Signed by: Mikael Rojas 01/12/2023 11:42 PM Dictation workstation: [id number] [facility] Work Phone: Radiology Study observation (narrative) [facility] Work Phone: CT Abdomen and Pelvis W cont rast IVOrdered By: Mikael Rojas on 01-12-2023 [facility] Work Phone: Comprehensive metabolic 2000 panelon 01-12-2023 Albumin BCP dye [Mass/Vol] 4.0 g/dL 3.4 - 5.0 g/dL [facility] ALP [Catalytic activity/Vol] 47 U/L 33 - 110 U/L [facility] ALT With P-5'-P [Catalytic activity/Vol] 11 U/L 7 - 45 U/L [facility] Comment on above: Patients treated wit h Sulfasalazine may generate falsely decreased results for ALT. Anion gap [Moles/Vol] 10 mmol/L 10 - 20 mmol/L [facility] AST With P-5'-P [Catalytic activity/Vol] 15 U/L 9 - 39 U/L [facility] Bilirubin [Mass/Vol] 0.4 mg/dL 0.0 - 1 .2 mg/dL [facility] Calcium [Mass/Vol] 8.6 mg/dL 8.6 - 10. 3 mg/dL [facility] Chloride [Moles/Vol] 105 mmol/L 98 - 10 7 mmol/L [facility] CO2 [Moles/Vol] 27 mmol/L 21 - 32 mmol/L [facility] Creatinine [Mass/Vol] 0.60 mg/dL 0.50 - 1.05 mg/dL [facility] GFR/1.73 sq M.predicted MDRD (S/P/Bld) [Vol rate/Area] - PINF [facility] Comment on above: Calculations of harshal mated GFR are performed using the 2020 CKD-EPI Study Refit equation without the race variable for the IDMS-Traceable creatinine methods. https://jasn.asnjournals.org/content/early/ASN.893931 6020 Glucose [Mass/Vol] 81 mg/dL 74 - 99 mg/dL [facility] Interpretation and review of laboratory results Abnormal [facility] Potassium [Moles/Vol] 3.7 mmol/L 3.5 - 5.3 mmol/L [facility] Protein [Mass/Vol] 6.3 g/dL Low 6.4 - 8.2 g/dL Un [facility] Sodium [Moles/Vol] 138 mmol/L 136 - 145 mmol/L [facility] Urea nitrogen [Mass/Vol] 14 mg/dL 6 - 23 mg/dL [facility] Albumin BCP dye [Mass/Vol] 4.0 g/dL Normal 3.4-5.0 [facility] Comment on above: Performed By: #### 2 4323-8 #### LOYDA NOVAK ([id number]) [facility] ([facility]) [address] [place] [address] 12494 ALP [Catalytic activity/Vol] 47 U/L Normal 33-110 [facility] Comment on above: Performed By: #### 2 4323-8 #### LOYDA NOVAK ([id number]) [facility] ([facility]) [address] [place] [address] 17929 ALT With P-5'-P [Catalytic activity/Vol] 11 U/L Normal 7-45 [facility] Comment on above: Result Comment: Maggy ents treated with Sulfasalazine may generate falsely decreased results for ALT. Performed By: #### 2 4323-8 #### LOYDA NOVAK ([id number]) [facility] ([facility]) [address] [place] [address] 20166 Anion gap [Moles/Vol] 10 mmol/L Normal 10-20 [facility] Comment on above: Performed By: #### 2 4323-8 #### LOYDA NOVAK ([id number]) [facility] ([facility]) [address] [place] [address] 24494 AST With P-5'-P [Catalytic activity/Vol] 15 U/L Normal 9-39 [facility] Comment on above: Performed By: #### 2 4323-8 #### LOYDA NOVAK ([id number]) [facility] ([facility]) [address] [place] [address] 00803 Bilirubin [Mass/Vol] 0.4 mg/dL Normal 0.0-1.2 [facility] Comment on above: Performed By: #### 2 4323-8 #### LOYDA NOVAK ([id number]) [facility] ([facility]) [address] [place] [address] Calcium [Mass/Vol] 8.6 mg/dL Normal 8.6-10.3 [facility] Comment on above: Performed By: #### 2 4323-8 #### LOYDA NOVAK ([id number]) [facility] ([facility]) [address] [place] [address] Chloride [Moles/Vol] 105 mmol/L Normal 98-107 [facility] Comment on above: Performed By: #### 2 4323-8 #### LOYDA NOVAK ([id number]) [facility] ([facility]) [address] [place] [address] 60213 CO2 [Moles/Vol] 27 mmol/L Normal 21-32 [facility] Comment on above: Performed By: #### 2 4323-8 #### LOYDA NOVAK ([id number]) [facility] ([facility]) [facility] [place] [address] Creatinine [Mass/Vol] 0.60 mg/dL Normal 0.50-1.05 [facility] Comment on above: Performed By: #### 2 4323-8 #### LOYDA NOVAK ([id number]) [facility] ([facility]) [address] [place] [address] 97352 GFR/1.73 sq M.predicted MDRD (S/P/Bld) [Vol rate/Area] mL/min/{1.73_m2} Normal >60 [facility] Comment on above: Result Comment: Calc ulations of estimated GFR are performed using the 2020 CKD-EPI Study Refit equation without the race variable for the IDMS-Traceable creatinine methods. https://jasn.asnjournals.org/content//ASN.601673 6712 Performed By: #### 2 4323-8 #### LOYDA NOVAK ([id number]) [facility] ([facility]) [address] [place] [address] Glucose [Mass/Vol] 81 mg/dL Normal 74-99 [facility] Comment on above: Performed By: #### 2 4323-8 #### LOYDA NOVAK ([id number]) [facility] ([facility]) [address] [place] [address] Potassium [Moles/Vol] 3.7 mmol/L Normal 3.5-5.3 [facility] Comment on above: Performed By: #### 2 4323-8 #### LOYDA NOVAK ([id number]) [facility] ([facility]) [address] [place] [address] 28031 Protein [Mass/Vol] 6.3 g/dL Low 6.4-8.2 [facility] Comment on above: Performed By: #### 2 4323-8 #### LOYDA NOVAK ([id number]) [facility] ([facility]) [address] [place] [address] Sodium [Moles/Vol] 138 mmol/L Normal 136-145 [facility] Comment on above: Performed By: #### 2 4323-8 #### LOYDA NOVAK ([id number]) [facility] ([facility]) [facility] [place] [address] Urea nitrogen [Mass/Vol] 14 mg/dL Normal 6-23 [facility] Comment on above: Performed By: #### 2 4323-8 #### LOYDA NOVAK ([id number]) [facility] ([facility]) [address] [place] [address] 52100 Lactateon 01-12-2023 Lactate [Moles/Vol] 0.6 mmol/L 0.4 - 2. 0 mmol/L [facility] Lactate [Moles/Vol] 0.6 mmol/L Normal 0.4-2.0 [facility] Comment on above: Order Comment: Venip uncture immediately after or during the administration of Metamizole may lead to falsely low results. Testing should be performed immediately prior to Metamizole dosing. Performed By: #### 2 524-7 #### SCALES SCARLET ([id number]) [facility] ([facility]) [address] [place] [address] Lactate [Moles/Vol]on 2022 Interpretation and review of laboratory results Normal [facility] Venipuncture immedia tely after or during the administration of Metamizole may lead to falsely low results. Testing should be performed immediately prior to Metamizole dosing. [facility] Urinalysis complete W Reflex Culture panel (U)on 01-12-2023 Appearance (U) Clear Clear [facility] Bilirubin (U) [Mass/Vol] Negative NEGATIVE [facility] Color (U) Yellow Straw, Yellow [facility] Glucose Auto test strip (U) [Mass/Vol] Negative NEGATIVE mg/dL [facility] Interpretation and review of laboratory results Abnormal [facility] Ketones (U) [Mass/Vol] Negative NEGATIVE mg/dL [facility] Leukocyte esterase Auto test strip Ql (U) Negative NEGATIVE [facility] Nitrite Auto test strip Ql (U) Negative NEGATIVE [facility] pH (U) 6.0 [pH] 5.0, 5.5, 6.0, 6.5, 7.0, 7.5, 8.0 [facility] Protein (U) [Mass/Vol] Negative NEGATIVE mg/dL [facility] RBC (U) [#/Vol] Negative NEGATIVE [facility] Specific gravity (U) [Rel density] 1.017 1.005 - 1.035 [facility] Urobilinogen (U) [Mass/Vol] 2.0 mg/dL Abnormal NINF - 2.0 mg/dL [facility] Comment on above: Due to a manufacturi ng issue, low positive urobilinogen results may be falsely positive. Correlate with urine bilirubin and additional clinical/laboratory findings to assess the risk of hemolytic anemia or liver disease. If clinically indicated, repeat testing with an alternate method is available by contacting the laboratory within 24 hours. Some pigments and medications may cause a false positive urobilinogen. [facility] Appearance (U) Clear Normal Clear [facility] Comment on above: Performed By: #### 5 8077-9 #### LOYDA NOVAK ([id number]) [facility] ([facility]) [address] [place] [address] 52332 Bilirubin (U) [Mass/Vol] Negative Normal NEGATIVE [facility] Comment on above: Performed By: #### 5 8077-9 #### LOYDA NOVAK ([id number]) [facility] ([facility]) [address] [place], [place] [address] Color (U) Yellow Normal Straw, Yellow [facility] Comment on above: Performed By: #### 5 8077-9 #### LOYDA NOVAK ([id number]) [facility] ([facility]) [address] [place] [address] Glucose Auto test strip (U) [Mass/Vol] Negative Normal NEGATIVE [facility] Comment on above: Performed By: #### 5 8077-9 #### LOYDA NOVAK ([id number]) [facility] ([facility]) [address] [place] [address] Ketones (U) [Mass/Vol] Negative Normal NEGATIVE [facility] Comment on above: Performed By: #### 5 8077-9 #### LOYDA NOVAK ([id number]) [facility] ([facility]) [address] [place] [address] Leukocyte esterase Auto test strip Ql (U) Negative Normal NEGATIVE [facility] Comment on above: Performed By: #### 5 8077-9 #### LOYDA NOVAK ([id number]) [facility] ([facility]) [address] [place], [place] [address] Nitrite Auto test strip Ql (U) Negative Normal NEGATIVE [facility] Comment on above: Performed By: #### 5 8077-9 #### LOYDA NOVAK ([id number]) [facility] ([facility]) [address] [place], [place] [address] pH (U) 6.0 [pH] Normal 5.0, 5.5, 6.0, 6.5, 7.0, 7.5, 8.0 [facility] Comment on above: Performed By: #### 5 8077-9 #### LOYDA NOVAK ([id number]) [facility] ([facility]) [address] [place] [address] 87708 Protein (U) [Mass/Vol] Negative Normal NEGATIVE [facility] Comment on above: Performed By: #### 5 8077-9 #### LOYDA NOVAK ([id number]) [facility] ([facility]) [address] [place] [address] 79357 RBC (U) [#/Vol] Negative Normal NEGATIVE [facility] Comment on above: Performed By: #### 5 8077-9 #### LOYDA NOVAK ([id number]) [facility] ([facility]) [address] [place] [address] 56273 Specific gravity (U) [Rel density] 1.017 Normal 1.005-1.035 [facility] Comment on above: Performed By: #### 5 8077-9 #### LOYDA NOVAK ([id number]) [facility] ([facility]) [address] [place] [address] 63932 Urobilinogen (U) [Mass/Vol] 2.0 mg/dL Normal <2.0 [facility] Comment on above: Result Comment: Due to a manufacturing issue, low positive urobilinogen results may be falsely positive. Correlate with urine bilirubin and additional clinical/laboratory findings to assess the risk of hemolytic anemia or liver disease. If clinically indicated, repeat testing with an alternate method is available by contacting the laboratory within 24 hours. Some pigments and medications may cause a false positive urobilinogen. 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 Last PAP done in 2020. LMP-11/17. Patient does self breast exams. Patient uses condoms for contraception. No concerns at this time. 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 She reports her periods are regular. No issues excessive bleeding or excessive pain. She reports she uses condoms for contraception and is not interested in any other form of contraception. Patient has no issues or concerns today no abnormal discharge or bleeding Review of Systems Constitutional: Denies any significant changes. Cardiovascular: Denies any chest pain or palpitations. Respiratory: Denies any shortness of breath or cough. Gastrointestinal: Denies any abdominal pain. Genitourinary: as noted in HPI. Musculoskeletal: Denies any change in her mobility. Psychiatric: Denies any change in her mood or in her sleep. Active Problems Problems Anxiety (300.00) (F41.9) Chronic constipation (564.00) (K59.09) Depression, major, single episode, moderate (296.22) (F32.1) Encounter for immunization (V03.89) (Z23) ETD (eustachian tube dysfunction) (381.81) (H69.90) History of posttraumatic stress disorder (PTSD) (V11.8) (Z86.59) Hyperglycemia (790.29) (R73.9) Irritable bowel syndrome with predominant constipation (564.1) (K58.1) Other insomnia (780.52) (G47.09) Screening for breast cancer (V76.10) (Z12.39) Screening for cervical cancer (V76.2) (Z12.4) Women's annual routine gynecological examination (V72.31) (Z01.419) Past Medical History Problems History of insomnia (V13.89) (Z87.898) History of (V13.29) 11/24/2003-38 WEEKS, VAGINAL, MALE, #7 8oz 05/15/2007-39 WEEKS, VAGINAL, MALE, #8 7.5oz 07/17/2008-36 WEEKS, VAGINAL, MALE, #7 4oz 08/06/2010-38 WEEKS, VAGINAL, FEMALE, #7 1oz History of Menarche (V21.8) 14 History of Women's annual routine gynecological examination (V72.31) (Z01.419) 07/13/2020 Cotest NIL 09/2016-PER PATIENT Surgical History Problems History of Colonoscopy History of [place] tooth extraction Family History Mother Family history of asthma (V17.5) (Z82.5) Family history of diabetes mellitus (V18.0) (Z83.3) Social History Problems Never smoker No advance directives (V49.89) (Z78.9) No alcohol use No illicit drug use Occasional caffeine consumption Allergies Medication Penicillins Updated By: Carol Shah; 01/21/2019 4:52:42 PM Rash Zoloft Recorded By: Carol Shah; 01/21/2019 4:52:42 PM Lethargic Current Meds Medication NameInstruction ARIPiprazole 2 MG Oral TabletTAKE 1 TABLET DAILY. Biotin CAPS Escitalopram Oxalate 20 MG Oral TabletTake 1 tablet daily Fluticasone Propionate 50 MCG/ACT Nasal SuspensionUSE 2 SPRAY(S) IN EACH NOSTRIL ONCE DAILY hydrOXYzine HCl - 25 MG Oral TabletTAKE 1 TABLET EVERY 6 TO 8 HOURS NEEDED FOR ANXIETY Linzess 145 MCG Oral CapsuleTAKE 1 CAPSULE Daily MiraLax POWD Probiotic CAPS traZODone HCl - 50 MG Oral Tablettake 1 tablet by mouth at bedtime Vitamin D (Ergocalciferol) 1.25 MG (55192 UT) Oral Capsule Vitals Vital Signs Recorded: [id number] 08:45AM Heart Rate74 Cpbtlpcb675 Hydljxrrb49 Height5 ft 5 in Jhqgfw542 lb BMI Bsfiyrmung11.78 kg/m2 BSA Calculated1.94 Tobacco Useb) No Physical Exam Constitutional: Healthy appearing in no distress. Head and Face: No obvious lesions. Neck: Good range of motion. Cardiovascular: Regular rate and rhythm. Pulmonary: Clear to auscultation. Chest: No masses discharge retraction or skin changes. Abdomen: Soft nontender. External genitalia revealed no lesions the vagina was well estrogenized the cervix was nonfriable uterus and adnexa were normal size nontender Musculoskeletal: Mobility. Psychiatric: Appropriately oriented with normal mood and affect. Signatures Electronically signed by : Xiomara Gutierrez MD; Dec 07 2022 9:00AM EST (Author) Normal [employer] Tobacco Screening.on 023 Tobacco use status [facility] b) No [facility] Work Phone: Absolute lymphocyte countOrd ered By: Kelsey Hansen on 11-20-2022 Lymphocytes Auto (Unsp spec) [#/Vol] 1.77 10*3/uL 0.83-4.51 [facility] Basophil percentageOrdered B y: Kelsey Hansen on 11-20-2022 Basophil percentage 0 SEEN /hpf 0-5 [facility] Basophils/100 WBC (Bld) 0.4 % 0-1 [facility] Bilirubin [Mass/Vol] 0.40 mg/dL 0.20-1.00 [facility] Comment on above: For patients on eltr ombopag therapy, use of Dimension Mccl[place] TBIL is not recommended. Chloride [Moles/Vol] 106 mmol/L 98-107 [facility] Eosinophils/100 WBC (Bld) 2.6 % 0-5 [facility] Glucose [Mass/Vol] 99 mg/dL 74-106 [facility] Neutrophils (Bld) [#/Vol] 5.7 10*3/uL 2.0-7.7 [facility] Neutrophils/100 WBC (Bld) 66.9 % 47-70 [facility] Potassium [Moles/Vol] 3.7 mmol/L 3.5-5.1 [facility] Protein [Mass/Vol] 6.4 g/dL 6.4-8.2 [facility] Sodium [Moles/Vol] 140 mmol/L 136-145 [facility] WBC (Bld) [#/Vol] 8.5 10*3/uL 4.4-11.0 [facility] Bilirubin Test strip Ql (U)O rdered By: Kelsey Hansen on 11-20-2022 Bilirubin Ql (U) Negative Negative [facility] Blood erythrocytes count (nu mber/volume)Ordered By: Kelsey Hansen on 11-20-2022 RBC (Bld) [#/Vol] 4.15 10*6/uL 4.2-5.4 [facility] Blood hemoglobin measurement (mass/volume)Ordered By: Kelsey Hansen on 11-20-2022 Hemoglobin (Bld) [Mass/Vol] 11.7 g/dL 12.0-15.0 [facility] Blood lymphocytes/100 leukoc ytesOrdered By: Kelsey Hansen on 11-20-2022 Lymphocytes/100 WBC (Bld) 20.8 % 19-41 [facility] Blood monocytes/100 leukocyt esOrdered By: Kelsey Hansen on 11-20-2022 Monocytes/100 WBC (Bld) 8.9 % 0-10 [facility] Blood platelet mean volumeOr dered By: Kelsey Hansen on 11-20-2022 Platelet mean volume (Bld) [Entitic vol] 10.9 fL 6.2-12.0 [facility] Determination of erythrocyte mean corpuscular volume (MCV)Ordered By: Kelsey Hansen on 11-20-2022 MCV (RBC) [Entitic vol] 83.1 fL 81-99 [facility] Hematocrit Auto (Bld) [Volum e fraction]Ordered By: Kelsey Hansen on 11-20-2022 Hematocrit (Bld) [Volume fraction] 34.5 % 37-47 [facility] Ketones Test strip Ql (U)Ord ered By: Kelsey Hansen on 11-20-2022 Ketones Ql (U) 5 mg/dl Negative [facility] Laboratory - Chemistry and C hemistry - challengeOrdered By: Kelsey Hansen on 11-20-2022 HCG ( test) Ql (U) Negative [facility] Comment on above: Very dilute urine sp ecimens, as indicated by a low specificgravity, may not contain insurance service representative levels of hCG. If is still suspected, a first morning urinespecimen should be collected 48 hours later and tested. ALP [Catalytic activity/Vol] 52 U/L 45-117 [facility] ALT [Catalytic activity/Vol] 16 U/L 13-56 [facility] CO2 [Moles/Vol] 26.0 mmol/L 21.0-32.0 [facility] Globulin (S) [Mass/Vol] 2.8 g/dL 2.2-4.2 [facility] Lipase [Catalytic activity/Vol] 34 U/L 13-75 [facility] Comment on above: Please note:LIPASE r evised reference range effective 22. New Lipase methodology. Expected to produce lower values than the previous assay method. NEW Reference Range: 13 - 75 U/L Urea nitrogen/Creatinine [Mass ratio] 26.8 mg/mg 10-20 [facility] Laboratory - Hematology and Cell countsOrdered By: Kelsey Hansen on 11-20-2022 Erythrocyte distribution width (RBC) [Entitic vol] 38.4 fL 35.1-43.9 [facility] Erythrocyte distribution width (RBC) [Ratio] 12.7 % 11.6-14.6 [facility] Immature granulocytes/100 WBC (Bld) 0.400 % 0.0-0.9 [facility] Comment on above: IG% - Immature Granu locytes (promyelocytes, myelocytes and metamyelocytes) > 1% indicates that a LEFT SHIFT is Present. MCH (RBC) [Entitic mass] 28.2 pg 27.0-32.0 [facility] Nucleated RBC/100 WBC (Bld) [Ratio] 0 % 0-5 [facility] MCHC Auto (RBC) [Mass/Vol]Or dered By: Kelsey Hansen on 11-20-2022 MCHC (RBC) [Mass/Vol] 33.9 g/dL 32-36 [facility] Mucus LM Ql (Urine sed)Order ed By: Kelsey Hansen on 11-20-2022 Mucus Ql (Urine sed) 0 SEEN /hpf [facility] Nitrite Test strip Ql (U)Ord ered By: Kelsey Hansen on 11-20-2022 Nitrite Ql (U) Negative Negative [facility] No Panel InformationOrdered By: Kelsey Hansen on 11-20-2022 Estimated Creatinine Clearance Calc 120.18 ml/min [facility] Estimated GFR (MDRD) Amer 145 mL/min >60 [facility] Comment on above: GFR Calc Estimated GFR (MDRD) Non-Af Amer 120 mL/min >60 [facility] Comment on above: Non- GFR Calc Platelets bldOrdered By: Donavan Hansen on 11-20-2022 Platelets (Bld) [#/Vol] 283 10*3/uL 150-450 [facility] Protein Test strip Ql (U)Ord ered By: Kelsey Hansen on 11-20-2022 Protein Ql (U) 15 mg/dl Negative [facility] Serum or plasma albumin nyla urement (mass/volume)Ordered By: Kelsey Hansen on 11-20-2022 Albumin [Mass/Vol] 3.6 g/dL 3.2-5.0 [facility] Serum or plasma albumin/glob ulin mass ratioOrdered By: Kelsey Hansen on 11-20-2022 Albumin/Globulin [Mass ratio] 1.3 {ratio} 0.9-2.4 [facility] Serum or plasma calcium nyla urement (mass/volume)Ordered By: Kelsey Hansen on 11-20-2022 Calcium [Mass/Vol] 8.5 mg/dL 8.5-10.1 [facility] Serum or plasma creatinine m easurement (mass/volume)Ordered By: Kelsey Hansen on 11-20-2022 Creatinine [Mass/Vol] 0.60 mg/dL 0.55-1.02 [facility] Comment on above: The validity of the calculated GFR & GFRAA in patients over 70 years has not been determined. Clinical correlation is essential. Serum or plasma urea nitroge n measurement (mass/volume)Ordered By: Kelsey Hansen on 11-20-2022 Urea nitrogen [Mass/Vol] 16 mg/dL 7-18 [facility] Squamous epithelial cells de tection in urine sediment by light microscopyOrdered By: Kelsey Hansen on 11-20-2022 Epithelial cells.squamous LM Ql (Urine sed) 0 SEEN /hpf 5-10 [facility] Thin prep Papanicolaou smear with manual screeningOrdered By: Kelsey Hansen on 11-20-2022 Thin prep Papanicolaou smear with manual screening 14 U/L 15-37 [facility] Thin prep Papanicolaou smear with manual screening 8 5-15 [facility] Urine blood detectionOrdered By: Kelsey Hansen on 11-20-2022 RBC Ql (U) 250 /ul Negative [facility] RBC Ql (U) 10-25 SEEN /hpf 0-5 [facility] Urine clarityOrdered By: Donavan Hansen on 11-20-2022 Clarity (U) Clear Clear [facility] Urine color determinationOrd ered By: Kelsey Hansen on 11-20-2022 Color (U) Yellow Yellow [facility] Urine glucose detectionOrder ed By: Kelsey Hansen on 11-20-2022 Glucose Ql (U) Normal mg/dl Normal [facility] Urine leukocyte esterase det ection by dipstickOrdered By: Kelsey Hansen on 11-20-2022 Leukocyte esterase Test strip Ql (U) 25 /ul Negative [facility] Urine pHOrdered By: Marina Hansen on 11-20-2022 pH (U) 6.0 [pH] 5.0 - 8.0 [facility] Urine sediment bacteria coun t by microscopy (number/high power field)Ordered By: Klesey Hansen on 11-20-2022 Bacteria LM.HPF (Urine sed) [#/Area] 0 /[HPF] None Seen [facility] Urine specific gravity measu rementOrdered By: Kelsey Hansen on 11-20-2022 Specific gravity (U) [Rel density] 1.025 1.002-1.030 [facility] Urobilinogen Auto test strip Ql (U)Ordered By: Kelsey Hansen on 11-20-2022 Urobilinogen Ql (U) 4 mg/dl Normal [facility] STREP A MOLECULAR (POC)on Procedural Control Valid [facility] Strep A (POCT) Negative Negative [facility] Office Visiton 06-01-2022 Follow-up visit Diagnoses/Problems Anxiety (300.00) (F41.9) Depression, major, single episode, moderate (296.22) (F32.1) Hyperglycemia (790.29) (R73.9) Orders Depression, major, single episode, moderate Start: ARIPiprazole 2 MG Oral Tablet (Abilify); TAKE 1 TABLET DAILY Hyperglycemia Basic Metabolic Panel; Status:Active; Requested for:[id number]; Hemoglobin A1C; Status:Active; Requested for:[id number]; Patient Discussion/Summary She will go for fasting lab work that is been ordered and I would like to see her back in 3 to 4 weeks for follow-up Chief Complaint pt here for 6 month folow up. Serves no complaints or concerns. This note was generated by using [employer] software. It may contain errors in wording, punctuate, or spelling. She is here today for a 6-month routine checkup. She also explains that in recent times she has not been feeling as good as usual. She explained that her children are in several activities and she is constantly on the go to attend the different programs. He also works long hours. She also states that she feels like her anxiety has been under good control but she has been feeling a little depressed in recent times. She went on to explain that she feels like her marriage is falling apart. We talked about medication and we decided to add Abilify. She also understands that it might be helpful to enroll in counseling and that she could check with her insurance plan regarding telehealth. I told her if she needs a referral just give us a call. We did conduct a review of systems we did decide to check some lab work to check her blood sugar since it was marginally elevated a couple years ago. We talked about doing other lab but then decided to hold off for now. We will see her back in approximately 3 to 4 weeks for follow-up and she knows to call sooner if things or not going well. Review of SystemsDenies fatigue. C/O being really busy Denies shortness of breath, coughing, wheezing Denies chest pain, palpitations, leg edema Denies nausea, vomiting, diarrhea, heartburn, abdominal pain, or black or bloody stools Denies significant joint pain . No back pain C/O feelings of significant anxiety or depression Active Problems Anxiety (300.00) (F41.9) Chronic constipation (564.00) (K59.09) Encounter for immunization (V03.89) (Z23) ETD (eustachian tube dysfunction) (381.81) (H69.80) History of posttraumatic stress disorder (PTSD) (V11.8) (Z86.59) Irritable bowel syndrome with predominant constipation (564.1) (K58.1) Other insomnia (780.52) (G47.09) Screening for breast cancer (V76.10) (Z12.39) Screening for cervical cancer (V76.2) (Z12.4) Women's annual routine gynecological examination (V72.31) (Z01.419) Past Medical History History of insomnia (V13.89) (Z87.898) History of (V13.29) 11/24/2003-38 WEEKS, VAGINAL, MALE, #7 8oz 05/15/2007-39 WEEKS, VAGINAL, MALE, #8 7.5oz 07/17/2008-36 WEEKS, VAGINAL, MALE, #7 4oz 08/06/2010-38 WEEKS, VAGINAL, FEMALE, #7 1oz History of Menarche (V21.8) 14 History of Women's annual routine gynecological examination (V72.31) (Z01.419) 07/13/2020 Cotest NIL 09/2016-PER PATIENT Surgical History History of Colonoscopy History of [place] tooth extraction Social History Never smoker No advance directives (V49.89) (Z78.9) No alcohol use No illicit drug use Occasional caffeine consumption Allergies Penicillins Updated By: Carol Shah; 01/21/2019 4:52:42 PM Rash Zoloft Recorded By: Carol Shah; 01/21/2019 4:52:42 PM Lethargic Current Meds Medication NameInstruction Biotin CAPS Escitalopram Oxalate 20 MG Oral TabletTake 1 tablet daily Fluticasone Propionate 50 MCG/ACT Nasal SuspensionUSE 2 SPRAY(S) IN EACH NOSTRIL ONCE DAILY hydrOXYzine HCl - 25 MG Oral TabletTAKE 1 TABLET EVERY 6 TO 8 HOURS NEEDED FOR ANXIETY Linzess 145 MCG Oral CapsuleTAKE 1 CAPSULE Daily MiraLax POWD Probiotic CAPS traZODone HCl - 50 MG Oral Tablettake 1 tablet by mouth at bedtime Vitamin D (Ergocalciferol) 1.25 MG (18707 UT) Oral Capsule Vitals Vital Signs Recorded: [id number] 11:21AM Heart Rate68 Imkxascj435 Iopphhzke72 Height5 ft 5 in Btdmer683 lb BMI Oohjbpjdie90.28 kg/m2 BSA Calculated2 Tobacco Useb) No Falls Screening (Age 18+)a) No falls within the last year Physical Exam Patient is alert and oriented 4. In no acute distress Respirations are easy and regular. CTA Heart tones are regular rate and rhythm. Abdomen is soft Extremities reveal no edema Neurologically grossly intact Signatures Electronically signed by : Ottoniel Goyal DO; Jun 01 2022 11:50AM EST (Author) Normal [employer] Tobacco Screening.on 023 Fall risk assessment a) No falls within the last year [facility] [employer] Work Phone: Tobacco use status [facility]PHS b) No [facility] Work Phone: Office Visit ([facility] t[facility])on 03-14-2022 Follow-up visit Diagnoses/Problems Common cold (460) (J00) ETD (eustachian tube dysfunction) (381.81) (H69.80) Orders Common cold, ETD (eustachian tube dysfunction) Start: predniSONE 20 MG Oral Tablet; TAKE 2 TABLETS DAILY Patient Discussion/Summary Call concerns. I think viral or allergic, gets every year consider allergies. Do not think antibiotics are warranted. Can try course of prednisone to help with symptoms, denies possibility of Chief Complaint Chief Complaint: HARRISON GUNDERSON is here with a chief complaint of [facility] PT; C/O SINUS PAIN AND PRESSURE X 2-3D; STATES USUALLY GETS THIS EVERY YEAR WITH THE CHANGE IN WEATHER. An interactive audio and video telecommunication system which permits real time communications between the patient (at the originating site) and provider (at the distant site) was utilized to provide this telehealth service. History of Present Illness Regular patient of [facility], presents with cold symptoms that started Monday. Nasal congestion, pressure around both sides of nose, under eyes. Blowing nose, congestion. No fevers/chills. States tends to get this every year, on flonase and zyrtec currently. Review of Systems Constitutional: as noted in HPI. Respiratory: as noted in HPI. Active Problems Anxiety (300.00) (F41.9) Chronic constipation (564.00) (K59.09) Encounter for immunization (V03.89) (Z23) ETD (eustachian tube dysfunction) (381.81) (H69.80) History of posttraumatic stress disorder (PTSD) (V11.8) (Z86.59) Irritable bowel syndrome with predominant constipation (564.1) (K58.1) Other insomnia (780.52) (G47.09) Screening for breast cancer (V76.10) (Z12.39) Screening for cervical cancer (V76.2) (Z12.4) Women's annual routine gynecological examination (V72.31) (Z01.419) Past Medical History History of insomnia (V13.89) (Z87.898) History of (V13.29) 11/24/2003-38 WEEKS, VAGINAL, MALE, #7 8oz 05/15/2007-39 WEEKS, VAGINAL, MALE, #8 7.5oz 07/17/2008-36 WEEKS, VAGINAL, MALE, #7 4oz 08/06/2010-38 WEEKS, VAGINAL, FEMALE, #7 1oz History of Menarche (V21.8) 14 History of Women's annual routine gynecological examination (V72.31) (Z01.419) 07/13/2020 Cotest NIL 09/2016-PER PATIENT Surgical History History of Colonoscopy History of [place] tooth extraction Family History Family history of asthma (V17.5) (Z82.5) Family history of diabetes mellitus (V18.0) (Z83.3) Social History Never smoker No advance directives (V49.89) (Z78.9) No alcohol use No illicit drug use Occasional caffeine consumption Allergies Penicillins Updated By: Carol Shah; 01/21/2019 4:52:42 PM Rash Zoloft Recorded By: Carol Shah; 01/21/2019 4:52:42 PM Lethargic Current Meds Medication NameInstructionReason Escitalopram Oxalate 20 MG Oral TabletTake 1 tablet dailyAnxiety hydrOXYzine HCl - 25 MG Oral TabletTAKE 1 TABLET EVERY 6 TO 8 HOURS NEEDED FOR ANXIETYAnxiety Linzess 145 MCG Oral CapsuleTAKE 1 CAPSULE DailyChronic constipation Fluticasone Propionate 50 MCG/ACT Nasal SuspensionUSE 2 SPRAY(S) IN EACH NOSTRIL ONCE DAILYETD (eustachian tube dysfunction) traZODone HCl - 50 MG Oral Tablettake 1 tablet by mouth at bedtimeOther insomnia Biotin CAPS MiraLax POWD Probiotic CAPS Vitamin D (Ergocalciferol) 1.25 MG (01796 UT) Oral Capsule Vitals Vital Signs Recorded: [id number] 01:12PM Tobacco Useb) No Falls Screening (Age 18+)a) No falls within the last year Physical Exam Constitutional: Alert and in no acute distress. Well developed, well nourished. 'Scores and Scales' Signatures Electronically signed by : Kiara Ramirez MD; Mar 14 2022 2:03PM EST (Author) Normal [employer] Tobacco Screening.on 022 Fall risk assessment a) No falls within the last year [facility] Work Phone: Tobacco use status [facility] b) No [facility] Work Phone: Tobacco Screening.on 022 Tobacco use status [facility] b) No [facility] Work Phone: Tobacco Screening.on 022 Tobacco use status [facility] b) No [facility] Work Phone: Tobacco Screening.on 021 Tobacco use status [facility] b) No [facility] Work Phone: No Panel Informationon 09-22 -[facility] [address] Work Phone: [email or web address]} [facility] [employer] Work Phone: Coronavirus 2019 RNA by PCR, Screening Asymptomticon 09-19-2020 Coronavirus 2019 RNA by PCR, Screening Asymptomtic Not detected Normal [facility] Below [facility] Work Phone: Comment on above: SOURCE: Nasal, Nasop haryngealReference Range: Not Detected.This assay is designed to detect the N, ORF1ab and/or S genes of SARS-CoV-2 via nucleic acid amplification. A Negative (NOT DETECTED) result does not preclude 2019-nCoV infection since the adequacy of sample collection and/or low viral burden may result in presence of viral nucleic acids below the clinical sensitivity of this test method. Negative (NOT DETECTED) result should not be used as the sole basis for treatment or other patient management decisions. Rather negative results should be combined with clinical observations, patient history, and epidemiological information to make patient management decisions.Fact sheet for providers: https://www.fda.gov/media/781956/downloadFact sheet for patients: https://www.fda.gov/media/941268/downloadThis test has received FDA Emergency Use Authorization (EUA) and has been verified by [facility] ([facility]). This test is only authorized for the duration of time that circumstances exist to justify the authorization of the emergency use of in vitro diagnostic tests for the detection of SARS-CoV-2 virus and/or diagnosis of COVID-19 infection under section 564(b)(1) of the Act, 21 U.S.C. 360bbb-3(b)(1), unless the authorization is terminated or revoked sooner. [facility] is certified under CLIA-88 as qualified to perform high complexity testing. Testing is performed in the [facility] laboratories located at [address] [place] [address]. Laboratory - Cytologyon Cytology report Cyto stain.thin prep Doc (Cvx/Vag) Date of Procedure: 07/13/2020 Pathologist: MAIDA GREGORY M.D. Date Reported: 07/28/2020 Date Received: 07/13/2020 Submitting Physician: ELISEO LONG, FINAL CYTOLOGICAL INTERPRETATION A. THINPREP PAP CERVICAL: Specimen adequacy: SATISFACTORY FOR EVALUATION. Quality Indicator: Endocervical/transformat ion zone component is present. General Categorization: NEGATIVE FOR INTRAEPITHELIAL LESION OR MALIGNANCY. Descriptive Interpretation: REACTIVE CELLULAR CHANGES. HIGH RISK HPV TEST RESULT: HPV GENOTYPE 16 NEGATIVE HPV GENOTYPE 18 NEGATIVE HPV GENOTYPE OTHER NEGATIVE Reference Range: Negative Interpretation performed at: [facility] Department of Pathology [address] [place] [address] Slide(s) initially screened by a Acting Professor at [facility], [address] [place] [address] Testing for high-risk (HR) type of human papilloma virus (HPV) is performed by the [place] jus HPV Test. The jus HPV Test is a qualitative polymerase chain reaction that amplifies DNA of HPV16, HPV18 and 12 other high-risk HPV types (31, 33, 35, 39, 45, 51, 52, 56, 58, 59, 66, and 68) associated with cervical cancer and its precursor lesions. A positive result indicates the presence of HPV DNA due to one or more of the 14 genotypes: 16, 18, 31, 33, 35, 39, 45, 51, 52, 56, 58, 59, 66, and 68. Negative results indicate HPV DNA concentrations are undetectable or below the pre-set threshold for detection. False negative results may be associated with unoptimized sampling. A negative HR HPV result does not exclude the possibility of future cytologic HSIL or underlying CIN2-3 or cancer. This test is approved for cervical specimens by the US Food and Drug Administration. Results of this test should be interpreted in conjunction with the patient's Pap test results. Please refer to ASC current guidelines for the use of HPV DNA testing, result interpretation, and patient management. The performance of this test was verified by the Molecular Diagnostic Laboratory at [facility]. The lab is certified under the Clinical Laboratory Amendments of 1988 (CLIA 88) as qualified to perform high complexity clinical laboratory testing. This specimen has been analyzed by the [employer] System ([address] an automated imaging and review system, which assists the laboratory in evaluating cells on ThinPrep Pap tests. Following automated imaging, selected elaine from every slide were reviewed by a excel vba developer and/or pathologist. Electronically Signed Out By MAIDA GREGORY M.D./PAT/YANIQUE By the signature on this report, the individual or group listed as making the Final Interpretation/Diagnosis certifies that they have reviewed this case. Educational Note: Cervical cytology is a screening procedure primarily for squamous cancers and precursors and has associated false-negative and false-positive results as evidenced by published data. Your patient's test should be interpreted in this context, together with patient's history and clinical findings. Regular sampling and follow-up of unexplained clinical signs and symptoms are recommended to minimize false negative results. Clinical History Date of Last Menstrual Period: 07/06/2020 Other Clinical Conditions: COTEST HPV(Genotype) except for ASC-H, HSIL, Carcinoma - Include HPV Genotype testing Annual Clinical Diagnosis History: Screening for cervical cancer - (Z12.4) Source of Specimen A: THINPREP PAP CERVICAL [facility] Department of Pathology [address] [place] [address] Work Phone: BASIC METABOLIC PANELon 05-11 Anion gap [Moles/Vol] 12 mmol/L Normal 10 - 20 [facility] Comment on above: Performed By: #### B MP #### [address] [address] Calcium [Mass/Vol] 9.3 mg/dL Normal 8.6 - 10.3 [facility] Comment on above: Performed By: #### B MP #### [address] [address] Chloride [Moles/Vol] 105 mmol/L Normal 98 - 107 [facility] Comment on above: Performed By: #### B MP #### [address] [address] Creatinine [Mass/Vol] 0.64 mg/dL Normal 0.50 - 1.05 [facility] Comment on above: Performed By: #### B MP #### [address] [address] GFR- AM. >60 Normal >60 [facility] Comment on above: Result Comment: CALC ULATIONS OF ESTIMATED GFR ARE PERFORMED USING THE MDRD STUDY EQUATION FOR THE IDMS-TRACEABLE CREATININE METHODS. CLIN CHEM 2007;53:766-72 Performed By: #### B MP #### [address] [address] GFR-NON AM. >60 Normal >60 [facility] Comment on above: Performed By: #### B MP #### [address] [address] Glucose [Mass/Vol] 109 mg/dL High 74 - 99 [facility] Comment on above: Performed By: #### B MP #### [address] [address] HCO3 (Bld) [Moles/Vol] 25 mmol/L Normal 21 - 32 [facility] Comment on above: Performed By: #### B MP #### [address] [address] Potassium [Moles/Vol] 4.1 mmol/L Normal 3.5 - 5.3 [facility] Comment on above: Performed By: #### B MP #### [address] [address] Sodium [Moles/Vol] 138 mmol/L Normal 136 - 145 [facility] Comment on above: Performed By: #### B MP #### [address] [address] Urea nitrogen [Mass/Vol] 16 mg/dL Normal 6 - 23 [facility] Comment on above: Performed By: #### B MP #### [address] [address] CBC AND DIFFERENTIALon 05-22 Basophils (Bld) [#/Vol] 0.00 10*3/uL Normal 0.00 - 0.10 [facility] Comment on above: Performed By: #### C BCDF #### [address] [address] Basophils/100 WBC (Bld) 0.4 % Normal 0.0 - 2.0 [facility] Comment on above: Performed By: #### C BCDF #### [address] [address] Eosinophils (Bld) [#/Vol] 0.30 10*3/uL Normal 0.00 - 0.70 [facility] Comment on above: Performed By: #### C BCDF #### [address] [address] Eosinophils/100 WBC (Bld) 5.4 % Normal 0.0 - 6.0 [facility] Comment on above: Performed By: #### C BCDF #### [address] [address] Erythrocyte distribution width (RBC) [Ratio] 13.2 % Normal 11.5 - 14.5 [facility] Comment on above: Performed By: #### C BCDF #### [address] [address] Hematocrit (Bld) [Volume fraction] 41.7 % Normal 36.0 - 46.0 [facility] Comment on above: Performed By: #### C BCDF #### [address] [address] Hemoglobin (Bld) [Mass/Vol] 14.1 g/dL Normal 12.0 - 16.0 [facility] Comment on above: Performed By: #### C BCDF #### [address] [address] Lymphocytes (Bld) [#/Vol] 1.70 10*3/uL Normal 1.20 - 4.80 [facility] Comment on above: Performed By: #### C BCDF #### [address] [address] Lymphocytes/100 WBC (Bld) 28.5 % Normal 13.0 - 44.0 [facility] Comment on above: Performed By: #### C BCDF #### [address] [address] MCHC (RBC) [Mass/Vol] 33.9 g/dL Normal 32.0 - 36.0 [facility] Comment on above: Performed By: #### C BCDF #### [address] [address] MCV (RBC) [Entitic vol] 86 fL Normal 80 - 100 [facility] Comment on above: Performed By: #### C BCDF #### [address] [address] Monocytes (Bld) [#/Vol] 0.60 10*3/uL Normal 0.10 - 1.00 [facility] Comment on above: Performed By: #### C BCDF #### [address] [address] Monocytes/100 WBC (Bld) 9.6 % Normal 2.0 - 10.0 [facility] Comment on above: Performed By: #### C BCDF #### [address] [address] Neutrophils (Bld) [#/Vol] 3.30 10*3/uL Normal 1.20 - 7.70 [facility] Comment on above: Result Comment: Perc ent differential counts (%) should be interpreted in the context of the absolute cell counts (cells/L). Performed By: #### C BCDF #### [address] [address] Neutrophils/100 WBC (Bld) 56.1 % Normal 40.0 - 80.0 [facility] Comment on above: Performed By: #### C BCDF #### [address] [address] NUCLEATED RBC 0.2 /100 WBC Normal [facility] Comment on above: Performed By: #### C BCDF #### [address] [address] Platelets (Bld) [#/Vol] 283 10*3/uL Normal 150 - 450 [facility] Comment on above: Performed By: #### C BCDF #### [address] [address] RBC 4.83 x10E12/L Normal 4.00 - 5.20 [facility] Comment on above: Performed By: #### C BCDF #### [address] [address] WBC (Bld) [#/Vol] 5.8 10*3/uL Normal 4.4 - 11.3 [facility] Comment on above: Performed By: #### C BCDF #### [address] [address] HEPATIC FUNCTION PANELon Albumin [Mass/Vol] 4.5 g/dL Normal 3.4 - 5.0 [facility] Comment on above: Performed By: #### H EPFP #### [address] [address] ALP [Catalytic activity/Vol] 39 U/L Normal 33 - 110 [facility] Comment on above: Performed By: #### H EPFP #### [address] [address] ALT [Catalytic activity/Vol] 13 U/L Normal 7 - 45 [facility] Comment on above: Result Comment: Maggy ents treated with Sulfasalazine may generate falsely decreased results for ALT. Performed By: #### H EPFP #### [address] [address] AST [Catalytic activity/Vol] 22 U/L Normal 9 - 39 [facility] Comment on above: Performed By: #### H EPFP #### [address] [address] Bilirubin [Mass/Vol] 0.7 mg/dL Normal 0.0 - 1.2 [facility] Comment on above: Performed By: #### H EPFP #### [address] [address] Bilirubin.indirect [Mass/Vol] 0.1 mg/dL Normal 0.0 - 0.3 [facility] Comment on above: Performed By: #### H EPFP #### [address] [address] Protein [Mass/Vol] 6.8 g/dL Normal 6.4 - 8.2 [facility] Comment on above: Performed By: #### H EPFP #### [address] [address] TSHon 05-22-2020 TSH Qn 1.53 m[IU]/L Normal 0.44 - 3.98 [facility] Comment on above: Result Comment: TSH testing is performed using different testing methodology at [facility] than at other [facility]. Direct result comparisons should only be made within the same method. Performed By: #### T SH2 #### [address] [address] TTG AB,IGAon 05-22-2020 TTG AB,IGA <1 Normal 0 - 14 [facility] Comment on above: Result Comment: Светлана ac disease is unlikely. False negative Tissue Transglutaminase Antibody, IgA results can occur in approximately 10% of patients with celiac disease, patients already adhering to a gluten-free diet, or patients with IgA deficiency. Performed By: #### T TGA #### [facility] [address] [place] [address] Vital Signs Date Time Vital Sign Value Performing Clinician Facility 09-16-2024 09:31-0400 Body height 162.6 cm Ramona Wiswell MD Work Phone: [facility] 09-16-2024 09:31-0400 Body mass index (BMI) [Ratio] 36.25 kg/m2 Ramona Alexander MD Work Phone: [facility] 09-16-2024 09:31-0400 Body weight 95.8 kg Ramona Alexander MD Work Phone: [facility] 09-16-2024 09:31-0400 Diastolic blood pressure 78 mm[Hg] Ramona Alexander MD Work Phone: [facility] 09-16-2024 09:31-0400 Heart rate 78 /min Ramona Alexander MD Work Phone: [facility] 09-16-2024 09:31-0400 Respiratory rate 16 /min Ramona Alexander MD Work Phone: [facility] 09-16-2024 09:31-0400 Systolic blood pressure 110 mm[Hg] Ramona Alexander MD Work Phone: [facility] 06-12-2024 12:50-0500 Body height 165.1 cm Rodo Nolan MD Work Phone: [facility] 06-12-2024 12:50-0500 Body mass index (BMI) [Ratio] 34.78 kg/m2 Rodo Nolan MD Work Phone: [facility] 06-12-2024 12:50-0500 Body weight 94.8 kg Rodo Nolan MD Work Phone: [facility] 06-12-2024 12:50-0500 Diastolic blood pressure 86 mm[Hg] Rodo Nolan MD Work Phone: [facility] 06-12-2024 12:50-0500 Heart rate 66 /min Rodo Nolan MD Work Phone: [facility] 06-12-2024 12:50-0500 Systolic blood pressure 124 mm[Hg] Rodo Nolan MD Work Phone: [facility] 05-17-2024 09:53-0500 Body mass index (BMI) [Ratio] 35.36 kg/m2 Ramona Alexander MD Work Phone: [facility] 05-17-2024 09:53-0500 Body weight 93.44 kg Ramona Alexander MD Work Phone: [facility] 05-17-2024 09:53-0500 Diastolic blood pressure 79 mm[Hg] Ramona Alexander MD Work Phone: [facility] 05-17-2024 09:53-0500 Heart rate 96 /min Ramona Alexander MD Work Phone: [facility] 05-17-2024 09:53-0500 SaO2% (BldA) [Mass fraction] 98 % Ramona Alexander MD Work Phone: [facility] 05-17-2024 09:53-0500 Systolic blood pressure 128 mm[Hg] Ramona Alexander MD Work Phone: [facility] 05-01-2024 14:47-0500 Diastolic blood pressure 99 mm[Hg] Leia Quiroz MD Work Phone: [facility] Comment on above: WILLIAM BP AVG 05-01-2024 14:47-0500 Heart rate 72 /min Leia Quiroz MD Work Phone: [facility] Comment on above: WILLIAM BP avg 05-01-2024 14:47-0500 Systolic blood pressure 157 mm[Hg] Leia Quiroz MD Work Phone: [facility] Comment on above: WILLIAM BP AVG 05-01-2024 14:11-0500 Body mass index (BMI) [Ratio] 35.63 kg/m2 Leia Quiroz MD Work Phone: [facility] 05-01-2024 14:11-0500 Body weight 94.17 kg Leia Quiroz MD Work Phone: [facility] 04-18-2024 14:57-0500 Body mass index (BMI) [Ratio] 39.99 kg/m2 Jerry Plotts [employer]CULATION MAN.CNM Work Phone: [facility] 04-18-2024 14:57-0500 Body weight 105.69 kg Jerry Amaya [employer]ATION [employer].CNM Work Phone: [facility] 04-18-2024 14:57-0500 Diastolic blood pressure 100 mm[Hg] Jerry Amaya [employer]CULATION MAN.CNM Work Phone: [facility] 04-18-2024 14:57-0500 Systolic blood pressure 152 mm[Hg] Jerry Amaya [employer]CULATION MAN.CNM Work Phone: [facility] 04-15-2024 14:58-0500 Body mass index (BMI) [Ratio] 39.1 kg/m2 Ramona Alexander MD Work Phone: [facility] 04-15-2024 14:58-0500 Body weight 103.33 kg Ramona Alexander MD Work Phone: [facility] 04-15-2024 14:58-0500 Diastolic blood pressure 80 mm[Hg] Ramona Alexander MD Work Phone: [facility] 04-15-2024 14:58-0500 Systolic blood pressure 112 mm[Hg] Ramona Alexander MD Work Phone: [facility] 03-27-2024 14:33-0500 Body mass index (BMI) [Ratio] 38.45 kg/m2 Yuliya Geronimo MD Work Phone: [facility] 03-27-2024 14:33-0500 Body weight 101.61 kg Yuliya Geronimo MD Work Phone: [facility] 03-27-2024 14:33-0500 Diastolic blood pressure 88 mm[Hg] Yuliya Geronimo MD Work Phone: [facility] 03-27-2024 14:33-0500 Systolic blood pressure 139 mm[Hg] Yuliya Geronimo MD Work Phone: [facility] 03-22-2024 10:13-0500 Body mass index (BMI) [Ratio] 37.66 kg/m2 Pedrito Umanzor MD Work Phone: [facility] 03-22-2024 10:13-0500 Body weight 99.52 kg Pedrito Umanzor MD Work Phone: [facility] 03-22-2024 10:13-0500 Diastolic blood pressure 80 mm[Hg] Pedrito Umanzor MD Work Phone: [facility] 03-22-2024 10:13-0500 Systolic blood pressure 120 mm[Hg] Pedrito Umanzor MD Work Phone: [facility] 03-04-2024 16:07-0500 Body mass index (BMI) [Ratio] 37.11 kg/m2 Leia Quiroz MD Work Phone: [facility] 03-04-2024 16:07-0500 Body weight 98.07 kg Leia Quiroz MD Work Phone: [facility] 03-04-2024 16:07-0500 Diastolic blood pressure 76 mm[Hg] Leia Quiroz MD Work Phone: [facility] 03-04-2024 16:07-0500 Systolic blood pressure 128 mm[Hg] Leia Quiroz MD Work Phone: [facility] 01-24-2024 13:58-0400 Body mass index (BMI) [Ratio] 35.53 kg/m2 Balbina Haury [employer]CULATION MAN.RECORD KEEPER Work Phone: [facility] 01-24-2024 13:58-0400 Body weight 93.89 kg Balbina Haury [employer]CULATION MAN.RECORD KEEPER Work Phone: [facility] 01-24-2024 13:58-0400 Diastolic blood pressure 70 mm[Hg] Balbina Haury [employer]CULATION MAN.RECORD KEEPER Work Phone: [facility] 01-24-2024 13:58-0400 Systolic blood pressure 114 mm[Hg] Balbina Haury [employer]CULATION MAN.RECORD KEEPER Work Phone: [facility] 12-29-2023 10:12-0400 Body mass index (BMI) [Ratio] 35.63 kg/m2 Ramona Alexander MD Work Phone: [facility] 12-29-2023 10:12-0400 Body weight 94.17 kg Ramona Alexander MD Work Phone: [facility] 12-29-2023 10:12-0400 Diastolic blood pressure 80 mm[Hg] Ramona Alexander MD Work Phone: [facility] 12-29-2023 10:12-0400 Systolic blood pressure 112 mm[Hg] Ramona Alexander MD Work Phone: [facility] 12-01-2023 09:33-0400 Body height 162.6 cm Balbina Haury CIRCULATION MAN.RECORD KEEPER Work Phone: [facility] 12-01-2023 09:33-0400 Body mass index (BMI) [Ratio] 35.36 kg/m2 Balbina Haury [employer]CULATION MAN.RECORD KEEPER Work Phone: [facility] 12-01-2023 09:33-0400 Body weight 93.44 kg Balbina Haury [employer]CULATION MAN.RECORD KEEPER Work Phone: [facility] 12-01-2023 09:33-0400 Diastolic blood pressure 74 mm[Hg] Balbina Haury [employer]CULATION MAN.RECORD KEEPER Work Phone: [facility] 12-01-2023 09:33-0400 Systolic blood pressure 122 mm[Hg] Balbina Haury CIRCULATION MAN.RECORD KEEPER Work Phone: [facility] 11-24-2023 13:08-0400 Body mass index (BMI) [Ratio] 34.28 kg/m2 Edie So [employer]CULATION MAN.CNM Work Phone: [facility] 11-24-2023 13:08-0400 Body weight 93.44 kg Edie So CIRCULATION MAN.CNM Work Phone: [facility] 11-24-2023 13:08-0400 Diastolic blood pressure 70 mm[Hg] Edie So [employer]CULATION MAN.CNM Work Phone: [facility] 11-24-2023 13:08-0400 Systolic blood pressure 114 mm[Hg] Edie So [employer]CULATION MAN.CNM Work Phone: [facility] 10-26-2023 09:14-0400 Body mass index (BMI) [Ratio] 34.27 kg/m2 Eddie Jarquin MD Work Phone: [facility] 10-26-2023 09:14-0400 Body temperature 97.9 [degF] Eddie Jarquin MD Work Phone: [facility] 10-26-2023 09:14-0400 Body weight 93.4 kg Eddie Jarquin MD Work Phone: [facility] 10-26-2023 09:14-0400 Diastolic blood pressure 90 mm[Hg] Eddie Jarquin MD Work Phone: [facility] 10-26-2023 09:14-0400 Heart rate 90 /min Eddie Jarquin MD Work Phone: [facility] 10-26-2023 09:14-0400 Respiratory rate 20 /min Eddie Jarquin MD Work Phone: [facility] 10-26-2023 09:14-0400 SaO2% (BldA) [Mass fraction] 98 % Eddie Jarquin MD Work Phone: [facility] 10-26-2023 09:14-0400 Systolic blood pressure 148 mm[Hg] Eddie Jarquin MD Work Phone: [facility] 08-14-2023 14:05-0400 Body height 165.1 cm Jerry Amaya CIRCULATION MAN.CNM Work Phone: [facility] 08-14-2023 14:05-0400 Body mass index (BMI) [Ratio] 33.95 kg/m2 Jerry Plotmohit CIRCULATION MAN.CNM Work Phone: [facility] 08-14-2023 14:05-0400 Body weight 92.53 kg Jerry Amaya CIRCULATION MAN.CNM Work Phone: [facility] 08-14-2023 14:05-0400 Diastolic blood pressure 78 mm[Hg] Jerry Amaya CIRCULATION MAN.CNM Work Phone: [facility] 08-14-2023 14:05-0400 Systolic blood pressure 122 mm[Hg] Jerry Amaya APRN.CNM Work Phone: [facility] 01-16-2023 10:17-0400 Body height 165.1 cm Xiomara Gutierrez MD Work Phone: [facility] 01-16-2023 10:17-0400 Body mass index (BMI) [Ratio] 32.45 kg/m2 Xiomara Gutierrez MD Work Phone: [facility] 01-16-2023 10:17040 Body weight 88.45 kg Xiomara Gutierrez MD Work Phone: [facility] 01-16-2023 10:17-0400 Diastolic blood pressure 52 mm[Hg] Xiomara Gutierrez MD Work Phone: [facility] 01-16-2023 10:17-0400 Systolic blood pressure 110 mm[Hg] Xiomara Gutierrez MD Work Phone: [facility] 01-13-2023 00:00-0400 Diastolic blood pressure 86 mm[Hg] Ines Burrows DO Work Phone: [facility] 01-13-2023 00:00-0400 Heart rate 70 /min Ines Burrows DO Work Phone: [facility] 01-13-2023 00:00-0400 Respiratory rate 18 /min Ines Burrows DO Work Phone: [facility] 01-13-2023 00:00-0400 SaO2% (BldA) [Mass fraction] 95 % Ines Burrows DO Work Phone: [facility] 01-13-2023 00:00-0400 Systolic blood pressure 134 mm[Hg] Ines Burrows DO Work Phone: [facility] 01-12-2023 21:47-0400 Body height 162.6 cm Ines Burrows DO Work Phone: [facility] 01-12-2023 21:47-0400 Body mass index (BMI) [Ratio] 30.9 kg/m2 Ines Clementsft DO Work Phone: [facility] 01-12-2023 21:47-0400 Body temperature 98.1 [degF] Ines Clementsft DO Work Phone: [facility] 01-12-2023 21:47-0400 Body weight 81.65 kg Ines Clementsft DO Work Phone: [facility] 12-07-2022 08:45-0400 Body height 165.1 cm Ottoniel S [place] Work Phone: [employer] Work Phone: 12-07-2022 08:45-0400 Body mass index (BMI) [Ratio] 31.78 kg/m2 Ottoniel S [place] Work Phone: [facility] Work Phone: 12-07-2022 08:45-0400 Body surface area Derived from formula 1.94 m2 Ottoniel [place] Work Phone: [facility] Work Phone: 12-07-2022 08:45-0400 Body weight 86.64 kg Ottoniel S [place] Work Phone: [facility] Work Phone: 12-07-2022 08:45-0400 Diastolic blood pressure 84 mm[Hg] Ottoniel S [place] Work Phone: [facility] Work Phone: 12-07-2022 08:45-0400 Heart rate 74 /min Ottoniel [place] Work Phone: [facility] Work Phone: 12-07-2022 08:45-0400 Systolic blood pressure 132 mm[Hg] Ottoniel S [place] Work Phone: [address] Work Phone: 11-20-2022 17:05-0400 Body height 167.64 cm [facility] 11-20-2022 17:05-0400 Body mass index (BMI) [Ratio] 31.2 kg/m2 [facility] 11-20-2022 17:05-0400 Body temperature 97.6 [degF] [facility] 11-20-2022 17:05-0400 Body weight 87.86 kg [facility] 11-20-2022 17:05-0400 Diastolic blood pressure 73 mm[Hg] [facility] 11-20-2022 17:05-0400 Heart rate 72 /min [facility] 11-20-2022 17:05-0400 Respiratory rate 18 /min [facility] 11-20-2022 17:05-0400 SaO2% (BldA) [Mass fraction] 99 % [facility] 11-20-2022 17:05-0400 Systolic blood pressure 129 mm[Hg] [facility] 07-08-2022 17:41-0400 Body temperature 97.81 [degF] Stefano Athy PA-C Work Phone: [facility] 07-08-2022 17:41-0400 Body weight 94.8 kg Stefano Athy PA-C Work Phone: [facility] 07-08-2022 17:41-0400 Diastolic blood pressure 72 mm[Hg] Stefano Athy PA-C Work Phone: [facility] 07-08-2022 17:41-0400 Heart rate 96 /min Stefano Athy PA-C Work Phone: [facility] 07-08-2022 17:41-0400 Respiratory rate 18 /min Stefano Athy PA-C Work Phone: [facility] 07-08-2022 17:41-0400 SaO2% (BldA) [Mass fraction] 98 % Stefano Athy PA-C Work Phone: [facility] 07-08-2022 17:41-0400 Systolic blood pressure 124 mm[Hg] Stefano Coon PA-C Work Phone: [facility] 06-01-2022 11:21-0500 Body height 165.1 cm Ottoniel F[place] Work Phone: [facility] [employer] Work Phone: 06-01-2022 11:21-0500 Body mass index (BMI) [Ratio] 34.28 kg/m2 Ottoniel [place] Work Phone: [facility] [employer] Work Phone: 06-01-2022 11:21-0500 Body surface area Derived from formula 2 m2 Ottoniel [place] Work Phone: [facility] [employer] [facility] Work Phone: 06-01-2022 11:21-0500 Body weight 93.44 kg Ottoniel Fountain [place] Work Phone: [facility] [employer] [facility] Work Phone: 06-01-2022 11:21-0500 Diastolic blood pressure 74 mm[Hg] Ottoniel Fountain [place] Work Phone: [facility] [employer] [facility] Work Phone: 06-01-2022 11:21-0500 Heart rate 68 /min Ottoniel [place] Work Phone: [facility] [employer] Work Phone: 06-01-2022 11:21-0500 Systolic blood pressure 112 mm[Hg] Ottoniel [place] Work Phone: [facility] [employer] Work Phone: 12-08-2021 09:31-0400 Body height 165.1 cm Ottoniel [place] Work Phone: [facility] [employer] Work Phone: 12-08-2021 09:31-0400 Body mass index (BMI) [Ratio] 33.45 kg/m2 Ottoniel Goyal Work Phone: [facility] [employer] [facility] Work Phone: 12-08-2021 09:31-0400 Body surface area Derived from formula 1.98 m2 Ottoniel Fountain [place] Work Phone: [facility] Work Phone: 12-08-2021 09:31-0400 Body weight 91.17 kg Ottoniel Fountain [place] Work Phone: [facility] Work Phone: 12-08-2021 09:31-0400 Diastolic blood pressure 82 mm[Hg] Ottoniel [place]ountain [place] Work Phone: [facility] [facility] [place] Work Phone: 12-08-2021 09:31-0400 Heart rate 71 /min Ottoniel Goyal Work Phone: [facility] Work Phone: 12-08-2021 09:31-0400 SaO2% (BldA) [Mass fraction] 97 % Ottoniel Goyal Work Phone: [facility] Work Phone: 12-08-2021 09:31-0400 Systolic blood pressure 112 mm[Hg] Ottoniel Goyal Work Phone: [facility] Work Phone: 10-27-2020 09:39-0400 Body height 165.1 cm Ottoniel Goyal Work Phone: [facility] Work Phone: 10-27-2020 09:39-0400 Body mass index (BMI) [Ratio] 28.96 kg/m2 Ottoniel Goyal Work Phone: [facility] Work Phone: 10-27-2020 09:39-0400 Body surface area Derived from formula 1.86 m2 Ottoniel Goyal Work Phone: [facility] Work Phone: 10-27-2020 09:39-0400 Body temperature 97 [degF] Ottoniel Goyal Work Phone: [facility] Work Phone: 10-27-2020 09:39-0400 Body weight 78.93 kg Ottoniel Goyal Work Phone: [facility] Work Phone: 10-27-2020 09:39-0400 Diastolic blood pressure 70 mm[Hg] Ottoniel Goyal Work Phone: [facility] Work Phone: 10-27-2020 09:39-0400 Heart rate 57 /min Ottoniel Goyal Maimai Phone: [facility] Work Phone: 10-27-2020 09:39-0400 SaO2% (BldA) [Mass fraction] 98 % Ottoniel Goyal Work Phone: [facility] Work Phone: 10-27-2020 09:39-0400 Systolic blood pressure 118 mm[Hg] Ottoniel F[place] Work Phone: [facility] Work Phone: 07-13-2020 12:23-0400 Body height 165.1 cm Luther Rodas DO [address] Work Phone: 07-13-2020 12:23-0400 Body mass index (BMI) [Ratio] 28.36 kg/m2 [facility] [address] Work Phone: 07-13-2020 12:23-0400 Body surface area Derived from formula 1.85 m2 [facility] [address] Work Phone: 07-13-2020 12:23-0400 Body weight 77.3 kg [facility] [address] Work Phone: 07-13-2020 12:23-0400 Diastolic blood pressure 80 mm[Hg] Luther Rodas DO [facility] [address] Work Phone: Comment on above: Location: LUE; Position: Sitting 07-13-2020 12:23-0400 Systolic blood pressure 104 mm[Hg] Luther Rodas DO [facility] [address] Work Phone: Comment on above: Location: LUE; Position: Sitting 07-02-2020 15:35-0400 Body height 165.1 cm [facility] [address] Work Phone: 07-02-2020 15:35-0400 Body mass index (BMI) [Ratio] 29.04 kg/m2 Luther Rodas DO [facility] [address] Work Phone: 07-02-2020 15:35-0400 Body surface area Derived from formula 1.87 m2 Luther Rodas DO [place] [address] [address] Work Phone: 07-02-2020 15:35-0400 Body temperature 97.7 [degF] Luther Rodas DO [place] [address] [address] Work Phone: 07-02-2020 15:35-0400 Body weight 79.15 kg [facility] [address] Work Phone: 07-02-2020 15:35-0400 Diastolic blood pressure 78 mm[Hg] Luther Rodas DO [facility] [address] Work Phone: 07-02-2020 15:35-0400 Systolic blood pressure 108 mm[Hg] Luther Rodas DO [address] Work Phone: 01-21-2019 18:51-0400 BMI (Body Mass Index) 36.65 kg/m2 [facility] Work Phone: 01-21-2019 18:51-0400 Body weight 102.2 kg [facility] [employer] Work Phone: 01-21-2019 18:51-0400 BP Diastolic 80 mm[Hg] [facility] Work Phone: 01-21-2019 18:51-0400 BP Systolic 122 mm[Hg] [facility] Work Phone: 01-21-2019 18:51-0400 BSA (Body Surface Area) 2.1 m2 [facility] Work Phone: 01-21-2019 18:51-0400 Height 167 cm [facility] Work Phone: 01-21-2019 18:51-0400 Pulse (Heart Rate) 74 /min [facility] Work Phone: Encounters Encounter Date Encounter Type Care Provider Facility Start: 09-20-2024 ambulatory Ramona Alexander Facility:[facility] Start: 09-18-2024 End: 09-18-2024 Telephone encounter Rodo Nolan MD Work Phone: Cardiology Comment on above: Results ([facility] requesting last office visit note, echo and EKG report please be faxed to [phone]/Any questions, Dawshyam [phone]) Start: 09-17-2024 End: 09-17-2024 Telephone encounter Ramona Alexander MD Work Phone: OB/Gynecology Comment on above: PAT appointment Start: 09-16-2024 End: 09-16-2024 Patient encounter procedure Ramona Alexander MD Work Phone: OB/Gynecology Comment on above: Request for steriliz ation (Primary Dx); Visit for pre-operative examination; Excessive bleeding in premenopausal period; Dysmenorrhea; Submucous leiomyoma of uterus Start: 09-16-2024 End: 09-16-2024 Preprocedural examination done Ramona Alexander MD Work Phone: [facility] Work Phone: Start: 09-16-2024 End: 09-16-2024 [facility] Start: 08-09-2024 End: 08-09-2024 Admission to same day surgery center [facility] Provider OB/Gynecology Comment on above: surgery confirmation Start: 08-09-2024 End: 08-09-2024 E-mail encounter from caregiver [facility] Provider OB/Gynecology Start: 08-09-2024 End: 08-09-2024 Telephone encounter Ramona Alexander MD Work Phone: OB/Gynecology Comment on above: Results Start: 08-08-2024 End: 08-08-2024 Patient encounter procedure Us Tech 1 [employer] OB/Gynecology Start: 08-08-2024 End: 08-08-2024 ambulatory 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 Work Phone: Start: 07-18-2024 End: 07-18-2024 Telephone encounter Rodo Nolan MD Work Phone: Cardiology Comment on above: Cardiac Clearance Start: 07-10-2024 End: 09-09-2024 Follow-up encounter Rodo Nolan MD Work Phone: Cardiology Start: 07-10-2024 End: 07-10-2024 [facility] Start: 06-26-2024 End: 07-19-2024 ambulatory Rodo Nolan MD Work Phone: Cardiology Comment on above: Blood pressure log Start: 06-12-2024 End: 06-12-2024 Nutrition therapy Rodo Nolan MD Work Phone: [facility] Start: 06-12-2024 End: 06-12-2024 Patient encounter procedure Rodo Nolan MD Work Phone: Cardiology Comment on above: Pre-eclampsia in thi rd trimester (Primary Dx); care and examination; Nutritional assessment; Exercise counseling; delivery; Low weight; Antepartum multigravida of advanced maternal age Start: 06-12-2024 End: 06-12-2024 [facility] Start: 06-10-2024 End: 06-10-2024 ambulatory Milvia Granados APRN.CNP Work Phone: Cardiology Comment on above: [address] Start: 06-10-2024 End: 06-10-2024 E-mail encounter from caregiver Milvia Darwin PIRESRECORD KEEPER Work Phone: Cardiology Start: 05-19-2024 End: 05-20-2024 ambulatory Ramona Alexander MD Work Phone: OB/Gynecology Comment on above: Sick Leave Form Start: 05-17-2024 End: 05-17-2024 [facility] Facility:[facility] Start: 05-17-2024 End: 05-17-2024 Patient encounter procedure Ramona Alexander MD Work Phone: OB/Gynecology Comment on above: care and examination (Primary Dx); History of pre-eclampsia Start: 05-10-2024 End: 05-10-2024 ambulatory Yuliya Geronimo MD Work Phone: OB/Gynecology Comment on above: Continued rash and s welling Start: 05-01-2024 Evaluation and manag ement of inpatient ANILA [place] Facility:[facility] Start: 05-01-2024 End: 05-01-2024 [facility] Start: 05-01-2024 End: 05-01-2024 Patient encounter procedure Leia Quiroz MD Work Phone: OB/Gynecology Comment on above: Hypertension in preg stew, preeclampsia, delivered (Primary Dx) Start: 04-30-2024 End: 04-30-2024 Encounter [facility] DO Work Phone: [facility] - [facility] Start: 04-29-2024 End: 04-29-2024 Encounter [facility] DO Work Phone: [facility] Start: 04-18-2024 Evaluation and manag ement of inpatient [facility] Start: 04-18-2024 End: 04-18-2024 [facility] Start: 04-18-2024 End: 04-18-2024 Patient encounter procedure Jerry Amaya APRN.CNM Work Phone: OB/Gynecology Comment on above: 32 weeks gestation o f (Primary Dx); Multigravida of advanced maternal age in third trimester; High risk multigravida in third trimester; History of gestational hypertension; Elevated blood pressure reading without diagnosis of hypertension; Pedal edema Start: 04-18-2024 End: 04-18-2024 Telephone encounter Pedrito Umanzor MD Work Phone: OB/Gynecology Comment on above: OB Elevated BP Start: 04-15-2024 End: 04-15-2024 [facility] Start: 04-15-2024 End: 04-15-2024 Patient encounter procedure Whi Tech 1 Real Estate Instructor Mfm [employer] Maternal Medicine Comment on above: Encounter for ultras ound to check growth (Primary Dx); Multigravida of advanced maternal age in second trimester; Obesity affecting in second trimester, unspecified obesity type; 32 weeks gestation of Multigravida of adva nced maternal age in second trimester (Primary Dx); 32 weeks gestation of ; Obesity affecting in second trimester, unspecified obesity type; Need for vaccination Start: 04-15-2024 End: 04-15-2024 [facility] Start: 03-27-2024 End: 03-27-2024 [facility] Start: 03-27-2024 End: 03-27-2024 Patient encounter procedure Yuliya Geronimo MD Work Phone: OB/Gynecology Comment on above: 29 weeks gestation o f (Primary Dx); Multigravida of advanced maternal age in second trimester; Obesity affecting in second trimester, unspecified obesity type Start: 03-22-2024 End: 03-22-2024 [facility] Start: 03-22-2024 End: 03-22-2024 Patient encounter procedure Pedrito Umanzor MD Work Phone: OB/Gynecology Comment on above: 29 weeks gestation o f (Primary Dx); Multigravida of advanced maternal age in second trimester; Obesity affecting in second trimester, unspecified obesity type Start: 03-21-2024 End: 03-21-2024 ambulatory Leia Quiroz MD Work Phone: OB/Gynecology Comment on above: Leg swelling Start: 03-11-2024 End: 03-11-2024 ambulatory Leia Quiroz MD Work Phone: OB/Gynecology Comment on above: Ear pain Start: 03-04-2024 End: 03-04-2024 [facility] Start: 03-04-2024 End: 03-04-2024 Patient encounter procedure Leia Quiroz MD Work Phone: OB/Gynecology Comment on above: High risk multigravi da in third trimester (Primary Dx); 26 weeks gestation of ; Multigravida of advanced maternal age in second trimester; Obesity affecting in second trimester, unspecified obesity type; Varicose veins of lower leg; Advanced maternal age in multigravida, second trimester Start: 01-26-2024 End: 01-26-2024 Patient encounter procedure Real Estate Instructor [facility] Work Phone: M[facility] Medicine Comment on above: Encounter for anatomic survey (Primary Dx); Multigravida of advanced maternal age in second trimester; Obesity affecting in second trimester, unspecified obesity type; 21 weeks gestation of Start: 01-26-2024 End: 01-26-2024 ambulatory RAMONA ALEXANDER Facility:[facility] Start: 01-24-2024 End: 01-24-2024 [facility] Start: 01-24-2024 End: 01-24-2024 Patient encounter procedure Balbina Cortes APRN.RECORD KEEPER Work Phone: OB/Gynecology Comment on above: Multigravida of adva nced maternal age in second trimester (Primary Dx); 20 weeks gestation of ; Obesity affecting in second trimester, unspecified obesity type; History of gestational hypertension; Pelvic pressure in ; Encounter for supervision of high risk in second trimester, antepartum Start: 12-29-2023 End: 12-29-2023 [facility] Start: 12-29-2023 End: 12-29-2023 Patient encounter procedure Ramona Alexander MD Work Phone: OB/Gynecology Comment on above: Multigravida of adva nced maternal age in second trimester (Primary Dx); 17 weeks gestation of ; Obesity affecting in second trimester, unspecified obesity type Encounter for anatomic survey (Primary Dx); Multigravida of advanced maternal age in second trimester; Obesity affecting in second trimester, unspecified obesity type Start: 12-07-2023 End: 12-07-2023 ambulatory Balbina Cortes APRN.RECORD KEEPER Work Phone: OB/Gynecology Comment on above: Gender Start: 12-01-2023 End: 12-01-2023 [facility] Start: 12-01-2023 End: 12-01-2023 [facility] Start: 12-01-2023 End: 12-01-2023 Patient encounter procedure Balbina Cortes APRN.CNP Work Phone: OB/Gynecology Comment on above: Encounter for superv ision of high risk in second trimester, antepartum (Primary Dx); with uncertain dates in first trimester; 13 weeks gestation of ; Obesity affecting in second trimester, unspecified obesity type; Multigravida of advanced maternal age in second trimester; PTSD (post-traumatic stress disorder); History of depression; History of anxiety; History of gestational hypertension; Penicillin allergy; Nausea and vomiting during ; Vaginal bleeding during Encounter for linda patel screening for malformation using ultrasound (Primary Dx); Multigravida of advanced maternal age in second trimester; 13 weeks gestation of Start: 11-24-2023 End: 11-24-2023 [facility] Facility:[facility] Start: 11-24-2023 End: 11-24-2023 Patient encounter procedure Edie So APRN.CNM Work Phone: OB/Gynecology Comment on above: 12 weeks gestation o f (Primary Dx); Vaginal bleeding during ; Multigravida of advanced maternal age in second trimester Start: 11-23-2023 ambulatory Jerry fountain APRN.CNM Work Phone: OB/Gynecology Comment on above: Light bleeding Start: 11-21-2023 End: 11-22-2023 Emergency department patient visit Jaysonaman Alonso Facility:[facility] Start: 10-26-2023 End: 10-26-2023 [facility] Facility:[facility] Start: 10-26-2023 End: 10-26-2023 Patient encounter procedure Eddie Jarquin MD Work Phone: [facility] Comment on above: Contact dermatitis d ue to plant (Primary Dx) Start: 10-18-2023 End: 10-18-2023 Emergency department patient visit Blas Xiao Facility:[facility] Start: 08-14-2023 End: 08-14-2023 Patient encounter procedure Jerry Amaya APRN.CNM Work Phone: OB/Gynecology Comment on above: Pelvic pain (Primary Dx); Cyst of left ovary; Dysmenorrhea Start: 06-28-2023 End: 06-28-2023 ambulatory ELISABET EASON Facility: Start: 06-26-2023 End: 06-26-2023 ambulatory MISC. PHYSICIAN Facility: Start: 06-20-2023 End: 06-20-2023 ambulatory GURMEET HUNTER Facility: Start: 03-06-2023 End: 03-06-20[facility] Start: 02-13-2023 End: 02-13-2023 Subsequent hospital visit by physician Yair Lucia 1 [facility] Comment on above: Hemorrhagic cyst of left ovary Start: 02-13-2023 End: 02-13-2023 ambulatory [facility] Start: 01-16-2023 End: 01-16-2023 ambulatory [facility] Ambulatory Start: 01-16-2023 End: 01-16-2023 Office outpatient visit 15 minutes Xiomara Gutierrez MD Work Phone: [facility] Comment on above: Hemorrhagic cyst of left ovary (Primary Dx) Start: 01-12-2023 End: 01-13-2023 Emergency department patient visit Ines Gale Burrows Work Phone: [facility] Emergency Medicine Comment on above: Cyst of left ovary ( Primary Dx) Start: 12-26-2022 Chart Update Ottoniel arzola Work Phone: [employer] Work Phone: Start: 12-08-2022 Encounter for gynecological examination (general) (routine) without abnormal findings MD XIOMARA GUTIERREZ [facility] Start: 12-07-2022 Encounter for gynecological examination (general) (routine) without abnormal findings Dr. Ottoniel Goyal Facility:[facility] Start: 12-07-2022 Periodic preventive med est patient 18-39 yrs Ottoniel Goyal Work Phone: [employer] Work Phone: Start: 12-07-[address] Ottoniel Goyal Fa cility:[facility] Start: 11-20-2022 End: 11-20-2022 Emergency department patient visit [facility] Work Phone: Start: 07-08-2022 End: 07-08-2022 Patient encounter procedure Stefano Coon PA-C Work Phone: [facility] Comment on above: Sore throat (Primary Dx) Start: 06-01-2022 Office outpatient vi sit 15 minutes Ottoniel S [place] Work Phone: [facility] Work Phone: Start: 06-01-[address] [id number] Start: 03-14-2022 Office outpatient vi sit 15 minutes Ottoniel S [place] Work Phone: [facility] Work Phone: Start: 03-14-[address] Kiara lao [place] Facility:[id number] Start: 12-08-2021 Office outpatient vi sit 15 minutes Ottoniel S [place] Work Phone: [facility] Work Phone: Start: 10-11-2021 Rx Renewal Ottoniel S Efren al Work Phone: [facility] Work Phone: Start: 07-27-2021 Office outpatient vi sit 15 minutes Ottoniel S [place] Work Phone: [facility] Work Phone: Start: 04-21-2021 Rx Renewal Ottoniel S [place] Work Phone: [facility] Work Phone: Start: 12-30-2020 AUDIT Ottoniel S Efren al Work Phone: [facility] [address] Work Phone: Start: 10-27-2020 Office outpatient vi sit 15 minutes Ottoniel S [place] Work Phone: [facility] Work Phone: Start: 10-15-2020 AUDIT Ottoniel S Efren al Work Phone: [facility] [address] Work Phone: Start: 09-29-2020 Chart Update Ottoniel Schwartz al Work Phone: [facility] [address] Work Phone: Start: 07-13-2020 Patient encounter procedure Luther Adrianna DO [facility] [address] Work Phone: Start: 07-02-2020 Office outpatient ne w 45 minutes Ottoniel Goyal Work Phone: [facility] Work Phone: Start: 07-02-2020 Patient encounter procedure Luther Adrianna DO [facility] [address] Work Phone: Start: 05-27-2020 Patient encounter procedure Luther Adrianna DO [facility] [address] Work Phone: Start: 05-20-2020 Patient encounter procedure Luther Thomcaron DO [facility] [address] Work Phone: Start: 03-02-2020 Patient encounter procedure Luther Thomcaron DO [facility] [address] Work Phone: Start: 11-25-2019 Patient encounter procedure Luther Adrianna DO [facility] [address] Work Phone: Start: 11-04-2019 Patient encounter procedure Luther Adrianna DO [facility] [address] Work Phone: Start: 01-21-2019 Patient encounter procedure Luther Adrianna DO [facility] [address] Work Phone: Menarche Luther Thomcaron DO [facility] [address] Work Phone: Comment on above: 14; Patient encounter procedure Luther Adrianna DO [facility] [address] Work Phone: Comment on above: 07/13/2020 Cotest NI L09/2016-PER PATIENT; Procedures Date Procedure Procedure Detail Performing Clinician Start: 08-08-2024 Us pelvic nonobstetr ic real-time image complete Ramona Alexander MD Work Phone: Start: 06-12-2024 Ecg routine ecg w/le ast 12 lds i&r only Rodo Nolan MD Work Phone: Start: 04-23-2024 Antibody screen ANILA [place] [facility] Comment on above: Order Comment: Speci men Type: BLOOD SPECIMENOrdering Facility: [facility] Address: [address] [place] [address] Performed By: #### T SPN ####[facility] BLOOD BANKIA [id number] [address] Start: 04-21-2024 Antibody screen [place]IL[place] Comment on above: Order Comment: Speci men Type: BLOOD SPECIMENOrdering Facility: [facility] Address: [address] [place] [address] Performed By: #### T SPN ####[facility] BLOOD BANKIA [id number] [address] Start: 04-18-2024 Antibody screen [place]IL[place] Comment on above: Order Comment: Speci men Type: BLOOD SPECIMENOrdering Facility: [facility] Address: [address] [place] [address] Performed By: #### T SPN ####[facility] BLOOD BANKIA [id number] [address] Start: 04-15-2024 RSV VACCINE, BIVALEN T (ABRYSVO) Ramona Alexander MD Work Phone: Start: 04-15-2024 Us preg uterus after 1st trimest 04/10 gestation Leia Quiroz MD Work Phone: Start: 01-26-2024 Us preg uterus after 1st trimest 04/10 gestation Ramona Alexander MD Work Phone: Start: 01-24-2024 Urnls dip stick/tabl et rgnt auto w/o microscopy Ronak Greene MD Work Phone: Start: 12-29-2023 Us preg uterus after 1st trimest / gestation Balbina Cortes SERGIO.RECORD KEEPER Work Phone: Start: 12-01-2023 Antibody screen KIMBERL Y ROYAL Comment on above: Order Comment: Speci men Type: BLOOD SPECIMENOrdering Facility: [facility] Address: [address] [place] [address] Performed By: #### T SPN ####[facility] BLOOD BANKCLIA [id number] [facility] [id number] [address] [place] Start: 12-01-2023 Us nuchal abarca slucency 1st gestation Edieelizabeth So APRN.CNM Work Phone: Start: 12-01-2023 Adult depression scr eening assessment Leia Quiroz MD Work Phone: Start: 02-13-2023 US PELVIS TRANSABDOM INAL WITH TRANSVAGINAL OTTONIEL ROYAL Start: 02-13-2023 Us transvaginal Xiomara Gutierrez MD Work Phone: Start: 01-13-2023 US PELVIS OTTONIEL R OYAL Start: 01-13-2023 VITAL SIGNS OTTONIEL R OYAL Start: 01-13-2023 Us pelvic nonobstetr ic real-time image complete Ines Gale Freedom DO Work Phone: Start: 01-13-2023 CT ABDOMEN PELVIS W IV CONTRAST OTTONIEL ROYAL Start: 01-13-2023 SALINE LOCK IV OTTONIEL ROYAL Start: 01-13-2023 EXTRA URINE HOFFMAN TUBE K IMBERLY ROYAL Start: 01-13-2023 URINALYSIS WITH REFL EX MICROSCOPIC AND CULTURE OTTONIEL ROYAL Start: 01-13-2023 CBC W Auto Different ial panel - Blood OTTONIEL ROYAL Start: 01-13-2023 Comprehensive metabo lic 2000 panel - Serum or Plasma OTTONIEL ROYAL Start: 01-13-2023 Lactate [Moles/volum e] in Serum or Plasma OTTONIEL ROYAL Start: 01-12-2023 Ct abdomen & pelvis w/contrast material Ines Gale Freedom DO Work Phone: Start: 01-12-2023 Urnls dip stick/tabl et rgnt auto w/o microscopy Ines Burrows DO Work Phone: Start: 01-12-2023 Comprehensive metabo lic panel Ines Burrows DO Work Phone: Start: 12-07-2022 Microscopic observat ion [Identifier] in Cervix by Cyto stain Ines Burrows DO Work Phone: Start: 07-08-2022 STREP A MOLECULAR (POC) Stefano Coon PA-C Work Phone: Start: 09-22-2020 Colonoscopy Ottoniel Goyal Work Phone: Start: 05-20-2020 Follow-up visit Start: 03-02-2020 Follow-up visit Start: 11-25-2019 Follow-up visit Start: 11-04-2019 Follow-up visit Colonoscopy Ottoniel villegas Work Phone: Extraction of wisdom tooth D luis Thomae DO Plan of Treatment Date Care Activity Detail Author Start: 2035 Zoster Vaccines (1 of 2) Zoste r Vaccines (1 of 2) [facility] Start: 03-22-2034 Urine microalbumin profile DTa P,Tdap,Td Vaccine (2 - Td or Tdap) [facility] Start: 12-08-2027 Screening for malign ant neoplasm of cervix [facility] Start: 12-07-2025 Screening for malign ant neoplasm of cervix [facility] Start: 08-02-2025 Screening for malign ant neoplasm of cervix Cervical Cancer Screening [facility] [facility] Start: 03-04-2025 Covid-19 Vaccine ( season) Covid-19 Vaccine ( season) [facility] Comment on above: Postponed from 12/09 (Declined at this time) Start: 03-04-2025 Covid-19 Vaccine ( season) Covid-19 Vaccine ( season) [facility] Comment on above: Postponed from 12/09 (Declined at this time) Start: 12-09-2024 Influenza vaccination Influenz a Vaccine (Season Ended) [facility] Start: 11-30-2024 Depression Screening Depression Scre ening [facility] Start: 10-07-2024 Influenza vaccination Influenza Vacc ine (#1) [facility] Comment on above: Postponed from 12/09 (Declined at this time) Start: 09-30-2024 End: 09-30-2024 Patient encounter procedure 09/30/2024 3:40 PM EDT Office Visit OB/Gynecology [address] [place] [address] Ramona Alexander MD [address] [place] [address] 1 week post-op OB/Gynecology Comment on above: 1 week post-op Start: 09-05-2024 End: 09-05-2024 Patient encounter procedure 09/05/2024 10:50 AM EDT Office Visit OB/Gynecology [address] [place] [address] Ramona Alexander MD [address] [facility] [place] [address] surgery 09/20 OB/Gynecology Comment on above: surgery 09/20 Start: 08-02-2024 End: 08-02-2024 Patient encounter procedure 08/02/2024 10:50 AM EDT Office Visit OB/Gynecology [address] [place] [address] Ramona Alexander MD [address] [place] [address] Revisit surgery discussion OB/Gynecology Comment on above: Revisit surgery disc ussion Start: 07-25-2024 End: 10-24-2024 Basic metabolic 2000 panel - Serum or Plasma BASIC METABOLIC PANEL Lab Routine Essential hypertension Expected: 07/25/2024, Expires: 10/24/2024 [facility] Work Phone: Comment on above: Expected: 07/25/2024 , Expires: 10/24/2024 Start: 07-10-2024 End: 07-10-2024 Patient encounter procedure 07/10/2024 8:00 AM EDT Office Visit Cardiology [address] [address] ECHO Cardiology Comment on above: ECHO Start: 06-13-2024 End: 06-13-2024 ambulatory 06/13/2024 3:45 PM EST Results Only [facility] [facility] [address] [place] [address] [place] [facility] Start: 06-12-2024 End: 09-11-2024 C reactive protein [Mass/volume] in Serum or Plasma by High sensitivity method HIGH SENSITIVITY C-REACTIVE PROTEIN Lab Routine care and examination Nutritional assessment Exercise counseling Pre-eclampsia in third trimester Expected: 06/12/2024, Expires: 09/11/[address] [facility] Comment on above: Expected: 06/12/2024 , Expires: 09/11/2024 Start: 06-12-2024 End: 09-11-2024 CBC panel - Blood by Automated count COMPLETE BLOOD COUNT Lab Routine care and examination Nutritional assessment Exercise counseling Pre-eclampsia in third trimester Expected: 06/12/2024, Expires: 09/11/[address] [facility] Comment on above: Expected: 06/12/2024 , Expires: 09/11/2024 Start: 06-12-2024 End: 09-11-2024 Comprehensive metabolic 2000 panel - Serum or Plasma COMPREHENSIVE METABOLIC PANEL Lab Routine care and examination Nutritional assessment Exercise counseling Pre-eclampsia in third trimester Expected: 06/12/2024, Expires: 09/11/[address] [facility] Comment on above: Expected: 06/12/2024 , Expires: 09/11/2024 Start: 06-12-2024 End: 09-11-2024 LIPID PANEL, NONFASTING LIPID PANEL, NONFASTING Lab Routine care and examination Nutritional assessment Exercise counseling Pre-eclampsia in third trimester Expected: 06/12/2024, Expires: 09/11/[address] [facility] Comment on above: Expected: 06/12/2024 , Expires: 09/11/2024 Start: 06-12-2024 End: 09-11-2024 Natriuretic peptide.B prohormone N-Terminal [Mass/volume] in Serum or Plasma NT PRO BNP Lab Routine care and examination Nutritional assessment Exercise counseling Pre-eclampsia in third trimester Expected: 06/12/2024, Expires: 09/11/[address] [facility] Comment on above: Expected: 06/12/2024 , Expires: 09/11/2024 Start: 06-12-2024 End: 09-11-2024 Thyrotropin [Units/volume] in Serum or Plasma THYROID STIMULATING HORMONE Lab Routine care and examination Nutritional assessment Exercise counseling Pre-eclampsia in third trimester Expected: 06/12/2024, Expires: 09/11/[address] [facility] Comment on above: Expected: 06/12/2024 , Expires: 09/11/2024 Start: 06-12-2024 End: 09-11-2024 Thyroxine (T4) free [Mass/volume] in Serum or Plasma T4 FREE/FREE THYROXINE Lab Routine care and examination Nutritional assessment Exercise counseling Pre-eclampsia in third trimester Expected: 06/12/2024, Expires: 09/11/[address] [facility] Comment on above: Expected: 06/12/2024 , Expires: 09/11/2024 Start: 06-12-2024 End: 06-12-2024 Patient encounter procedure Cardiology Comment on above: SMA Start: 06-10-2024 End: 06-10-2024 Patient encounter procedure 06/10/2024 8:30 AM EST Routine Office Visit OB/Gynecology [address] [place] [address] Ramona Alexander MD [address] [place] [address] OB OB/Gynecology Comment on above: OB Start: 06-03-2024 End: 06-03-2024 Patient encounter procedure 06/03/2024 8:30 AM EST Routine Office Visit OB/Gynecology [address] [place] [address] Ramona Alexander MD [address] [place] [address] OB OB/Gynecology Comment on above: OB Start: 05-27-2024 End: 05-27-2024 Patient encounter procedure 05/27/2024 8:30 AM EST Routine Office Visit OB/Gynecology [address] [place] [address] Ramona Alexander MD [address] [place] [address] OB OB/Gynecology Comment on above: OB Start: 05-20-2024 End: 05-20-2024 Patient encounter procedure 05/20/2024 3:40 PM EST Routine Office Visit OB/Gynecology [address] [place] [address] Ramona Alexander MD [address] [place] [address] Ob OB/Gynecology Comment on above: Ob Start: 05-13-2024 End: 05-13-2024 Patient encounter procedure Maternal Medicine Comment on above: Growth OB Start: 05-09-2024 End: 05-09-2024 Patient encounter procedure 05/09/2024 2:00 PM EST Office Visit Allergy [address] [address] Kaci Poole MD [address] [place] [address] Na Allergy Comment on above: Na Start: 05-03-2024 End: 05-03-2024 Patient encounter procedure 05/03/2024 8:10 AM EST Routine Office Visit OB/Gynecology [address] [place] [address] Yuliya Geronimo MD [address] [place] [address] VV OB ok per Dr. CASH OB/Gynecology Comment on above: VV OB ok per Dr. CASH Start: 05-01-2024 End: 05-01-2024 Patient encounter procedure 05/01/2024 2:20 PM EST Routine Office Visit OB/Gynecology [address] [place] [address] Yuliya Geronimo MD [address] [place] [address] follow up from preeclampsia OB/Gynecology Comment on above: follow up from preec lampsia Start: 04-29-2024 End: 04-29-2024 Patient encounter procedure 04/29/2024 11:10 AM EST Routine Office Visit OB/Gynecology [address] [place] [address] Ramona Alexander MD [address] [place] [address] OB Routine OB/Gynecology Comment on above: OB Routine Start: 04-15-2024 End: 04-15-2024 Patient encounter procedure Maternal Medicine Comment on above: Growth US OB Routine Start: 04-15-2024 End: 04-15-2025 OBSTETRIC ULTRASOUND WHI OBSTETRIC ULTRASOUND WHI Anc Imaging Routine 32 weeks gestation of Multigravida of advanced maternal age in second trimester Obesity affecting in second trimester, unspecified obesity type Expected: 04/15/2024, Expires: 04/15/2025 [facility] Work Phone: Comment on above: Expected: 04/15/2024 , Expires: 04/15/2025 Start: 04-12-2024 RSV Vaccine (1 - Ris k 1-dose series) RSV Vaccine (1 - Risk 1-dose series) [facility] Start: 04-01-2024 End: 04-01-2024 Patient encounter procedure 04/01/2024 4:20 PM EST Routine Office Visit OB/Gynecology [address] [place] [address] Ramona Alexander MD [address] [place] [place] [id number] OB OB/Gynecology Comment on above: OB Start: 04-01-2024 End: 04-01-2024 Patient encounter procedure 04/01/2024 10:10 AM EST Routine Office Visit OB/Gynecology [address] [place] [address] Leia Quiroz MD [address] [place] [address] OB OB/Gynecology Comment on above: OB Start: 04-01-2024 End: 04-01-2024 ambulatory 04/01/2024 9:15 AM EST Results Only [facility] [address] [place] [address] [place] Start: 03-22-2024 End: 03-22-2024 Patient encounter procedure 03/22/2024 10:20 AM EST Routine Office Visit OB/Gynecology [address] [place] [address] Pedrito Umanzor MD [address] [place] [address] OB BP check OB/Gynecology Comment on above: OB BP check Start: 03-04-2024 End: 03-04-2024 Patient encounter procedure 03/04/2024 4:20 PM EST Routine Office Visit OB/Gynecology [address] [place] [address] Leia Quiroz MD [address] [place] [address] OB OB/Gynecology Comment on above: OB Start: 03-04-2024 End: 06-03-2024 CBC W Auto Differential panel - Blood COMPLETE BLOOD COUNT AND DIFFERENTIAL Lab Routine 26 weeks gestation of Multigravida of advanced maternal age in second trimester Obesity affecting in second trimester, unspecified obesity type Expected: 03/04/2024, Expires: 06/03/[address] [facility] Comment on above: Expected: 03/04/2024 , Expires: 06/03/2024 Start: 03-04-2024 End: 06-03-2024 GESTATIONAL GLUCOSE SCREEN, 1-HOUR, 50 GRAM, NON-FASTING GESTATIONAL GLUCOSE SCREEN, 1-HOUR, 50 GRAM, NON-FASTING Lab Routine 26 weeks gestation of Multigravida of advanced maternal age in second trimester Obesity affecting in second trimester, unspecified obesity type Expected: 03/04/2024, Expires: 06/03/2024 [facility] Work Phone: Comment on above: Expected: 03/04/2024 , Expires: 06/03/2024 Start: 03-04-2024 End: 03-04-2025 OBSTETRIC ULTRASOUND WHI OBSTETRIC ULTRASOUND WHI Anc Imaging Routine Multigravida of advanced maternal age in second trimester Obesity affecting in second trimester, unspecified obesity type High risk multigravida in third trimester Advanced maternal age in multigravida, second trimester Expected: 03/04/2024, Expires: 03/04/[address] [facility] Comment on above: Expected: 03/04/2024 , Expires: 03/04/2025 Start: 03-04-2024 End: 06-03-2024 SYPHILIS TREPONEMAL W/REFLEX SYPHILIS TREPONEMAL W/REFLEX Lab Routine 26 weeks gestation of Multigravida of advanced maternal age in second trimester Obesity affecting in second trimester, unspecified obesity type Expected: 03/04/2024, Expires: 06/03/[address] [facility] Comment on above: Expected: 03/04/2024 , Expires: 06/03/2024 Start: 01-29-2024 End: 01-29-2024 Patient encounter procedure 01/29/2024 4:20 PM EDT Routine Office Visit OB/Gynecology [address] [place] [address] Ronak Beck MD [address] [place] [address] OB OB/Gynecology Comment on above: OB Start: 01-26-2024 End: 01-26-2024 Patient encounter procedure 01/26/2024 3:00 PM EDT Routine Office Visit Maternal Medicine [address] [place] [place] [id number] Anatomy Maternal Medicine Comment on above: Anatomy Start: 12-29-2023 End: 03-29-2024 ALPHA FETOPRO MATERNAL [facility] Work Phone: Comment on above: Expected: 12/29/2023 , Expires: 03/29/2024 Start: 12-29-2023 End: 12-28-2024 OBSTETRIC ULTRASOUND WHI OBSTETRIC ULTRASOUND WHI Anc Imaging Routine 17 weeks gestation of Multigravida of advanced maternal age in second trimester Obesity affecting in second trimester, unspecified obesity type Expected: 12/29/2023, Expires: 12/28/[address] [facility] Comment on above: Expected: 12/29/2023 , Expires: 12/28/2024 Start: 12-29-2023 End: 12-29-2023 Patient encounter procedure OB/Gynecology Comment on above: WebAppointment Reque st - Positive Test EARLY ANATOMY Start: 12-12-2023 Patient encounter procedure ANNUAL, Provider: Xiomara Gutierrez, Status: Pen, Time: 8:30 AM [facility] [address] Daljit Work Phone: Start: 12-12-2023 End: 12-12-2023 Patient encounter procedure 12/12/2023 8:30 AM EDT Office Visit [facility] Medical Office Building [facility] [address] [place] [address] Xiomara Gutierrez MD [address] [facility], [place] [id number] [facility] Start: 12-10-2023 Covid-19 Vaccine ( season) Covid-19 Vaccine ( season) [facility] Start: 12-10-2023 Covid-19 Vaccine ( season) Covid-19 Vaccine ( season) [facility] Start: 12-10-2023 Influenza vaccination [facility] Start: 12-01-2023 End: 03-01-2024 Chromosome 21 trisomy [Presence] in Blood or Tissue by Cytogenetics [facility] Comment on above: Expected: 12/01/2023 , Expires: 03/01/2024 Start: 12-01-2023 End: 03-01-2024 Hemoglobin A1c in Blood [facility] Comment on above: Expected: 12/01/2023 , Expires: 03/01/2024 Start: 12-01-2023 End: 03-01-2024 Hepatitis B virus surface Ag [Presence] in Serum [facility] Comment on above: Expected: 12/01/2023 , Expires: 03/01/2024 Start: 12-01-2023 End: 03-01-2024 Hepatitis C virus Ab [Presence] in Serum [facility] Comment on above: Expected: 12/01/2023 , Expires: 03/01/2024 Start: 12-01-2023 End: 03-01-2024 HIV 1+2 Ab [Presence] in Serum or Plasma by Immunoassay [facility] Comment on above: Expected: 12/01/2023 , Expires: 03/01/2024 Start: 12-01-2023 End: 11-30-2024 OBSTETRIC ULTRASOUND WHI OBSTETRIC ULTRASOUND WHI Anc Imaging Routine with uncertain dates in first trimester Expected: 12/01/2023, Expires: 11/30/[address] [facility] Comment on above: Expected: 12/01/2023 , Expires: 11/30/2024 Start: 12-01-2023 End: 03-01-2024 Protein/Creatinine [Mass Ratio] in Urine [facility] Comment on above: Expected: 12/01/2023 , Expires: 03/01/2024 Start: 12-01-2023 End: 03-01-2024 RUBELLA IGG ANTIBODY [facility] Comment on above: Expected: 12/01/2023 , Expires: 03/01/2024 Start: 12-01-2023 End: 03-01-2024 SYPHILIS TOTAL W/REFLEX [facility] Comment on above: Expected: 12/01/2023 , Expires: 03/01/2024 Start: 12-01-2023 End: 03-01-2024 Thyrotropin [Units/volume] in Serum or Plasma [facility] Comment on above: Expected: 12/01/2023 , Expires: 03/01/2024 Start: 12-01-2023 End: 03-01-2024 TYPE + SCREEN [facility] Comment on above: Expected: 12/01/2023 , Expires: 03/01/2024 Start: 12-01-2023 End: 12-01-2023 Patient encounter procedure OB/Gynecology Comment on above: WebAppointment Reque st - Positive Test NUCHAL / OB Start: 11-24-2023 End: 11-23-2024 NUCHAL TRANSLUCENCY WHI NUCHAL TRANSLUCENCY WHI Anc Imaging Routine 12 weeks gestation of Multigravida of advanced maternal age in second trimester Expected: 11/24/2023, Expires: 11/23/2024 [facility] Work Phone: Comment on above: Expected: 11/24/2023 , Expires: 11/23/2024 Start: 11-24-2023 End: 11-24-2023 Patient encounter procedure 11/24/2023 1:15 PM EDT Routine Office Visit OB/Gynecology [address] [place] [address] Edie So APRN.CNM [address] [place] [address] OB- spotting OB/Gynecology Comment on above: OB- spotting Start: 10-27-2023 End: 10-27-2023 Patient encounter procedure 10/27/2023 1:45 PM EDT Initial Office Visit OB/Gynecology [address] [place] [address] Balbina Cortes APRN.RECORD KEEPER [address] [place] [address] Positive test (Mychart) OB/Gynecology Comment on above: Positive t est (Mychart) Start: 08-14-2023 End: 08-13-2024 US Pelvis PELVIC US WHI Anc Imaging Routine Pelvic pain Expected: 08/14/2023, Expires: 08/13/2024 [facility] Work Phone: Comment on above: Expected: 08/14/2023 , Expires: 08/13/2024 Start: 04-10-2023 Behavioral Health Screening Behavioral Health Screening [facility] Start: 02-17-2023 End: 02-17-2023 Patient encounter procedure 02/17/2023 1:15 PM EST Office Visit [facility] Medical Office Building [address] [place] [address] Xiomara Gutierrez MD [address] [facility], [address] [place] [address] [facility] Start: 01-16-2023 End: 01-17-2024 US Pelvis transvaginal US PELVIS TRANSABDOMINAL WITH TRANSVAGINAL Imaging Routine Hemorrhagic cyst of left ovary Expected: 01/16/2023, Expires: 01/17/2024 [facility] Service Area Work Phone: Comment on above: Expected: 01/16/2023 , Expires: 01/17/2024 Start: 12-09-2022 Covid-19 Vaccine ( season) Covid-19 Vaccine ( season) [facility] Start: 12-09-2022 Influenza vaccination Influenza Vacc ine (#1) [facility] Start: 06-01-2022 EPV, Provider: Ottoniel Goyal, Status: Eduardo, Time: 11:20 AM EPV, Provider: Ottoniel Goyal, Status: Pen, Time: 11:20 AM [facility] Work Phone: Start: 04-10-2022 DEPRESSION ASSESSMENT DEPRESSION ASS ESSMENT [facility] Start: 12-09-2021 Influenza vaccination INFLUENZA (#1) [facility] Start: 10-25-2021 HPV TESTING HPV TESTING [facility] Start: 10-25-2021 PAP TESTING PAP TESTING [facility] Start: 07-14-2021 Patient encounter procedure ANNUAL, Provider: Eliseo Long, Status: Pen, Time: 8:30 AM [facility] Work Phone: Start: 04-27-2021 EPV, Provider: Ottoniel Goyal, Status: Pen, Time: 10:00 AM EPV, Provider: Ottoniel Goyal, Status: Pen, Time: 10:00 AM [facility] Start: 04-18-2021 COVID-19 VACCINE (3 - Booster for Pfizer series) COVID-19 VACCINE (3 - Booster for Pfizer series) [facility] Start: 04-18-2021 COVID-19 Vaccine (3 - Pfizer series) COVID-19 Vaccine (3 - Pfizer series) [facility] Start: 07-25-2020 Colonoscopy Colonoscopy [address] Work Phone: Start: 03-06-2009 MMR Vaccines (1 of 1 - Standard series) MMR Vaccines (1 of 1 - Standard series) [facility] Start: 03-06-2009 Varicella vaccination Varicell a Vaccines (1 of 2 - 2-dose childhood series) [facility] Start: 2007 DTaP/Tdap/Td Vaccine s (1 - Tdap) DTaP/Tdap/Td Vaccines (1 - Tdap) [facility] Start: 2006 Screening for malign ant neoplasm of cervix HPV/Cotest [facility] Start: 2004 Hepatitis A Vaccines (1 of 2 - Risk 2-dose series) Hepatitis A Vaccines (1 of 2 - Risk 2-dose series) [facility] Start: 2004 Hepatitis B Vaccine (1 of 3 - 19+ 3-dose series) Hepatitis B Vaccine (1 of 3 - 19+ 3-dose series) [facility] Start: 2004 Urine microalbumin profile [facility] Start: 2003 Depression Screening Depression Scre ening [facility] Start: 2003 Diabetes mellitus screening Diabetes Screening [facility] Start: 2003 HEPATITIS C SCREENING HEPATITIS C [facility] Start: 2003 Hepatitis C screening Hepatitis C [facility] Start: 2003 HIV SCREENING HIV SCREENING [facility] Start: 2003 HIV screening HIV Screening [facility] Start: 1985 HEPATITIS B (1 of 3 - 3-dose series) HEPATITIS B (1 of 3 - 3-dose series) [facility] Start: 1985 Hepatitis B Vaccines (1 of 3 - 3-dose series) Hepatitis B Vaccines (1 of 3 - 3-dose series) [facility] Start: 1985 HIV screening HIV Screening [facility] Start: 1985 Lipid panel Lipid Panel [facility] Start: 1985 Yearly Adult Physical Yearly Adult P hysical [facility] Bacteria identified in Urine by Culture URINE CULTURE Microbiology Routine with uncertain dates in first trimester 12/01/2023 10:06 AM EDT [facility] Chlamydia trachomatis+Neisseria gonorrhoeae DNA [Presence] in Unspecified specimen by ROSAMARIA with probe detection GONORRHEA/CHLAMYDIA NAAT Lab Routine Vaginal bleeding during Multigravida of advanced maternal age in second trimester 11/24/2023 3:54 PM EDT [facility] ECG COMPLETE ECG COMPLETE ECG 06/12/2024 12:55 PM EST [facility] End: 06-12-2025 Echocardiography ECHO Cardiology Routine care and examination Nutritional assessment Exercise counseling Pre-eclampsia in third trimester 1 Occurrences starting 06/12/2024 until 06/12/2025 [facility] Work Phone: Comment on above: 1 Occurrences starti ng 06/12/2024 until 06/12/2025 End: 01-12-2023 Extra Urine Hoffman Tube [facility] Work Phone: Comment on above: Once for 1 Occurrenc es starting 01/12/2023 until 01/12/2023, 1 completed Patient referral [facility] Work Phone: POC BLASTER HELPER ULTRASOUND POC BLASTER HELPER ULTRASO UND Anc Imaging Routine with uncertain dates in first trimester Ordered: 12/01/2023 [facility] Work Phone: Comment on above: Ordered: 12/01/2023 End: 01-12-2023 Urinalysis complete W Reflex Culture panel - Urine [facility] Service Area Work Phone: Comment on above: Once (Lab) for 1 Occ urrences starting 01/12/2023 until 01/12/2023 End: 02-13-2023 US Pelvis transvaginal [facility] Service Area Work Phone: Comment on above: Once for 1 Occurrenc es starting 02/13/2023 until 02/13/2023 Immunizations Immunization Date Immunization Notes Care Provider Elias costello 04-15-2024 respiratory syncytia l virus (RSV) vaccine, bivalent (ABRYSVO) Whi Mob [facility] 03-22-2024 tetanus toxoid, redu marshall diphtheria toxoid, and acellular pertussis vaccine, adsorbed Pedrito Umanzor MD Work Phone: [facility] 02-21-2021 Pfizer-BioNTech COVID-19 Vacc 30 MCG/0.3ML Intramuscular Suspension [employer] Work Phone: [facility] [employer] [facility] Work Phone: 12-27-2020 Pfizer-BioNTech COVID-19 Vacc 30 MCG/0.3ML Intramuscular Suspension [employer] Work Phone: [facility] [employer] [facility] Work Phone: 11-28-2018 tuberculin skin test ; purified protein derivative solution, intradermal [employer] Work Phone: [facility] [employer] [facility] Work Phone: 02-06-2009 novel [id number], live virus for nasal administration [employer] Work Phone: [facility] [employer] [facility] Work Phone: 02-06-2009 influenza virus vaccine, unspecified formulation Ines Burrows DO Work Phone: [facility] Work Phone: NEGATED: Highlighted row has not occurred! influenza, injectable, quadrivalent, preservative free Lutherdawna Copelandcaron DO [address] Work Phone: Payers Date Payer Category Payer Self-pay 2018 Private Health Insurance M[employer] PPO [id number] 2018 Unknown 2015 Unknown [id number] 1985 Unknown [id number] 1985 Unknown [id number] 356 1985 Unknown [id number] ..[id number] 356 1985 Unknown [id number] ..[id number] 356 1985 Unknown [id number] .[id number] 124 1985 Unknown [id number] .[id number] 1985 Unknown [id number] ..[id number] 1985 Unknown [id number] .[id number] Unknown [id number] Unknown [id number] Unknown [id number] Unknown [id number] Unknown [id number] Unknown [id number] Unknown [id number] Social History Date Type Detail Facility Start: 01-16-2023 End: 08-14-2023 No advance directives No advance directives [facility] Work Phone: Start: 07-08-2022 Tobacco smoking status NHIS Never smoked tobacco [facility] Start: 07-08-2022 End: 01-12-2023 Tobacco use and exposure Smokeless tobacco non-user [facility] Start: 07-08-2022 End: 09-16-2024 Alcohol intake Current non-drinker of alcohol (finding) [facility] Start: 1985 Sex Assigned At Not on file [facility] Start: 11-20-2022 Tobacco smoking status [facility] Unknown if ever smoked [facility] Start: 1985 Sex Assigned At Female [facility] Start: 01-12-2023 Tobacco smoking status NHIS Ex-smoker [facility] Work Phone: History of tobacco use Current smoker [facility] Work Phone: History of tobacco use Cigarette Smoker [facility] Work Phone: Start: 01-12-2023 End: 01-16-2023 Alcohol intake Lifetime non-drinker (finding) [facility] Work Phone: Start: 01-16-2023 End: 08-14-2023 Gender identity Not on file [facility] Work Phone: Start: 01-02-2023 End: 02-13-2023 Exposure to SARS-CoV-2 (event) Not sure [facility] Work Phone: National Score (1-100), lower number is lower risk [address] [facility] Start: 09-15-[address] [facility] The thought of harming myself has occurred to me Never [facility] NEGATED: Highlighted row - - [facility] Work Phone: NEGATED: Highlighted row [facility] Goals Date Patient Goal Desired Activity /State Personal health goal Functional Status Date Assessment Result Facility 05-03-2024 Are you deaf, or do you have serious difficulty hearing No 05/03/2024 2:07 PM Melissa Corley RN No [facility] 05-03-2024 Are you blind, or do you have serious difficulty seeing, even when wearing glasses No 05/03/2024 2:07 PM Melissa Corley RN No [facility] 05-03-2024 Do you have serious difficulty walking or climbing stairs No 05/03/2024 2:07 PM Melissa Corley RN No [facility] 05-03-2024 Do you have difficul ty dressing or bathing No 05/03/2024 2:07 PM Melissa Corley RN [facility] 05-03-2024 Because of a physica l, mental, or emotional condition, do you have difficulty doing errands alone such as visiting a physician's office or shopping No 05/03/2024 2:07 PM Melissa Corley RN [facility] NEGATED: Highlighted row Functional performance Functional status health issues are not documented Disease [facility] Work Phone: Mental Status Date Assessment Result Facility 05-03-2024 Because of a physical, mental, or emotional condition, do you have serious difficulty concentrating, remembering, or making decisions No 05/03/2024 2:07 PM Melissa Corley RN No [facility] NEGATED: Highlighted row Cognitive function [Interpretation] Cognitive status health issues are not documented Disease [facility] Work Phone: Clinical Notes 03-12-2022 to 09-18-2024 Telephone Encounter - Teri Zheng RN - 09/18/2024 11:50 AM EDTTelephone Encounter - Teri Zheng RN - 09/18/2024 11:50 AM Ramona Mcknight MD - 09/16/2024 11:22 AM EDT Note Date & Type Note Facility 09-18-2024 Telephone encounter Note Printed off JOSE MANUEL, echo and EKG and faxed to Chelly at [facility] [phone] [facility] 09-18-2024 Miscellaneous Notes Printed off JOSE MANUEL, echo and EKG and faxed to Chelly at [facility] [phone] Harrison is calling Rodo Nolan MD today with concern regarding Results ([facility] requesting last office visit note, echo and EKG report please be faxed to [phone]/Any questions, Dawb [phone]) Patient has been identified by name and birthdate. Duration of symptoms: N/A Person calling: caregiver: Chelly Call patient at: [phone] (home) [phone] (cell) Was an appointment scheduled: No Closing statement: Symptom Call: Thank you for calling [facility], your call is very important. A nurse will call in approximately 2-4 hours during business hours. If this is an emergency, please contact 911. Brannon Hunter documented in this encounter [facility] 09-18-2024 Telephone encounter Note Harrison is calling Rodo Nolan MD today with concern regarding Results ([facility] requesting last office visit note, echo and EKG report please be faxed to [phone]/Any questions, Dawb [phone]) Patient has been identified by name and birthdate. Duration of symptoms: N/A Person calling: caregiver: Chelly Call patient at: [phone] (home) [phone] (cell) Was an appointment scheduled: No Closing statement: Symptom Call: Thank you for calling [facility], your call is very important. A nurse will call in approximately 2-4 hours during business hours. If this is an emergency, please contact 911. Brannon Hunter [facility] 09-17-2024 Telephone encounter Note [facility] called because they are unable to get ahold of patient for PAT. They do have her correct phone number that we have listed and are asking for message be sent to patient to call them chester. Surgery is scheduled for 09/20/24. Anjum Sumner RN [facility] 09-17-2024 Miscellaneous Notes [facility] called because they are unable to get ahold of patient for PAT. They do have her correct phone number that we have listed and are asking for message be sent to patient to call them chester. Surgery is scheduled for 09/20/24. Anjum Sumner RN documented in this encounter [facility] 09-16-2024 History and physical note DATE OF SERVICE: September 16, 2024 PROBLEM: request sterilization, menorrhagia, dysmenorrhea DIAGNOSIS: as above PAST SURGICAL HISTORY: PAST SURGICAL HISTORY Procedure Laterality Date COLONOSCOPY SCREENING 2020 polyp, 5 year follow up PAST MEDICAL HISTORY: PAST MEDICAL HISTORY Diagnosis Date Anxiety History of gestational hypertension 12/01/2023 History of depression 12/01/2023 Obesity Uterine fibroid 2022 Vaginal bleeding during (HCC) 12/01/2023 SUBJECTIVE: Periods irregular while . Not sexually active at this time as she does not desire SOCIAL HISTORY: Social History Tobacco Use Smoking status: Never Smokeless tobacco: Never Vaping Use Vaping status: Never Used Substance Use Topics Alcohol use: No Drug use: No ALLERGIES Allergen Reactions Penicillins Rash Zoloft [Sertraline * Intolerance Current Outpatient Medications on File Prior to Visit Medication Sig hydroCHLOROthiazide 25 mg tablet Take 1 tablet by mouth once daily. losartan (COZAAR) 50 mg tablet Take 1 tablet by mouth two times a day. NIFEdipine ER (PROCARDIA XL) 60 mg 24 hr tablet Take 1 tablet by mouth two times a day. Current Facility-Administered Medications on File Prior to Visit Medication bupivacaine (PF) 0.0625%-fentaNYL (PF) 2 mcg/mL epidural in NaCl 0.9% 250 mL OBJECTIVE: VITALS: BP 110/78 Pulse 78 Resp 16 Ht 162.6 cm (5' 4) Wt 95.8 kg (211 lb 3.2 oz) LMP 09/02/2023 Yes BMI 36.25 kg/m HEENT: Normocephalic, atraumatic, Mucus membranes moist without lesions. SKIN: No lesions. CHEST: Clear to auscultation. No wheezes or rales. Good air exchange. HEART: Regular rate and rhythm No S3 or S4. No gallops or rubs. BACK: Nontender. ABDOMEN: Non-distended. LOWER EXTREMITIES: There was no pitting edema. ASSESSMENT: pre op PLAN: 1) Discussed r/b/a hysteroscopy, D&C, fibroid resection, progesterone IUD insertion, laparoscopic bilateral salpingectomy in detail. The rationale for the proposed surgery was discussed in addition to risks, benefits, and alternatives. General pre- and post-operative care was reviewed. Questions were answered. After discussion, the patient indicated a desire to proceed with the planned surgery. Ramona Alexander DO Medical Decision Making: Problems: Moderate: New problem with uncertain prognosis and 2+ stable chronic illnesses Risk: Moderate: Decision on minor surgery w/ risk factors Medical Decision Making Level: 4 - Moderate [facility] 09-16-2024 History and physical note DATE OF SERVICE: September 16, 2024 PROBLEM: request sterilization, menorrhagia, dysmenorrhea DIAGNOSIS: as above PAST SURGICAL HISTORY: PAST SURGICAL HISTORY Procedure Laterality Date COLONOSCOPY SCREENING 2020 polyp, 5 year follow up PAST MEDICAL HISTORY: PAST MEDICAL HISTORY Diagnosis Date Anxiety History of gestational hypertension 12/01/2023 History of depression 12/01/2023 Obesity Uterine fibroid 2022 Vaginal bleeding during (HCC) 12/01/2023 SUBJECTIVE: Periods irregular while . Not sexually active at this time as she does not desire SOCIAL HISTORY: Social History Tobacco Use Smoking status: Never Smokeless tobacco: Never Vaping Use Vaping status: Never Used Substance Use Topics Alcohol use: No Drug use: No ALLERGIES Allergen Reactions Penicillins Rash Zoloft [Sertraline * Intolerance Current Outpatient Medications on File Prior to Visit Medication Sig hydroCHLOROthiazide 25 mg tablet Take 1 tablet by mouth once daily. losartan (COZAAR) 50 mg tablet Take 1 tablet by mouth two times a day. NIFEdipine ER (PROCARDIA XL) 60 mg 24 hr tablet Take 1 tablet by mouth two times a day. Current Facility-Administered Medications on File Prior to Visit Medication bupivacaine (PF) 0.0625%-fentaNYL (PF) 2 mcg/mL epidural in NaCl 0.9% 250 mL OBJECTIVE: VITALS: BP 110/78 Pulse 78 Resp 16 Ht 162.6 cm (5' 4) Wt 95.8 kg (211 lb 3.2 oz) LMP 09/02/2023 Yes BMI 36.25 kg/m HEENT: Normocephalic, atraumatic, Mucus membranes moist without lesions. SKIN: No lesions. CHEST: Clear to auscultation. No wheezes or rales. Good air exchange. HEART: Regular rate and rhythm No S3 or S4. No gallops or rubs. BACK: Nontender. ABDOMEN: Non-distended. LOWER EXTREMITIES: There was no pitting edema. ASSESSMENT: pre op PLAN: 1) Discussed r/b/a hysteroscopy, D&C, fibroid resection, progesterone IUD insertion, laparoscopic bilateral salpingectomy in detail. The rationale for the proposed surgery was discussed in addition to risks, benefits, and alternatives. General pre- and post-operative care was reviewed. Questions were answered. After discussion, the patient indicated a desire to proceed with the planned surgery. Ramona Alexander DO Medical Decision Making: Problems: Moderate: New problem with uncertain prognosis and 2+ stable chronic illnesses Risk: Moderate: Decision on minor surgery w/ risk factors Medical Decision Making Level: 4 - Moderate documented in this encounter [facility] 08-10-2024 Note HNO ID: [id number] Author: ALCIRA ALVARADO MD Service: ? Author Type: Physician Type: Progress Notes Filed: 08/10/2024 22:43 Note Text: The patient presents for requested ultrasound. Full report available in the Imaging tab in [employer]. Alcira Alvarado MD [facility] 08-10-2024 History of Present illness Narrative The patient presents for requested ultrasound. Full report available in the Imaging tab in [employer]. Alcira Alvarado MD documented in this encounter [facility] 08-09-2024 Telephone encounter Note Patient notified. Yuliya Villatoro RN [facility] 08-09-2024 Miscellaneous Notes Patient notified. Yuliya Villatoro RN Left message for patient to call office. Kena aMrio RN Images from the original note were not included. Ramona Alexander MD to [facility]-[employer] Pool 08/09/24 8:22 AM Result Note Please notify pt her pap test is normal but HPV test is positive. Given prior normal pap smear, and HPV 16 and 18 are negative, the recommendation is for repeat cotesting at 12 months BACTERIAL VAGINOSIS NAAT; TI/TRICHOMONAS NAAT; PAP TEST; HIGH RISK HUMAN PAPILLOMA VIRUS (HPV), PCR FOR DETECTION AND GENOTYPING documented in this encounter [facility] 08-09-2024 Telephone encounter Note Left message for patient to call office. Kena Mario RN [facility] 08-09-2024 Telephone encounter Note Images from the original note were not included. Ramona Alexander MD to [facility] Pool 08/09/24 8:22 AM Result Note Please notify pt her pap test is normal but HPV test is positive. Given prior normal pap smear, and HPV 16 and 18 are negative, the recommendation is for repeat cotesting at 12 months BACTERIAL VAGINOSIS NAAT; TI/TRICHOMONAS NAAT; PAP TEST; HIGH RISK HUMAN PAPILLOMA VIRUS (HPV), PCR FOR DETECTION AND GENOTYPING T [facility] 08-02-2024 Note HNO ID: [id number] Author: RAMONA ALEXANDER MD Service: ? Author Type: Physician Type: Progress Notes Filed: 08/02/2024 13:57 Note Text: Harrison Gunderson is a 39 year old female who presents for problem visit - discuss sterilization. HPI: She had a pelvic US in 2022 that showed a 2.8 cm submucosal fibroid. She is interested in a hysterectomy or sterilization. Daughter is 3 months old and . Bleeding is sporadic without a pattern. Bleeding can last 3-5 days with clots, dysmenorrhea and menorrhagia. Pap smear normal 2016. Had colonoscopy 2020 and she reports there was a polyp and to have 5 year follow up. Reports she was on control pills and a patch in the past and had irregular bleeding. Had migraines using CHC. Right now abstinent. 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 Scientist History Comments: Sexual Activity: Yes; Male Contraception: Condom PAST MEDICAL HISTORY Diagnosis Date Anxiety History of gestational hypertension 12/01/2023 History of depression 12/01/2023 Obesity Uterine fibroid 2022 Vaginal bleeding during (HCC) 12/01/2023 PAST SURGICAL HISTORY Procedure Laterality Date COLONOSCOPY SCREENING 2020 polyp, 5 year follow up FAMILY HISTORY Problem Relation Age of Onset Diabetes Mother Anxiety disorder Mother Hypertension Mother None Father Social History Tobacco Use Smoking status: Never Smokeless tobacco: Never Vaping Use Vaping status: Never Used Substance Use Topics Alcohol use: No Drug use: No Current Outpatient Medications Medication Sig hydroCHLOROthiazide 25 mg tablet Take 1 tablet by mouth once daily. losartan (COZAAR) 50 mg tablet Take 1 tablet by mouth two times a day. NIFEdipine ER (PROCARDIA XL) 60 mg 24 hr tablet Take 1 tablet by mouth two times a day. No current facility-administered medications for this visit. Facility-Administered Medications Ordered in Other Visits Medication Dose Route Frequency bupivacaine (PF) 0.0625%-fentaNYL (PF) 2 mcg/mL epidural in NaCl 0.9% 250 mL EPIDURAL X (ONE-STEP ONLY) CONTINUOUS PRN Allergies As of Date: 08/02/2024 Allergen Noted Reaction PENICILLINS 10/25/2016 Rash ZOLOFT [SERTRALINE HCL] 05/24/2017 Intolerance Fully Assessed 08/02/2024 REVIEW OF SYSTEMS Expanded ROS: N/A Allergies and current medication updated:Yes SENSITIVE EXAM: The sensitive examination was discussed with the Patient or Patient's Authorized Fluorescent Lamp Replacer. As applicable, any other physician, advance practice provider, medical student, or other health professional student that will be observing or involved in the sensitive examination for educational or training purposes was discussed with the Patient or Authorized Fluorescent Lamp Replacer. The Patient or Authorized Fluorescent Lamp Replacer has agreed to proceed with the sensitive examination. (Sensitive examination includes inspection and/or palpation of the breasts, pelvis, prostate and anorectal regions). EXAM: BP 120/80 Wt 210 lb (95.3kg) LMP 09/02/2023 GENERAL: pleasant, female in no apparent distress HEENT: Normocephalic and atraumatic CHEST: Normal inspiratory effort ABDOMEN: soft, non-tender, and no masses PELVIC: external genitalia normal, normal Bartholin's glands, urethra, [place]'s glands, no vulvar lesions, no cervical lesions, good vaginal support, normal appearing perineal body and perianal region, thin yellow discharge present and bleeding after pap test NEURO: exam grossly non-focal EXTREMITIES: normal ASSESSMENT AND PLAN: Assessment AND Plan DUB (dysfunctional uterine bleeding) Orders: PELVIC US WHI; Future Uterine leiomyoma, unspecified location Orders: PELVIC US WHI; Future Pap smear for cervical cancer screening Orders: PAP TEST Screening for HPV (human papillomavirus) Orders: PAP TEST Vaginal discharge Orders: BACTERIAL VAGINOSIS NAAT TI/TRICHOMONAS NAAT Request for sterilization Discussed r/b/a hysterectomy vs laparoscopic bilateral salpingectomy, hysteroscopy, DANDC, fibroid resection and possible progesterone IUD insertion. Patient considering IUD. She has a 3 month old at home so would like to proceed with laparoscopic bilateral salpingectomy, hysteroscopy, DANDC, fibroid resection and possible IUD at this time. Questions answered. Check pap test and BV, yeast. Check pelvic US prior to any surgical intervention. Surgery sheet completed. Ramona Alexander, Medical Decision Making: Problems: Low: Acute, uncomplicated illness or injury Moderate: 1+ chronic illnesses with change Data: Unique test(s) ordered: 2 Risk: Low: Low risk from testing/treatment Medical Decision Making Level: 3 - Low [facility] 07-19-2024 Telephone encounter Note Per Dr. Nolan - Start HCTZ 25mg daily and repeat chem7 in week.. Will put POC about OR on EPIC New log in 1week Mychart sent to pt Lissy Marti RN [facility] 07-19-[address] Nolan - Start HCTZ 25mg daily and repeat chem7 in week.. Will put POC about OR on EPIC New log in 1week Mychart sent to pt Lissy Marti RN Echo completed on 07/10/24, routing to Dr Nolan for BP log review and clearance considerations. 06/12/24 PLAN: - BP controlled but reports labile readings at home. She will send home log for review in 1week - ECHO for structure and function - contraception: plans for hysterectomy, cannot use control due to history of migraines and heavy bleeding with control (was told this indicates increased stroke risk) - PCP: Follows with Dr. Goyal, plan on follow up in 3-6 months documented in this encounter [facility] 07-18-2024 Telephone encounter Note Request from Dr. 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 Hysterectomy She was last seen by me on 06/12/2024 for preeclampsia, AMA, /LBW delivery in the heart clinic. In the interim we have titrated her medication as OPD for better control. Echo showed normal structure and function. She cannot tolerate hormonal control and is planning sterilization procedure. Impression CONCLUSIONS: - Exam indication: Hypertension - The left ventricle is normal in size. Left ventricular systolic function is normal. EF = 61 5% (2D 4-ch.) Normal left ventricular diastolic function. - The right ventricle is normal in size. Right ventricular systolic function is normal. - The patient has not had a prior CC echocardiographic exam for comparison. I have reviewed her most recent home blood pressure log. Blood pressure remains borderline elevated and we will add hydrochlorothiazide 25 mg daily. She is at acceptable cardiovascular risk to proceed with intermediate risk gynecological surgery as indicated. This was communiciated to Dr. Alexander via secure chat Rodo Nolan MD Time spent: 7 minutes Rodo Nolan MD [facility] 07-18-2024 Miscellaneous Notes Request from Dr. 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 Hysterectomy She was last seen by me on 06/12/2024 for preeclampsia, AMA, /LBW delivery in the heart clinic. In the interim we have titrated her medication as OPD for better control. Echo showed normal structure and function. She cannot tolerate hormonal control and is planning sterilization procedure. Impression CONCLUSIONS: - Exam indication: Hypertension - The left ventricle is normal in size. Left ventricular systolic function is normal. EF = 61 5% (2D 4-ch.) Normal left ventricular diastolic function. - The right ventricle is normal in size. Right ventricular systolic function is normal. - The patient has not had a prior CC echocardiographic exam for comparison. I have reviewed her most recent home blood pressure log. Blood pressure remains borderline elevated and we will add hydrochlorothiazide 25 mg daily. She is at acceptable cardiovascular risk to proceed with intermediate risk gynecological surgery as indicated. This was communiciated to Dr. Alexander via secure chat Rodo Nolan MD Time spent: 7 minutes Rodo Nolan MD documented in this encounter [facility] 07-16-2024 Telephone encounter Note Echo completed on 07/10/24, routing to Dr Nolan for BP log review and clearance considerations. [facility] 06-27-2024 Telephone encounter Note 06/12/24 PLAN: - BP controlled but reports labile readings at home. She will send home log for review in 1week - ECHO for structure and function - contraception: plans for hysterectomy, cannot use control due to history of migraines and heavy bleeding with control (was told this indicates increased stroke risk) - PCP: Follows with Dr. Goyal, plan on follow up in 3-[address] [facility] 06-12-2024 Instructions Rodo Nolan MD - 06/12/2024 1:47 PM EST Images from the original note were not included. - Complete non-fasting bloodwork when able (should be at least 3mos ) - Schedule echo - Please keep a log of your blood pressures twice daily for the next week and send it back to Dr. Nolan through [employer]. - Aim for at least 150mins of moderate aerobic activity OR 60mins of vigorous activity weekly (see table below) - Consider reading The Whole Heart Solution by Vasu Hdez, The Spectrum by Cody Navarro or Whole Body Reset by Arvin Irene (for 50yo+). Watch the documentaries [place] and That Sugar Film to learn more about plant-based/low carbohydrate eating. - see your PCP in 3-6months. - For more information on healthy lifestyle and diet visit [email or web address]. LOW SALT DIET Purpose: Sodium controlled diets are designed to avoid excessive sodium retention Use: The low salt diet is used for persons with diseases that affect fluid balance or where a decrease in body fluid volume will relieve symptoms of the disease. Conditions where control may be indicated are severe heart failure, impaired liver function, high blood pressure, and acute and chronic kidney disease. Here are the following guidelines to help reduce the amount of sodium in your diet. Take the salt shaker off the table and omit salt from recipes and food preparation. Cook without salt or with only small amounts of added salt. Learn to enjoy the flavors of unsalted foods Try flavoring foods with herbs, spices, and lemon juice. Read food labels carefully to determine the amounts of sodium. Learn to recognize ingredients that contain sodium, [place], soy sauce, salt brine or any ingredient with sodium (such as monosodium glutamate) or baking soda (sodium bicarbonate) as part of its name contains sodium. Rinsing canned vegetable and fish will remove much of the salt. Season or marinate meat, poultry, and fish ahead of time with onion, garlic and your favorite herbs before cooking to bring out the flavor. Some terms describing sodium content: lite, light, lightly salted, low sodium, reduced sodium, sodium free, unsalted, no salt added, without salt added, very low sodium. Use lower sodium products, when available, to repace those with higher sodium content. Use simple techniques like saving chicken broth from a chicken you cook at home rather than buying a canned, powdered or bouillon cube broth. When dining out words that signal high sodium include: smoked, barbequed, pickled, broth, soy sauce, teriyaki, creole sauce, marinated, cocktail sauce, tomato base, parmesan, and mustard sauce. FOODS RECOMMENDED FOODS TO AVOID MILK & DAIRY 2-3 servings each day All milk and milk products, except buttermilk Cream Cheese Low sodium cheeses Yogurt MILK & DAIRY Buttermilk Cheese ([place]rett, Yusef, Cheddar, Blue, Gouda, Filipino, Velveeta) Cheese spreads FRUITS & VEGETABLES 5-9 servings each day Fresh or frozen vegetables No added salt or low salt canned vegetables No added salt tomato products Salt-free vegetable juices All fruit and fruit juices FRUITS & VEGETABLES Canned vegetables Frozen vegetables with seasoning and sauces Pickle relish, sweet or sour Pickled vegetables Pickles and others prepared in brine Sauerkraut Vegetable or tomato juices, canned or bottled Pickled fruits BREADS & GRAINS 6-11 servings each day Bread and rolls Dry and cooked cereals Pancakes, waffles Potatoes Salt-free potato chips Salt-free pretzels/snack chips Rice, barley, noodles, spaghetti, macaroni and other pastas Tortillas Unsalted crackers Unsalted popcorn BREADS & GRAINS Breads and rolls with salted tops Instant hot cereals Instant food products (e.g., cereals, pasta mixes, potatoes, rice, etc.) such as boxed mixes like rice, scalloped potatoes, macaroni and cheese Popcorn, prepackaged microwave Salted popcorn Saltines, potato chips, pretzels, snack chips, pork rinds MEATS & MEAT SUBSTITUES 2-3 servings or total of 6 oz daily All fresh and fresh frozen meats (poultry, fish, shellfish, beef, pork, adams) Canned unsalted tuna fish Dried peas and beans Eggs Low sodium peanut butter Unsalted nuts Unsalted soybeans and other meat substitutes Soups Homemade soups, made with allowed ingredients Unsalted broth or bouillon Low sodium commercial soup MEATS & MEAT SUBSTITUTES Cured, salted, canned or smoked meats, poultry, or fish such as corned beef, ham, choe, luncheon meats, beef jerky, bologna, pork rinds, hogmaws, ribs, chitterlings, frankfurter, sausage, chorizo, canned fish like tuna, sardines, mackerel, anchovies, caviar, salkted cod, weston, sardines, lox, dry fish, and kippered salmon Dried fish, Assorted (e.g., dried shrimp) Frozen pizza Frozen prepared meat entree dinners such as pot pies, macaroni and cheese Kosher meats Pickled meats Regular peanut butter Salted nuts Soups Broth and soups with added salt Regular canned soups Regular instant soups Regular bouillon cubes FATS & SNACKS (use sparingly) Margarine, vegetable oils and lard Unsalted gravies Unsalted butter Mayonnaise, sour cream Salt-free salad dressings Homemade salad dressings, made without added salt Whipping cream Sugar, honey, jelly, jam, syrup, candies Popsicles, fruit ice, sherbet, fruit sorbet, marshmallows Homemade cookies, pies, cakes made with allowed ingredients FATS & SNACKS Butter Commercial salad dressings Cheese-based dressings Choe fat, fatback, salt pork Salad dressing mixes Olives, green and black Prepared frozen cream pies and cheese cake Instant pudding mixes Commercially prepared baked goods (cakes, cookies, pie) Salted nuts MISC. Allspice, mustard (dry) Trufant extract Basil Jenkins leaves Capello's Israeli style seasoning Zay seeds Chives cider vinegar Cinnamon Flores powder Cookie crystal Dill Garlic powder Jesse Herbal seasonings: Jayashree's seasoned pepper Jayashree's seasoning (no salt) Lemon juice Mace Mrs. Dash Nutmeg Onion powder Paprika Parsley Parsley patch Peppermint extract Pimento Sarah Robb Salt free seasoning blends Savory Sodium-free baking powder Thyme Turmeric Vinegar Klein's all-purpose seasonings Labeled no salt Products, assorted (e.g., blackburn paste, and sauces, oriental dried plums and other dried seeds, vegetables and fruits (lemon & jesse) MISC. Accent Jackelyn-seltzer All commercially prepared and convenience foods Such as TV dinners, box mixes, canned entrees, hamburger helper, meat pies, Dominican dinners, pizza, shake'n'bake mixes BBQ sauce Celery salt Centre sauce Garlic salt Horseradish Kitchen bouquet Lemon pepper Marinade sauce Meat tenderizers Monosodium glutamate (MSG) Onion salt Libertarian spreads Regular ketchup Relish Salad dressings Salt Seasoning salts Sodium benzoate Sodium caseinate Sodium citrate Sodium nitrate Sodium phosphate Sodium propionate Sodium saccharin Soy sauce Steak sauce Gertrude sauce Teriyaki sauce [facility] sauce PRACTICAL SUGGESTIONS TO INCORPORATE MEDITERRANEAN DIET CATEGORY CONSUME AVOID Fruits and vegetables Wide variety of whole fruits and vegetables; try for at least 7-10 servings per day Vegetables prepared in butter or cream sauce High-fiber breads, cereals, and pasta Whole grain bread and cereal, bran, brown rice Sweets, white bread, biscuits, breadsticks, and other refined carbohydrates Protein that is low in saturated fat Lean cuts of meat (fat trimmed) or poultry (no skin); low-fat dairy foods (skim mild, yogurt) Choe, sausage, other processed or high-fat meat, milk or cheese that is not low-fat, ice cream Fish or other source of omega-3 fatty acids, at least 1 or 2 times per week [place], trout, weston, water-packed tuna, mackerel (or fish oil supplement); flaxseed, spinach, walnuts Fried fish ( except when saha fried in olive oil) Healthy oils for cooking, salad dressing, and other uses Extra-virgin olive oil, canola oil, flaxseed oil (high-oleic sunflower or safflower oil may also be an option) [place]-6 oils, (corn, sunflower, safflower, soybean, peanut) Peas, beans, legumes, and nuts Soybeans, lentils, or any kind of peas, beans, or legumes; tree nuts (eg. Almonds,pecans, walnuts, [place] nuts) Heavily salted or honey-roasted nuts; stale or rancid nuts Alcohol One 5-oz glass of wine, a 12-oz beer, or a 1.5oz drink containing distilled spirits with the evening meal Limit to no more than 1 drink daily for women, 2 drinks daily for men Fat Emphasize whole, natural foods as above; look for 'trans-fatty acid -free margarine and snack foods Fast food, fried food, margarine, chips, crackers, baked goods, doughnuts, any processed food made with partially hydrogenated oil PHYSICAL ACTIVITY GUIDE: [facility] Food Pantries Affiliated with the [facility] [employer] [facility] Hours: Monday-Monday 9-12 and 1-3 Location: [facility]: [address] [address] Contact: Kathleen Ramirez [employer] Hours: Monday of the month starting at 11am, first come first served Location: Kathleen Ramirez, [address] [address] [id number] Contact: Ade Naidu [phone] or Casi Santa [phone] [facility] Hours: Location: [facility] [address] Contact: [facility] Support Groups [facility] Day: Tuesdays Time: 1-2:30 p.m. To register, call [phone]. [facility] (across from [facility]) Days: Tuesdays and Fridays Time: 11 a.m. to 12:30 p.m. To register, call [phone]. [facility] Day: Time: 10 to 11:30 a.m. By appointment only, to schedule call [phone]. Ashwini Lux (Support for black mothers and families) Day: Wednesdays Times: 10 to 11 a.m. (virtual and in-person options) and 6 to 7 p.m. (virtual only) To register, call [phone]. [facility] Day: Wednesdays Times: 1:30-3:30 p.m. To register, call [phone]. You can also schedule an appointment with a vessel specialist for questions, concerns, or difficulty [phone] You can also see Yani López Call [phone] to schedule Community Resources [facility] Hours: Partners with many locations, hours dependent on location Contact: [email or web address] Womankind: Baby items (Diapers, clothing, etc) Hours: Monday - 10 am - 4 pm; Monday 10 am - 2 pm Email: [email or web address] BENNY House: Baby clothes up to size 2T, diapers, blankets, strollers, care seats, and cribs Address: [address] [place] [address] Website: [employer].Applied StemCellWI Diabetes Prevention Program https://www.ymca.org/what-we-do/h ealthy-living/fitness/diabetes-pr evention [facility] Forward Address: [address] [address] Website: [email or web address] [facility] Address: [address] [facility] [facility] [address] Website: [email or web address] [facility] Address: [address] [address] Website: [email or web address] [employer] m/ with Possibilities (Diapers, clothing, and formula) Making Opportunities Matter 13 week program Hours: Monday - Monday 9-5 Location: [address] [place] [address] Website: withpossiPantheon [facility] Address: [address] [place] [address] Website: [email or web address] / Family Care Boot Camp for New Dads, Sibling Preparation, Grandparent preparation, Understanding your , Baby Basics Multiple [facility] locations Contact: Ccf.org/babyclasses Depression http://www.broaching machine set up operator.org/acnm/files /ccLibraryFiles/Filename/[email or web address] [email or web address].pdf [facility] They also have many other locations : [employer] [place], [place] https://[email or web address]/locations /[facility] [address] [place] [address] Support Groups: Resilient Mamas - Support Group [place] [facility] and Monday of each month 6:30pm to 8:30pm [facility]. Javas.org The POEM support group at [facility] Every Monday 7-8:30PM [phone] www.[email or web address] Online support meetings PSI https://www..net/get-he lp/awf-axfjzu-yqhordc-meetings/ Mobile Crisis # [phone] Relaxation Exercises: www.[facility].org/relax Crisis text line text the word HOME to [id number] [employer] [facility] (specializes in trauma) https://Atrenta/service s/iqeja-pl-uoapreinhr/-p ostpartum/ documented in this encounter [facility] 06-12-2024 History of Present illness Narrative Images from the original note were not included. [facility] Department of Cardiology [address] [place] [address] (office) [phone] (fax) 06/12/2024 This note was written using medical terminology and is intended to be used for medical purposes by other health adult care manager Patient presents with: Care HPI: Ms. Gunderson is a 39 year old female with below PMH who is referred for a Heart visit for severe preeclampsia, AMA, /LBW delivery. She presented at 32 +6 for preeclampsia with severe features. The decision was made to induce at 33+5. She was discharged with labetalol 200 mg every 8 hours and nifedipine 60 mg twice daily. She then presented back to the hospital after an increase in nifedipine and the addition of hydralazine did not control her blood pressures. Her blood pressure normalized with nifedipine 60 mg twice daily and losartan 75 mg daily. She is still taking both medications. At home her blood pressures have been ranging from 140/80-90 to 115/90. She has also had some normal range blood pressures. She has had some chest tightness and upper back tightness with activity along with some shortness of breath. The swelling in her feet and and ankles has resolved. She has had headaches with increases in activity which will become migraines if she does not stop her activity. This is new since her delivery. This was her 5th . She had preeclampsia with her first and was induced but did not require medications. The subsequent 3 were uneventful. She lives at home with her 5 kids and her boyfriend. She plans on having a hysterectomy for fibroids. She is not currently sexually active because she is not able to use control due to increased bleeding. If she were to decide to be sexually active she would use condoms. 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 She feels safe at home. Her mood is stable. Her mom has type 2 diabetes otherwise her family history is unremarkable for cardiac concerns. Home Bps 120-150/60-80's. Weight 206lbs pre-baby. Delivery Date: 04/24/2024 Weeks at Delivery: 33+5 Mode of Delivery: Vaginal ?: Yes On aspirin for PEC prevention during ?: Yes, aspirin 81 mg daily Discharged on blood pressure meds?: Yes Discharged on diabetes meds?: No Cardiology: The review of symptoms was negative for shortness of breath, orthopnea, paroxysmal nocturnal dyspnea, palpitation, edema General ROS: Otherwise 14 systems ROS is negative except as stated above. PAST MEDICAL HISTORY Diagnosis Date Anxiety History of gestational hypertension 12/01/2023 History of depression 12/01/2023 Obesity Uterine fibroid 2022 Vaginal bleeding during 12/01/2023 PAST SURGICAL HISTORY Procedure Laterality Date COLONOSCOPY SCREENING 2019 Current Outpatient Medications: losartan (COZAAR) 25 mg tablet, Take 3 tablets by mouth once daily., Disp: 60 tablet, Rfl: 1 NIFEdipine ER (PROCARDIA XL) 60 mg 24 hr tablet, Take 1 tablet by mouth two times a day., Disp: 180 tablet, Rfl: 1 No current facility-administered medications for this visit. Facility-Administered Medications Ordered in Other Visits: bupivacaine (PF) 0.0625%-fentaNYL (PF) 2 mcg/mL epidural in NaCl 0.9% 250 mL, , EPIDURAL, X (ONE-STEP ONLY) CONTINUOUS PRN, Negin, Shantel, CIRCULATION MAN.REPAIRER PUMP ALLERGIES Allergen Reactions Penicillins Rash Zoloft [Sertraline * Intolerance AVAILABLE LABS, EKGS, CARDIAC TESTING/PROCEDURES, FAMILY HISTORY AND SOCIAL HISTORY WERE REVIEWED AND UPDATED IN [facility]. ECG 06/12/2024 Normal Sinus Rhythm Normal ECG No previous cardiac testing available LABORATORY TESTS: CBC: WBC HGB PLT 8.25 11.8 292 CHEMISTRY: NA K CA CHLOR CO2 GLUC BUN CREAT 138 4.6 9.5 102 23 88 16 0.66 HEPATIC: ALT AST 9 22 METABOLIC: CHOL LDL HDL TG TSH HBA1C No results found for this basename: CHOL:1 No results found for this basename: LDL:1 No results found for this basename: HDL:1 No results found for this basename: T 1.530 4.8 COAG: APTT INR No results found for this basename: APTT:1 No results found for this basename: INR:1 PHYSICAL EXAM: BP 124/86 Pulse 66 Ht 165.1 cm (5' 5) Wt 94.8 kg (209 lb) LMP 09/02/2023 Yes BMI 34.78 kg/m PHQ= 2 , Med Diet Score= 9 General: Well appearing, in no acute distress, speaking in complete sentences. Skin: No clubbing, no cyanosis. Eyes: Extra ocular movements intact Oropharynx: Teeth in good repair. Neck: no jugular venous distention,, no carotid bruits, Lungs: Clear to auscultation bilaterally, no wheezing or rhonchi. Heart: Regular rhythm, S1, S2 normal, no murmur Abdomen: Soft, nontender Extremities: No peripheral edema . Grade 2/4 distal pulses bilaterally. Neuro: Oriented to person, place and time, alert, cooperative, gait coordinated. ASSESSMENT: (O14.93) Pre-eclampsia in third trimester (primary encounter diagnosis) Plan: ECHO, perflutren lipid microspheres 1.3 mL in NaCl (PF) 0.9% 10 mL injection (DEFINITY), sodium chloride 0.9 % (flush) 10 mL (BD POSIFLUSH), COMPLETE BLOOD COUNT, T4 FREE/FREE THYROXINE, HIGH SENSITIVITY C-REACTIVE PROTEIN, THYROID STIMULATING HORMONE, COMPREHENSIVE METABOLIC PANEL, LIPID PANEL, NONFASTING, NT PRO BNP, ECG COMPLETE (Z39.2) care and examination Plan: ECHO, perflutren lipid microspheres 1.3 mL in NaCl (PF) 0.9% 10 mL injection (DEFINITY), sodium chloride 0.9 % (flush) 10 mL (BD POSIFLUSH), COMPLETE BLOOD COUNT, T4 FREE/FREE THYROXINE, HIGH SENSITIVITY C-REACTIVE PROTEIN, THYROID STIMULATING HORMONE, COMPREHENSIVE METABOLIC PANEL, LIPID PANEL, NONFASTING, NT PRO BNP, ECG COMPLETE (Z00.8) Nutritional assessment Plan: ECHO, perflutren lipid microspheres 1.3 mL in NaCl (PF) 0.9% 10 mL injection (DEFINITY), sodium chloride 0.9 % (flush) 10 mL (BD POSIFLUSH), COMPLETE BLOOD COUNT, T4 FREE/FREE THYROXINE, HIGH SENSITIVITY C-REACTIVE PROTEIN, THYROID STIMULATING HORMONE, COMPREHENSIVE METABOLIC PANEL, LIPID PANEL, NONFASTING, NT PRO BNP, ECG COMPLETE (Z71.82) Exercise counseling Plan: ECHO, perflutren lipid microspheres 1.3 mL in NaCl (PF) 0.9% 10 mL injection (DEFINITY), sodium chloride 0.9 % (flush) 10 mL (BD POSIFLUSH), COMPLETE BLOOD COUNT, T4 FREE/FREE THYROXINE, HIGH SENSITIVITY C-REACTIVE PROTEIN, THYROID STIMULATING HORMONE, COMPREHENSIVE METABOLIC PANEL, LIPID PANEL, NONFASTING, NT PRO BNP, ECG COMPLETE (O60.10X0) delivery (P07.10) Low weight (O09.529) Antepartum multigravida of advanced maternal age [facility] STAFF PHYSICIAN NOTE OF PERSONAL INVOLVEMENT IN CARE IMPRESSION: Patient is a 39 year old female w/ AMA, PTB/LBW, PEC PLAN: - BP controlled but reports labile readings at home. She will send home log for review in 1week - ECHO for structure and function - contraception: plans for hysterectomy, cannot use control due to history of migraines and heavy bleeding with control (was told this indicates increased stroke risk) - PCP: Follows with Dr. Goyal, plan on follow up in 3-6 months I have reviewed the documentation obtained and documented by the Nurse Practitioner and I have personally performed the substantive portion of the visit which includes the medical decision making. I have discussed the case and management of the patient's care. STAFF PHYSICIAN: Rodo Nolan MD DATE OF SERVICE: June 12, 2024 TIME OF SERVICE: 1:36 PM I spent 60mins face to face with patient and >50% of this time was spent in consultation and coordination of care. She is educated about the implications of -related hypertensive disorders and elevated future cardiovascular risks. The components of the metabolic syndrome and goals to work toward minimizing CV events through controlled risk factors were reviewed. Will send risk stratification labs. She is educated about potential risks of hypertensive disorders in future pregnancies. She will aim for at least 150mins of moderate-intensity aerobic activity. She is advised to reduce intake of processed foods and lean more toward a plant-based diet. Additional lifestyle education materials are provided on clinic discharge. Thank you for allowing me to participate in the care of your patient. Please feel free to contact me with any questions or concerns. Sincerely- Rodo Nolan MD Staff Family And Marriage Counsellor Orders Placed This Encounter CBC Standing Status: Future Expected Date: 06/12/2024 Expiration Date: 09/11/2024 T4 FREE/FREE THYROX Standing Status: Future Expected Date: 06/12/2024 Expiration Date: 09/11/2024 Scheduling Instructions: In preparation for this test, do not take multivitamins or dietary supplements containing biotin (vitamin B7) for at least 12 hours. Biotin is commonly found in hair, skin, and nail supplements and multivitamins. Tell your doctor if you take supplements containing biotin as part of your medication history. C-REACTIVE ULTRA SEN Standing Status: Future Expected Date: 06/12/2024 Expiration Date: 09/11/2024 TSH Blood Standing Status: Future Expected Date: 06/12/2024 Expiration Date: 09/11/2024 Comp Metabolic Panel Standing Status: Future Expected Date: 06/12/2024 Expiration Date: 09/11/2024 LIPID PANEL, NONFASTING Standing Status: Future Expected Date: 06/12/2024 Expiration Date: 09/11/2024 NT Pro BNP Standing Status: Future Expected Date: 06/12/2024 Expiration Date: 09/11/2024 ECG (IN OFFICE) ECHO Standing Status: Future Expiration Date: 06/12/2025 Disease / Condition:: Hypertension documented in this encounter [facility] 06-12-2024 Note HNO ID: [id number] Author: RODO NOLAN MD Service: ? Author Type: Physician Type: Progress Notes Filed: 06/12/2024 14:37 Note Text: [facility] Department of Cardiology [address] [place] [address] (office) [phone] (fax) 06/12/2024 This note was written using medical terminology and is intended to be used for medical purposes by other health adult care manager Patient presents with: Care HPI: Ms. Gunderson is a 39 year old female with below PMH who is referred for a Heart visit for severe preeclampsia, AMA, /LBW delivery. She presented at 32 +6 for preeclampsia with severe features. The decision was made to induce at 33+5. She was discharged with labetalol 200 mg every 8 hours and nifedipine 60 mg twice daily. She then presented back to the hospital after an increase in nifedipine and the addition of hydralazine did not control her blood pressures. Her blood pressure normalized with nifedipine 60 mg twice daily and losartan 75 mg daily. She is still taking both medications. At home her blood pressures have been ranging from 140/80-90 to 115/90. She has also had some normal range blood pressures. She has had some chest tightness and upper back tightness with activity along with some shortness of breath. The swelling in her feet and and ankles has resolved. She has had headaches with increases in activity which will become migraines if she does not stop her activity. This is new since her delivery. This was her 5th . She had preeclampsia with her first and was induced but did not require medications. The subsequent 3 were uneventful. She lives at home with her 5 kids and her boyfriend. She plans on having a hysterectomy for fibroids. She is not currently sexually active because she is not able to use control due to increased bleeding. If she were to decide to be sexually active she would use condoms. 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 She feels safe at home. Her mood is stable. Her mom has type 2 diabetes otherwise her family history is unremarkable for cardiac concerns. Home Bps 120-150/60-80's. Weight 206lbs pre-baby. Delivery Date: 04/24/2024 Weeks at Delivery: 33+5 Mode of Delivery: Vaginal ?: Yes On aspirin for PEC prevention during ?: Yes, aspirin 81 mg daily Discharged on blood pressure meds?: Yes Discharged on diabetes meds?: No Cardiology: The review of symptoms was negative for shortness of breath, orthopnea, paroxysmal nocturnal dyspnea, palpitation, edema General ROS: Otherwise 14 systems ROS is negative except as stated above. PAST MEDICAL HISTORY Diagnosis Date Anxiety History of gestational hypertension 12/01/2023 History of depression 12/01/2023 Obesity Uterine fibroid 2022 Vaginal bleeding during 12/01/2023 PAST SURGICAL HISTORY Procedure Laterality Date COLONOSCOPY SCREENING 2019 Current Outpatient Medications: losartan (COZAAR) 25 mg tablet, Take 3 tablets by mouth once daily., Disp: 60 tablet, Rfl: 1 NIFEdipine ER (PROCARDIA XL) 60 mg 24 hr tablet, Take 1 tablet by mouth two times a day., Disp: 180 tablet, Rfl: 1 No current facility-administered medications for this visit. Facility-Administered Medications Ordered in Other Visits: bupivacaine (PF) 0.0625%-fentaNYL (PF) 2 mcg/mL epidural in NaCl 0.9% 250 mL, , EPIDURAL, X (ONE-STEP ONLY) CONTINUOUS PRN, Negin, Shantel, CIRCULATION MAN.REPAIRER PUMP ALLERGIES Allergen Reactions Penicillins Rash Zoloft [Sertraline * Intolerance AVAILABLE LABS, EKGS, CARDIAC TESTING/PROCEDURES, FAMILY HISTORY AND SOCIAL HISTORY WERE REVIEWED AND UPDATED IN [facility]. ECG 06/12/2024 Normal Sinus Rhythm Normal ECG No previous cardiac testing available LABORATORY TESTS: CBC: WBC HGB PLT 8.25 11.8 292 CHEMISTRY: NA K CA CHLOR CO2 GLUC BUN CREAT 138 4.6 9.5 102 23 88 16 0.66 HEPATIC: ALT AST 9 22 METABOLIC: CHOL LDL HDL TG TSH HBA1C No results found for this basename: CHOL:1 No results found for this basename: LDL:1 No results found for this basename: HDL:1 No results found for this basename: T 1.530 4.8 COAG: APTT INR No results found for this basename: APTT:1 No results found for this basename: INR:1 PHYSICAL EXAM: BP 124/86 Pulse 66 Ht 165.1 cm (5' 5) Wt 94.8 kg (209 lb) LMP 09/02/2023 Yes BMI 34.78 kg/m? PHQ= 2 , Med Diet Score= 9 General: Well appearing, in no acute distress, speaking in complete sentences. Skin: No clubbing, no cyanosis. Eyes: Extra ocular movements intact Oropharynx: Teeth in good repair. Neck: no jugular venous distention,, no carotid bruits, Lungs: Clear to auscultation bilaterally, no wheezing or rhonchi. Heart: Regular rhythm, S1, S2 normal, no murmur Abdomen: Soft, nontender Extremities: No p (more content not included)... [facility] 05-20-2024 Telephone encounter Note signed [facility] Work Phone: 05-20-2024 Miscellaneous Notes signed documented in this encounter [facility] 05-17-2024 Note HNO ID: [id number] Author: RAMONA ALEXANDER MD Service: ? Author Type: Physician Type: Progress Notes Filed: 05/17/2024 10:31 Note Text: EARLY BLOOD PRESSURE CHECK VISIT Harrison Gunderson is a 39 year old here for her This patient has no babies on file. in person blood pressure check visit. Last hospital discharge date: 05/03/2024 Delivery Summary: ROS: General: Denies any fever or chills Hypertension Screening: Headache? Yes. Improves with rest and a nap Visual Changes? No Epigastric Pain? No Increased Swelling? Yes - improving over the last several days. It improves if she elevates her legs. No CP, SOB, palpitations Taking any BP medications at home? Yes Monitoring BP at home? Yes: Systolic Range: 120-130, Diastolic Range: 80-90 Other issues: None Discharge Medications: losartan (COZAAR) 25 mg tabletTake 3 tablets by mouth once daily.Disp: 60 tabletRfl: 1 ibuprofen (MOTRIN) 600 mg tabletTake 1 tablet by mouth every 6 hours as needed for pain.Disp: 30 tabletRfl: 0 NIFEdipine ER (PROCARDIA XL) 60 mg 24 hr tabletTake 1 tablet by mouth two times a day.Disp: 180 tabletRfl: 1 fluticasone (FLONASE) 50 mcg/actuation nasal sprayUse 2 Sprays in each nostril once daily. Rinse mouth after use.Disp: 1 BottleRfl: 0 acetaminophen (TYLENOL) 500 mg tabletTake 2 tablets by mouth every 6 hours as needed for pain.Disp: 30 tabletRfl: 0 (Patient not taking: Reported on 05/17/2024) docusate sodium (COLACE) 100 mg capsuleTake 1 capsule by mouth two times a day as needed for constipation.Disp: 30 capsuleRfl: 1 (Patient not taking: Reported on 05/17/2024) famotidine (PEPCID) 40 mg tabletTake 1 tablet by mouth every afternoon.Disp: Rfl: (Patient not taking: Reported on 05/17/2024) ALLERGIES Allergen Reactions Penicillins Rash Zoloft [Sertraline * Intolerance HISTORY REVIEW PAST MEDICAL HISTORY Diagnosis Date Anxiety History of gestational hypertension 12/01/2023 History of depression 12/01/2023 Obesity Uterine fibroid 2022 Vaginal bleeding during 12/01/2023 PAST SURGICAL HISTORY Procedure Laterality Date COLONOSCOPY SCREENING 2019 SENSITIVE EXAM: Sensitive exam not performed. PHYSICAL EXAMINATION: General: pleasant,female in no apparent distress. Abdomen: Deferred /Incision: N/A Lungs: normal respiratory effort Heart:: Deferred Extremities: tr edema Visit Vital Sign 05/17/24 0953 BP: 128/79 Pulse: 96 ASSESSMENT AND PLAN: 39 year old status post This patient has no babies on file. with course complicated by preeclampsia with SF BP Stable. Continue present plan. Follow up in 2 weeks for PP Visit. Instructed to send my chart message with BP log next week. Discussed reasons to call. Scheduled with preventative cardiology. Interested in tubal sterilization. Ramona Alexander DO [facility] 05-17-2024 History of Present illness Narrative EARLY BLOOD PRESSURE CHECK VISIT Harrison Gunderson is a 39 year old here for her This patient has no babies on file. in person blood pressure check visit. Last hospital discharge date: 05/03/2024 Delivery Summary: ROS: General: Denies any fever or chills Hypertension Screening: Headache? Yes. Improves with rest and a nap Visual Changes? No Epigastric Pain? No Increased Swelling? Yes - improving over the last several days. It improves if she elevates her legs. No CP, SOB, palpitations Taking any BP medications at home? Yes Monitoring BP at home? Yes: Systolic Range: 120-130, Diastolic Range: 80-90 Other issues: None Discharge Medications: losartan (COZAAR) 25 mg tablet^Take 3 tablets by mouth once daily.^Disp: 60 tablet^Rfl: 1 ibuprofen (MOTRIN) 600 mg tablet^Take 1 tablet by mouth every 6 hours as needed for pain.^Disp: 30 tablet^Rfl: 0 NIFEdipine ER (PROCARDIA XL) 60 mg 24 hr tablet^Take 1 tablet by mouth two times a day.^Disp: 180 tablet^Rfl: 1 fluticasone (FLONASE) 50 mcg/actuation nasal spray^Use 2 Sprays in each nostril once daily. Rinse mouth after use.^Disp: 1 Bottle^Rfl: 0 acetaminophen (TYLENOL) 500 mg tablet^Take 2 tablets by mouth every 6 hours as needed for pain.^Disp: 30 tablet^Rfl: 0 (Patient not taking: Reported on 05/17/2024) docusate sodium (COLACE) 100 mg capsule^Take 1 capsule by mouth two times a day as needed for constipation.^Disp: 30 capsule^Rfl: 1 (Patient not taking: Reported on 05/17/2024) famotidine (PEPCID) 40 mg tablet^Take 1 tablet by mouth every afternoon.^Disp: ^Rfl: (Patient not taking: Reported on 05/17/2024) ALLERGIES Allergen Reactions Penicillins Rash Zoloft [Sertraline * Intolerance HISTORY REVIEW PAST MEDICAL HISTORY Diagnosis Date Anxiety History of gestational hypertension 12/01/2023 History of depression 12/01/2023 Obesity Uterine fibroid 2022 Vaginal bleeding during 12/01/2023 PAST SURGICAL HISTORY Procedure Laterality Date COLONOSCOPY SCREENING 2019 SENSITIVE EXAM: Sensitive exam not performed. PHYSICAL EXAMINATION: General: pleasant,female in no apparent distress. Abdomen: Deferred /Incision: N/A Lungs: normal respiratory effort Heart:: Deferred Extremities: tr edema Visit Vital Sign 05/17/24 0953 BP: 128/79 Pulse: 96 ASSESSMENT AND PLAN: 39 year old status post This patient has no babies on file. with course complicated by preeclampsia with SF BP Stable. Continue present plan. Follow up in 2 weeks for PP Visit. Instructed to send my chart message with BP log next week. Discussed reasons to call. Scheduled with preventative cardiology. Interested in tubal sterilization. Ramona Alexander DO documented in this encounter [facility] 05-10-2024 Telephone encounter Note Left message for patient to call office. Anjum Sumner RN [facility] 05-10-2024 Miscellaneous Notes Left message for patient to call office. Anjum Sumner RN Scchedule f/u BP next week, can be virtual documented in this encounter [facility] 05-10-2024 Obstetrics Note This note was copied from a baby's chart. Met with mother at bedside. Mother reports she is expressing between 60cc and 120cc with each pumping session 8 x/day. Mother reports she plans to pump and bottle feed expressed milk. Mother has own personal use breast pump at home per mother. No questions or concerns at this time. [facility] 05-10-2024 Miscellaneous Notes This note was copied from a baby's chart. Met with mother at bedside. Mother reports she is expressing between 60cc and 120cc with each pumping session 8 x/day. Mother reports she plans to pump and bottle feed infant expressed milk. Mother has own personal use breast pump at home per mother. No questions or concerns at this time. documented in this encounter [facility] 05-10-2024 Telephone encounter Note Scchedule f/u BP next week, can be virtual [facility] 05-03-2024 Note HNO ID: [id number] Author: SUMIT ALLEN MD Service: Obstetrics Author Type: Resident Type: Progress Notes Filed: 05/03/2024 09:25 Note Text: Attestation signed by Sumit Allen MD at 05/03/2024 9:25 AM I reviewed the progress note and agree with the resident?s findings and plans as written. Case discussed with resident. The patient was not in the room when I attempted to visit but was seen by Dr. Muñoz this morning and is doing well with normal BP and no complaints. OK for d/c home today. Sumit Allen MD Maternal Medicine MATERNAL MEDICINE ANTEPARTUM PROGRESS NOTE SERVICE DATE: 05/03/2024 SERVICE TIME: 5:10 AM 39 year old PPD# 6 s/p complicated by Pre-eclampsia with severe features admitted 05/02 for blood pressure control. Assessment AND Plan Pre-eclampsia, severe, delivered - Current regimen Procardia 60mg XL BID and Losartan 75mg QD - asymptomatic - s/p magnesium during her prior admission - no acute treatment at this time - CBC and CMP without evidence of end organ dysfunction, except LFTs were hemolyzed - Blood pressures have remained normal range overnight Obesity affecting in third trimester - BMI 44 - encourage ambulation state - lochia appropriate - , pump at bedside - pain controlled - recently in bonding with in NICU Subjective : Headache last night that improved after Tylenol and resolved at over 0200. Patient denies any headache at present, visual changes, right upper quadrant pain. Patient denies any chest pain, shortness of breath, abdominal pain, nausea, vomiting, dysuria, constipation, diarrhea, or any additional complaints at this time. Objective : LAST VITALS: Pulse BP Resp O2 Sat Temp Pain 75 122/69 16 92 % 36.7 ?C (98.1 ?F) 2 PHYSICAL EXAM: General: WD, WN Heart: RR Lungs: Normal respiratory effort on room air Abdomen: no tenderness to palpation, uterus firm below the umbilicus LABS Diagnostic tests reviewed for today's visit: Most recent labs and imaging results. SIGNATURE: Kaykay Muñoz DO PATIENT NAME: Harrison Gunderson DATE: May 03, 2024 TIME: 5:09 AM [facility] 05-01-2024 Note HNO ID: [id number] Author: LEIA QUIROZ MD Service: ? Author Type: Physician Type: Progress Notes Filed: 05/01/2024 15:34 Note Text: EARLY VISIT William BP average 157/99 pulse 72, obtained (RT) arm sitting Harrison Gunderson is a 39 year old here for 1 week visit. Delivery Summary: Leilani Gunderson [[id number]] Delivery Information: Delivery Date: 04/24/24 Delivery type: Vaginal, Spontaneous Delivering Clinician: Ayden Trevizo I, MD Vacuum Used: No Forceps Used: No Shoulder Dystocia Present: No Lacerations: None Episiotomy: None : Gender: Female Weight (grams): 1700 g One Minute : 8 Five Minute : 9 ROS: General: Denies any fever or chills Hypertension Screening: Headache? Yes. Was it successfully treated with Tylenol? yes Visual Changes? No Epigastric Pain? No Increased Swelling? Yes, intermittent (RT) leg swelling Taking any BP medications at home? Yes, Procardia, Labetalol If applicable, monitoring BP at home? (If Yes, include results) Pt reported upper 140-150 / upper 80-90 Mood: Pt reported in NICU, anxiety Depression: denies symptoms of depression. OB Depression and Anxiety Screening- This Encounter (since 04/30/2024) Over the past 2 weeks have you felt down, depressed, or hopeless? Positive - Further Testing Indicated Over the past two weeks, have you felt little interest or pleasure in doing things?? Negative I have been able to laugh and see the funny side of things. As much as I always could I have looked forward with enjoyment to things. As much as I ever did I have blamed myself unnecessarily when things went wrong. Yes, some of the time NICU I have been anxious or worried for no good reason. Hardly ever I have felt scared or panicky for no good reason. No, not at all NICU Things have been getting on top of me. No, I have been coping as well as ever I have been so unhappy that I have had difficulty sleeping. Not at all I have felt sad or miserable. Not very often NICU I have been so unhappy that I have been crying. Only occasionally The thought of harming myself has occurred to me. Never [place] Depression Scale Total 5 Feeling nervous, anxious or on edge 2-More than half the days NICU Not being able to stop or control worrying 2-More than half the days NICU Anxiety Pre-Screening Total (If >/= 3 additional questions will be reviewed) 4 Worrying too much about different things 1-Several days Trouble relaxing 3-Nearly every day Being so restless that it is hard to sit still 1-Several days Becoming easily annoyed or irritable 0-Not al all Feeling afraid, as if something awful might happen 1-Several days NICU Anxiety (ELEANOR) Full Screening Total 10 Feeding: Breast feeding problems: None Bladder: No dysuria, gross hematuria, urinary frequency, urinary urgency, or incontinence Bowel symptoms: Negative for abdominal discomfort, blood in stools or black stools and change in bowel habits Abdomen: N/A Bleeding: spotting Bottom and Perineum: No issues Sleep: no sleep concerns and infant in NICU , does not feel rested [place] since delivery: Resumed Emotional support: Yes Exercise: N/A Other issues: None Noted and agree w/ above. BP stable dsince d/c, 140s-150s/80s/90s. Rash that she thinks is due to one of the BP meds. BAILEY [id number] w/ motrin, no visual changes or epigastric pain SENSITIVE EXAM: Sensitive exam not performed. PHYSICAL EXAMINATION: BP 134/86 Wt 94.2 kg (207 lb 9.6 oz) LMP 09/02/2023 Yes BMI 35.63 kg/m? General: pleasant,female in no apparent distress, AANDO x 3. Skin warm and intact. Breast: Deferred Abdomen: Deferred /Incision: N/A Pelvic: Deferred Bimanual: Deferred 2+ DTRs, no clonus ASSESSMENT AND PLAN: 39 year old status post with course complicated by preeclampsai. Contraception plan: considering . Reinforced 6-week pelvic rest. Encouraged condom usage should patient deviate. Education: resources provided - see MA/RN note f/u in 48 hrs for virtual visit change bp meds to procardia 901mg and hydrazlzine 10 mg tid. To lANDD immediately if BP > 170/105 persistently and she states understanding and agreement. Encouraged to get meds [place]. Uncertain what rash is from but if not better w/ d/c labetalol may have to d/c procardia nad change meds. Follow up: Return to Clinic for 6 week visit and as needed Leia Quiroz MD [facility] 05-01-2024 History of Present illness Narrative Images from the original note were not included. EARLY VISIT William BP average 157/99 pulse 72, obtained (RT) arm sitting Harrison Gunderson is a 39 year old here for 1 week visit. Delivery Summary: Leilani Gunderson [[id number]] Delivery Information: Delivery Date: 04/24/24 Delivery type: Vaginal, Spontaneous Delivering Clinician: Ayden Trevizo I, MD Vacuum Used: No Forceps Used: No Shoulder Dystocia Present: No Lacerations: None Episiotomy: None [place]: Gender: Female Weight (grams): 1700 g One Minute : 8 Five Minute : 9 ROS: General: Denies any fever or chills Hypertension Screening: Headache? Yes. Was it successfully treated with Tylenol? yes Visual Changes? No Epigastric Pain? No Increased Swelling? Yes, intermittent (RT) leg swelling Taking any BP medications at home? Yes, Procardia, Labetalol If applicable, monitoring BP at home? (If Yes, include results) Pt reported upper 140-150 / upper 80-90 Mood: Pt reported infant in NICU, anxiety Depression: denies symptoms of depression. OB Depression and Anxiety Screening- This Encounter (since 04/30/2024) Over the past 2 weeks have you felt down, depressed, or hopeless? Positive - Further Testing Indicated Over the past two weeks, have you felt little interest or pleasure in doing things? Negative I have been able to laugh and see the funny side of things. As much as I always could I have looked forward with enjoyment to things. As much as I ever did I have blamed myself unnecessarily when things went wrong. Yes, some of the time NICU I have been anxious or worried for no good reason. Hardly ever I have felt scared or panicky for no good reason. No, not at all NICU Things have been getting on top of me. No, I have been coping as well as ever I have been so unhappy that I have had difficulty sleeping. Not at all I have felt sad or miserable. Not very often NICU I have been so unhappy that I have been crying. Only occasionally The thought of harming myself has occurred to me. Never [place] Depression Scale Total 5 Feeling nervous, anxious or on edge 2-More than half the days NICU Not being able to stop or control worrying 2-More than half the days NICU Anxiety Pre-Screening Total (If >/= 3 additional questions will be reviewed) 4 Worrying too much about different things 1-Several days Trouble relaxing 3-Nearly every day Being so restless that it is hard to sit still 1-Several days Becoming easily annoyed or irritable 0-Not al all Feeling afraid, as if something awful might happen 1-Several days NICU Anxiety (ELEANOR) Full Screening Total 10 Feeding: Breast feeding problems: None Bladder: No dysuria, gross hematuria, urinary frequency, urinary urgency, or incontinence Bowel symptoms: Negative for abdominal discomfort, blood in stools or black stools and change in bowel habits Abdomen: N/A Bleeding: spotting Bottom and Perineum: No issues Sleep: no sleep concerns and infant in NICU , does not feel rested [place] since delivery: Resumed Emotional support: Yes Exercise: N/A Other issues: None Noted and agree w/ above. BP stable dsince d/c, 140s-150s/80s/90s. Rash that she thinks is due to one of the BP meds. BAILEY [id number] w/ motrin, no visual changes or epigastric pain SENSITIVE EXAM: Sensitive exam not performed. PHYSICAL EXAMINATION: BP 134/86 Wt 94.2 kg (207 lb 9.6 oz) LMP 09/02/2023 Yes BMI 35.63 kg/m General: pleasant,female in no apparent distress, A&O x 3. Skin warm and intact. Breast: Deferred Abdomen: Deferred /Incision: N/A Pelvic: Deferred Bimanual: Deferred 2+ DTRs, no clonus ASSESSMENT AND PLAN: 39 year old status post with course complicated by preeclampsai. Contraception plan: considering . Reinforced 6-week pelvic rest. Encouraged condom usage should patient deviate. Education: resources provided - see MA/RN note f/u in 48 hrs for virtual visit change bp meds to procardia 901mg and hydrazlzine 10 mg tid. To l&D immediately if BP > 170/105 persistently and she states understanding and agreement. Encouraged to get meds [place]. Uncertain what rash is from but if not better w/ d/c labetalol may have to d/c procardia nad change meds. Follow up: Return to Clinic for 6 week visit and as needed Leia Quiroz MD documented in this encounter [facility] 04-30-2024 Miscellaneous Notes This note was copied from a baby's chart. At baby's bedside with RN, pt desires to breastfeed, she is experienced and denies questions or needs with pumping at this time. Pt fees like her milk is in and she has a good supply. Pt independently positioned baby in LFB and baby crying. Baby had mouth opened d/t crying, mother placed her breast in mouth, using good positioning and technique. After few minutes, baby did close mouth and suckle a few times, come off breast, mouth and lick, and fell asleep. This happened all in less than 10 minutes. Discussed with pt normal feeding behaviors at this age, mouthing and licking is normal and a positive experience for baby. Encouraged pt to continue trying to breastfeed daily, offered to set pt up to pump and explained why pumping at bedside is beneficial. Pt prefers to pump in her bonding room. Pt denies other needs at this time. documented in this encounter [facility] 04-30-2024 Obstetrics Note This note was copied from a baby's chart. At baby's bedside with RN, pt desires to breastfeed, she is experienced and denies questions or needs with pumping at this time. Pt fees like her milk is in and she has a good supply. Pt independently positioned baby in LFB and baby crying. Baby had mouth opened d/t crying, mother placed her breast in mouth, using good positioning and technique. After few minutes, baby did close mouth and suckle a few times, come off breast, mouth and lick, and fell asleep. This happened all in less than 10 minutes. Discussed with pt normal feeding behaviors at this age, mouthing and licking is normal and a positive experience for baby. Encouraged pt to continue trying to breastfeed daily, offered to set pt up to pump and explained why pumping at bedside is beneficial. Pt prefers to pump in her bonding room. Pt denies other needs at this time. [facility] 04-29-2024 Miscellaneous Notes This note was copied from a baby's chart. Per RN, baby will be able to attempt to breastfeed tomorrow, since CPAP and chest tube removed today. Spoke with pt, introduced self and services. Pt agreeable to assistance with tomorrow. Discussed pumping volumes, pt pumping 7-8x per day, getting 4-6oz, pt feels as if it going well and denies questions. Discussed feeding times for tomorrow, will continue following. documented in this encounter [facility] 04-29-2024 Obstetrics Note This note was copied from a baby's chart. Per RN, baby will be able to attempt to breastfeed tomorrow, since CPAP and chest tube removed today. Spoke with pt, introduced self and services. Pt agreeable to assistance with tomorrow. Discussed pumping volumes, pt pumping 7-8x per day, getting 4-6oz, pt feels as if it going well and denies questions. Discussed feeding times for tomorrow, will continue following. [facility] 04-27-2024 Note HNO ID: [id number] Author: FABBY PEDROZA DO Service: Obstetrics Author Type: Resident Type: Progress Notes Filed: 04/27/2024 08:58 Note Text: Attestation signed by Fabby Pedroza DO at 04/27/2024 8:58 AM I saw and evaluated the patient. Discussed with the resident and agree with resident's findings and plan as documented in the resident's note. Patient is a 39 yo PPD #3 s/p . Patient is medically complicated by preeclampsia with severe features. - Patient doing well without complaints - VSS, bleeding well controlled - PPBC: declined - breast feeding - PreE with SF: Bps well controlled this morning at 120s-130s/70s-80s on Procardia 60 mg BID and Labetalol 300 mg TID. S/p mag sulfate for 24 hr PP. Denies BAILEY, vision changes or RUQ pain. Patient stable for d/c home today. Fabby Pedroza DO OBSTETRICS PROGRESS NOTE SERVICE DATE: April 27, 2024 SERVICE TIME: 5:42 AM 39 year old female who is Postoperative Day #3 status post Vaginal, Spontaneous delivery with female . Assessment AND Plan care following vaginal delivery Routine post- care Meeting milestones: Tolerating oral intake, ambulating without difficulty, pain well-controlled, voiding without difficulty, passing flatus, lochia normal Rh: Positive Admission Hgb 11.3 > EBL 333 mL Infant: Female, in NICU Feeding: Contraception: Declines Anticipate discharge per primary OB Anticipate discharge PPD #3-4 Pre-eclampsia, severe, antepartum, third trimester - Diagnosed based on blood pressure criteria with severe range blood pressures requiring acute treatment - Procardia 60 XL BID and labetalol 200 mg BID for maintenance - S/p magnesium for seizure prophylaxis - Labs without concerns - Asymptomatic - Blood pressure normal to low mild, continue to monitor Obesity affecting in third trimester - BMI 44 - Encourage ambulation - Lovenox 60 mg daily for prophylaxis given hospital stay >72 hours Leg swelling - Improving - Likely secondary to fluid shifts - 04/25 negative DVT US studies Plan of care discussed with: Provider, RN, Patient. Anticipate discharge day: PPD 3-4 Subjective Patient states that she is doing well this morning. Pain is tolerable with medications. Lochia is decreasing. She denies soaking through one pad in an hour or passage of large clots. She has no concerns at this time. ROS negative for BAILEY, vision changes, RUQ pain, SOB, chest pain, palpitations, dysuria, frequency, nausea, vomiting, diarrhea, fever, chills, increased vaginal bleeding, odorous vaginal discharge Objective PHYSICAL EXAM: Heart: RR, warm and well perfused Lungs: normal pulmonary exam Abdomen: Soft Fundus firm below umbilicus Non-distended Extremities: No calf tenderness and No edema LAST VITALS: Pulse BP Resp O2 Sat Temp Pain 72 134/83 20 96 % 36.9 ?C (98.4 ?F) 0 Avg Min Max Vitals (last 12 hours) Flowsheet Row Name Average Min Max BP: Systolic 132.25 122 144 BP: Diastolic 79.75 74 83 Temp 36.9 ?C (98.38 ?F) 36.4 ?C (97.5 ?F) 37.2 ?C (99 ?F) Pulse 79.25 72 85 Resp 18 16 20 SpO2 96.67 % 96 % 98 % HT/WT/BMI: Height Weight BMI 162.6 cm (5' 4) 105.7 kg (233 lb) 39.99 LABS ABO/RH: 04/23/2024: O; Positive RUBELLA: 12/01/2023: Positive HANDH: Hematocrit (%) Date Value 04/23/2024 35.4 04/20/2024 30.9 04/18/2024 32.9 Hemoglobin (g/dL) Date Value 04/23/2024 11.3 04/20/2024 9.9 04/18/2024 10.8 Diagnostic tests reviewed for today's visit: Most recent labs and imaging results. SIGNATURE: Kaykay Muñoz DO PATIENT NAME: Harrison Gunderson DATE: April 27, 2024 TIME: 5:41 AM [facility] 04-26-2024 Note HNO ID: [id number] Author: TRACIE BEAN MD Service: Obstetrics Author Type: Resident Type: Progress Notes Filed: 04/26/2024 06:32 Note Text: OBSTETRICS PROGRESS NOTE SERVICE DATE: April 26, 2024 SERVICE TIME: 5:38 AM 39 year old female who is Day #2 status post Vaginal, Spontaneous delivery with female . Assessment AND Plan care following vaginal delivery Routine post- care Meeting milestones: Tolerating oral intake, ambulating without difficulty, pain well-controlled, voiding without difficulty, passing flatus, lochia normal Rh: Positive Admission Hgb 11.3 > EBL 333 mL : Female, in NICU Feeding: Contraception: Declines Anticipate discharge per primary OB Anticipate discharge PPD #3-4 Pre-eclampsia, severe, antepartum, third trimester - Diagnosed based on blood pressure criteria with severe range blood pressures requiring acute treatment - Procardia 60 XL BID and labetalol 200 mg BID for maintenance - S/p magnesium for seizure prophylaxis - Labs without concerns - Asymptomatic - Blood pressure normal to low mild, continue to monitor Obesity affecting in third trimester - BMI 44 - Encourage ambulation - Lovenox 60 mg daily for prophylaxis given hospital stay >72 hours Leg swelling - Improving - Likely secondary to fluid shifts - 04/25 negative DVT US studies Subjective Harrison is doing well this morning. Reports she feels her swelling is decreased. Is having some intermittent abdominal cramping but otherwise doing well and denies additional concerns. Tolerating PO intake. Urinating without difficulty. Passing flatus. Pain well controlled with current regimen. Lochia decreasing. Ambulating without difficulty. Objective PHYSICAL EXAM: Heart: Regular rate Lungs: Unlabored breathing on room air Abdomen: Soft, appropriately tender to palpation, fundus firm below level of umbilicus, non-distended Extremities: No calf tenderness or edema LAST VITALS: Pulse BP Resp O2 Sat Temp Pain 64 130/78 18 97 % 36.3 ?C (97.3 ?F) (patient has recently taken a sip of ice water) 0 Avg Min Max Vitals (last 12 hours) Flowsheet Row Name Average Min Max BP: Systolic 135.33 128 148 BP: Diastolic 80.33 74 89 Temp 36.6 ?C (97.9 ?F) 36.3 ?C (97.3 ?F) 36.8 ?C (98.2 ?F) Pulse 75.67 64 88 Resp 18 18 18 SpO2 98 % 97 % 99 % HT/WT/BMI: Height Weight BMI 162.6 cm (5' 4) 105.7 kg (233 lb) 39.99 LABS ABO/RH: 04/23/2024: O; Positive RUBELLA: 12/01/2023: Positive HANDH: Hematocrit (%) Date Value 04/23/2024 35.4 04/20/2024 30.9 04/18/2024 32.9 Hemoglobin (g/dL) Date Value 04/23/2024 11.3 04/20/2024 9.9 04/18/2024 10.8 Diagnostic tests reviewed for today's visit: Most recent labs and imaging results. SIGNATURE: Tracie Bean MD PATIENT NAME: Harrison Gunderson DATE: April 26, 2024 TIME: 5:38 AM [facility] 04-26-2024 Note HNO ID: [id number] Author: TRACIE BEAN MD Service: Obstetrics Author Type: Resident Type: Progress Notes Filed: 04/26/2024 01:48 Note Text: SUBJECTIVE: Paged by RENATE Durand that patient with foot and leg swelling, right worse than left. Presented to patient bedside. Patient resting comfortably in recliner chair. States that is doing well overall but has noted increased foot swelling, especially of her right foot. Denies any pain or difficulty ambulating. Denies headache, visual changes, right upper quadrant abdominal pain, chest pain, shortness of breath, or worsening edema. OBJECTIVE: 04/25/24 1326 04/25/24 1702 04/25/24 1941 04/25/24 2131 BP: 134/87 135/95 148/89 128/74 Pulse: 93 88 75 Resp: 18 18 18 Temp: 36.6 ?C (97.9 ?F) 36.8 ?C (98.2 ?F) TempSrc: Oral Oral SpO2: 96% 99% 98% Weight: Height: General: Sitting comfortably in chair Heart: Warm and well-perfused. Normal S1-S2, no murmurs, regular rate Lungs: Breathing comfortably on room air, clear to auscultation bilaterally Extremities: Right foot and ankle appear more swollen than left. Pitting edema equal bilaterally to mid garcia. Nontender and nonerythematous. Normal range of motion. Pulses intact bilaterally ASSESSMENT: Patient is a 39 year old s/p on 04/24 with pre eclampsia with severe features by blood pressure criteria now with worsening lower extremity edema, R>L. PLAN: #Lower extremity edema - Most likely due to fluid shifts in state, especially in setting of pre eclampsia with severe features - Low concern for deep vein thrombosis; however, in setting of asymmetrical swelling R>L and risk factors of and prolonged immobilization (admission since 04/18), will order stat DVT US to rule out - No concern for pulmonary embolism at this time given normal exam, vitals, no symptoms Discussed with Dr. Pedroza, attending. Tracie Bean MD OBGYN PGY-2 April 25, 2024 10:34 PM Reviewed results of imaging study: IMPRESSION: Negative study for proximal DVT in the left and right lower extremities. Negative study for calf DVT in the left and right lower extremities. Negative study for superficial thrombophlebitis in the imaged segments of the left and right lower extremities. No concern for DVT at this time. Will continue to monitor. Tracie Bean MD OBGYN PGY-2 April 26, 2024 1:48 AM [facility] 04-25-2024 Note HNO ID: [id number] Author: FABBY PEDROZA DO Service: Obstetrics Author Type: Resident Type: Progress Notes Filed: 04/25/2024 10:32 Note Text: Attestation signed by Fabby Pedroza DO at 04/25/2024 10:32 AM I saw and evaluated the patient. Discussed with the resident and agree with resident's findings and plan as documented in the resident's note. Patient is a 39 yo PPD #1 s/p . Patient is medically complicated by preeclampsia with severe features. - Patient is doing well without complaints - VSS, bleeding well controlled - PPBC: declined - breast feeding - Preeclampsia with SF: Bps 140s-150s/90s-100s currently on Procardia 60 XL BID. Will also plan to start Labealol. For mag sulfate x24 hour. Denies BAILEY, vision changes or RUQ pain. Will continue inpatient mgmnt. Fabby Pedroza DO OBSTETRICS PROGRESS NOTE SERVICE DATE: April 25, 2024 SERVICE TIME: 4:01 AM 39 year old female who is Day #1 status post Vaginal, Spontaneous delivery with female . Assessment AND Plan care following vaginal delivery meeting pp milestones - lochia appropriate - pain is controlled with current medications - passing flatus - voiding without complaints - ambulating without difficulty - blood pressures reviewed - QBL: 333 - PP BC: declined - : healthy GIRL - Feeding method: Breast - Rubella Immune - Rh positive - Discharge day #2-3 per attending Pre-eclampsia, severe, antepartum, third trimester - Procardia 60 XL BID for maintenance - Continue Magnesium until 1600 - CBC AND CMP without evidence of PreE - Asymptomatic - Blood pressure normal to high mild yesterday and overnight Obesity affecting in third trimester - BMI 44 - encourage ambulation - Lovenox 60mg daily for prophylaxis Prematurity of fetus - S/p betamethasone for lung maturity (04/18-04/19) - NICU Subjective Tolerating PO intake: had hospital snacks and food yesterday without any issues. Patient has no current complaints. Urinating without difficulty. Passing flatus. Pain well controlled with current regimen. Lochia decreasing. Ambulating without difficulty. Denies headache, vision changes, chest pain, shortness of breath, and right upper quadrant pain. Objective PHYSICAL EXAM: Heart: RR, S1, S2, no abel, rub, or murmur appreciated Lungs: normal pulmonary exam and clear to auscultation Abdomen: Soft Fundus firm below umbilicus Non-distended Extremities: No calf tenderness, trace edema, +2 reflexes LAST VITALS: Pulse BP Resp O2 Sat Temp Pain 82 134/94 16 97 % 36.9 ?C (98.4 ?F) 0 Patient Vitals for the past 24 hrs: BP 04/25/24 0350 134/94 04/25/24 0250 148/97 04/25/24 0150 153/101 04/25/24 0050 134/85 04/24/24 2350 130/74 04/24/24 2245 142/82 04/24/24 2150 133/83 04/24/24 2045 135/90 04/24/24 2000 137/91 04/24/24 1900 145/95 04/24/24 1800 148/93 04/24/24 1700 145/97 04/24/24 1600 133/91 04/24/24 1500 128/84 04/24/24 1300 143/86 04/24/24 1245 138/81 04/24/24 1230 144/82 04/24/24 1215 142/80 04/24/24 1145 144/83 04/24/24 1055 146/79 04/24/24 1000 129/69 04/24/24 0908 144/84 04/24/24 0800 140/83 04/24/24 0705 130/62 04/24/24 0600 136/76 04/24/24 0455 120/61 Avg Min Max Vitals (last 12 hours) Flowsheet Row Name Average Min Max BP: Systolic 140.33 130 153 BP: Diastolic 90.17 74 101 Temp 37 ?C (98.53 ?F) 36.9 ?C (98.4 ?F) 37.1 ?C (98.7 ?F) Pulse 91.75 78 102 Resp 16.33 16 18 SpO2 97.08 % 95 % 100 % HT/WT/BMI: Height Weight BMI 162.6 cm (5' 4) 105.7 kg (233 lb) 39.99 LABS ABO/RH: 04/23/2024: O; Positive RUBELLA: 12/01/2023: Positive HANDH: Hematocrit (%) Date Value 04/23/2024 35.4 04/20/2024 30.9 04/18/2024 32.9 Hemoglobin (g/dL) Date Value 04/23/2024 11.3 04/20/2024 9.9 04/18/2024 10.8 Diagnostic tests reviewed for today's visit: Most recent labs and imaging results. SIGNATURE: Christiano Conti DO PATIENT NAME: Harrison Gunderson DATE: April 25, 2024 TIME: 4:00 AM [facility] 04-24-2024 Note HNO ID: [id number] Author: SHEA LINDSAY DO Service: Obstetrics Author Type: Resident Type: Progress Notes Filed: 04/24/2024 11:35 Note Text: Patient [address] Telles. In OR for delivery. Dr. Trevizo called to bedside. Anticipate delivery shortly. Shea Lindsay DO PGY-2 [facility] 04-24-2024 Note HNO ID: [id number] Author: KAYKAY MUÑOZ DO Service: Obstetrics Author Type: Resident Type: Progress Notes Filed: 04/24/2024 08:22 Note Text: OB Labor Progress Note Service Date: April 24, 2024 Service Time: 8:19 AM S: Tolerating labor well O: Vitals: BP 136/76 Pulse 85 Temp 36.6 ?C (97.9 ?F) (Temporal) Resp 18 Ht 162.6 cm (5' 4) Wt 105.7 kg (233 lb) LMP 09/02/2023 SpO2 94% BMI 39.99 kg/m? CERVICAL EXAM: Dilation: 5 (04/24/24606 : Christiano Conti DO) Effacement (%): 60 (04/24/24606 : Christiano Conti DO) Station: -2 (04/24/24606 : Christiano Conti DO) Presentation: (not recorded) MEMBRANES: Status: Membrane Status: Artificial ROM after labor (04/24/24 0215 : Christiano Conti DO) FHT: 130/minimal to moderate variability, patient on magnesium Variability/ Accelerations: Present/ Decelerations: None TOCO: Irregular Contractions, Irregular NST Interpretation: Category 2, not currently on protocol A/P: 39 year old EGA:33w5d admitted for induction of labor for pre-eclampsia with severe features Pitocin status: starting soon Active Hospital Problems Diagnosis Date Noted Pre-eclampsia, severe, antepartum, third trimester 04/18/2024 - Diagnosed at 33 weeks, s/p admission to antepartum service - Maintenance Procardia 60 Xl BID -S/p Procardia 01/27/ (04/18) -S/p Labetalol 20, 40, 80 (04/23) - s/p 24 hours magnesium on admission. Now restarting Magnesium until 24 hours after delivery - Delivery indicated due to requiring multiple acute treatments on 04/23 - CBC, CMP this AM without evidence of PreE - Asymptomatic - Blood pressure normal to persistent severe Encounter for induction of labor 04/23/2024 Induction of labor for preeclampsia with severe features GBS negative Cyt#2 @ 2024 Pit soon Epi upon request Amniotomy @ 0210 for clear Growth 32w3d 3lbs 13oz 12%, AC 25% SIGNATURE: Kaykay Muñoz DO PATIENT NAME: Harrison Gunderson DATE: April 24, 2024 TIME: 8:19 AM [facility] 04-24-2024 Note HNO ID: [id number] Author: AYLA BURGESS MD Service: Obstetrics Author Type: Resident Type: Progress Notes Filed: 04/24/2024 05:31 Note Text: OB Labor Progress Note Service Date: April 24, 2024 Service Time: 5:02 AM S: Tolerating labor well, using peanut ball and resting in bed. O: Vitals: BP 110/55 Pulse 82 Temp 36.8 ?C (98.2 ?F) (Temporal) Resp 15 Ht 162.6 cm (5' 4) Wt 105.7 kg (233 lb) LMP 09/02/2023 SpO2 94% BMI 39.99 kg/m? Patient Vitals for the past 24 hrs: BP 04/24/24 0455 120/61 04/24/24 0400 110/55 04/24/24 0300 136/80 04/24/24 0200 138/78 04/24/24 0100 132/76 04/24/24 0000 137/80 04/23/24 2300 158/88 CERVICAL EXAM: Dilation: 5 (04/24/24 0500 : Christiano Conti DO) Effacement (%): 60 (04/24/24 0500 : Christiano Conti DO) Station: -2 (04/24/24 0500 : Christiano Conti DO) Presentation: (not recorded) MEMBRANES: Status: Membrane Status: Artificial ROM after labor (04/24/24 0215 : Christiano Conti DO) FHT: 130/Minimal (detectable but < or equal to 5 bpm) Variability/ Accelerations: Present/ Decelerations: Late Variable TOCO: Regular Contractions, Every 2-3 minutes NST Interpretation: Category II, not on protocol, making cervical change. A/P: 39 year old EGA:33w5d admitted for IOL for PreE with Severe Features. Active Hospital Problems Diagnosis Date Noted Pre-eclampsia, severe, antepartum, third trimester 04/18/2024 - Diagnosed at 33 weeks, s/p admission to antepartum service - started on Procardia 30 Xl BID -S/p Procardia 01/28/20 (04/18) -S/p Labetalol 20, 40, 80 (04/23) - s/p 24 hours magnesium on admission. Now restarting Magnesium until 24 hours after delivery - Delivery indicated due to requiring multiple acute treatments on 04/23 - CBC, CMP this AM without evidence of PreE - Asymptomatic - Blood pressure normal to persistent severe Encounter for induction of labor 04/23/2024 Induction of labor for preeclampsia with severe features GBS negative Cyt#2 @ 2024 Pit prn Epi upon request Amniotomy @ 0210 for clear Growth 32w3d 3lbs 13oz 12%, AC 25% SIGNATURE: Christiano Conti DO PATIENT NAME: Harrison Gunderson DATE: April 24, 2024 TIME: 5:02 AM Senior Labor Note Attestation I evaluated the tracing and labor course. I agree with the PGY 1 findings and plan with the following revisions and/or additions: Pre-e w/ (BP) on magnesium, BP normal to MR. Cat II for minimal variability likely due to magnesium treatment. Patient tolerating labor well. 5 cm dilated. Signature: Ayla Burgess MD Date: 04/24/2024 Time: 5:30 AM [facility] 04-24-2024 Note HNO ID: [id number] Author: CHRISTIANO CONTI DO Service: Obstetrics Author Type: Resident Type: Progress Notes Filed: 04/24/2024 02:51 Note Text: OB Labor Progress Note Service Date: April 24, 2024 Service Time: 2:47 AM S: Tolerating labor well, no epidural, on magnesium. O: Vitals: BP 132/76 Pulse 70 Temp 36.4 ?C (97.5 ?F) (Temporal) Resp 15 Ht 162.6 cm (5' 4) Wt 105.7 kg (233 lb) LMP 09/02/2023 SpO2 96% BMI 39.99 kg/m? CERVICAL EXAM: Dilation: 4 (04/24/24214 : Christiano Conti DO) Effacement (%): 60 (04/24/24214 : Christiano Conti DO) Station: -2 (04/24/24214 : Christiano Conti DO) Presentation: (not recorded) MEMBRANES: Status: Membrane Status: Artificial ROM after labor (04/24/24214 : Christiano Conti DO) FHT: 130/Minimal (detectable but < or equal to 5 bpm) Variability/ Accelerations: Present/ Decelerations: Late TOCO: Not present Contractions, Every 1-3 minutes NST Interpretation: Category II, not on protocol. Made quick change at last check. A/P: 39 year old EGA:33w5d admitted for IOL for PreE with severe features. Active Hospital Problems Diagnosis Date Noted Pre-eclampsia, severe, antepartum, third trimester 04/18/2024 - Diagnosed at 33 weeks, s/p admission to antepartum service - started on Procardia 30 Xl BID -S/p Procardia 01/27/20 (04/18) -S/p Labetalol 20, 40, 80 (04/23) - s/p 24 hours magnesium on admission. Now restarting Magnesium until 24 hours after delivery - Delivery indicated due to requiring multiple acute treatments on 04/23 - CBC, CMP this AM without evidence of PreE - Asymptomatic - Blood pressure normal to persistent severe Encounter for induction of labor 04/23/2024 Induction of labor for preeclampsia with severe features GBS negative Cyt#2 @ 2024 Pit prn Epi upon request Amniotomy @ 0210 for clear Growth 32w3d 3lbs 13oz 12%, AC 25% SIGNATURE: Christiano Conti DO PATIENT NAME: Harrison Gunderson DATE: April 24, 2024 TIME: 2:47 AM [facility] 04-24-2024 Note HNO ID: [id number] Author: CHRISTIANO CONTI DO Service: Obstetrics Author Type: Resident Type: Progress Notes Filed: 04/24/2024 02:15 Note Text: SVE performed /-2, head well applied. Risks, benefits, alternatives of amniotomy reviewed with patient. Patient comfortable with epidural and would like to proceed with amniotomy at this time. The patient tolerated the procedure well. Amniotomy performed yielding clear fluid. head well applied before and after procedure. Cat I FHT. All questions answered. Dr. Kapadia updated. SIGNATURE: Christiano Conti DO PATIENT NAME: Harrison Gunderson DATE: 04/24/2024 TIME: 2:14 AM PAGER/CONTACT #: [phone] [facility] 04-24-2024 Note HNO ID: [id number] Author: CHRISTIANO CONTI DO Service: Obstetrics Author Type: Resident Type: Progress Notes Filed: 04/24/2024 00:56 Note Text: OB Labor Progress Note Service Date: April 24, 2024 Service Time: 12:47 AM S: Tolerating labor well. Encouraged patient over labor course. Tolerated placement of cervical balloon very well. O: Vitals: BP 137/80 Pulse 78 Temp 36.4 ?C (97.5 ?F) (Temporal) Resp 14 Ht 162.6 cm (5' 4) Wt 105.7 kg (233 lb) LMP 09/02/2023 SpO2 96% BMI 39.99 kg/m? CERVICAL EXAM: Dilation: 1 (04/24/2455 : Christiano Conti DO) Effacement (%): 40 (04/24/2455 : Christiano Conti DO) Station: -3 (04/24/2455 : Christiano Conti DO) Presentation: (not recorded) MEMBRANES: Status: FHT: 125/Minimal (detectable but < or equal to 5 bpm) Variability/ Accelerations: Present/ Decelerations: None TOCO: Regular Contractions, Every 1-3 minutes NST Interpretation: Category II, due to minimal variability. Patient on magnesium. Scalp stimulation visualized. A/P: 39 year old EGA:33w5d admitted for IOL for PreEw/ Active Hospital Problems Diagnosis Date Noted Pre-eclampsia, severe, antepartum, third trimester 04/18/2024 - Diagnosed at 33 weeks, s/p admission to antepartum service - started on Procardia 30 Xl BID -S/p Procardia 10/20/20 (04/18) -S/p Labetalol 20, 40, 80 (04/23) - s/p 24 hours magnesium on admission. Now restarting Magnesium until 24 hours after delivery - Delivery indicated due to requiring multiple acute treatments on 04/23 - CBC, CMP this AM without evidence of PreE - Asymptomatic - Blood pressure normal to persistent severe Encounter for induction of labor 04/23/2024 Induction of labor for preeclampsia with severe features GBS negative Cyt#2 @ 2024 Cc @ 0040 Pit prn Epi upon request Amniotomy prn SIGNATURE: Christiano Conti DO PATIENT NAME: Harrison Gunderson DATE: April 24, 2024 TIME: 12:47 AM [facility] 04-24-2024 Note HNO ID: [id number] Author: CHRISTIANO CONTI DO Service: Obstetrics Author Type: Resident Type: Procedures Filed: 04/24/2024 00:47 Note Text: BEDSIDE PROCEDURE NOTE Cervical Ripening Balloon Date/Start Time: 04/24/2024 12:40 AM Date/Stop Time: Performed by: Christiano Conti DO Authorized by: Yuliya Kapadia MD Informed Consent Consent Obtained: Written Webber Protocol A moment to CARE was completed. SIGN IN Sign in communication not applicable due to emergent procedure. Personnel directly involved with the procedure wore the appropriate PPE. TIME OUT Consent documented and matches the intended procedure. Procedure Details: Indications: Patient is a 39 year old year old female, 33w5d here for Induction of labor During digital exam, the catheter was guided over the surgeon's hand and into the cervix. A Cook Catheter was inserted through the cervical os, beyond internal os and approximately 60 cc of sterile saline slowly injected into the intrauterine portion of the balloon. 60 cc were injected into the vaginal portion of the balloon. The catheter was taped to the inner thigh. Post-procedure Details: Patient tolerance: Patient tolerated the procedure well with no immediate complications Estimated Blood Loss (mL): 0 SIGN OUT All specimen containers correctly labeled. All instruments, equipment, possible retained foreign bodies accounted for. SIGNATURE: Christiano Conti DO PATIENT NAME: Harrison Gunderson DATE: April 24, 2024 TIME: 12:45 AM [facility] 04-23-2024 Note HNO ID: [id number] Author: CHRISTIANO CONTI DO Service: Obstetrics Author Type: Resident Type: Progress Notes Filed: 04/23/2024 20:59 Note Text: OB Labor Progress Note Service Date: April 23, 2024 Service Time: 8:31 PM S: Tolerating labor well. Single severe range BP during this time, but repeat BP was high mild, no acute treatment needed at this time. Still on magnesium. O: Vitals: BP 157/92 Pulse 68 Temp 36.8 ?C (98.2 ?F) (Oral) Resp 14 Ht 162.6 cm (5' 4) Wt 105.7 kg (233 lb) LMP 09/02/2023 SpO2 97% BMI 39.99 kg/m? Patient Vitals for the past 24 hrs: BP 04/23/242014 157/92 04/23/241999 (!) 160/88 04/23/241957 (!) 160/88 04/23/24 1910 151/88 04/23/24 1901 155/86 04/23/24 1832 159/86 04/23/24 1801 150/80 04/23/24 1746 141/82 04/23/24 1732 159/88 04/23/24 1716 148/89 04/23/24 1701 143/86 04/23/24 1646 147/89 04/23/24 1631 142/87 04/23/24 1611 152/89 04/23/24 1601 150/87 04/23/24 1547 (!) 165/88 04/23/24 1532 (!) 164/90 04/23/24 1516 144/90 04/23/24 1500 148/91 04/23/24 1446 155/88 04/23/24 1431 137/79 04/23/24 1416 147/96 04/23/24 1405 138/88 04/23/24 1325 (!) 164/93 04/23/24 1300 148/91 04/23/24 1251 (!) 163/100 04/23/24 1241 155/95 04/23/24 1231 154/94 04/23/24 1222 144/87 04/23/24 1220 144/87 04/23/24 1159 (!) 163/96 04/23/24 1144 (!) 168/91 04/23/24 0803 146/91 04/23/24 0523 154/87 04/23/24 0100 122/60 CERVICAL EXAM: Dilation: Fingertip (04/23/24 2030 : Christiano Conti DO) Effacement (%): (not recorded) Station: (not recorded) Presentation: (not recorded) MEMBRANES: Status: FHT: 140/Moderate (6-25 bpm) Variability/ Accelerations: Present/ Decelerations: Intermittent TOCO: Regular Contractions, Every 3-4 minutes NST Interpretation: Category II, not on protocol. Reassuring with accelerations and moderate variability. A/P: 39 year old EGA:33w4d admitted for IOL for PreE with Severe features. Active Hospital Problems Diagnosis Date Noted Encounter for induction of labor 04/23/2024 Induction of labor for preeclampsia with severe features GBS negative Cyt#2 @ 2024 Pit prn Epi upon request Amniotomy prn SIGNATURE: Christiano Conti DO PATIENT NAME: Harrison Gunderson DATE: April 23, 2024 TIME: 8:31 PM [facility] 04-23-2024 Note HNO ID: [id number] Author: YULIYA KAPADIA MD Service: Obstetrics Author Type: Resident Type: Progress Notes Filed: 04/23/2024 21:31 Note Text: Attestation signed by Yuliya Kapadia MD at 04/23/2024 9:31 PM Patient status discussed with resident team during this time, Dr. Muñoz, Dr. Lindsay. Agree with resident assessment and plan. Notified by primary RN of persistent severe BP. Patient asymptomatic. Exam reassuring RRR, CTAB, Reflexes 2+4 BLE and BUE. Recently started Magnesium for induction. Will treat with labetalol 20 mg and increase Procardia to 60 mg BID from 30 mg BID. Discussed with Dr. Kapadia. Patient Vitals for the past 24 hrs: BP 04/23/24 1611 152/89 04/23/24 1601 150/87 04/23/24 1547 (!) 165/88 04/23/24 1532 (!) 164/90 04/23/24 1516 144/90 04/23/24 1500 148/91 04/23/24 1446 155/88 04/23/24 1431 137/79 04/23/24 1416 147/96 04/23/24 1251 (!) 163/100 04/23/24 1241 155/95 04/23/24 1231 154/94 04/23/24 1222 144/87 04/23/24 1159 (!) 163/96 04/23/24 1144 (!) 168/91 04/23/24 0803 146/91 04/23/24 0523 154/87 04/23/24 0100 122/60 04/22/24 2040 124/64 04/22/24 1725 149/78 Shea Lindsay DO Pgy-2 Dr. Muñoz at bedside to place first cytotec at 1620. SVE 0.5 cm. Team completed with Dr. Muñoz, Dr. Kapadia, and primary RN. Shea Lindsay DO PGY-2 Update: Repeat BP mild range. 4:30 PM Shea Lindsay DO PGY-2 [facility] 04-23-2024 Note HNO ID: [id number] Author: YULIYA KAPADIA MD Service: Obstetrics Author Type: Physician Type: Progress Notes Filed: 04/23/2024 21:30 Note Text: Team huddle completed as patient now moving toward delivery. [facility] 04-23-2024 Note HNO ID: [id number] Author: SHEA LINDSAY DO Service: Obstetrics Author Type: Resident Type: Progress Notes Filed: 04/23/2024 14:07 Note Text: Repeat BP after labetalol 80 mg WNL. Planning to start magnesium shortly followed by cervical exam and induction. Shea Lindsay DO PGY-2 [facility] 04-23-2024 Note HNO ID: [id number] Author: SHEA LINDSAY DO Service: Obstetrics Author Type: Resident Type: Progress Notes Filed: 04/23/2024 13:38 Note Text: Attestation signed by Tammy Rodríguez MD at 04/23/2024 1:41 PM Recommend delivery at 33 4/7 due to persistent elevated Bps requiring anti hypertensive medications. FHT reactive and reassuring. Plan to move to [facility] For induction. Patient verbalizes understanding and agrees with plan of care. Tammy Rodríguez MD Notified by primary RN of severe BP within 1 hour of last treatment. Patient continues to be asymptomatic. Patient is resting comfortably laying on couch, has no complaints at present. Patient denies any chest pain, SOB, cough, headache, visual changes, RUQ pain, abdominal pain, nausea, vomiting, vaginal bleeding, leakage of fluid. Having normal movement. Patient Vitals for the past 24 hrs: BP 04/23/24 1251 (!) 163/100 04/23/24 1241 155/95 04/23/24 1231 154/94 04/23/24 1222 144/87 04/23/24 1159 (!) 163/96 04/23/24 1144 (!) 168/91 04/23/24 0803 146/91 04/23/24 0523 154/87 04/23/24 0100 122/60 04/22/24 2040 124/64 04/22/24 1725 149/78 General: comfortable appearing on couch, resting Heart: warm and well-perfused. Normal S1-S2, no murmurs, regular rate Lungs: clear to auscultation bilaterally Abdomen: non-tender, gravid Neuro: Reflexes 2+ bilaterally BLE and BUE Extremities: trace edema bilaterally, calves symmetric US: Cephalic presentation PreE with severe features - Asymptomatic - S/p labetalol 20, 40 mg, 80 mg - Repeat BP after 80 mg pending - Due to new onset persistently severe BP requiring multiple acute treatment, will proceed with induction of labor at this time for concern for worsening severe preeclampsia - S/p BMZ, NICU consult - Start magnesium 6 g bolus > 2 g infusion - Continuous monitoring - GBS negative Discussed with Dr. Rodríguez. Will transfer care to Dr. Chacho Lindsay DO PGY-2 [facility] 04-23-2024 Note HNO ID: [id number] Author: KAYKAY MUÑOZ DO Service: Obstetrics Author Type: Resident Type: Progress Notes Filed: 04/23/2024 12:37 Note Text: S: At bedside to evaluate patient after severe range blood pressure. Patient is resting comfortably laying on couch, has no complaints at present. Patient denies any chest pain, SOB, cough, headache, visual changes, RUQ pain, abdominal pain, nausea, vomiting, vaginal bleeding, leakage of fluid, or any additional complaints at this time. +FM O: Patient Vitals for the past 24 hrs: BP 04/23/24 1222 144/87 04/23/24 1159 (!) 163/96 04/23/24 1144 (!) 168/91 04/23/24 0803 146/91 04/23/24 0523 154/87 04/23/24 0100 122/60 04/22/24 2040 124/64 04/22/24 1725 149/78 General: lying comfortably on couch Heart: warm and well-perfused. Normal S1-S2, no murmurs, regular rate Lungs: clear to auscultation bilaterally Abdomen: non-tender, gravid Uterus: Gravid uterus, non-tender Neuro: Reflexes 2+ bilaterally Extremities: trace edema bilaterally, calves symmetric A/P: Pre-eclampsia, severe features - Patient with severe range blood pressure this afternoon, remained severe after 15 min - acutely reated with Labetelol 20mg IV, repeat blood pressure 10min after treatment is mild range 144/87 - If patient requires additional acute treatment, consider moving forward with induction of labor for worsening pre-eclampsia - Patient is asymptomatic at present, denies headache, visual symptoms, RUQ pain, chest pain, or shortness of breath Discussed with Dr. Anne Muñoz DO 12:37 PM [facility] 04-23-2024 Note HNO ID: [id number] Author: DIANNE GERMAN RN Service: Obstetrics Author Type: Registered Nurse Type: Procedures Filed: 04/23/2024 10:55 Note Text: Attestation signed by Tammy Rodríguez MD at 04/23/2024 1:40 PM Inpatient NST: Indication: Pre eclampsia with severe features Interpretation: Baseline: 150, moderate variability, + accelerations, no decelerations. Tocometer: no regular uterine activity Impression: Reactive NST Tammy Rodríguez MD OBSTETRICS NST SUMMARY SERVICE DATE: April 23, 2024 The patient is a 39 year old female, , who is at 33w4d with an KESHAV of 06/07/2024, by Ultrasound dating method. NST OBJECTIVE FINDINGS PER NURSE: Start Time: 1016 (04/23/24 1036 : Dianne Greman, RN) Complete Time: 1036 (04/23/24 1036 : Dianne German, RN) Indications: Pre-eclampsia (04/23/24 1036 : Dianne German RN) Patient Reason For: monitor baby (04/23/246 : Dianne German RN) NST Explanation: Procedure Explained;Monitor Explained;Verbalizes Understanding (04/23/241035 : Dianne German RN) Acoustic Stimulator: No (04/23/241035 : Dianne German RN) Interventions: Reposition (04/23/241035 : Dianne German RN) MONITORING/ASSESSMENT: Baseline: 150 bpm (04/23/241035 : Dianne German RN) Variability: Minimal (detectable but < or equal to 5 bpm) (periods of minimal variability) (04/23/241035 : Dianne German RN) Accelerations: Present (04/23/241035 : Dianne German RN) Decelerations: Decelerations: None (04/23/241035 : Dianne German RN) Contractions: Not present (04/23/241035 : Dianne German RN) Frequency: Above information forwarded to Dr. Rodríguez (04/23/241035 : Dianne German RN) for final review and interpretation. SIGNATURE: Dianne German RN PATIENT NAME: Harrison Gunderson DATE: April 23, 2024 TIME: 10:54 AM [facility] 04-23-2024 Note HNO ID: [id number] Author: KAYKAY MUÑOZ DO Service: Maternal Medicine Author Type: Resident Type: Progress Notes Filed: 04/23/2024 06:14 Note Text: Attestation signed by Tammy Rodríguez MD at 04/23/2024 10:43 AM Attending Note I evaluated the patient and personally participated in the pinzon components. I agree with the resident's findings and plan as documented and have discussed the case and management of the patient's care with the resident. Plan of care discussed with: Provider, RN, Patient. In summary, this is a 39 year old old at 33w4d admitted for pre eclampsia with severe features. Normotensive BP, asymptomatic. Denies any ruq pain, blurry vision or headache Denies any leakage of fluid, contractions, vaginal bleeding and +FM. IOL scheduled at 34 weeks. Plan for continued inpatient management. Signature: Tammy Rodríguez MD Date: April 23, 2024 Time: 10:43 AM MATERNAL MEDICINE ANTEPARTUM PROGRESS NOTE SERVICE DATE: 04/23/2024 SERVICE TIME: 6:09 AM 39 year old EGA:33w4d admitted for Pre-eclampsia. Plan of care discussed with: Provider, RN, Patient Assessment AND Plan Pre-eclampsia, severe, antepartum, third trimester - Met criteria for pre-eclampsia with severe features by blood pressure criteria - Required acute treatment with Procardia 10, 20, 20 mg (04/18) - Admission CBC and CMP, no evidence of end organ dysfunction - S/p magnesium for 24 hours Plan - Continue Procardia 30 XL BID - Continue to monitor blood pressures - have been normal to high mild overnight - Plan for delivery at 34w or sooner if indicated Prematurity of fetus - Cephalic on US - Growth US at 32w3d shows EFW 3lbs 13oz (12%), AC 25% - S/p betamethasone for lung maturity (04/18-04/19) - GBS negative - NST daily - NICU consulted - vitamin Multigravida of advanced maternal age in second trimester - NIPT low-risk, normal anatomy Obesity affecting in second trimester - BMI 44 - 2g of ancef for delivery Uterine fibroid during , antepartum - 4 cm anterior uterine fibroid Subjective : No current vaginal bleeding, No current leaking of fluid, No contractions, Good movement, No shortness of breath or chest pain, and No calf tenderness Denies chest pain, SOB, visual changes, RUQ pain, headache. Notes good movement. Objective : LAST VITALS: Pulse BP Resp O2 Sat Temp Pain 58 154/87 17 98 % 36.7 ?C (98.1 ?F) 0 PHYSICAL EXAM: General: WD, WN Heart: RR Lungs: normal respiratory effort on room air Abdomen: nontender, gravid Uterus: NT, gravid Extremities: not tenderness to palpation MONITORING/ASSESSMENT: Pending NST today LABS Diagnostic tests reviewed for today's visit: Most recent labs and imaging results. SIGNATURE: Kaykay Muñoz DO PATIENT NAME: Harrison Gunderson DATE: April 23, 2024 TIME: 6:09 AM [facility] 04-22-2024 Note HNO ID: [id number] Author: KENIA GUERRERO RN Service: Obstetrics Author Type: Registered Nurse Type: Procedures Filed: 04/22/2024 10:08 Note Text: Attestation signed by Tammy Rodríguez MD at 04/22/2024 2:32 PM Inpatient NST: Indication: pre eclampsia with severe features Interpretation: Baseline: 140, moderate variability, + accelerations, no decelerations. Tocometer: no regular uterine activity Impression: Reactive NST Tammy Rodríguez MD OBSTETRICS NST SUMMARY SERVICE DATE: April 22, 2024 The patient is a 39 year old female, , who is at 33w3d with an KESHAV of 06/07/2024, by Ultrasound dating method. NST OBJECTIVE FINDINGS PER NURSE: Start Time: 928 (04/22/24 1000 : Kenia Guerrero RN) Complete Time: 1000 (04/22/24 1000 : Kenia Guerrero RN) Indications: Patient Reason For: NST Explanation: Procedure Explained;Monitor Explained;Verbalizes Understanding (04/22/24 1000 : Kenia Guerrero RN) Acoustic Stimulator: Interventions: MONITORING/ASSESSMENT: Baseline: 140 bpm (04/22/24 1000 : Kenia Guerrero RN) Variability: Moderate (6-25 bpm) (04/22/24 1000 : Kenia Guerrero RN) Accelerations: Present (04/22/24 1000 : Kenia Guerrero RN) Decelerations: Decelerations: None (04/22/24 1000 : Kenia Guerrero RN) Contractions: Not present (04/22/24 1000 : Kenia Guerrero RN) Frequency: Above information forwarded to Dr. Rodríguez (04/22/24 1000 : Kenia Guerrero RN) for final review and interpretation. SIGNATURE: Kenia Guerrero RN PATIENT NAME: Harrison Gunderson DATE: April 22, 2024 TIME: 10:08 AM [facility] 04-22-2024 Note HNO ID: [id number] Author: KAYKAY MUÑOZ DO Service: Maternal Medicine Author Type: Resident Type: Progress Notes Filed: 04/22/2024 07:49 Note Text: Attestation signed by Tammy Rodríguez MD at 04/22/2024 2:34 PM Attending Note I evaluated the patient and personally participated in the pinzon components. I agree with the resident's findings and plan as documented and have discussed the case and management of the patient's care with the resident. Plan of care discussed with: Provider, RN, Patient. In summary, this is a 39 year old old at 33w3d admitted for pre eclampsia with severe features. Normotensive BP, asymptomatic. Denies any ruq pain, blurry vision or headache Denies any leakage of fluid, contractions, vaginal bleeding and +FM. IOL scheduled at 34 weeks. Plan for continued inpatient management. Signature: Tammy Rodríguez MD Date: April 22, 2024 Time: 2:32 PM MATERNAL MEDICINE ANTEPARTUM PROGRESS NOTE SERVICE DATE: 04/22/2024 SERVICE TIME: 5:57 AM 39 year old EGA:33w3d admitted for Pre-eclampsia. Plan of care discussed with: Provider, RN, Patient. Assessment AND Plan Pre-eclampsia, severe, antepartum, third trimester - Met criteria for pre-eclampsia with severe features by blood pressure criteria - Required acute treatment with Procardia 10, 20, 20 mg (04/18) - Admission CBC and CMP, no evidence of end organ dysfunction - S/p magnesium for 24 hours Plan - Continue Procardia 30 XL BID - Continue to monitor blood pressures - have been normal overnight - Plan for delivery at 34w or sooner if indicated Prematurity of fetus - Cephalic on US - Growth US at 32w3d shows EFW 3lbs 13oz (12%), AC 25% - S/p betamethasone for lung maturity (04/18-04/19) - GBS negative - NST daily - NICU consulted - vitamin Multigravida of advanced maternal age in second trimester - NIPT low-risk, normal anatomy Obesity affecting in second trimester - BMI 44 - 2g of ancef for delivery Uterine fibroid during , antepartum - 4 cm anterior uterine fibroid Subjective : No current vaginal bleeding, No current leaking of fluid, No contractions, Good movement, No shortness of breath or chest pain, and No calf tenderness Denies chest pain, SOB, visual changes, RUQ pain, headache. Notes good movement. Objective : LAST VITALS: Pulse BP Resp O2 Sat Temp Pain 58 122/66 15 98 % 36.7 ?C (98.1 ?F) 0 PHYSICAL EXAM: General: Well appearing, comfortable in bed, no acute distress Lungs: Breathing comfortably on room air Heart: Regular rate Abdomen: Gravid, nontender Extremities: Nontender calves bilaterally, trace edema symmetrical bilaterally MONITORING/ASSESSMENT: NST on 04/21 reactive. Pending NST today LABS Diagnostic tests reviewed for today's visit: Most recent labs and imaging results. SIGNATURE: Kaykay Muñoz DO PATIENT NAME: Harrison Gunderson DATE: April 22, 2024 TIME: 5:57 AM [facility] 04-21-2024 Note HNO ID: [id number] Author: ABIGAIL PULLIAM MD Service: Nursing Author Type: Physician Type: Procedures Filed: 04/21/2024 12:12 Note Text: OBSTETRICS NST SUMMARY SERVICE DATE: April 21, 2024 The patient is a 39 year old female, , who is at 33w2d with an KESHAV of 06/07/2024, by Ultrasound dating method. NST OBJECTIVE FINDINGS PER NURSE: Start Time: 1128 (04/21/24 1150 : Brannon Manuel RN) Complete Time: 1150 (04/21/24 1150 : Brannon Manuel, RENATE) Indications: Pre-eclampsia (04/21/24 1150 : Brannon Manuel, RENATE) Patient Reason For: check baby (04/21/24 1150 : Brannon Manuel, RENATE) NST Explanation: Procedure Explained;Monitor Explained;Verbalizes Understanding (04/21/24 1150 : Brannon Manuel, RENATE) Acoustic Stimulator: No (04/21/24 1150 : Brannon Manuel, RN) Interventions: Reposition (04/21/24 1150 : Brannon Manuel, RENATE) MONITORING/ASSESSMENT: Baseline: 140 bpm (04/21/24 1150 : Brannon Manuel, RENATE) Variability: Moderate (6-25 bpm) (04/21/24 1150 : Brannon Manuel RN) Accelerations: Present (04/21/24 1150 : Brannon Manuel RN) Decelerations: Decelerations: None (04/21/24 1150 : Brannon Manuel RN) Contractions: Not present (04/21/24 1150 : Brannon Manuel RN) Frequency: Above information forwarded to Dr Pulliam (04/21/24 1150 : Brannon Manuel RN) for final review and interpretation. SIGNATURE: Brannon Manuel RN PATIENT NAME: Harrison Gunderson DATE: April 21, 2024 TIME: 12:04 PM PROVIDER INTERPRETATION: Reactive SIGNATURE: Abigail Pulliam MD DATE: April 21, 2024 TIME: 12:12 PM [facility] 04-21-2024 Note HNO ID: [id number] Author: CIERA GUERRA MD Service: Obstetrics Author Type: Resident Type: Progress Notes Filed: 04/21/2024 09:36 Note Text: Attestation signed by Ciera Guerra MD at 04/21/2024 9:36 AM Patient seen and examined by me and I agree with the residents assessment and plan. Ciera Guerra MD OBSTETRICS ANTEPARTUM PROGRESS NOTE SERVICE DATE: 04/21/2024 SERVICE TIME: 6:50 AM 39 year old EGA:33w2d admitted for severe Pre-eclampsia. Plan of care discussed with: Provider, RN, Patient. Assessment AND Plan Pre-eclampsia, severe, antepartum, third trimester - Met criteria for pre-eclampsia with severe features by blood pressure criteria - Required acute treatment with Procardia 10, 20, 20 mg (04/18) - Admission CBC and CMP, no evidence of end organ dysfunction - S/p magnesium for 24 hours - Asymptomatic at this time Plan - Continue Procardia 30 XL BID - Continue to monitor blood pressures - have been normal overnight - Plan for delivery at 34w or sooner if indicated Prematurity of fetus - Cephalic on US - Growth US at 32w3d shows EFW 3lbs 13oz (12%), AC 25% - S/p betamethasone for lung maturity (04/18-04/19) - GBS negative - NST daily - NICU consulted - vitamin Multigravida of advanced maternal age in second trimester - NIPT low-risk, normal anatomy Obesity affecting in second trimester - BMI 44 - 2g of ancef if for Uterine fibroid during , antepartum - 4cm anterior uterine fibroid Subjective : No current vaginal bleeding, No current leaking of fluid, No contractions, Good movement, No shortness of breath or chest pain, and No calf tenderness Denies chest pain, SOB, Changes in vision, RUQ pain, headache. Objective : LAST VITALS: Pulse BP Resp O2 Sat Temp Pain 60 115/59 16 97 % 36.8 ?C (98.2 ?F) 0 PHYSICAL EXAM: General: No acute distress Heart: Regular rate Lungs: Unlabored breathing on room air Abdomen: Gravid, nontender Extremities: Nontender, no edema MONITORING/ASSESSMENT: testing reassuring - see additional documentation - one spontaneous deceration on overnight NST. Category I for 1 hour after. LABS Diagnostic tests reviewed for today's visit: Most recent labs and imaging results. Most recent labs SIGNATURE: Shea Lindsay DO PATIENT NAME: Harrison Gunderson DATE: April 21, 2024 TIME: 6:50 AM [facility] 04-20-2024 Note HNO ID: [id number] Author: CLARISSA GALVEZ, RENATE Service: Nursing Author Type: Registered Nurse Type: Procedures Filed: 04/20/2024 21:28 Note Text: Attestation signed by Anila Pepper MD at 04/20/2024 11:02 PM PROVIDER INTERPRETATION: Reactive Spontaneous deceleration noted. The patient was kept on the cEFM x 1 hour after with reassuring tracing. SIGNATURE: Anila Pepper MD DATE: April 20, 2024 TIME: 11:02 PM OBSTETRICS NST SUMMARY SERVICE DATE: April 20, 2024 The patient is a 39 year old female, , who is at 33w1d with an KESHAV of 06/07/2024, by Ultrasound dating method. NST OBJECTIVE FINDINGS PER NURSE: Start Time: 2099 (04/20/242099 : Clarissa Galvez, RENATE) Complete Time: 2119 (04/20/242119 : Clarissa Galvez, RN) Indications: Pre-eclampsia (04/20/242099 : Clarissa Galvez, RENATE) Patient Reason For: monitor baby (04/20/242099 : Clarissa Galvez, RN) NST Explanation: Procedure Explained;Monitor Explained;Verbalizes Understanding (04/20/242119 : Clarissa Galvez, RN) Acoustic Stimulator: No (04/20/242119 : Clarissa Galvez, RN) Interventions: Other (See Comment);Reposition;Oral Fluids Given (reposition and apple juice provided to patient) (04/20/242119 : Clarissa Galvez, RN) MONITORING/ASSESSMENT: Baseline: 135 bpm (04/20/242119 : Clarissa Galvez, RN) Variability: Moderate (6-25 bpm) (04/20/242119 : Clarissa Galvez, RN) Accelerations: Present (04/20/242119 : Clarissa Galvez, RN) Decelerations: Decelerations: None (04/20/242119 : Clarissa Galvez, RENATE) Decel Frequency: Intermittent (04/20/242099 : Clarissa Galvez, RENATE) Contractions: Not present (04/20/242119 : Clarissa Galvez, RN) Frequency: Above information forwarded to Dr. Pepper (04/20/242119 : Clarissa Galvez, RN) for final review and interpretation. SIGNATURE: Clarissa Galvez RN PATIENT NAME: Harrison Gunderson DATE: April 20, 2024 TIME: 9:27 PM [facility] 04-20-2024 Note HNO ID: [id number] Author: CYNTHIA LEHMAN MD Service: Nursing Author Type: Registered Nurse Type: Procedures Filed: 04/20/2024 17:38 Note Text: Attestation signed by Cynthia Lehman MD at 04/20/2024 5:38 PM Attending Note I evaluated the NST. Reactive, category 1. Signature: Cynthia Lehman MD Date: 04/20/24 Time: 5:38 PM OBSTETRICS NST SUMMARY SERVICE DATE: April 20, 2024 The patient is a 39 year old female, , who is at 33w1d with an KESHAV of 06/07/2024, by Ultrasound dating method. NST OBJECTIVE FINDINGS PER NURSE: Start Time: 39 (04/20/24 1000 : Brannon Manuel RN) Complete Time: 1000 (04/20/24 1000 : Brannon Manuel RN) Indications: Chronic HTN (04/20/24 1000 : Brannon Manuel RN) Patient Reason For: check baby (04/20/24 1000 : Brannon Manuel RN) NST Explanation: Procedure Explained;Monitor Explained;Verbalizes Understanding (04/20/24 1000 : Brannon Manuel RN) Acoustic Stimulator: No (04/20/24 1000 : Brannon Manuel RN) Interventions: Reposition (04/20/24 1000 : Brannon Manuel RN) MONITORING/ASSESSMENT: Baseline: 135 bpm (04/20/24 1000 : Brannon Manuel RN) Variability: Moderate (6-25 bpm) (04/20/24 1000 : Brannon Manuel RN) Accelerations: Present (04/20/24 1000 : Brannon Manuel RN) Decelerations: Decelerations: None (04/20/24 1000 : Brannon Manuel RN) Contractions: Not present (04/20/24 1000 : Brannon Manuel RN) Frequency: Above information forwarded to Dr Lehman (04/20/24 1000 : Brannon Manuel RN) for final review and interpretation. SIGNATURE: Brannon Manuel RN PATIENT NAME: Harrison Gunderson DATE: April 20, 2024 TIME: 11:23 AM [facility] 04-20-2024 Note HNO ID: [id number] Author: CIERA GUERRA MD Service: Maternal Medicine Author Type: Resident Type: Progress Notes Filed: 04/20/2024 17:53 Note Text: Attestation signed by Ciera Guerra MD at 04/20/2024 5:53 PM Patient seen and examined by me and I agree with the residents assessment and plan. Ciera Guerra MD MATERNAL MEDICINE ANTEPARTUM PROGRESS NOTE SERVICE DATE: 04/20/2024 SERVICE TIME: 8:59 AM 39 year old EGA:33w1d admitted for pre eclampsia with severe features by blood pressure criteria, admitted 04/18 Assessment AND Plan Pre-eclampsia, severe, antepartum, third trimester - Met criteria for pre-eclampsia with severe features by blood pressure criteria - Required acute treatment with Procardia 10, 20, 20 mg (04/18) - Admission CBC and CMP, no evidence of end organ dysfunction - S/p magnesium for 24 hours Plan - Continue Procardia 30 XL BID - Continue to monitor blood pressures - have been normal overnight - Plan for delivery at 34w or sooner if indicated Obesity affecting in second trimester - BMI 44 - 2g of ancef for delivery Multigravida of advanced maternal age in second trimester - NIPT low-risk, normal anatomy Uterine fibroid during , antepartum - 4 cm anterior uterine fibroid Prematurity of fetus - Cephalic on US - Growth US at 32w3d shows EFW 3lbs 13oz (12%), AC 25% - S/p betamethasone for lung maturity (04/18-04/19) - GBS negative - NST daily - NICU consulted - vitamin Subjective : Harrison is doing well today. Denies any concerns. Denies vaginal bleeding, leakage of fluids, contractions. Reports good movement. Denies headache, visual changes, right upper quadrant abdominal pain, chest pain, shortness of breath, or worsening edema. Objective : LAST VITALS: Pulse BP Resp O2 Sat Temp Pain 83 124/71 16 97 % 36.9 ?C (98.4 ?F) 0 PHYSICAL EXAM: General: No acute distress Heart: Regular rate Lungs: Unlabored breathing on room air Abdomen: Gravid, nontender Extremities: Nontender, no edema MONITORING/ASSESSMENT: Non-stress test pending LABS Diagnostic tests reviewed for today's visit: Most recent labs and imaging results. SIGNATURE: Tracie Bean MD PATIENT NAME: Harrison Gunderson DATE: April 20, 2024 TIME: 8:59 AM [facility] 04-19-2024 Note HNO ID: [id number] Author: ROCKY THOMAS MD Service: Obstetrics Author Type: Resident Type: Progress Notes Filed: 04/19/2024 09:44 Note Text: Attestation signed by Rocky Thomas MD at 04/19/2024 9:44 AM Attending Note I evaluated the patient and personally participated in the pinzon components. I agree with the resident's findings and plan as documented and have discussed the case and management of the patient's care with the resident. Patient seen. Doing well. G6, P5 at 33 weeks admitted for preeclampsia with severe features. Asymptomatic this morning. On magnesium sulfate for seizure prophylaxis and has received the first dose of betamethasone. Urine protein ordered. Will discontinue magnesium after 24 hours. Daily NST. Full NICU consult. Plan for inpatient admission until delivery at 34 weeks or earlier if indicated. All questions answered. Signature: Rocky Thomas MD Date: 04/19/2024 Time: 9:42 AM OBSTETRICS ANTEPARTUM PROGRESS NOTE SERVICE DATE: 04/19/2024 SERVICE TIME: 6:14 AM 39 year old EGA:33w0d admitted for Pre-eclampsia with severe features of severe range blood pressures. Plan of care discussed with: Provider, RN, Patient. Assessment AND Plan Pre-eclampsia, severe, antepartum, third trimester - Met criteria for pre-eclampsia with severe features, due to elevated blood pressure. - CBC and CMP, no evidence of end organ dysfunction Plan - regular diet - magnesium x24 hrs - acute treatment: Procardia 10, 20, 20 (04/18) - maintenance treatment: Procardia 30 XL BID - Delivery at 34w Prematurity of fetus - Cephalic on US - Growth US at 32w3d shows EFW 3lbs 13oz (12%), AC 25% - BMZ x1 on 04/18, will get second dose today at 1910 - CEFM while on magnesium - GBS pending - NICU consulted - vitamin Multigravida of advanced maternal age in second trimester - NIPT low-risk, normal anatomy Obesity affecting in second trimester - BMI 44 - 2g of ancef if for Uterine fibroid during , antepartum - 4cm anterior uterine fibroid Subjective : Patient resting comfortably this morning, denies headache, chest pain, SOB, visual changes, RUQ pain. Patient states she initially felt a tingle in her throat when starting the magnesium which has since resolved. No current vaginal bleeding, No current leaking of fluid, No contractions, Good movement, No shortness of breath or chest pain, and No calf tenderness Objective : LAST VITALS: Pulse BP Resp O2 Sat Temp Pain 100 133/72 14 97 % 36.6 ?C (97.9 ?F) 0 PHYSICAL EXAM: General: WD, WN Heart: RR, S1, S2 Lungs: clear to auscultation Abdomen: nontender, gravid uterus Uterus: soft, NT, gravid Extremities: no tenderness to palpation over bilateral lower extremeties DTRs: bilateral patellar and bicep reflexes 2+ MONITORING/ASSESSMENT: Baseline 125 bpm, moderate variability, accelerations present, no decelerations, intermittent irregular contractions, category 1 LABS Diagnostic tests reviewed for today's visit: Most recent labs and imaging results. SIGNATURE: Kaykay Muñoz DO PATIENT NAME: Harrison Gunderson DATE: April 19, 2024 TIME: 6:17 AM [facility] 04-18-2024 Note HNO ID: [id number] Author: CHRISTIANO CONTI DO Service: Obstetrics Author Type: Resident Type: Progress Notes Filed: 04/18/2024 19:11 Note Text: Patient still persistently severe range after procardia 10. Pro 20 given and still severe. Pro 20 second dose now being given. Ayla Burgess MD Addendum: Repeat after 20m was 155/87. Provided Procardia 30 XL BID for maintenance. Continue to cycle BP q15m for 1hr, then q30m for 1h, then q1h up to 4hrs. Christiano Conti DO OBGYN PGY-1 [facility] 04-18-2024 Note HNO ID: [id number] Author: ALVINA KWOK MD Service: Obstetrics Author Type: Resident Type: Progress Notes Filed: 04/18/2024 18:01 Note Text: Patient arrived in triage from Main ED, where she was noted to have had a severe range blood pressure. Repeat blood pressure in [facility] also severe, within one hour of first severe pressure. Patient now meets criteria for preeclampsia with severe features and requires acute treatment. Will order Procardia 10mg and recheck blood pressure 20 minutes after administration. Patient Vitals for the past 24 hrs: BP 04/18/24 1748 (!) 166/93 04/18/24 1715 162/[address] Burgess to room to evaluate patient and discuss plan of care. SIGNATURE: Alvina Kwok MD PATIENT NAME: Harrison Gunderson DATE: 04/18/2024 TIME: 6:01 PM PAGER/CONTACT #: [phone] [facility] 04-18-2024 Note HNO ID: [id number] Author: RACHEL ROACH DO Service: Obstetrics Author Type: Resident Type: Progress Notes Filed: 04/18/2024 23:14 Note Text: Attestation signed by Rachel Roach DO at 04/18/2024 11:14 PM I saw and evaluated the patient. Discussed with the resident and agree with resident's findings and plan as documented in the resident's note. 04/18/24200904/18/24201404/18/24201904/18/242024 BP: Pulse: 97 89 95 89 Resp: Temp: TempSrc: SpO2: 97% 97% 96% 97% Weight: Height: Acutely treated with procardia 10,20,20, then transitioned to Procardia 30XL BID. Staffed with MFM who agree with admission for PreE with Severe features Receiving Magnesium sulfate for seizure prophylaxis and betamethasone for prematurity. NICU met with the patient tonight as well. Rachel Roach, DO OBSTETRICS OB ED PROGRESS NOTE SERVICE DATE: April 18, 2024 SERVICE TIME: 5:53 PM Subjective Patient's stated reason for arrival: sent by OB for preeclampsia CHIEF COMPLAINT: Elevated BP HISTORY OF THE PRESENT ILLNESS: The patient is a 39 year old female, , who is at 32w6d with an KESHAV of 06/07/2024, by Ultrasound dating method. Patient is here complaining of elevated blood pressure. Patient is here complaining of high blood pressure. She had a high blood pressure at home. While in the main ED, she had a severe range blood pressure (162/105) and was transferred to the [facility]. While in the [facility], she had a repeat severe range blood pressure. She reports a history of gestational hypertension or pre-eclampsia, she does not remember which. Denies headache, vision changes, chest pain, shortness of breath, right upper quadrant pain, vaginal bleeding, leaking of fluid, discharge, leg pain, diarrhea, or dysuria. PAST MEDICAL HISTORY Diagnosis Date Anxiety History of gestational hypertension 12/01/2023 History of depression 12/01/2023 Obesity Uterine fibroid 2022 Vaginal bleeding during 12/01/2023 PAST SURGICAL HISTORY Procedure Laterality Date COLONOSCOPY SCREENING 2019 FAMILY HISTORY Problem Relation Age of Onset Diabetes Mother Anxiety disorder Mother Hypertension Mother None Father OB History T5 L4 SAB0 IAB0 Ectopic0 Multiple0 Live Births4 REVIEW OF SYSTEMS: See HPI. Objective LAST VITALS: Pulse: 62 BP: (!) 166/93 Resp: 18 Temp: 36.6 ?C (97.9 ?F) SpO2: 98 % Height: 162.6 cm (5' 4) Weight: 105.7 kg (233 lb) BMI: 39.99 SENSITIVE EXAMINATION CONSENT: The sensitive examination was discussed with the Patient or Patient's Authorized Fluorescent Lamp Replacer. As applicable, any other physician, advance practice provider, medical student, or other health professional student that will be observing or involved in the sensitive examination for educational or training purposes was discussed with the Patient or Authorized Fluorescent Lamp Replacer. The Patient or Authorized Fluorescent Lamp Replacer has agreed to proceed with the sensitive examination. (Sensitive examination includes inspection and/or palpation of the breasts, pelvis, prostate and anorectal regions) PHYSICAL EXAM: General: WD, WN, NAD, comfortable HEENT: moist mucous membranes Heart: RR, S1, S2, no abel, rub, or murmur appreciated Lungs: normal pulmonary exam and clear to auscultation Abdomen: soft, non-tender to light or deep palpation in all four quadrants.. No rebound or guarding. Extremities: no edema, non-tender to palpation, appropriate capillary refill MONITORING/ASSESSMENT: 150/moderate/+Accels/-Decels [place]: Uterine Irritability NST Reactive LABS Diagnostic tests reviewed for today's visit: Most recent labs and imaging results. 39 year old EGA:32w6d. Presenting to the [facility] due to elevated blood pressure. Assessment AND Plan Pre-eclampsia, severe, antepartum, third trimester - repeat blood pressure in the main ER 162/105, repeat in [facility] was 166/93. - Physical exam: unremarkable - Starting Magnesium sulfate - Acutely treated with Procardia 10, 20 - CBC and CMP pending - Admit to [facility] 32 weeks gestation of - no other obstetrical concerns - no vaginal bleeding, leaking of fluid, good movement - 150/moderate/+Accels/-Decels Plan of care discussed with: Provider, RN, Patient, and Dr. Roach. SIGNATURE: Christiano Conti DO PATIENT NAME: Harrison Gunderson DATE: April 18, 2024 TIME: 5:53 PM PAGER/CONTACT #: [phone] [facility] 04-18-2024 Progress note Formatting of t his note might be different from the original. S: Harrison Gunderson is a 39 year old female who presents at 32 weeks gestation as an add on visit for elevated blood pressures. She was at work today and ankles continued to swell. 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 She denies any headaches, vision changes or RUQ pain. Some SOB with exertion. Both ankles swelling since yesterday and continue to increase in size. Positive movements. Denies any cramps or contractions, loss of fluid or vaginal bleeding. O: See flow sheet Gen: No apparent distress Abd: Gravid, non tender BLE- +2 edema, hyperreflexia ASSESSMENT/PLAN: 1. 32 weeks gestation of 2. Multigravida of advanced maternal age in third trimester 3. High risk multigravida in third trimester 4. Elevated blood pressure 5. History of Gestational Hypertension 6. History of Preeclampsia - True BP today - 152/100 - Reviewed assessment with Dr. Umanzor which recommended patient go to [facility] for evaluation due to gestational age of 32 weeks and history of preeclampsia. - Patient agrees with plan of care - to drive her Jerry Amaya APRN.CNM [facility] 04-18-2024 Miscellaneous Notes S: Harrison Gunderson is a 39 year old female who presents at 32 weeks gestation as an add on visit for elevated blood pressures. She was at work today and ankles continued to swell. 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 She denies any headaches, vision changes or RUQ pain. Some SOB with exertion. Both ankles swelling since yesterday and continue to increase in size. Positive movements. Denies any cramps or contractions, loss of fluid or vaginal bleeding. O: See flow sheet Gen: No apparent distress Abd: Gravid, non tender BLE- +2 edema, hyperreflexia ASSESSMENT/PLAN: 1. 32 weeks gestation of 2. Multigravida of advanced maternal age in third trimester 3. High risk multigravida in third trimester 4. Elevated blood pressure 5. History of Gestational Hypertension 6. History of Preeclampsia - True BP today - 152/100 - Reviewed assessment with Dr. Umanzor which recommended patient go to [facility] for evaluation due to gestational age of 32 weeks and history of preeclampsia. - Patient agrees with plan of care - to drive her Jerry MERLE Amaya documented in this encounter [facility] 04-18-2024 Telephone encounter Note Called [facility] per KL/CP to inform them Pt was coming from out office d/t BP 152/100, hyperreflexes, bilateral ankle edema, hx of pre-e & GHTN. Kena Mario RN [facility] 04-18-2024 Miscellaneous Notes Called [facility] per KL/CP to inform them Pt was coming from out office d/t BP 152/100, hyperreflexes, bilateral ankle edema, hx of pre-e & GHTN. Kena Mario RN Noted & agree with 3:15 today. Pedrito Umanzor MD 32w6d Patient called with c/o bilateral leg swelling. 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 It was 200/110 after patient had just come down a flight of stairs. Nurse rechecked after patient resting. BP was then 148/106. Patient denies BAILEY, vision changes, RUQ abdominal pain. She is having some SOB, mostly with movements, but can occur while sitting. This started today. Scheduled patient with CP at 3:15 PM today for a BP check, unless you would like patient added to schedule sooner. Thank you. Yuliya Highman, RN documented in this encounter [facility] 04-18-2024 Instructions Wilson Diaz MA - 04/18/2024 2:56 PM EST SEQUENTIAL SCREENINGS The [facility] offers sequential screenings for women who are interested in screenings for chromosomal abnormalities and certain defects during a . The sequential screen combines ultrasound and blood tests to determine the risk of chromosomal abnormalities, including Down's Syndrome (Trisomy 21) and Trisomy 18, as well as open neural tube defects including spina bifida. Ultrasound examination is performed between 11 weeks and 13 weeks gestational age. Blood tests are drawn after the ultrasound and again later in the between 15 and 21 weeks gestational age. Please let your physician know if you are interested in this testing. It will require an appointment with our predictive maintenance technician. This is not an ultrasound performed by a physician in our office during a routine visit. SIGNS AND SYMPTOMS OF LABOR 1. Contractions every 10 minutes or more often 2. Clear, pink, or brownish fluid (water) leaking from vagina 3. Feeling that baby is pushing down, pressure 4. Low, dull backache 5. Cramps that feel like a period 6. Cramps with or without diarrhea If you notice any of the above symptoms, contact our office at [phone] and ask to speak with a nurse. After hours, you can call doctors registry at [phone] OR call [facility] at [phone] and ask to have the doctor anhydrous ammonia production supervisor paged. If you consider this an emergency, dial 9-1-4 or go to your nearest emergency department. NEED HELP? Are you dealing with a violent or abusive relationship? Are you a victim of rape or sexual assult? Call [facility] ([place]) 24 hour Crisis Hotline: 829.111.3546 or 944-285-2145. MANUAL Your Guide to a Healthy manual is now on-line. Visit [email or web address] to download your free copy documented in this encounter [facility] 04-18-2024 Telephone encounter Note Noted & agree with 3:15 today. Pedrito Umanzor MD [facility] Work Phone: 04-18-2024 Telephone encounter Note 32w6d Patient called with c/o bilateral leg swelling. 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 It was 200/110 after patient had just come down a flight of stairs. Nurse rechecked after patient resting. BP was then 148/106. Patient denies BAILEY, vision changes, RUQ abdominal pain. She is having some SOB, mostly with movements, but can occur while sitting. This started today. Scheduled patient with CP at 3:15 PM today for a BP check, unless you would like patient added to schedule sooner. Thank you. Yuliya Villatoro RN [facility] 04-15-2024 Progress note Formatting of t his note might be different from the original. SW- pt doing well. No BAILEY, vision changes, pain, vb, lof. Good FM PE: Gen- NAD, well appearing Abd- Obese See flowsheet A/p 32 wk gestation - Growth US reviewed. Repeat growth US 36 weeks ordered - RSV vaccine today - Discussed upcoming expectations - RTO 2 wks Ramona Alexander DO [facility] 04-15-2024 Note Indication Evaluation of growth Maternal obesity, BMI >35, Advanced maternal age Impression REMOTE READ - Single, live, intrauterine . - The biometry is consistent with the assigned gestational dating. - The EFW is 1723 g, at the 12%. AC is at the 25%. - Amniotic fluid volume is normal amount with an MVP of 5.7 cm and COMFORT of 19.8 cm. - The placenta is anterior, fundal. - No malformations visualized on a limited survey as detailed below. Recommendations Additional follow-up as clinically indicated. Maternal Assessment Height 163 cm Height (ft) 5 ft Height (in) 4 in Physical Exam Initial weight (lb) 206 lb Initial BMI 35.36 kg/m Maternal assessment other: 6 Para 4 Method Transabdominal ultrasound examination [place] . Number of fetuses: 1 Dating GA by prior assessment 32 w + 3 d KESHAV by prior assessment: 06/07/2024 Ultrasound examination on: 04/15/2024 GA by U/S based upon: AC, BPD, Femur, HC GA by U/S 31 w + 6 d KESHAV by U/S: 06/11/2024 Assigned: based on stated KESHAV, selected on 04/15/2024 Assigned GA 32 w + 3 d Assigned KESHAV: 06/07/2024 General Evaluation Cardiac activity present. FHR 133 bpm. movements: present. Presentation: cephalic Placenta: Placental site: anterior, fundal Umbilical cord: Cord vessels: 3 vessel cord Amniotic fluid: Amount of AF: normal amount. MVP 5.7 cm. COMFORT 19.8 cm. Q1 5.2 cm, Q2 5.7 cm, Q3 5.3 cm, Q4 3.6 cm Growth Overview Exam date GA BPD (mm) HC (mm) AC (mm) FL (mm) HL (mm) EFW (g) 12/29/2023 17w 0d 35.9 50% 134.7 41% 114.7 58% 19.5 12% 18.6 8% 161 20% 01/26/2024 21w 0d 49.2 44% 179 30% 153.3 28% 31.3 19% 28.7 4% 337 12% 04/15/2024 32w 3d 83.6 77% 305.7 64% 275.3 25% 55.3 2% 1723 12% Biometry Standard BPD 83.6 mm 33w 5d 77% Hadlock OFD 106.8 mm 31w 6d 47% Nicolaides HC 305.7 mm 33w 1d 64% Zohreh AC 275.3 mm 31w 4d 25% Hadlock Femur 55.3 mm 29w 1d 2% Zohreh EFW 1,723 g 30w 6d 12% Hadlock EFW (lb) 3 lb EFW (oz) 13 oz EFW by: Hadlock (HC-AC-FL) Extended Pinion Sorter 9.5 mm Extremities / Bony Struc FL / HC 0.18 Other Structures FHR 133 bpm Anatomy Lateral ventricles: normal Cavum septi pellucidi: normal Cerebellum: normal Cisterna magna: normal 4-chamber view: normal RVOT view: normal LVOT view: normal 3-vessel view: normal Heart / Thorax Situs: situs solitus (normal) Diaphragm: normal Stomach: normal Kidneys: normal Bladder: normal sex: female Wants to know sex: yes Performed By: Portia Escalante, DONAVON, RVT Read By: Yamel Moore M.D. [facility] 04-15-2024 Miscellaneous Notes SW- pt doing well. No BAILEY, vision changes, pain, vb, lof. Good FM PE: Gen- NAD, well appearing Abd- Obese See flowsheet A/p 32 wk gestation - Growth US reviewed. Repeat growth US 36 weeks ordered - RSV vaccine today - Discussed upcoming expectations - RTO 2 wks Ramona Alexander DO documented in this encounter [facility] 04-15-2024 Instructions Lucien An MA - 04/15/2024 2:37 PM EST SEQUENTIAL SCREENINGS The [facility] offers sequential screenings for women who are interested in screenings for chromosomal abnormalities and certain defects during a . The sequential screen combines ultrasound and blood tests to determine the risk of chromosomal abnormalities, including Down's Syndrome (Trisomy 21) and Trisomy 18, as well as open neural tube defects including spina bifida. Ultrasound examination is performed between 11 weeks and 13 weeks gestational age. Blood tests are drawn after the ultrasound and again later in the between 15 and 21 weeks gestational age. Please let your physician know if you are interested in this testing. It will require an appointment with our predictive maintenance technician. This is not an ultrasound performed by a physician in our office during a routine visit. SIGNS AND SYMPTOMS OF LABOR 1. Contractions every 10 minutes or more often 2. Clear, pink, or brownish fluid (water) leaking from vagina 3. Feeling that baby is pushing down, pressure 4. Low, dull backache 5. Cramps that feel like a period 6. Cramps with or without diarrhea If you notice any of the above symptoms, contact our office at [phone] and ask to speak with a nurse. After hours, you can call doctors registry at [phone] OR call [facility] at [phone] and ask to have the doctor anhydrous ammonia production supervisor paged. If you consider this an emergency, dial 9--3 or go to your nearest emergency department. NEED HELP? Are you dealing with a violent or abusive relationship? Are you a victim of rape or sexual assult? Call [facility] ([place]) 24 hour Crisis Hotline: 922.467.9643 or 558-242-5283. MANUAL Your Guide to a Healthy manual is now on-line. Visit [email or web address] to download your free copy documented in this encounter [facility] 03-27-2024 Progress note Formatting of t his note might be different from the original. S: Harrison Gunderson is a 39 year old female who presents at 06/07/2024 present with decreased movement O: See flow sheet Gen: No apparent distress Abd: Gravid, nontender Decreased movement all day. Juice did not help No LOF Reactive NST Movement improved while on NST ASSESSMENT/PLAN: 1. 29 weeks gestation of - ICD9: V22.2, ICD10: Z3A.29 (primary diagnosis) PTL precautions Kick counts 2. Multigravida of advanced maternal age in second trimester - ICD9: 659.63, ICD10: O09.522 3. Obesity affecting in second trimester, unspecified obesity type - ICD9: 649.13, ICD10: O99.212 Yuliya Geronimo MD [facility] 03-27-2024 Miscellaneous Notes S: Harrison Gunderson is a 39 year old female who presents at 06/07/2024 present with decreased movement O: See flow sheet Gen: No apparent distress Abd: Gravid, nontender Decreased movement all day. Juice did not help No LOF Reactive NST Movement improved while on NST ASSESSMENT/PLAN: 1. 29 weeks gestation of - ICD9: V22.2, ICD10: Z3A.29 (primary diagnosis) PTL precautions Kick counts 2. Multigravida of advanced maternal age in second trimester - ICD9: 659.63, ICD10: O09.522 3. Obesity affecting in second trimester, unspecified obesity type - ICD9: 649.13, ICD10: O99.212 Yuliya Geronimo MD documented in this encounter [facility] 03-27-2024 Instructions Lucien An MA - 03/27/2024 2:33 PM EST SEQUENTIAL SCREENINGS The [facility] offers sequential screenings for women who are interested in screenings for chromosomal abnormalities and certain defects during a . The sequential screen combines ultrasound and blood tests to determine the risk of chromosomal abnormalities, including Down's Syndrome (Trisomy 21) and Trisomy 18, as well as open neural tube defects including spina bifida. Ultrasound examination is performed between 11 weeks and 13 weeks gestational age. Blood tests are drawn after the ultrasound and again later in the between 15 and 21 weeks gestational age. Please let your physician know if you are interested in this testing. It will require an appointment with our predictive maintenance technician. This is not an ultrasound performed by a physician in our office during a routine visit. SIGNS AND SYMPTOMS OF LABOR 1. Contractions every 10 minutes or more often 2. Clear, pink, or brownish fluid (water) leaking from vagina 3. Feeling that baby is pushing down, pressure 4. Low, dull backache 5. Cramps that feel like a period 6. Cramps with or without diarrhea If you notice any of the above symptoms, contact our office at [phone] and ask to speak with a nurse. After hours, you can call doctors registry at [phone] OR call [facility] at [phone] and ask to have the doctor anhydrous ammonia production supervisor paged. If you consider this an emergency, dial 12-09- or go to your nearest emergency department. NEED HELP? Are you dealing with a violent or abusive relationship? Are you a victim of rape or sexual assult? Call [facility] ([place]) 24 hour Crisis Hotline: 480.676.2942 or 727-123-1725. MANUAL Your Guide to a Healthy manual is now on-line. Visit [email or web address] to download your free copy documented in this encounter [facility] 03-22-2024 Note HNO ID: [id number] Author: LUCIEN AN MA Service: ? Author Type: Oracle Drm Consultant Type: Progress Notes Filed: 03/22/2024 10:32 Note Text: Patient identified by name and date of . Harrison Gunderson presents today for a vaccination of Tdap. Patient denies an allergy to latex: yes Patient denies a severe (life-threatening) allergy to a previous dose of Tdap, DTP, DTaP, DT or Td vaccine. Yes Patient denies history of epilepsy or neurological problems: Yes Patient is afebrile and denies being moderately or severely ill: Yes Patient denies history of Guillain-[place] Syndrome (a severe paralytic illness): Yes Tdap Adacel injection was given without incident. See immunizations for details of immunizations administered today. VIS sheet provided: Yes Provider Pedrito Umanzor MD was present in office at time of injection. Lucien An MA [facility] 03-22-2024 History of Present illness Narrative Patient identified by name and date of . Harrison Gunderson presents today for a vaccination of Tdap. Patient denies an allergy to latex: yes Patient denies a severe (life-threatening) allergy to a previous dose of Tdap, DTP, DTaP, DT or Td vaccine. Yes Patient denies history of epilepsy or neurological problems: Yes Patient is afebrile and denies being moderately or severely ill: Yes Patient denies history of Guillain-[place] Syndrome (a severe paralytic illness): Yes Tdap Adacel injection was given without incident. See immunizations for details of immunizations administered today. VIS sheet provided: Yes Provider Pedrito Umanzor MD was present in office at time of injection. Lucien An MA documented in this encounter [facility] 03-22-2024 Progress note Formatting of t his note might be different from the original. KJ - Patient seen urgently for BLE swelling. It resolves with feet elevation. She denies headaches or blurry vision.VB No. LOF No. CTXS No. Movement: present. Other c/o: No. Medication list reviewed. Physical Exam See Flow Sheet Gen: no accute distress, well appearing Abd: soft, nontender, gravid A/P 29w0d Estimated Date of Delivery: 06/07/24 BP normal. Reviewed preE precautions. 28wk labs today Tdap today Keep next OB visit as scheduled PTL precautions reviewed, Kick counts reviewed. Pedrito Umanzor MD [facility] [facility] 03-22-2024 Miscellaneous Notes KJ - Patient seen urgently for BLE swelling. It resolves with feet elevation. She denies headaches or blurry vision.VB No. LOF No. CTXS No. Movement: present. Other c/o: No. Medication list reviewed. Physical Exam See Flow Sheet Gen: no accute distress, well appearing Abd: soft, nontender, gravid A/P 29w0d Estimated Date of Delivery: 06/07/24 BP normal. Reviewed preE precautions. 28wk labs today Tdap today Keep next OB visit as scheduled PTL precautions reviewed, Kick counts reviewed. Pedrito Umanzor MD documented in this encounter [facility] 03-22-2024 Instructions Lucien An MA - 03/22/2024 10:13 AM EST SEQUENTIAL SCREENINGS The [facility] offers sequential screenings for women who are interested in screenings for chromosomal abnormalities and certain defects during a . The sequential screen combines ultrasound and blood tests to determine the risk of chromosomal abnormalities, including Down's Syndrome (Trisomy 21) and Trisomy 18, as well as open neural tube defects including spina bifida. Ultrasound examination is performed between 11 weeks and 13 weeks gestational age. Blood tests are drawn after the ultrasound and again later in the between 15 and 21 weeks gestational age. Please let your physician know if you are interested in this testing. It will require an appointment with our predictive maintenance technician. This is not an ultrasound performed by a physician in our office during a routine visit. SIGNS AND SYMPTOMS OF LABOR 1. Contractions every 10 minutes or more often 2. Clear, pink, or brownish fluid (water) leaking from vagina 3. Feeling that baby is pushing down, pressure 4. Low, dull backache 5. Cramps that feel like a period 6. Cramps with or without diarrhea If you notice any of the above symptoms, contact our office at [phone] and ask to speak with a nurse. After hours, you can call doctors registry at [phone] OR call [facility] at [phone] and ask to have the doctor anhydrous ammonia production supervisor paged. If you consider this an emergency, dial 9-1-1 or go to your nearest emergency department. NEED HELP? Are you dealing with a violent or abusive relationship? Are you a victim of rape or sexual assult? Call [facility] ([place]) 24 hour Crisis Hotline: 336.726.8376 or 854-968-7373. MANUAL Your Guide to a Healthy manual is now on-line. Visit [facility]org/HealthyPregna ncyGuide to download your free copy documented in this encounter [facility] 03-21-2024 Telephone encounter Note Nurse visit for BP check today or office visit tomorrow. Leia Quiroz MD [facility] 03-21-2024 Miscellaneous Notes Nurse visit for BP check today or office visit tomorrow. Leia Quiroz MD 28w6d documented in this encounter [facility] 03-21-2024 Telephone encounter Note 28w6d [facility] 03-04-2024 Progress note Formatting of t his note might be different from the original. RR- VB No. LOF No. CTXS No. Movement: present. Other c/o: No. Medication list reviewed. Physical Exam See Flow Sheet Abd: soft, nontender, gravid Ext: edema: Trace, soft right varicosities, nontender, 2+ pedal pulses, neg Naty's sign, no erythema A/P 26w3d Estimated Date of Delivery: 06/07/24 Assessment & Plan 26 weeks gestation of Orders: GESTATIONAL GLUCOSE SCREEN, 1-HOUR, 50 GRAM, NON-FASTING; Future COMPLETE BLOOD COUNT AND DIFFERENTIAL; Future SYPHILIS TREPONEMAL W/REFLEX; Future Multigravida of advanced maternal age in second trimester Orders: GESTATIONAL GLUCOSE SCREEN, 1-HOUR, 50 GRAM, NON-FASTING; Future COMPLETE BLOOD COUNT AND DIFFERENTIAL; Future SYPHILIS TREPONEMAL W/REFLEX; Future OBSTETRIC ULTRASOUND WHI; Future Obesity affecting in second trimester, unspecified obesity type Orders: GESTATIONAL GLUCOSE SCREEN, 1-HOUR, 50 GRAM, NON-FASTING; Future COMPLETE BLOOD COUNT AND DIFFERENTIAL; Future SYPHILIS TREPONEMAL W/REFLEX; Future OBSTETRIC ULTRASOUND WHI; Future Varicose veins of lower leg no evidence of VTE, d/w her signs/symptoms of VTE and symptomatic measures High risk multigravida in third trimester Orders: OBSTETRIC ULTRASOUND WHI; Future Advanced maternal age in multigravida, second trimester Orders: OBSTETRIC ULTRASOUND WHI; Future .growth scan 32 weeks declines flu and covid vaccine today Leia Quiroz M.D. [facility] 03-04-2024 Miscellaneous Notes RR- VB No. LOF No. CTXS No. Movement: present. Other c/o: No. Medication list reviewed. Physical Exam See Flow Sheet Abd: soft, nontender, gravid Ext: edema: Trace, soft right varicosities, nontender, 2+ pedal pulses, neg Naty's sign, no erythema A/P 26w3d Estimated Date of Delivery: 06/07/24 Assessment & Plan 26 weeks gestation of Orders: GESTATIONAL GLUCOSE SCREEN, 1-HOUR, 50 GRAM, NON-FASTING; Future COMPLETE BLOOD COUNT AND DIFFERENTIAL; Future SYPHILIS TREPONEMAL W/REFLEX; Future Multigravida of advanced maternal age in second trimester Orders: GESTATIONAL GLUCOSE SCREEN, 1-HOUR, 50 GRAM, NON-FASTING; Future COMPLETE BLOOD COUNT AND DIFFERENTIAL; Future SYPHILIS TREPONEMAL W/REFLEX; Future OBSTETRIC ULTRASOUND WHI; Future Obesity affecting in second trimester, unspecified obesity type Orders: GESTATIONAL GLUCOSE SCREEN, 1-HOUR, 50 GRAM, NON-FASTING; Future COMPLETE BLOOD COUNT AND DIFFERENTIAL; Future SYPHILIS TREPONEMAL W/REFLEX; Future OBSTETRIC ULTRASOUND WHI; Future Varicose veins of lower leg no evidence of VTE, d/w her signs/symptoms of VTE and symptomatic measures High risk multigravida in third trimester Orders: OBSTETRIC ULTRASOUND WHI; Future Advanced maternal age in multigravida, second trimester Orders: OBSTETRIC ULTRASOUND WHI; Future .growth scan 32 weeks declines flu and covid vaccine today Leia Quiroz M.D. documented in this encounter [facility] 03-04-2024 Instructions Gifty Chacon LPN - 03/04/2024 4:04 PM EST SEQUENTIAL SCREENINGS The [facility] offers sequential screenings for women who are interested in screenings for chromosomal abnormalities and certain defects during a . The sequential screen combines ultrasound and blood tests to determine the risk of chromosomal abnormalities, including Down's Syndrome (Trisomy 21) and Trisomy 18, as well as open neural tube defects including spina bifida. Ultrasound examination is performed between 11 weeks and 13 weeks gestational age. Blood tests are drawn after the ultrasound and again later in the between 15 and 21 weeks gestational age. Please let your physician know if you are interested in this testing. It will require an appointment with our predictive maintenance technician. This is not an ultrasound performed by a physician in our office during a routine visit. SIGNS AND SYMPTOMS OF LABOR 1. Contractions every 10 minutes or more often 2. Clear, pink, or brownish fluid (water) leaking from vagina 3. Feeling that baby is pushing down, pressure 4. Low, dull backache 5. Cramps that feel like a period 6. Cramps with or without diarrhea If you notice any of the above symptoms, contact our office at [phone] and ask to speak with a nurse. After hours, you can call doctors registry at [phone] OR call [facility] at [phone] and ask to have the doctor anhydrous ammonia production supervisor paged. If you consider this an emergency, dial 91 or go to your nearest emergency department. NEED HELP? Are you dealing with a violent or abusive relationship? Are you a victim of rape or sexual assult? Call [facility] ([place]) 24 hour Crisis Hotline: 271.202.8646 or 640-707-2006. MANUAL Your Guide to a Healthy manual is now on-line. Visit [email or web address]/HealthyPregna ncyGuide to download your free copy documented in this encounter [facility] 01-24-2024 Progress note Formatting of t his note might be different from the original. EH - S: Harrison is a 38 year old female who presents at 20w5d for a routine visit. Feeling movement. Denies headache, visual changes, chest pain, shortness of breath, vaginal bleeding, leakage of fluid, or dysuria. Feeling severe pelvic pressure. O: See flow sheet Gen: No apparent distress Abd: Gravid, nontender, S=D ASSESSMENT/PLAN: 1. Multigravida of advanced maternal age in second trimester - ICD9: 659.63, ICD10: O09.522 (primary diagnosis) - Scheduled for flu vaccine at work 2. 20 weeks gestation of - ICD9: V22.2, ICD10: Z3A.20 - AFP negative - Anatomy ultrasound scheduled 3. Obesity affecting in second trimester, unspecified obesity type - ICD9: 649.13, ICD10: O99.212 -Pre BMI 35 - Plan for 32 week growth q 4 weeks. - Weekly NSTs at 36 weeks. 4. History of gestational hypertension - ICD9: V13.29, ICD10: Z87.59 - Continue LDA 5. Pelvic pressure in - ICD9: 646.83, 625.9, ICD10: O26.899, R10.2 - Severe pelvic pressure - Urine culture sent - CE closed PTL precautions reviewed. RTO for anatomy ultrasound. Balbina Cortes APRN.RECORD KEEPER [facility] 01-24-2024 Miscellaneous Notes EH - S: Harrison is a 38 year old female who presents at 20w5d for a routine visit. Feeling movement. Denies headache, visual changes, chest pain, shortness of breath, vaginal bleeding, leakage of fluid, or dysuria. Feeling severe pelvic pressure. O: See flow sheet Gen: No apparent distress Abd: Gravid, nontender, S=D ASSESSMENT/PLAN: 1. Multigravida of advanced maternal age in second trimester - ICD9: 659.63, ICD10: O09.522 (primary diagnosis) - Scheduled for flu vaccine at work 2. 20 weeks gestation of - ICD9: V22.2, ICD10: Z3A.20 - AFP negative - Anatomy ultrasound scheduled 3. Obesity affecting in second trimester, unspecified obesity type - ICD9: 649.13, ICD10: O99.212 -Pre BMI 35 - Plan for 32 week growth q 4 weeks. - Weekly NSTs at 36 weeks. 4. History of gestational hypertension - ICD9: V13.29, ICD10: Z87.59 - Continue LDA 5. Pelvic pressure in - ICD9: 646.83, 625.9, ICD10: O26.899, R10.2 - Severe pelvic pressure - Urine culture sent - CE closed PTL precautions reviewed. RTO for anatomy ultrasound. Balbina Cortes APRN.RECORD KEEPER documented in this encounter [facility] 01-24-2024 Instructions Francia Fitzpatrick MA - 01/24/2024 1:45 PM EDT SEQUENTIAL SCREENINGS The [facility] offers sequential screenings for women who are interested in screenings for chromosomal abnormalities and certain defects during a . The sequential screen combines ultrasound and blood tests to determine the risk of chromosomal abnormalities, including Down's Syndrome (Trisomy 21) and Trisomy 18, as well as open neural tube defects including spina bifida. Ultrasound examination is performed between 11 weeks and 13 weeks gestational age. Blood tests are drawn after the ultrasound and again later in the between 15 and 21 weeks gestational age. Please let your physician know if you are interested in this testing. It will require an appointment with our predictive maintenance technician. This is not an ultrasound performed by a physician in our office during a routine visit. SIGNS AND SYMPTOMS OF LABOR 1. Contractions every 10 minutes or more often 2. Clear, pink, or brownish fluid (water) leaking from vagina 3. Feeling that baby is pushing down, pressure 4. Low, dull backache 5. Cramps that feel like a period 6. Cramps with or without diarrhea If you notice any of the above symptoms, contact our office at [phone] and ask to speak with a nurse. After hours, you can call doctors registry at [phone] OR call [facility] at [phone] and ask to have the doctor anhydrous ammonia production supervisor paged. If you consider this an emergency, dial 5-9-5 or go to your nearest emergency department. NEED HELP? Are you dealing with a violent or abusive relationship? Are you a victim of rape or sexual assult? Call [facility] ([place]) 24 hour Crisis Hotline: 523.606.7481 or 971-392-2087. MANUAL Your Guide to a Healthy manual is now on-line. Visit [facility]org/HealthyPregna ncyGuide to download your free copy documented in this encounter [facility] 12-29-2023 Progress note Formatting of t his note might be different from the original. SW- pt doing well. No pain, vb, lof. +FM. PE: Gen- NAD, well appearing Abd- Obese See flowsheet A/p 17 wk gestation - AFP ordered - Schedule 20 week anatomy US - H/o gHTN: Cont baby ASA - RTO 3 wks for anatomy US and visit after Ramona Alexander DO [facility] 12-29-2023 Miscellaneous Notes SW- pt doing well. No pain, vb, lof. +FM. PE: Gen- NAD, well appearing Abd- Obese See flowsheet A/p 17 wk gestation - AFP ordered - Schedule 20 week anatomy US - H/o gHTN: Cont baby ASA - RTO 3 wks for anatomy US and visit after Ramona Alexander DO documented in this encounter [facility] 12-29-2023 Instructions Lucien An MA - 12/29/2023 10:09 AM EDT SEQUENTIAL SCREENINGS The [facility] offers sequential screenings for women who are interested in screenings for chromosomal abnormalities and certain defects during a . The sequential screen combines ultrasound and blood tests to determine the risk of chromosomal abnormalities, including Down's Syndrome (Trisomy 21) and Trisomy 18, as well as open neural tube defects including spina bifida. Ultrasound examination is performed between 11 weeks and 13 weeks gestational age. Blood tests are drawn after the ultrasound and again later in the between 15 and 21 weeks gestational age. Please let your physician know if you are interested in this testing. It will require an appointment with our predictive maintenance technician. This is not an ultrasound performed by a physician in our office during a routine visit. SIGNS AND SYMPTOMS OF LABOR 1. Contractions every 10 minutes or more often 2. Clear, pink, or brownish fluid (water) leaking from vagina 3. Feeling that baby is pushing down, pressure 4. Low, dull backache 5. Cramps that feel like a period 6. Cramps with or without diarrhea If you notice any of the above symptoms, contact our office at [phone] and ask to speak with a nurse. After hours, you can call doctors registry at [phone] OR call [facility] at [phone] and ask to have the doctor anhydrous ammonia production supervisor paged. If you consider this an emergency, dial 9-1- or go to your nearest emergency department. NEED HELP? Are you dealing with a violent or abusive relationship? Are you a victim of rape or sexual assult? Call [facility] ([place]) 24 hour Crisis Hotline: 197.540.1729 or 936-617-0845. MANUAL Your Guide to a Healthy manual is now on-line. Visit [facility].[email or web address]/HealthyPregna ncyGuide to download your free copy documented in this encounter [facility] 12-01-2023 Instructions Balbina Cortes APRN.RECORD KEEPER - 12/01/2023 9:19 AM EDT Images from the original note were not included. Please select the following link to access the [facility] Your Guide to a Healthy . [email or web address] Thank you for your interest in Women's Behavioral Health at [facility]. Your provider has referred you for counseling services. Below you will find a list of options. Psychotherapy Services at [facility] Call Behavioral Health Access Line at [phone] to schedule Individual psychotherapy In-person or virtual Wait time for first evaluation may be 12 or more weeks. Wait list spots may be available. Due to the high volume of patients this option is recommended if you are looking for short term acute symptom coping strategies. 3-265-5-ULNG3IXLQ - [place] Maternal Mental Health Hotline If you are in suicidal crisis, please call or text 7-674-052-TALK ( ) or visit the National Suicide Prevention Lifeline website. mchb.kayenta health centera.gov If you are in crisis, call 911 or go to your nearest Emergency Department Here are some links for wonderful Providers here in the community and surrounding areas. Do not hesitate to contact their offices, many are offering virtual visits during this time. Psychotherapy Services outside of [facility] Support International Online Provider Directory https://Elemental Technologies.remocean/ - can assist in finding providers in your area that might be more extensive then the list below. [facility] [place] [address] [place] [address] [facility] [address] [place] [address] [facility] [address] [place] [address] [facility] [address] [place] [address] Dion Nunes MD [address] [place] [address] [place] [facility] [address], [address] [place] [address] [facility] [address] [place] [address] [facility] [place] / [employer] [phone]/ [phone] Stew [place] [address] [facility] [phone] [facility] Counseling and Mediation [place] / Richard [phone] [facility] [address] [place] [address]/ [place] [phone] Mckenna Alanis, AKREL, CLC Bu and [facility] Family Therapy Workshops, telehealth and at home visits. [phone] Humanistic counseling center 20 locations [facility], [place], [place], [place], [place], [place], [facility], [place], [place], [place], [place], [place], [place], [facility], [place], [place] ,[facility], [place], [place],[facility], [facility], [place], [facility], [place], [place] www.Mengcaolifepoint healthHorizon Wind Energyer.co [phone] Psychotherapy resources outside of [facility] are listed below [facility] Web: https://www.Tilth Beauty/ Support International Online Provider Directory https://WriteOn/ [facility] https://SunRise Group of International Technology/ Partners [facility] Health and Wellness Web: https://Xcerion/ Afterschool.me for Effective Living Web: https://SharypiceffectiveRTN Stealth Softwareliving.remocean/ LifeStance Web: https://Quotify Technology.remocean/location/s melissa/frank/ [facility] Web: https://www.signaturest. rita's hospitalinc.or / [facility] Web: https://Callio Technologies.Kiveda/ Recovery Resources Mental health and substance abuse help Web: https://www.AdCrimson & RESOURCES Support International Direct peer support and connection to professional resources Non-Emergency Helpline Phone: / Text: [phone] Web: https://www..net/ Online Provider Directory: https://WriteOn/ Online Support Meetings: https://www..net/get-he lp/rxa-ibkmdd-lebwalp-meetings/ LOU Baby and Drum Straightener Services Web: https://wwwNorth Plains/ MotherToBaby Expert information on medication use during and Text: [phone] Web: https://Miradore/ NATIONAL REGISTRY FOR PSYCHIATRIC MEDICATIONS Currently studying the safety of antidepressants, ADHD medications and atypical antipsychotics taken during TO PARTICIPATE CALL TOLL-FREE: Web: https://womensmentalhealth.org/re search/pregnancyregistry/ Support Groups: [facility]- Follow on facebook Baby Bistro support group led by [facility] department Resilient Mamas - Support Group [facility] Health[facility].org The POEM support group [phone] Www.poemonline.org Follow on facebook - MADELYN solorzano Online support meetings PSI https://www..net/get-he lp/evz-kdygou-zlnlcyd-meetings/ [facility] mommy and me virtual support group 11:30-1pm Support for mothers and new babies and toddlers [place] childbirth education: Childbirth @cc.org or call [phone] CRISIS: CRISIS HOTLINE [phone], 911 or go to the nearest ER. [facility] [phone] / [facility] [phone] https://www.[place] comprehensive cancer centerrb.org Crisis text line text the word HOME to 969894 [facility] [address] [facility] [address] www.ChannelEyes Ginny Fabian clinical counseling [address] [facility] [address] [place] [address] www.NanoCor Therapeutics [phone] Holding space psychotherapy Carlotta Kaplan SAMPLE WORKER TRAVELING FREIGHT AGENT-S [address] [facility] www.Zipments [phone]/ [place] [phone] They all offer virtual. All work with trauma Support groups Online support meetings PSI https://www..net/get-he lp/ffp-mmktij-cohuyhn-meetings/ Here are the support groups they offer: Support of parents of 1 to 4 years old children POEM ( Outreach and Encouragement for Moms) offers free support for mothers experiencing depression, anxiety, and other mood and anxiety disorders. Masks are recommended but not required. No pre-registration required. Babies in arms welcome. meetings now take place on the and Monday of each month Location: [facility] [address] [place] [address] Room 122 (library room) 7-8:00 p.m. When you enter the [facility] parking lot off of [address] the entrance door closest to our meeting room is on the front of the building toward the right. For those who are more comfortable with a virtual platform, POEM offers online support group options several days of the week. To register for an online group or to find out more about POEM, website at: https://mhaohio.org/get-help/mate xkje-cmzxqf-vbayfh/poem-services/ offer a confidential helpline: private Facebook group is called MADELYN Solorzano Here are the groups they offer: Traumatic childbirth resources: Http://pattch.org/ https://www.Echo itmarthaCinemaWell.comarianeSkyStemdawna Tetris Online.remocean/ Name Location (s) Phone # (s) Services Website Holding [facility] [address] [facility], [place], [place] - [phone]; [address] [facility] [place] Christopher [address] [facility] [phone] In-Person GROUPS INDIVIDUAL THERAPY MATERNAL-INFANT MENTAL HEALTH MEDICATION MANAGEMENT PLAY AND ART THERAPY TELETHERAPY https://www.Tilth Beauty/s ervices/ Forrest xiong [facility]? [address] [place], [place] [address] ? [address], [address] [place], [place] [address] ? BABB [address] [place] [address]? Grief Support Groups Individual Grief Counseling Spiritual Care Memorial Events https://sepulveda.[facility].org/grief-services [facility] [address] [place], [place] [address]; ; Email: [email or web address]@[email or web address] Women's Mental Health; Couples Counseling; Trauma (EMDR); Stress Management; Mood and Anxiety Related Disorders- and much more https://www.Medstro.remocean/ LifeStance Numerous as they have contract providers: access website to find specific providers near you Counseling including CBT and EMDR as well as many more modalities; Medication Management; Telehealth and In-Person https://Quotify Technology.remocean/ [facility] Well[facility] [address] [place], [place] [address]; [phone] Personal, Family and Group Therapy; Psychological Testing and Diagnosis; Medication Management; Life and Career Coaching; Psychoanalysis; Literacy Testing; Yoga and Meditation https://Take5.remocean/ Fit Mind [place] [address] [facility] [address], [place] [address] [address] ; [address] [facility], [address] [place] [address]; Office # for both sites: Individual and Couples Counseling https://www.fitmindcleveland.com/ paymentinsurance.html OCD & Anxiety [facility] [address], [place] [address]; Specialize in Cognitive-Behavioral Therapy (CBT) for the treatment of anxiety disorders across the lifespan. TELEHEALTH ONLY. [email or web address] [facility] [address] [place], [address] [place] [address] [place], [address] [place] [address] [facility] [place] [address] [place] [address] [place] [address], [address] [place] [address] [facility] [place] [place], [address] [place] [address] [place], [address] Transportation Services To minimize patient barriers, [facility] provides transportation services to patients who qualify. If you are unable to get to your appointment at any of our facilities, please let us know. Need help now? Stop by one of our walk-in clinics to establish behavioral health care. Counseling Indvidual, Group, Couples and Family Counseling and EMDR. Medication Management Case Management benefits applications housing assistance Substance abuse treatment Medication assisted treatment [email or web address] [facility] OFFICE AT [facility] [address] [place] [address] [facility] OFFICE [address] [place] [address] [facility] OFFICE [address] [place], [place] [id number] TO OFFICE (at [facility]) [address] [place] [address] [facility] [employer] PRO[facility] & HIV SCREENING [address] [place] [address] [facility] [employer]CH[employer]GRAM [address] [place] [address] Behavioral Health Urgent Care: [facility] Counseling Indvidual and Group Medication Management Case Management benefits applications housing assistance Substance abuse treatment Medication assisted treatment Employment Services/ Job Training [email or web address] [facility] [address] [place], [place] [address]: P: [phone] [address] [facility], [address], [place], [place] [address] P: [phone] Our services include: Addiction Mental Health Treatment Assessment Psychiatry Medical Care Employment Housing Drug and Alcohol Prevention HIV/AIDS Prevention [email or web address] [facility] [place] [address] [place] [address] [place] [address] [place], [place] [address] [place] [address] [place] [address] [place] [address] [facility] [address] [place] [address] [place] [address] [address] [address] TMS Therapy/ Counseling Psychocological Testing for ADHD Medication Management In-Person/ Telemedicine [email or web address] Memory & Psychological services [address], [place] [address] Neuropsychological Testing For ADHD [email or web address] [facility] Office [facility]5 [place], [place] [id number] [address] [address] [place] [address] [place] [address] Providing mouo-qc-vsgt and telehealth services. Adult Case Management Community Education and Prevention Employment Outpatient Treatment - Counseling & Psychotherapy Psychiatric Services [email or web address] [facility] [place] [address] [place] [address] [facility]) [address] [place] [address] Virtual Appointments! Now offering safe and convenient virtual client appointments to anyone in [place]! Individual Therapy Couples/Relationship Therapy Trauma/EMDR Therapy Art Therapy Play Therapy Garnett Machine Operator Helper Support: Parenting Skills, Parent Child Interaction Therapy, Parent Infant Interaction Therapy Meditation Dietitian/Vp Patient Services Group Therapy Yoga [email or web address] Milvia Hicks [phone] Private Practice: Telehealth Only Specializes in EMDR for Trauma None MORNING SICKNESS IN by Urmila Sandy M.D. for [employer] As you may already know, morning sickness can often be more appropriately called evening sickness or onbtf-mmxdga-qs-the-day sickness. While there are the jodi few, most women (50-90%) experience some degree of nausea, some have vomiting, and a few develop a severe form of vomiting during called hyperemesis gravidarum. What causes the nausea and vomiting of ? We can't explain why some people feel fine and others are green for months. Even the same woman may feel vastly different in each . There is some relationship between nausea and the level of the hormone hCG. In twin pregnancies, and in other situations where the hCG is greater than expected, nausea and vomiting tend to be worse. In a destined for miscarriage, hCG levels tend to be low, and nausea is often less severe. This being said, a lack of nausea doesn't guarantee that the is destined for miscarriage. The fact that nausea and vomiting are often signs of a healthy can offer a silver lining in the dark cloud of miserable nausea. How long will the nausea last? Fortunately, for most women, nausea and vomiting are a first trimester event, peaking at week 9-10 and waning by week 14-16. When you are feeling bad the weeks can go by slowly but most moms do feel tremendously better by the middle of the . Whether morning sickness is a brief experience or lasts through most of the , there are treatments that can make the weeks or months more tolerable. What can you do about it? Diet: See what works for you. Try eating bland dry foods, and avoid fatty or spicy foods. It is okay to eat a less than perfectly balanced diet in the first trimester. Have your liquids separately from dry foods. Try sports drinks, water, clear juices, Ivan-aid, or non-caffeinated tea. Avoid carbonated beverages that fill up your stomach. Try eating lots of little meals. If you tend to feel sick when you first wake up, leave crackers next to the bed for a quick snack before rising. Keeping healthy snacks with you all day to nibble when you feel queasy can sometimes even prevent nausea from starting. vitamins and nausea: Pre- vitamins can sometimes worsen nausea in . While folate is necessary, especially early in the , it comes as a smaller pill that many people find more tolerable than the complete vitamin pill. Ask your practitioner if it is okay to temporarily replace vitamins and iron with just a folate pill if you find a significant worsening in the level of your nausea from the vitamins. Alternative therapies: Acupressure may be used to treat nausea in , and is not known to have any risks for the fetus. Wristbands (marketed for seasickness) that put pressure on an acupressure point at the wrist are often available at drugstores or travel stores. Jesse root is used for nausea in many traditional cultures. Some women take fresh grated jesse or jesse tablets. It is possible that the pill form contains other ingredients or contaminants, so you may want to try fresh jesse first. Medications: Emetrol is the only nausea medication approved for use in . It is available over the counter and is soothing to the stomach. A prescription medication called Bendectin was available in the -1979's and was shown to be safe in , but the company stopped marketing it in the [place] due to the costs of liability coverage. Bendectin contained 10 milligrams of vitamin B6 and 10 milligrams of Doxylamine. Two tablets were given at bedtime and a total of up to 4 tablets could be used in a 24-hour period. Interestingly, Unisom , which contains a higher dose (25 mg.) of the same medication, Doxylamine, is currently marketed as an sute-kec-uxmesvz sleeping pill. Ask your practitioner if creating a vitamin B6/Doxylamine combination with gtbi-ybu-cbgftbo medications would be safe for you. Prescription medications like Compazine and Phenergan can be used if the benefits outweigh possible risks, but these have not been clearly shown to be safe in . Zofran , an expensive anti-nausea medication often used to treat nausea from chemotherapy, can also be used. Can I throw up so much it harms the baby? The act of vomiting cannot hurt your fetus, which is protected inside the uterus. If you get dehydrated or develop a metabolic imbalance, this can be unhealthy. As long as you can keep down liquids, you and your baby will generally do all right. Eat when you feel able. If you are unable to keep anything down, or if you notice potential signs of dehydration such as lightheadedness, or concentrated and/or infrequent urination, call your practitioner. Some women need brief hospital admission for intravenous fluids and anti-nausea medications if their condition becomes severe. This severe form of nausea and vomiting is called Hyperemesis Gravidarum. As with many symptoms of , remind yourself that this, too, shall pass, and you'll have a wonderful baby to show for it! TREATMENT OPTIONS, SHORT VERSION: Frequent small meals Hydrate throughout day Sea-Bands wrist pressure point applicators Jesse root (powdered, in capsules) 250mg four times a day Vitamin B6 25 mg tablet three times a day Also may be taken with half a tablet of Unisom three times a day (Doxylamine 12.5 mg) If severe (weight loss, dehydration), call us and come in for IV hydration and possible medication in the form of injections. Prescription medications such as Phenergan, Compazine, Reglan documented in this encounter [facility] [place] [facility] 12-01-2023 Note HNO ID: [id number] Author: BALBINA CORTES APRN.DAVID Service: ? Author Type: Nurse Practitioner Type: Progress Notes Filed: 12/01/2023 10:07 Note Text: INITIAL OB ASSESSMENT HPI: Harrison is a 38 year old White here to establish Obstetrical Care. Patient's last menstrual period was 09/02/2023. from OB Dating Form. was unplanned but accepted Complaints: (!) Vaginal bleeding (minimal to none, slowing down) 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 Births4 Previous history: Prior : No History of 4th degree laceration: No History of shoulder dystocia: No History of Hypertensive disorders including pre-eclampsia or gestational hypertension: No, blood pressure increased end of History of gestational diabetes: No Patient's Risk Screening for delivery: Have you had a prior galvez between 20w and 36w6d? No Did you present in active spontaneous labor or have ruptured membranes, or advanced cervical dilation (greater than or equal to 4 cm) or effacement? No How many pregnancies have you had before? 4 Did you have a previous baby with a GBS Infection? No Please select all that apply for any prior : N/A MEDICAL/PSYCHOSOCIAL HISTORY: Severe bleeding with delivery: No Thyroid Disease: No HTN: No Diabetes: No No results found for: ABORHD BMI 35.36 kg/(m2) Last Pap: 11/04/2016 History of abnormal pap: Yes 2022 ASCUS, HPV negative Prior treatment for cervical dysplasia: none. Last HPV: 10/27/2016 History of STDs: N/A Partner History of STDs: None Did you have a partner with Herpes? No Tobacco use: No E-Cigarette/Vaping Use: No Caffeine use: Yes - coffee, 1 cup per day Drug use: No Alcohol use: No Multivitamin with Folic acid: Yes Would refuse blood transfusion if medically necessary: No Social Needs: How often does this describe you? I don't have enough money to pay my bills: Sometimes Within the past 12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 distress, alert SKIN: Face: faint erythematous areas left and right cheek without defined borders. Neck: 3cm slightly raised erythematous area left anterior mid neck. Arms: right arm has confluent erythema with induration and some vesicles in the antecubital fossa and dorsal upper arm and proximal forearm. Erythematous indurated area in the left antecubital fossa. Patches and papules of erythema on the distal forearms/wrists. ASSESSMENT/PLAN: 1. Contact dermatitis due to plant - ICD9: 692.6, ICD10: L25.5 Allergic dermatitis treatment is complicated by presence of rash on the face and 8 week . Topical steroid may be used on the body and extremities. - TRIAMCINOLONE ACETONIDE 0.1 % TOPICAL CREAM She may continue diphenhydramine as needed for pruritus. She has been to [place] [facility] and is scheduled for first OB appointment tomorrow. Oral prednisone may be used if needed since little is transferred through the placenta but may be associated with increased risk of PROM, PIH, infection, and gestational DM. She has her initial OB appointment tomorrow, and I will discuss adding an oral steroid with them. Eddie Jarquin MD [facility] 10-26-2023 History of Present illness Narrative Patient presents with: Rash: Poison romero x 1 week HPI: Rash: Location: arms, neck, body, face, scalp Duration: 5 days Pruritis: Yes Pain: right antecubital area [place] Change: spreading Bleeding/ulceration/blister/pustu le: red, raised, blistering, seeping Contacts with rash: No Exposure: No new soaps, detergents, fabric softeners, lotions. Outdoor exposure: was doing yard work before the rash occured. Recent illness: No. Treatment: oral and topical benadryl, oatmeal bath, laundering Currently 8 weeks . PAST MEDICAL HISTORY Diagnosis Date Anxiety Obesity Uterine fibroid 2022 MEDICATIONS: fluticasone (FLONASE) 50 mcg/actuation nasal spray Use 2 Sprays in each nostril once daily. Rinse mouth after use. traZODone (DESYREL) 50 mg tablet Take 50 mg by mouth at bedtime as needed. (Patient not taking: Reported on 10/26/2023) LORazepam (ATIVAN) 0.5 mg tab Take 1 tablet by mouth every 8 hours. (Patient not taking: Reported on 10/26/2023) ALLERGIES: ALLERGIES Allergen Reactions Penicillins Rash Zoloft [Sertraline * Intolerance VITALS: BP 148/90 Pulse 90 Temp 36.6 C (97.9 F) Resp 20 Wt 93.4 kg (205 lb 14.6 oz) LMP 08/03/2023 (Exact Date) SpO2 98% BMI 34.27 kg/m PHYSICAL EXAM: GEN: pleasant, no acute distress, alert SKIN: Face: faint erythematous areas left and right cheek without defined borders. Neck: 3cm slightly raised erythematous area left anterior mid neck. Arms: right arm has confluent erythema with induration and some vesicles in the antecubital fossa and dorsal upper arm and proximal forearm. Erythematous indurated area in the left antecubital fossa. Patches and papules of erythema on the distal forearms/wrists. ASSESSMENT/PLAN: 1. Contact dermatitis due to plant - ICD9: 692.6, ICD10: L25.5 Allergic dermatitis treatment is complicated by presence of rash on the face and 8 week . Topical steroid may be used on the body and extremities. - TRIAMCINOLONE ACETONIDE 0.1 % TOPICAL CREAM She may continue diphenhydramine as needed for pruritus. She has been to [facility] and is scheduled for first OB appointment tomorrow. Oral prednisone may be used if needed since little is transferred through the placenta but may be associated with increased risk of PROM, PIH, infection, and gestational DM. She has her initial OB appointment tomorrow, and I will discuss adding an oral steroid with them. Eddie Jarquin MD documented in this encounter [facility] 08-14-2023 History of Present illness Narrative Harrison Gunderson is a 38 year old female who presents for problem visit of pelvic pain. HPI: Patient reports having doubled over pelvic pain last summer. She was seen in ED ( hospital system) and was told that she had an ovarian cyst on left ovary. No torsion. She was then placed on OCP to help manage ovarian cysts and began having extreme headaches migraines. Stopped taking OCP. Had another episode of pelvic pain and CT completed which showed that left ovarian cyst had decreased in size but a uterine fibroid was noted. Patient reports the past couple of months she has had an increase in pain and length of periods. Stated she is spotting several days off and on in between periods and has extreme cramping and pain. Feeling frustrated. Stated left due to being told that she will just have to take OCP to manage ovarian cysts ant that she never had any follow up care. Here today for second opinion. Currently not feeling any pain but reports just finished period and was painful and miserable the entire time. 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 Scientist History Comments: Sexual Activity: Yes; Male Contraception: Condom PAST MEDICAL HISTORY Diagnosis Date Anxiety Obesity Uterine fibroid 2022 PAST SURGICAL HISTORY Procedure Laterality Date COLONOSCOPY SCREENING 2019 FAMILY HISTORY Problem Relation Age of Onset Diabetes Mother Anxiety disorder Mother Hypertension Mother None Father Social History Tobacco Use Smoking status: Never Smokeless tobacco: Never Vaping Use Vaping Use: Never used Substance Use Topics Alcohol use: No Drug use: No Current Outpatient Medications Medication Sig traZODone (DESYREL) 50 mg tablet Take 50 mg by mouth at bedtime as needed. fluticasone (FLONASE) 50 mcg/actuation nasal spray Use 2 Sprays in each nostril once daily. Rinse mouth after use. LORazepam (ATIVAN) 0.5 mg tab Take 1 tablet by mouth every 8 hours. Norethin Ean-Eth Estrad-FE (LOESTRIN FE 1.5/30) 1.5 mg-30 mcg (21)/75 mg (7) tablet Take 1 tablet by mouth once daily. (Patient not taking: Reported on 10/22/2018) No current facility-administered medications for this visit. Allergies As of Date: 08/14/2023 Allergen Noted Reaction PENICILLINS 10/25/2016 Rash ZOLOFT [SERTRALINE HCL] 05/24/2017 Intolerance Fully Assessed 08/14/2023 REVIEW OF SYSTEMS Abdomen: No bloating, early satiety, indigestion, or increased flatulence. No abdominal pain, nausea, vomiting, diarrhea, or constipation. Bladder: No dysuria, gross hematuria, urinary frequency, urinary urgency, or incontinence. Breast: No breast lumps, nipple d/c, overlying skin changes, redness or skin retraction. Expanded ROS: N/A Allergies and current medication updated:Yes EXAM: BP 122/78 Ht 5' 5 (1.65m) Wt 204 lb (92.5kg) LMP 08/03/2023 BMI 33.95 kg/(m^2). GENERAL: pleasant, female in no apparent distress HEENT: Normocephalic and atraumatic NECK: Supple and full range of motion DERMATOLOGY: Normal and without lesions BREAST: deferred CHEST: Normal inspiratory effort ABDOMEN: Deferred PELVIC: deferred BIMANUAL: deferred NEURO: alert and oriented x3,exam grossly non-focal EXTREMITIES: normal ASSESSMENT/PLAN: 1. Pelvic pain - ICD9: [id number], ICD10: R10.2 (primary diagnosis) - PELVIC US WHI 2. Cyst of left ovary - ICD9: 620.2, ICD10: N83.202 3. Dysmenorrhea - Ibuprofen 800 mg PO PRN every 8 hours during period - Discussed treatment for ovarian cysts/ uterine fibroids - Will follow up after pelvic US Jerry Amaya APRN.CNM documented in this encounter [facility] 02-13-2023 Miscellaneous Notes Please inform Harrison that her ultrasound showed that the that cyst has resolved and she can resume normal activities again documented in this encounter [facility] Work Phone: 02-13-2023 Progress note Formatting of t his note might be different from the original. Please inform Harrison that her ultrasound showed that the that cyst has resolved and she can resume normal activities again [facility] Work Phone: 01-16-2023 History of Present illness Narrative Subjective Patient ID: Harrison Gunderson is a 37 y.o. female who presents for rev ultrasound left ovarian cyst and lmp 01-08-2023. CHERI Salazar is a 37-year-old woman who comes in for ER follow-up. She reports that in mid November she had excruciating pain on her left lower quadrant abdomen. She was seen at [facility] and they did some blood work and some urine and told her that there was nothing that they found that was abnormal. Last week she had another episode of the severe pain and presented to [facility] ER blood work and urine were unremarkable so a CT scan was done and subsequently an ultrasound was done which revealed a left ovarian hemorrhagic cyst. There was no evidence of torsion. She was advised to follow-up in our office. She reports that she has done control pills in the past but has not done well with them secondary to headaches and is not interested in any type of hormonal manipulation Objective Physical Exam 10/27/2020 9:39 AM 12/08/2021 9:31 AM 06/01/2022 11:21 AM 01/12/2023 9:47 PM 01/12/2023 11:00 PM 01/13/2023 12:00 AM 01/16/2023 10:17 AM Vitals Systolic 118 112 112 127 111 134 110 Diastolic 70 82 74 79 90 86 52 Heart Rate 57 71 68 59 65 70 Temp 36.1 C (97 F) 36.7 C (98.1 F) Resp 18 17 18 Height (in) 1.651 m (5' 5) 1.651 m (5' 5) 1.651 m (5' 5) 1.626 m (5' 4) 1.651 m (5' 5) Weight (lb) 174 201 206 180 195 BMI 28.96 kg/m2 33.45 kg/m2 34.28 kg/m2 30.9 kg/m2 32.45 kg/m2 BSA (m2) 1.9 m2 2.05 m2 2.07 m2 1.92 m2 2.01 m2 Visit Report Report Pleasant healthy in no acute distress Respiratory breathing without difficulty Ambulating without difficulty Psych appropriately oriented with normal mood and affect Assessment/Plan Harrison is here for an ER follow-up secondary to left lower quadrant pain and a left hemorrhagic cyst without evidence of torsion. Explained to the patient the normal function of her ovaries including follicular and corpus luteal cyst as well as the etiology and the natural history of hemorrhagic cysts. Also explained to her indications for surgery. We will repeat the ultrasound in 6 weeks and will call the patient with the results. documented in this encounter [facility] Work Phone: 01-12-2023 Emergency department Note 37-year-old female presents with chief complaint of left-sided abdominal pain. Patient states symptoms started approximately 12 to 14 hours ago. Patient states pain waxes and wanes. Patient denies any nausea, vomiting or diarrhea with symptoms. Patient denies any dysuria or hematuria. Patient had similar symptoms several months ago with etiology being told to her was dehydration. 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 HENT: Negative for ear pain and sore throat. Eyes: Negative for pain and visual disturbance. Respiratory: Negative for cough and shortness of breath. Cardiovascular: Negative for chest pain and palpitations. Gastrointestinal: Positive for abdominal pain (left lower quadrant). Negative for vomiting. Genitourinary: Negative for dysuria and hematuria. Musculoskeletal: Negative for arthralgias and back pain. Skin: Negative for color change and rash. Neurological: Negative for seizures and syncope. All other systems reviewed and are negative. Physical Exam Vitals and nursing note reviewed. Constitutional: General: She is not in acute distress. Appearance: She is well-developed. HENT: Head: Normocephalic and atraumatic. Eyes: Conjunctiva/sclera: Conjunctivae normal. Cardiovascular: Rate and Rhythm: Normal rate and regular rhythm. Heart sounds: No murmur heard. Pulmonary: Effort: Pulmonary effort is normal. No respiratory distress. Breath sounds: Normal breath sounds. Abdominal: General: Bowel sounds are normal. Palpations: Abdomen is soft. Tenderness: There is abdominal tenderness in the suprapubic area and left lower quadrant. Musculoskeletal: General: No swelling. Cervical back: Neck supple. Skin: General: Skin is warm and dry. Capillary Refill: Capillary refill takes less than 2 seconds. Neurological: Mental Status: She is alert. Psychiatric: Mood and Affect: Mood normal. Labs Reviewed URINALYSIS WITH REFLEX MICROSCOPIC AND CULTURE Narrative: The following orders were created for panel order Urinalysis with Reflex Microscopic and Culture. Procedure Abnormality Status --------- ------ Urinalysis with Reflex M...[[id number]] Extra Urine Hoffman Tube[[id number]] Please view results for these tests on the individual orders. CBC WITH AUTO DIFFERENTIAL COMPREHENSIVE METABOLIC PANEL LACTATE URINALYSIS WITH REFLEX MICROSCOPIC AND CULTURE EXTRA URINE HOFFMAN TUBE No orders to display Procedures Labs Reviewed CBC WITH AUTO DIFFERENTIAL - Abnormal Result Value WBC 7.6 nRBC 0.0 RBC 3.97 (*) Hemoglobin 10.9 (*) Hematocrit 32.5 (*) MCV 82 MCH 27.5 MCHC 33.5 RDW 13.1 Platelets 281 MPV 10.7 Neutrophils % 57.7 Immature Granulocytes %, Automated 0.3 Lymphocytes % 27.4 Monocytes % 10.4 Eosinophils % 3.7 Basophils % 0.5 Neutrophils Absolute 4.39 Immature Granulocytes Absolute, Automated 0.02 Lymphocytes Absolute 2.08 Monocytes Absolute 0.79 Eosinophils Absolute 0.28 Basophils Absolute 0.04 COMPREHENSIVE METABOLIC PANEL - Abnormal Glucose 81 Sodium 138 Potassium 3.7 Chloride 105 Bicarbonate 27 Anion Gap 10 Urea Nitrogen 14 Creatinine 0.60 eGFR >90 Calcium 8.6 Albumin 4.0 Alkaline Phosphatase 47 Total Protein 6.3 (*) AST 15 Bilirubin, Total 0.4 ALT 11 URINALYSIS WITH REFLEX MICROSCOPIC AND CULTURE - Abnormal Color, Urine Yellow Appearance, Urine Clear Specific Baxter, Urine 1.017 pH, Urine 6.0 Protein, Urine NEGATIVE Glucose, Urine NEGATIVE Blood, Urine NEGATIVE Ketones, Urine NEGATIVE Bilirubin, Urine NEGATIVE Urobilinogen, Urine 2.0 (*) Nitrite, Urine NEGATIVE Leukocyte Esterase, Urine NEGATIVE LACTATE - Normal Lactate 0.6 Narrative: Venipuncture immediately after or during the administration of Metamizole may lead to falsely low results. Testing should be performed immediately prior to Metamizole dosing. URINALYSIS WITH REFLEX MICROSCOPIC AND CULTURE Narrative: The following orders were created for panel order Urinalysis with Reflex Microscopic and Culture. Procedure Abnormality Status --------- ------ Urinalysis with Reflex M...[[id number]] Abnormal Final result Extra Urine Hoffman Tube[[id number]] In process Please view results for these tests on the individual orders. EXTRA URINE HOFFMAN TUBE CT abdomen pelvis w IV contrast Final Result No definite evidence of acute pathology. 5.2-cm left ovarian cyst. Correlate clinically with the need for pelvic ultrasound to exclude ovarian torsion. 3 mm nonobstructing right renal calculus. Hepatomegaly. Additional findings as discussed above. MACRO: None Signed by: Mikael Rojas 01/12/2023 11:42 PM Dictation workstation: [id number] Diagnoses as of 01/12/23 2359 Cyst of left ovary Medical Decision Making Problem List Items Addressed This Visit None Ines Burrows DO @TODAY@ Ines Burrows DO 01/13/23 0000 documented in this encounter [facility] Work Phone: 01-12-2023 Physician Emergency department Note 37-year-old female presents with chief complaint of left-sided abdominal pain. Patient states symptoms started approximately 12 to 14 hours ago. Patient states pain waxes and wanes. Patient denies any nausea, vomiting or diarrhea with symptoms. Patient denies any dysuria or hematuria. Patient had similar symptoms several months ago with etiology being told to her was dehydration. 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 HENT: Negative for ear pain and sore throat. Eyes: Negative for pain and visual disturbance. Respiratory: Negative for cough and shortness of breath. Cardiovascular: Negative for chest pain and palpitations. Gastrointestinal: Positive for abdominal pain (left lower quadrant). Negative for vomiting. Genitourinary: Negative for dysuria and hematuria. Musculoskeletal: Negative for arthralgias and back pain. Skin: Negative for color change and rash. Neurological: Negative for seizures and syncope. All other systems reviewed and are negative. Physical Exam Vitals and nursing note reviewed. Constitutional: General: She is not in acute distress. Appearance: She is well-developed. HENT: Head: Normocephalic and atraumatic. Eyes: Conjunctiva/sclera: Conjunctivae normal. Cardiovascular: Rate and Rhythm: Normal rate and regular rhythm. Heart sounds: No murmur heard. Pulmonary: Effort: Pulmonary effort is normal. No respiratory distress. Breath sounds: Normal breath sounds. Abdominal: General: Bowel sounds are normal. Palpations: Abdomen is soft. Tenderness: There is abdominal tenderness in the suprapubic area and left lower quadrant. Musculoskeletal: General: No swelling. Cervical back: Neck supple. Skin: General: Skin is warm and dry. Capillary Refill: Capillary refill takes less than 2 seconds. Neurological: Mental Status: She is alert. Psychiatric: Mood and Affect: Mood normal. Labs Reviewed URINALYSIS WITH REFLEX MICROSCOPIC AND CULTURE Narrative: The following orders were created for panel order Urinalysis with Reflex Microscopic and Culture. Procedure Abnormality Status --------- ------ Urinalysis with Reflex M...[[id number]] Extra Urine Hoffman Tube[[id number]] Please view results for these tests on the individual orders. CBC WITH AUTO DIFFERENTIAL COMPREHENSIVE METABOLIC PANEL LACTATE URINALYSIS WITH REFLEX MICROSCOPIC AND CULTURE EXTRA URINE HOFFMAN TUBE No orders to display Procedures Labs Reviewed CBC WITH AUTO DIFFERENTIAL - Abnormal Result Value WBC 7.6 nRBC 0.0 RBC 3.97 (*) Hemoglobin 10.9 (*) Hematocrit 32.5 (*) MCV 82 MCH 27.5 MCHC 33.5 RDW 13.1 Platelets 281 MPV 10.7 Neutrophils % 57.7 Immature Granulocytes %, Automated 0.3 Lymphocytes % 27.4 Monocytes % 10.4 Eosinophils % 3.7 Basophils % 0.5 Neutrophils Absolute 4.39 Immature Granulocytes Absolute, Automated 0.02 Lymphocytes Absolute 2.08 Monocytes Absolute 0.79 Eosinophils Absolute 0.28 Basophils Absolute 0.04 COMPREHENSIVE METABOLIC PANEL - Abnormal Glucose 81 Sodium 138 Potassium 3.7 Chloride 105 Bicarbonate 27 Anion Gap 10 Urea Nitrogen 14 Creatinine 0.60 eGFR >90 Calcium 8.6 Albumin 4.0 Alkaline Phosphatase 47 Total Protein 6.3 (*) AST 15 Bilirubin, Total 0.4 ALT 11 URINALYSIS WITH REFLEX MICROSCOPIC AND CULTURE - Abnormal Color, Urine Yellow Appearance, Urine Clear Specific Baxter, Urine 1.017 pH, Urine 6.0 Protein, Urine NEGATIVE Glucose, Urine NEGATIVE Blood, Urine NEGATIVE Ketones, Urine NEGATIVE Bilirubin, Urine NEGATIVE Urobilinogen, Urine 2.0 (*) Nitrite, Urine NEGATIVE Leukocyte Esterase, Urine NEGATIVE LACTATE - Normal Lactate 0.6 Narrative: Venipuncture immediately after or during the administration of Metamizole may lead to falsely low results. Testing should be performed immediately prior to Metamizole dosing. URINALYSIS WITH REFLEX MICROSCOPIC AND CULTURE Narrative: The following orders were created for panel order Urinalysis with Reflex Microscopic and Culture. Procedure Abnormality Status --------- ------ Urinalysis with Reflex M...[[id number]] Abnormal Final result Extra Urine Hoffman Tube[[id number]] In process Please view results for these tests on the individual orders. EXTRA URINE HOFFMAN TUBE CT abdomen pelvis w IV contrast Final Result No definite evidence of acute pathology. 5.2-cm left ovarian cyst. Correlate clinically with the need for pelvic ultrasound to exclude ovarian torsion. 3 mm nonobstructing right renal calculus. Hepatomegaly. Additional findings as discussed above. MACRO: None Signed by: Mikael Rojas 01/12/2023 11:42 PM Dictation workstation: [id number] Diagnoses as of 01/12/23 2359 Cyst of left ovary Medical Decision Making Problem List Items Addressed This Visit None Ines Burrows DO @TODAY@ Ines Burrows DO 01/13/23 0000 [facility] Work Phone: 12-07-2022 Note 49 Date of Procedure: 12/07/2022 Pathologist: OTILIA GOOD DO Date Reported: 12/21/2022 Date Received: 12/07/2022 Submitting Physician: XIOMARA GUTIERREZ M.D. FINAL CYTOLOGICAL INTERPRETATION Squamous and/or Glandular Abnormality A. THINPREP PAP CERVICAL: Specimen adequacy: SATISFACTORY FOR EVALUATION. Quality Indicator: Endocervical/transformation zone component is present. General Categorization: EPITHELIAL CELL ABNORMALITY - SQUAMOUS CELL. See Interpretation. Descriptive Interpretation: ATYPICAL SQUAMOUS CELLS OF UNDETERMINED SIGNIFICANCE (ASC-US) - CERVIX. HIGH RISK HPV TEST RESULT: HPV GENOTYPE 16 NEGATIVE HPV GENOTYPE 18 NEGATIVE HPV GENOTYPE OTHER NEGATIVE Reference Range: Negative lide(s) initially screened by a Acting Professor at [facility], [address] [place] [address] Testing for high-risk (HR) type of human papilloma virus (HPV) is performed by the [place] jus HPV Test. The jus HPV Test is a qualitative polymerase chain reaction that amplifies DNA of HPV16, HPV18 and 12 other high-risk HPV types (31, 33, 35, 39, 45, 51, 52, 56, 58, 59, 66, and 68) associated with cervical cancer and its precursor lesions. A positive result indicates the presence of HPV DNA due to one or more of the 14 genotypes: 16, 18, 31, 33, 35, 39, 45, 51, 52, 56, 58, 59, 66, and 68. Negative results indicate HPV DNA concentrations are undetectable or below the pre-set threshold for detection. False negative results may be associated with unoptimized sampling. A negative HR HPV result does not exclude the possibility of future cytologic HSIL or underlying CIN2-3 or cancer. This test is approved for cervical specimens by the [place] Food and Drug Administration. Results of this test should be interpreted in conjunction with the patient?s Pap test results. Please refer to ASCCP current guidelines for the use of HPV DNA testing, result interpretation, and patient management. The performance of this test was verified by the Molecular Diagnostic Laboratory at [facility]. The lab is certified under the Clinical Laboratory Amendments of 1988 (CLIA 88) as qualified to perform high complexity clinical laboratory testing. This specimen has been analyzed by the [employer] System ([address] an automated imaging and review system, which assists the laboratory in evaluating cells on ThinPrep Pap tests. Following automated imaging, selected elaine from every slide were reviewed by a excel vba developer and/or pathologist. Electronically Signed Out By OTILIA GOOD DO/BISMARK/LETICIA By the signature on this report, the individual or group listed as making the Final Interpretation/Diagnosis certifies that they have reviewed this case. Diagnostic interpretation performed at [facility] [address] [place] [address] Educational Note: Cervical cytology is a screening procedure primarily for squamous cancers and precursors and has associated false-negative and false-positive results as evidenced by published data. Your patient?s test should be interpreted in this context, together with patient?s history and clinical findings. Regular sampling and follow-up of unexplained clinical signs and symptoms are recommended to minimize false negative results. Clinical History Date of Last Menstrual Period: 11/17/22 Other Clinical Conditions: COTEST HPV(Genotype) except for ASC-H, HSIL, Carcinoma - Include HPV Genotype testing Clinical Diagnosis History: Screening for cervical cancer - (Z12.4); Women's annual routine gynecological examination - (Z01.419) Source of Specimen A: THINPREP PAP CERVICAL [facility] Department of Pathology [address] [place] [address] Comment on above: Performed By: #### C #### [facility] Cytology [address] [place] [address] 07-08-2022 History of Present illness Narrative This note was created using NoteWriter. Subjective Harrison Gunderson is a 37 year old female. HPI Patient presents with sore throat, congestion, cough over the past day. Her daughter was here few days ago and tested positive for strep. Her son also is positive for strep. No vomiting or diarrhea. She has had some body aches. No fever. Review of Systems Constitutional: Positive for chills and fatigue. Negative for fever. HENT: Positive for congestion and sore throat. Negative for ear pain and rhinorrhea. Respiratory: Positive for cough. Negative for shortness of breath. Cardiovascular: Negative. Gastrointestinal: Negative. Genitourinary: Negative. Musculoskeletal: Positive for myalgias. All other systems reviewed and are negative. PAST MEDICAL HISTORY Diagnosis Date Anxiety Obesity Current Outpatient Medications Medication Sig Dispense Refill traZODone (DESYREL) 50 mg tablet Take 50 mg by mouth at bedtime as needed. fluticasone (FLONASE) 50 mcg/actuation nasal spray Use 2 Sprays in each nostril once daily. Rinse mouth after use. 1 Bottle 0 Norethin Ean-Eth Estrad-FE (LOESTRIN FE 1.5/30) 1.5 mg-30 mcg (21)/75 mg (7) tablet Take 1 tablet by mouth once daily. (Patient not taking: Reported on 10/22/2018 ) 1 Package 11 LORazepam (ATIVAN) 0.5 mg tab Take 1 tablet by mouth every 8 hours. 0 No current facility-administered medications for this visit. PAST SURGICAL HISTORY Procedure Laterality Date NONE FAMILY HISTORY Problem Relation Age of Onset None Mother None Father Social History Tobacco Use Smoking status: Never Smokeless tobacco: Never Substance Use Topics Alcohol use: No Drug use: No Objective BP 124/72 Pulse 96 Temp 36.6 C (97.8 F) Resp 18 Wt 94.8 kg (209 lb) LMP 12/26/2016 SpO2 98% Physical Exam Vitals reviewed. Constitutional: Appearance: Normal appearance. HENT: Head: Normocephalic and atraumatic. Right Ear: Tympanic membrane, ear canal and external ear normal. Left Ear: Tympanic membrane, ear canal and external ear normal. Nose: Congestion present. Mouth/Throat: Mouth: Mucous membranes are moist. Pharynx: Oropharynx is clear. No oropharyngeal exudate or posterior oropharyngeal erythema. Cardiovascular: Rate and Rhythm: Normal rate and regular rhythm. Heart sounds: Normal heart sounds. Pulmonary: Effort: Pulmonary effort is normal. Breath sounds: Normal breath sounds. Musculoskeletal: Cervical back: Neck supple. Skin: General: Skin is warm and dry. Findings: No rash. Neurological: General: No focal deficit present. Mental Status: She is alert. Assessment and Plan ASSESSMENT/PLAN: 1. Sore throat - ICD9: 462, ICD10: J02.9 - suspect viral - Alere Strep Test neg, no culture pending - Discussed supportive care treatment with fluids, rest and analgesia. - The patient should follow up in 3-5 days if symptoms persist or worsen - STREP A MOLECULAR (POC) Stefano Coon PA-C documented in this encounter [facility] 03-12-2022 History of Present illness Narrative Regular patient of [facility], presents with cold symptoms that started Monday. Nasal congestion, pressure around both sides of nose, under eyes. Blowing nose, congestion. No fevers/chills. States tends to get this every year, on flonase and zyrtec currently. [facility] Work Phone: Chief complaint Narrative - Reported An interactive audio and video telecommunication system which permits real time communications between the patient (at the originating site) and provider (at the distant site) was utilized to provide this telehealth service.C/O sinus pressure, Ear ache x3days. This note was generated by using XOXO Kitchen software. It may contain errors in wording, punctuate, or spelling.She explains that for the past 3 weeks she has been having some aching in her ears along with some nasal congestion and she has been blowing out some yellow-green mucus. She is having some sinus pressure. She denies any shortness of breath or coughing and no chest pain. No nausea or vomiting or diarrhea and no muscle or joint aches. She states she gets predictably an infection at this time every year and usually it is a sinus infection. She is allergic to penicillin and she states she usually responds very well to the Z-Travon. We will send that and and I have recommended that she use [id number] Mucinex for her sinuses and Tylenol for discomfort. She will contact us if things are not going well.. [facility] Work Phone: Evaluation note Diagnosis Sore throat- Primary Acute pharyngitis [facility] noteNo assessment information availableW[facility] Work Phone: Evaluation note* Diagnosis Cyst of left ovary- Primary Other and unspecified ovarian cyst documented in this encounter [facility] Work Phone: Evaluation note* Diagnosis Hemorrhagic cyst of left ovary- Primary documented in this encounter [facility] Work Phone: Evaluation note* Diagnosis Hemorrhagic cyst of left ovary documented in this encounter [facility] Work Phone: Evaluation note* Diagnosis Hemorrhagic cyst of left ovary documented in this encounter [facility] Work Phone: Evaluation note* Diagnosis Pelvic pain- Primary Cyst of left ovary Other and unspecified ovarian cyst Dysmenorrhea [facility] Diagnosis Contact dermatitis due to plant- Primary Contact dermatitis and other eczema due to plants (except food) documented [facility]* Diagnosis 12 weeks gestation of - Primary state, incidental Vaginal bleeding during Multigravida of advanced maternal age in second trimester documented [facility] Diagnosis Encounter for supervision of high risk in second trimester, antepartum- Primary with uncertain dates in first trimester 13 weeks gestation of state, incidental Obesity affecting in second trimester, unspecified obesity type Multigravida of advanced maternal age in second trimester PTSD (post-traumatic stress disorder) Posttraumatic stress disorder History of depression History of anxiety Personal history of other mental disorder History of gestational hypertension Penicillin allergy Personal history of allergy to penicillin Nausea and vomiting during Vaginal bleeding during documented in this [facility]* Diagnosis Encounter for screening for malformation using ultrasound- Primary Multigravida of advanced maternal age in second trimester 13 weeks gestation of state, incidental documented [facility] this [facility]* Diagnosis Multigravida of advanced maternal age in second trimester- Primary 17 weeks gestation of state, incidental Obesity affecting in second trimester, unspecified obesity type documented [facility] this [facility] Diagnosis Encounter for anatomic survey- Primary Multigravida of advanced maternal age in second trimester Obesity affecting in second trimester, unspecified obesity type documented in this encounter [facility] note* Diagnosis Multigravida of advanced maternal age in second trimester- Primary 20 weeks gestation of state, incidental Obesity affecting in second trimester, unspecified obesity type History of gestational hypertension Pelvic pressure in Other specified complication, antepartum Encounter for supervision of high risk in second trimester, antepartum documented in this encounter [facility] note* Diagnosis Encounter for anatomic survey- Primary Multigravida of advanced maternal age in second trimester Obesity affecting in second trimester, unspecified obesity type 21 weeks gestation of state, incidental documented in this encounter [facility] note* Diagnosis High risk multigravida in third trimester- Primary 26 weeks gestation of state, incidental Multigravida of advanced maternal age in second trimester Obesity affecting in second trimester, unspecified obesity type Varicose veins of lower leg Advanced maternal age in multigravida, second trimester * Assessment & Plan Note - Leia Quiroz MD - 03/04/2024 4:39 PM EST Associated Problem(s): Multigravida of advanced maternal age in second trimester Orders: GESTATIONAL GLUCOSE SCREEN, 1-HOUR, 50 GRAM, NON-FASTING; Future COMPLETE BLOOD COUNT AND DIFFERENTIAL; Future SYPHILIS TREPONEMAL W/REFLEX; Future OBSTETRIC ULTRASOUND WHI; Future * Assessment & Plan Note - Leia Quiroz MD - 03/04/2024 4:39 PM EST Associated Problem(s): Obesity affecting in second trimester Orders: GESTATIONAL GLUCOSE SCREEN, 1-HOUR, 50 GRAM, NON-FASTING; Future COMPLETE BLOOD COUNT AND DIFFERENTIAL; Future SYPHILIS TREPONEMAL W/REFLEX; Future OBSTETRIC ULTRASOUND WHI; Future * Assessment & Plan Note - Leia Quiroz MD - 03/04/2024 4:39 PM EST Associated Problem(s): Varicose veins of lower leg no evidence of VTE, d/w her signs/symptoms of VTE and symptomatic measures [facility]* Diagnosis High risk multigravida in third trimester- Primary 26 weeks gestation of state, incidental Multigravida of advanced maternal age in second trimester Obesity affecting in second trimester, unspecified obesity type Varicose veins of lower leg Advanced maternal age in multigravida, second trimester 29 weeks gestation of - Primary state, incidental Multigravida of advanced maternal age in second trimester Obesity affecting in second trimester, unspecified obesity type documented in this encounter [facility] note* Diagnosis High risk multigravida in third trimester- Primary 26 weeks gestation of state, incidental Multigravida of advanced maternal age in second trimester Obesity affecting in second trimester, unspecified obesity type Varicose veins of lower leg Advanced maternal age in multigravida, second trimester 29 weeks gestation of - Primary state, incidental Multigravida of advanced maternal age in second trimester Obesity affecting in second trimester, unspecified obesity type documented in this encounter [facility] note* Diagnosis High risk multigravida in third trimester- Primary 26 weeks gestation of state, incidental Multigravida of advanced maternal age in second trimester Obesity affecting in second trimester, unspecified obesity type Varicose veins of lower leg Advanced maternal age in multigravida, second trimester Encounter for ultrasound to check growth- Primary Encounter for routine screening for malformation using ultrasonics Multigravida of advanced maternal age in second trimester Obesity affecting in second trimester, unspecified obesity type 32 weeks gestation of state, incidental [facility]* Diagnosis High risk multigravida in third trimester- Primary 26 weeks gestation of state, incidental Multigravida of advanced maternal age in second trimester Obesity affecting in second trimester, unspecified obesity type Varicose veins of lower leg Advanced maternal age in multigravida, second trimester Multigravida of advanced maternal age in second trimester- Primary 32 weeks gestation of state, incidental Obesity affecting in second trimester, unspecified obesity type Need for vaccination Need for prophylactic vaccination and inoculation against unspecified single disease documented in this encounter [facility] note* Diagnosis High risk multigravida in third trimester- Primary 26 weeks gestation of state, incidental Multigravida of advanced maternal age in second trimester Obesity affecting in second trimester, unspecified obesity type Varicose veins of lower leg Advanced maternal age in multigravida, second trimester 32 weeks gestation of - Primary state, incidental Multigravida of advanced maternal age in third trimester High risk multigravida in third trimester History of gestational hypertension Elevated blood pressure reading without diagnosis of hypertension Pedal edema Edema documented in this encounter [facility] note* Diagnosis High risk multigravida in third trimester- Primary 26 weeks gestation of state, incidental Multigravida of advanced maternal age in second trimester Obesity affecting in second trimester, unspecified obesity type Varicose veins of lower leg Advanced maternal age in multigravida, second trimester Pre-eclampsia, severe, antepartum, third trimester- Primary Encounter for induction of labor Pre-eclampsia, severe, antepartum, third trimester Multigravida of advanced maternal age in second trimester Uterine fibroid during , antepartum Obesity affecting in third trimester Prematurity of fetus Other infants, unspecified (weight) Encounter for induction of labor care following vaginal delivery Routine follow-up Leg swelling Swelling of limb Hypertension complicating , delivered, current hospitalization Unspecified hypertension, with delivery Hypertension in , preeclampsia, delivered- Primary Mild or unspecified pre-eclampsia, with delivery documented in this encounter [facility] note* Diagnosis High risk multigravida in third trimester- Primary 26 weeks gestation of state, incidental Multigravida of advanced maternal age in second trimester Obesity affecting in second trimester, unspecified obesity type Varicose veins of lower leg Advanced maternal age in multigravida, second trimester Pre-eclampsia, severe, antepartum, third trimester- Primary Encounter for induction of labor Multigravida of advanced maternal age in second trimester Uterine fibroid during , antepartum Prematurity of fetus Other infants, unspecified (weight) Pre-eclampsia, severe, delivered- Primary Severe pre-eclampsia, with delivery Anxiety Anxiety state, unspecified Obesity affecting in third trimester Penicillin allergy Personal history of allergy to penicillin PTSD (post-traumatic stress disorder) Posttraumatic stress disorder History of depression state Routine follow-up care and examination- Primary Routine follow-up History of pre-eclampsia Personal history of other genital system and obstetric disorders documented in this encounter [facility] note* Diagnosis High risk multigravida in third trimester- Primary 26 weeks gestation of state, incidental Multigravida of advanced maternal age in second trimester Obesity affecting in second trimester, unspecified obesity type Varicose veins of lower leg Advanced maternal age in multigravida, second trimester Pre-eclampsia, severe, antepartum, third trimester- Primary Encounter for induction of labor Uterine fibroid during , antepartum Prematurity of fetus Other infants, unspecified (weight) Anxiety Anxiety state, unspecified Obesity affecting in third trimester Penicillin allergy Personal history of allergy to penicillin PTSD (post-traumatic stress disorder) Posttraumatic stress disorder History of depression Pre-eclampsia in third trimester- Primary Mild or unspecified pre-eclampsia, antepartum care and examination Routine follow-up Nutritional assessment Other specified examination Exercise counseling delivery Early onset of delivery, unspecified as to episode of care Low weight Other infants, unspecified (weight) Antepartum multigravida of advanced maternal age documented in this encounter [facility] note* Diagnosis High risk multigravida in third trimester (HCC)- Primary 26 weeks gestation of (HCC) state, incidental Multigravida of advanced maternal age in second trimester (HCC) Obesity affecting in second trimester, unspecified obesity type (HCC) Varicose veins of lower leg Advanced maternal age in multigravida, second trimester (HCC) Pre-eclampsia, severe, antepartum, third trimester (HCC)- Primary Encounter for induction of labor (HCC) Uterine fibroid during , antepartum (HCC) Prematurity of fetus (HCC) Other infants, unspecified (weight) Anxiety Anxiety state, unspecified Obesity affecting in third trimester (HCC) Penicillin allergy Personal history of allergy to penicillin PTSD (post-traumatic stress disorder) Posttraumatic stress disorder History of depression Pre-operative cardiovascular examination- Primary Essential hypertension Unspecified essential hypertension documented in this encounter [facility] note* Diagnosis Pre-eclampsia, severe, antepartum, third trimester (HCC)- Primary Encounter for induction of labor (HCC) Uterine fibroid during , antepartum (HCC) Prematurity of fetus (HCC) Other infants, unspecified (weight) Anxiety Anxiety state, unspecified Penicillin allergy Personal history of allergy to penicillin PTSD (post-traumatic stress disorder) Posttraumatic stress disorder History of depression DUB (dysfunctional uterine bleeding)- Primary Other disorder of menstruation and other abnormal bleeding from female genital tract Uterine leiomyoma, unspecified location Adenomyosis of the uterus Submucous uterine fibroid Submucous leiomyoma of uterus [facility] Diagnosis Pre-eclampsia, severe, antepartum, third trimester (HCC)- Primary Encounter for induction of labor (HCC) Uterine fibroid during , antepartum (HCC) Prematurity of fetus (HCC) Other infants, unspecified (weight) Anxiety Anxiety state, unspecified Penicillin allergy Personal history of allergy to penicillin PTSD (post-traumatic stress disorder) Posttraumatic stress disorder History of depression Request for sterilization- Primary Visit for pre-operative examination Preoperative examination, unspecified Excessive bleeding in premenopausal period Premenopausal menorrhagia Dysmenorrhea Submucous leiomyoma of uterus documented [facility] illness NarrativePleasant 35-year-old female with lifelong history of chronic indolent constipation presented to herfamily doctor with inability to move her bowels for 5 days currently on MiraLAX 70 g twice daily. Having 1 small formed stool daily which is difficult to pass. Patient has had routine blood work showing normal electrolytes and normal thyroid function along with negative testing for celiac disease. Interestingly as her youngest daughter was recent diagnosed with celiac disease and she is gone gluten-free with some improvement of bloating but no improvement or bowel symptoms. She admits that her mother and sister both have constipation predominant IBS. She has lost approximately 50 pounds and is currently losing weight actively through weight watchers.[facility] [employer] Work Phone: Hospital Discharge instructions Additional Instructions Please follow-up with your PCP and return for any worsening of your symptoms. [facility] Work Phone: Instructions* Name Dates Details Instructions not documented [facility] Work Phone: Reason for referral (narrative)* Consultation (Routine) - Pending Review Specialty Diagnoses / Procedures Referred By Pranav rollins Referred To Contact Obstetrics and Gynecology Procedures [facility] OFFICE/OUTPATIENT [facility] 60-74 MINUTES Ines Burrows DO [address] [place] [address] Referral ID Status Reason Start Date Expiration Date Visits Requested Visits Authorized [id number] Pending Review Specialty Services Required 01/13/2023 07/12/2023 1 1 * Consultation (Routine) - Pending Review Specialty Diagnoses / Procedures Referred By Contac t Referred To Contact Obstetrics and Gynecology Procedures [facility] OFFICE/OUTPATIENT NEW HIGH MDM 60-74 MINUTES Ines Burrows, [address] [place] [address] Referral ID Status Reason Start Date Expiration Date Visits Requested Visits Authorized [id number] Pending Review Specialty Services Required 01/12/2023 07/11/2023 1 1 [facility] Work Phone: Reason for referral (narrative)* Diagnostic Procedure Only (Routine) - Pending Review Specialty Diagnoses / Procedures Referred By Contac t Referred To Contact [facility] Diagnoses Pelvic pain Procedures PELVIC US WHI US PELVIC NONOBSTETRIC REAL-TIME IMAGE COMPLETE Jerry Amaya APRN.CNM [address] [place] [address] [facility] [address] [place] [address] Referral ID Status Reason Start Date Expiration Date Visits Requested Visits Authorized [id number] Pending Review Auto-Generat ed Referral 08/14/2023 08/13/2024 1 1 [facility] for referral (narrative)* Diagnostic Procedure Only (Routine) - Authorized Specialty Diagnoses / Procedures Referred By Contac t Referred To Contact [facility] Diagnoses 12 weeks gestation of Multigravida of advanced maternal age in second trimester Procedures NUCHAL TRANSLUCENCY WHI US NUCHAL TRANSLUCENCY 1ST GESTATION Edie So APRN.CNM [address] [place] [address] [facility] [address] [place] [address] Referral ID Status Reason Start Date Expiration Date Visits Requested Visits Authorized [id number] Authorized Auto-Generat ed Referral 11/24/2023 11/23/2024 1 1 [facility] for referral (narrative)* Diagnostic Procedure Only (Routine) - Authorized Specialty Diagnoses / Procedures Referred By Contac t Referred To Contact [facility] Diagnoses with uncertain dates in first trimester Procedures OBSTETRIC ULTRASOUND WHI US PREG UTERUS AFTER 1ST TRIMEST GESTATION Balbina Cortes APRN.CNP [address] [place] [address] [address] Referral ID Status Reason Start Date Expiration Date Visits Requested Visits Authorized [id number] Authorized Auto-Generat ed Referral 12/01/2023 11/30/2024 1 1 [facility] for referral (narrative)* Diagnostic Procedure Only (Routine) - Authorized Specialty Diagnoses / Procedures Referred By Contac t Referred To Contact [facility] Diagnoses 17 weeks gestation of Multigravida of advanced maternal age in second trimester Obesity affecting in second trimester, unspecified obesity type Procedures OBSTETRIC ULTRASOUND WHI US PREG UTERUS AFTER 1ST TRIMEST GESTATION Ramona Alexander MD [address] [place] [address] [facility] [address] [place] [address] Referral ID Status Reason Start Date Expiration Date Visits Requested Visits Authorized [id number] Authorized Auto-Generat ed Referral 12/29/2023 12/28/2024 1 1 T [facility] for referral (narrative)* Diagnostic Procedure Only (Routine) - Authorized Specialty Diagnoses / Procedures Referred By Contac t Referred To Contact [facility] Diagnoses Multigravida of advanced maternal age in second trimester Obesity affecting in second trimester, unspecified obesity type High risk multigravida in third trimester Advanced maternal age in multigravida, second trimester Procedures OBSTETRIC ULTRASOUND WHI US PREG UTERUS AFTER 1ST TRIMEST GESTATION Leia Quiroz MD [address] [place] [address] [address] Referral ID Status Reason Start Date Expiration Date Visits Requested Visits Authorized [id number] Authorized Auto-Generat ed Referral 03/04/2025 1 1 [facility] for referral (narrative)* Diagnostic Procedure Only (Routine) - Authorized Specialty Diagnoses / Procedures Referred By Contac t Referred To Contact [facility] Diagnoses 32 weeks gestation of Multigravida of advanced maternal age in second trimester Obesity affecting in second trimester, unspecified obesity type Procedures OBSTETRIC ULTRASOUND WHI US PREG UTERUS AFTER 1ST TRIMEST GESTATION Raomna Alexander MD [address] [facility] [place] [address] [address] [place] [address] Referral ID Status Reason Start Date Expiration Date Visits Requested Visits Authorized [id number] Authorized Auto-Generat ed Referral 04/15/2024 04/15/2025 1 1 [facility] for visit Narrative* Diagnostic Procedure Only (Routine) - Closed Specialty Diagnoses / Procedures Referred By Contac t Referred To Contact [facility] Diagnoses DUB (dysfunctional uterine bleeding) Uterine leiomyoma, unspecified location Procedures PELVIC US WHI US PELVIC NONOBSTETRIC REAL-TIME IMAGE COMPLETE Ramona Alexander MD [address] [place] [address] Phone: tel: fax: [address] [address] Referral ID Status Reason Start Date Expiration Date V isits Requested Visits Authorized [id number] Closed Auto-Generate d Referral 08/02/2024 08/02/2025 [address] [facility] Family History No Family History Records Found Mother Name Dates Details Family history of asthma(V17 .5, Z82.5) Status:Active Mother Name Dates Details Family history of asthma(V17 .5, Z82.5) Status:Active Family history of diabetes m ellitus(V18.0, Z83.3) Status:Active Unknown Family Member Name Dates Details Family history of asthma: Mo ther(V17.5, Z82.5) Status:Active Family history of diabetes m ellitus: Mother(V18.0, Z83.3) Status:Active Unknown Family Member Name Dates Details Family history of asthma: Mo ther(V17.5, Z82.5) Status:Active Family history of diabetes m ellitus: Mother(V18.0, Z83.3) Status:Active Unknown Family Member Name Dates Details Family history of asthma: Mo ther(V17.5, Z82.5) Status:Active Family history of diabetes m ellitus: Mother(V18.0, Z83.3) Status:Active Unknown Family Member Name Dates Details Family history of asthma: Mo ther(V17.5, Z82.5) Status:Active Family history of diabetes m ellitus: Mother(V18.0, Z83.3) Status:Active Unknown Family Member Name Dates Details Family history of asthma: Mo ther(V17.5, Z82.5) Status:Active Family history of diabetes m ellitus: Mother(V18.0, Z83.3) Status:Active Unknown Family Member Name Dates Details Family history of asthma: Mo ther(V17.5, Z82.5) Status:Active Family history of diabetes m ellitus: Mother(V18.0, Z83.3) Status:Active Unknown Family Member Name Dates Details Family history of asthma: Mo ther(V17.5, Z82.5) Status:Active Family history of diabetes m ellitus: Mother(V18.0, Z83.3) Status:Active Unknown Family Member Name Dates Details Family history of asthma: Mo ther(V17.5, Z82.5) Status:Active Family history of diabetes m ellitus: Mother(V18.0, Z83.3) Status:Active Unknown Family Member Name Dates Details Family history of asthma: Mo ther(V17.5, Z82.5) Status:Active Family history of diabetes m ellitus: Mother(V18.0, Z83.3) Status:Active Unknown Family Member Name Dates Details Family history of asthma: Mo ther(V17.5, Z82.5) Status:Active Family history of diabetes m ellitus: Mother(V18.0, Z83.3) Status:Active Unknown Family Member Name Dates Details Family history of asthma: Mo ther(V17.5, Z82.5) Status:Active Family history of diabetes m ellitus: Mother(V18.0, Z83.3) Status:Active Unknown Family Member Name Dates Details Family history of asthma: Mo ther(V17.5, Z82.5) Status:Active Family history of diabetes m ellitus: Mother(V18.0, Z83.3) Status:Active Unknown Family Member Name Dates Details Family history of asthma: Mo ther(V17.5, Z82.5) Status:Active Family history of diabetes m ellitus: Mother(V18.0, Z83.3) Status:Active Summary Purpose Advance Directives No Advanced Directives Records Found Advance Directive Response Recorded Date/ Time Living Will No November 20 202 3 5:16pm 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 patient states her BM have been soft and thin since taking the MiraLAX* Pt is here today for a yearly check up, she has no complaints. This note was generated by using [employer] software. It may contain errors in wording, punctuate, or spelling. * She is here today for her checkup. Overall she is looking well and reports feeling well. We did conduct a review of systems and we are providing refills on medications today. She occasionally suffersfrom insomnia and states she has to take the trazodone at certain times throughout the month. She takes melatonin but sometimes needs something more. She also continues to take her Escitalopram and her hydroxyzine as needed. Her blood pressure is excellent. She does keep up with her annual Pap examinations and overall is doing well. We are also providing a refill on her fluticasone. * Pt is here today with the C/O increased anxity. This note was generated by using [employer] software. It may contain errors in wording, punctuate, or spelling. * She is here today for evaluation of her anxiety. She states that recently her symptoms have been more severe and at times she experiences panic attacks. 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 She has done very well with the Escitalopram and tolerates it well. We discussed increasing the dose to 20 mg and she will call to let us know if this is not satisfactory. She does have hydroxyzine which helps with panic but unfortunately it does cause a lot of sedation for her. We also talked about the possibility of using buspirone. We did conduct a review of systems and overall she is doing very well from a preventative standpoint. She goes to her pipe organ tuner and repairer regularly and she also intends on getting this season's flu vaccine at the flu fair at her school on January 03. We will see her back in 6 months and sooner if any problem. * Chief Complaint: HARRISON GUNDERSON is here with a chief complaint of KSR PT; C/O SINUS PAIN AND PRESSURE X 2-3D; STATES USUALLY GETS THIS EVERY YEAR WITH THE CHANGE IN WEATHER. * An interactive audio and video telecommunication system which permits real time communications between the patient (at the originating site) and provider (at the distant site) was utilized to providethis telehealth service. * pt here for 6 month folow up. Serves no complaints or concerns. This note was generated by using [employer] software. It may contain errors in wording, punctuate, or spelling. * She is here today for a 6-month routine checkup. She also explains that in recent times she has notbeen feeling as good as usual. She explained that her children are in several activities and she isconstantly on the go to attend the different programs. He also works long hours. She also states that she feels like her anxiety has been under good control but she has been feeling a little depressed in recent times. She went on to explain that she feels like her marriage is falling apart. We talked about medication and we decided to add Abilify. She also understands that it might be helpful to enroll in counseling and that she could check with her insurance plan regarding telehealth. I told her if she needs a referral just give us a call. We did conduct a review of systems we did decide to check some lab work to check her blood sugar since it was marginally elevated a couple years ago. Wetalked about doing other lab but then decided to hold off for now. We will see her back in approximately 3 to 4 weeks for follow-up and she knows to call sooner if things or not going well. Chief Complaint and Reason for Visit Chief Complaint abdominal pain Reason for Referral Specialty Diagnoses / Procedures Referred By Pranav rollins Referred To Contact Radiology Diagnoses Hemorrhagic cyst of left ovary Procedures US PELVIS TRANSABDOMINAL WITH TRANSVAGINAL Xiomara Gutierrez MD [address] [facility], [place] [address] Referral ID Status Reason Start Date Expiration Date Visits Requested Visits Authorized [id number] Pending Review Perform Procedure 01/16/2023 07/15/2023 1 1 Additional Source Comments INFORMATION SOURCE (unrecogn ized section and content) DATE CREATED AUTHOR 05/21/2020 [employer] DATE CREATED AUTHOR AUTHOR'S ORGANIZ ATION 09/30/[address] [facility] DATE CREATED AUTHOR AUTHOR'S ORGANIZ ATION 12/08/2022 [facility] DATE CREATED AUTHOR AUTHOR'S ORGANIZ ATION 12/22/2022 [facility] DATE CREATED AUTHOR AUTHOR'S ORGANIZ ATION 03/08/2023 [facility] DATE CREATED AUTHOR AUTHOR'S ORGANIZ ATION 06/30/2023 [facility] DATE CREATED AUTHOR AUTHOR'S ORGANIZ ATION 12/14/2023 [facility] DATE CREATED AUTHOR AUTHOR'S ORGANIZ ATION 08/02/2024 [facility] DATE CREATED AUTHOR AUTHOR'S ORGANIZ ATION 09/16/2024 [facility] DATE CREATED AUTHOR AUTHOR'S ORGANIZ ATION 09/19/2024 [facility] Source Comments (unrecognize d section and content) In the event this informatio n is protected by the Federal Confidentiality of Alcohol and Drug Abuse Patient Records regulations: The Federal rules restrict any use of the information to criminally investigate or prosecute any alcohol or drug abuse patient.[facility] the event this information is protected by the Federal Confidentiality of Alcohol and Drug Abuse Patient Records regulations: The Federal rules restrict any use of the information to criminally investigate or prosecute any alcohol or drug abuse patient.[facility] the event this information is protected by the Federal Confidentiality of Alcohol and Drug Abuse Patient Records regulations: The Federal rules restrict any use of the information to criminally investigate or prosecute any alcohol or drug abuse patient.[facility] the event this information is protected by the Federal Confidentiality of Alcohol and Drug Abuse Patient Records regulations: The Federal rules restrict any use of the information to criminally investigate or prosecute any alcohol or drug abuse patient.[facility] the event this information is protected by the Federal Confidentiality of Alcohol and Drug Abuse Patient Records regulations: The Federal rules restrict any use of the information to criminally investigate or prosecute any alcohol or drug abuse patient.[facility] the event this information is protected by the Federal Confidentiality of Alcohol and Drug Abuse Patient Records regulations: The Federal rules restrict any use of the information to criminally investigate or prosecute any alcohol or drug abuse patient.[facility] the event this information is protected by the Federal Confidentiality of Alcohol and Drug Abuse Patient Records regulations: The Federal rules restrict any use of the information to criminally investigate or prosecute any alcohol or drug abuse patient.[facility] the event this information is protected by the Federal Confidentiality of Alcohol and Drug Abuse Patient Records regulations: The Federal rules restrict any use of the information to criminally investigate or prosecute any alcohol or drug abuse patient.[facility] the event this information is protected by the Federal Confidentiality of Alcohol and Drug Abuse Patient Records regulations: The Federal rules restrict any use of the information to criminally investigate or prosecute any alcohol or drug abuse patient.[facility] the event this information is protected by the Federal Confidentiality of Alcohol and Drug Abuse Patient Records regulations: The Federal rules restrict any use of the information to criminally investigate or prosecute any alcohol or drug abuse patient.[facility] the event this information is protected by the Federal Confidentiality of Alcohol and Drug Abuse Patient Records regulations: The Federal rules restrict any use of the information to criminally investigate or prosecute any alcohol or drug abuse patient.[facility] the event this information is protected by the Federal Confidentiality of Alcohol and Drug Abuse Patient Records regulations: The Federal rules restrict any use of the information to criminally investigate or prosecute any alcohol or drug abuse patient.[facility] the event this information is protected by the Federal Confidentiality of Alcohol and Drug Abuse Patient Records regulations: The Federal rules restrict any use of the information to criminally investigate or prosecute any alcohol or drug abuse patient.[facility] HospitalIn the event this information is protected by the Federal Confidentiality of Alcohol and Drug Abuse Patient Records regulations: The Federal rules restrict any use of the information to criminally investigate or prosecute any alcohol or drug abuse patient.[facility] HospitalIn the event this information is protected by the Federal Confidentiality of Alcohol and Drug Abuse Patient Records regulations: The Federal rules restrict any use of the information to criminally investigate or prosecute any alcohol or drug abuse patient.[facility] HospitalIn the event this information is protected by the Federal Confidentiality of Alcohol and Drug Abuse Patient Records regulations: The Federal rules restrict any use of the information to criminally investigate or prosecute any alcohol or drug abuse patient.[facility] HospitalIn the event this information is protected by the Federal Confidentiality of Alcohol and Drug Abuse Patient Records regulations: The Federal rules restrict any use of the information to criminally investigate or prosecute any alcohol or drug abuse patient.[facility] HospitalIn the event this information is protected by the Federal Confidentiality of Alcohol and Drug Abuse Patient Records regulations: The Federal rules restrict any use of the information to criminally investigate or prosecute any alcohol or drug abuse patient.[facility] HospitalIn the event this information is protected by the Federal Confidentiality of Alcohol and Drug Abuse Patient Records regulations: The Federal rules restrict any use of the information to criminally investigate or prosecute any alcohol or drug abuse patient.[facility] HospitalIn the event this information is protected by the Federal Confidentiality of Alcohol and Drug Abuse Patient Records regulations: The Federal rules restrict any use of the information to criminally investigate or prosecute any alcohol or drug abuse patient.[facility] HospitalIn the event this information is protected by the Federal Confidentiality of Alcohol and Drug Abuse Patient Records regulations: The Federal rules restrict any use of the information to criminally investigate or prosecute any alcohol or drug abuse patient.[facility] HospitalIn the event this information is protected by the Federal Confidentiality of Alcohol and Drug Abuse Patient Records regulations: The Federal rules restrict any use of the information to criminally investigate or prosecute any alcohol or drug abuse patient.[facility] HospitalIn the event this information is protected by the Federal Confidentiality of Alcohol and Drug Abuse Patient Records regulations: The Federal rules restrict any use of the information to criminally investigate or prosecute any alcohol or drug abuse patient.[facility] HospitalIn the event this information is protected by the Federal Confidentiality of Alcohol and Drug Abuse Patient Records regulations: The Federal rules restrict any use of the information to criminally investigate or prosecute any alcohol or drug abuse patient.[facility] HospitalIn the event this information is protected by the Federal Confidentiality of Alcohol and Drug Abuse Patient Records regulations: The Federal rules restrict any use of the information to criminally investigate or prosecute any alcohol or drug abuse patient.[facility] HospitalIn the event this information is protected by the Federal Confidentiality of Alcohol and Drug Abuse Patient Records regulations: The Federal rules restrict any use of the information to criminally investigate or prosecute any alcohol or drug abuse patient.[facility] HospitalIn the event this information is protected by the Federal Confidentiality of Alcohol and Drug Abuse Patient Records regulations: The Federal rules restrict any use of the information to criminally investigate or prosecute any alcohol or drug abuse patient.[facility] HospitalIn the event this information is protected by the Federal Confidentiality of Alcohol and Drug Abuse Patient Records regulations: The Federal rules restrict any use of the information to criminally investigate or prosecute any alcohol or drug abuse patient.[facility] HospitalIn the event this information is protected by the Federal Confidentiality of Alcohol and Drug Abuse Patient Records regulations: The Federal rules restrict any use of the information to criminally investigate or prosecute any alcohol or drug abuse patient.[facility] HospitalIn the event this information is protected by the Federal Confidentiality of Alcohol and Drug Abuse Patient Records regulations: The Federal rules restrict any use of the information to criminally investigate or prosecute any alcohol or drug abuse patient.[facility] HospitalIn the event this information is protected by the Federal Confidentiality of Alcohol and Drug Abuse Patient Records regulations: The Federal rules restrict any use of the information to criminally investigate or prosecute any alcohol or drug abuse patient.[facility] HospitalIn the event this information is protected by the Federal Confidentiality of Alcohol and Drug Abuse Patient Records regulations: The Federal rules restrict any use of the information to criminally investigate or prosecute any alcohol or drug abuse patient.[facility] HospitalIn the event this information is protected by the Federal Confidentiality of Alcohol and Drug Abuse Patient Records regulations: The Federal rules restrict any use of the information to criminally investigate or prosecute any alcohol or drug abuse patient.[facility] HospitalIn the event this information is protected by the Federal Confidentiality of Alcohol and Drug Abuse Patient Records regulations: The Federal rules restrict any use of the information to criminally investigate or prosecute any alcohol or drug abuse patient.[facility] HospitalIn the event this information is protected by the Federal Confidentiality of Alcohol and Drug Abuse Patient Records regulations: The Federal rules restrict any use of the information to criminally investigate or prosecute any alcohol or drug abuse patient.[facility] HospitalIn the event this information is protected by the Federal Confidentiality of Alcohol and Drug Abuse Patient Records regulations: The Federal rules restrict any use of the information to criminally investigate or prosecute any alcohol or drug abuse patient.[facility] HospitalIn the event this information is protected by the Federal Confidentiality of Alcohol and Drug Abuse Patient Records regulations: The Federal rules restrict any use of the information to criminally investigate or prosecute any alcohol or drug abuse patient.[facility] HospitalIn the event this information is protected by the Federal Confidentiality of Alcohol and Drug Abuse Patient Records regulations: The Federal rules restrict any use of the information to criminally investigate or prosecute any alcohol or drug abuse patient.[facility] HospitalIn the event this information is protected by the Federal Confidentiality of Alcohol and Drug Abuse Patient Records regulations: The Federal rules restrict any use of the information to criminally investigate or prosecute any alcohol or drug abuse patient.[facility] Reason for Visit (unrecogniz ed section and content) Reason Comments Sore Throat Bodyaches x this AM Reason Comments Abdominal Pain LLQ pain sudden onse t this am. Denies N/V/D Reason Comments rev ultrasound left ovarian cyst lmp 01-08-2023 Specialty Diagnoses / Procedures Referred By Contac t Referred To Contact Radiology Diagnoses Hemorrhagic cyst of left ovary Procedures US PELVIS TRANSABDOMINAL WITH TRANSVAGINAL Xiomara Gutierrez MD [address] [facility] Medical Office, [address] [address] Referral ID Status Reason Start Date Expiration Date Visits Requested Visits Authorized [id number] Pending Review Perform Procedure 01/16/2023 07/15/2023 1 1 Reason Comments Discussion Reason Comments Rash Poison romero x 1 week Reason Onset Date Comments Care 11/24/2023 Reason Comments Initial OB Visit Reason Comments US Specialty Diagnoses / Procedures Referred By Contac t Referred To Contact [facility] Diagnoses 12 weeks gestation of Multigravida of advanced maternal age in second trimester Procedures NUCHAL TRANSLUCENCY WHI US NUCHAL TRANSLUCENCY 1ST GESTATION Edie So APRN.CNM [address] [place] [address] [facility] [address] [place] [address] Referral ID Status Reason Start Date Expiration Date V isits Requested Visits Authorized [id number] Closed Auto-Generate d Referral 11/24/2023 11/23/2024 1 1 Reason Onset Date Comments Care 12/29/2023 Specialty Diagnoses / Procedures Referred By Contac t Referred To Contact [facility] Diagnoses with uncertain dates in first trimester Procedures OBSTETRIC ULTRASOUND WHI US PREG UTERUS AFTER 1ST TRIMEST / GESTATION Balbina Cortes APRN.RECORD KEEPER [address] [place] [address] [facility] [address] [place] [address] Referral ID Status Reason Start Date Expiration Date V isits Requested Visits Authorized [id number] Closed Auto-Generate d Referral 12/01/2023 11/30/2024 1 1 Reason Onset Date Comments Care 01/24/2024 Specialty Diagnoses / Procedures Referred By Contac t Referred To Contact [facility] Diagnoses 17 weeks gestation of Multigravida of advanced maternal age in second trimester Obesity affecting in second trimester, unspecified obesity type Procedures OBSTETRIC ULTRASOUND WHI US PREG UTERUS AFTER 1ST TRIMEST GESTATION Ramona Alexander MD [address] [place] [address] [facility] [address] [place] [address] Referral ID Status Reason Start Date Expiration Date V isits Requested Visits Authorized [id number] Closed Auto-Generate d Referral 12/29/2023 12/28/2024 1 1 Reason Onset Date Comments Care 03/04/2024 Reason Onset Date Comments Care 03/22/2024 Reason Onset Date Comments Care 03/27/2024 Specialty Diagnoses / Procedures Referred By Contac t Referred To Contact [facility] Diagnoses Multigravida of advanced maternal age in second trimester Obesity affecting in second trimester, unspecified obesity type High risk multigravida in third trimester Advanced maternal age in multigravida, second trimester Procedures OBSTETRIC ULTRASOUND WHI US PREG UTERUS AFTER 1ST TRIMEST GESTATION Leia Quiroz MD [address] [place] [address] [address] Referral ID Status Reason Start Date Expiration Date V isits Requested Visits Authorized [id number] Closed Auto-Generate d Referral 03/04/2024 03/04/2025 1 1 Reason Onset Date Comments Care 04/15/2024 Reason Comments OB Elevated BP Reason Onset Date Comments Care 04/18/2024 Reason Comments Early Reason Comments Care Blood pressure check Reason Comments Care Reason Comments Cardiac Clearance Reason Comments Results Reason Comments Pre-Op Visit Reason Comments PAT appointment Reason Comments Results [facility] req uesting last office visit note, echo and EKG report please be faxed to [phone] questions, Dawb [phone] Care Teams (unrecognized sec tion and content) Fluorescent Lamp Replacer Relationship Specialty Start Date End Date Ottoniel Goyal DO [address] [place] [address] PCP - General Internal Medicine 06/19/18 Team Status: Active Member Role Status Dates Dr. Ottoniel Goyal MD Family Provider Active Dr. Ottoniel Goyal MD Primary Care Provider Active Team Status: Inactive Member Role Status Dates Dr. Ottoniel Goyal MD Primary Care Provider Active Dr. Blas Xiao DO Emergency Provider Active Fluorescent Lamp Replacer Relationship Specialty Start Date End Date Ottoniel Goyal DO [address] [place] [address] PCP - General 05/11/20 Ottoniel Goyal DO [address] [place] [address] PCP - MMO ACO PCP 04/10/21 Fluorescent Lamp Replacer Relationship Specialty Start Date End Date Ottoniel Goyal DO [address] [place] [address] PCP - General 05/11/20 Ottoniel Goyal DO [address] [place] [address] PCP - MMO ACO PCP 04/10/21 Fluorescent Lamp Replacer Relationship Specialty Start Date End Date Ottoniel Goyal DO [address] [place] [address] PCP - General 05/11/20 Ottoniel Goyal DO [address] [place] [address] [place] [address] PCP - MMO ACO PCP 04/10/21 Fluorescent Lamp Replacer Relationship Specialty Start Date End Date Catherine Goyally RommelDO [address] [place], [place] [address]emFormerly [facility] [place] [address] PCP - General 05/11/20 Ottoniel Goyal DO [address] [place] [address] [place] [address] PCP - MMO ACO PCP 04/10/21 Fluorescent Lamp Replacer Relationship Specialty Start Date End Date Catherine Goyally RommelDO [address] [place], [place] [phone] PCP - General Internal Medicine 06/19/18 Fluorescent Lamp Replacer Relationship Specialty Start Date End Date NadirOttonielrabia Fountain DO [address] [place] [address] PCP - General Internal Medicine 06/19/18 Fluorescent Lamp Replacer Relationship Specialty Start Date End Date NadirOttonielrabia Fountain DO [address] [place], [place] [id number] PCP - General Internal Medicine 06/19/18 Fluorescent Lamp Replacer Relationship Specialty Start Date End Date NadirOttonielrabia Fountain DO [address] [place] [address] PCP - General Internal Medicine 06/19/18 Fluorescent Lamp Replacer Relationship Specialty Start Date End Date Catherineangel Fountain DO [address] [place] [address] PCP - General Internal Medicine 06/19/18 Fluorescent Lamp Replacer Relationship Specialty Start Date End Date Ottoniel Goyal DO [address] [place] [address] PCP - General Internal Medicine 06/19/18 Fluorescent Lamp Replacer Relationship Specialty Start Date End Date Ottoniel Goyal DO [address] [place] [id number] PCP - General Internal Medicine 06/19/18 Fluorescent Lamp Replacer Relationship Specialty Start Date End Date Ottoniel Goyal DO [address] [place] [id number] PCP - General Internal Medicine 06/19/18 Fluorescent Lamp Replacer Relationship Specialty Start Date End Date [facility]toniel [facility] [place] [address] PCP - General Internal Medicine 06/19/18 Fluorescent Lamp Replacer Relationship Specialty Start Date End Date Ottoniel Goyal [facility] [place] [id number] PCP - General Internal Medicine 06/19/18 Fluorescent Lamp Replacer Relationship Specialty Start Date End Date Ottoniel Goyal [facility] [place] [address] PCP - General Internal Medicine 06/19/18 Fluorescent Lamp Replacer Relationship Specialty Start Date End Date Ottoniel Goyal [facility] [place] [id number] PCP - General Internal Medicine 06/19/18 Fluorescent Lamp Replacer Relationship Specialty Start Date End Date Ottoniel Goyal [facility] [place] [id number] PCP - General Internal Medicine 06/19/18 Fluorescent Lamp Replacer Relationship Specialty Start Date End Date Ottoniel Goyal DO [address] [place] [id number] PCP - General Internal Medicine 06/19/18 Fluorescent Lamp Replacer Relationship Specialty Start Date End Date Ottoniel Goyal DO [facility] [place] [address] PCP - General Internal Medicine 06/19/18 Fluorescent Lamp Replacer Relationship Specialty Start Date End Date Ottoniel GoyalDO [facility] [place] [address] PCP - General Internal Medicine 06/19/18 Fluorescent Lamp Replacer Relationship Specialty Start Date End Date Ottoniel [place] [address] PCP - General Internal Medicine 06/19/18 Fluorescent Lamp Replacer Relationship Specialty Start Date End Date Ottoniel [place] [address] PCP - General Internal Medicine 06/19/18 Fluorescent Lamp Replacer Relationship Specialty Start Date End Date Ottoniel GoyalDO [address] [place] [id number] PCP - General Internal Medicine 06/19/18 Fluorescent Lamp Replacer Relationship Specialty Start Date End Date Ottoniel GoyalDO [address] [place] [id number] PCP - General Internal Medicine 06/19/18 Fluorescent Lamp Replacer Relationship Specialty Start Date End Date Catherine Goyally RommelDO [address] [place] [address] PCP - General Internal Medicine 06/19/18 Fluorescent Lamp Replacer Relationship Specialty Start Date End Date Ottoniel Goyal DO [address] [place] [address] PCP - General Internal Medicine 06/19/18 Fluorescent Lamp Replacer Relationship Specialty Start Date End Date Ottoniel Goyal DO [address] [place] [address] PCP - General Internal Medicine 06/19/18 Fluorescent Lamp Replacer Relationship Specialty Start Date End Date Ottoniel Goyal DO [address] [place] [id number] PCP - General Internal Medicine 06/19/18 Fluorescent Lamp Replacer Relationship Specialty Start Date End Date Ottoniel [place] [address] PCP - General Internal Medicine 06/19/18 Fluorescent Lamp Replacer Relationship Specialty Start Date End Date Ottoniel Goyal DO [address] [place] [id number] PCP - General Internal Medicine 06/19/18 Fluorescent Lamp Replacer Relationship Specialty Start Date End Date Ottoniel Goyal DO [address] [place] [address] PCP - General Internal Medicine 06/19/18 Fluorescent Lamp Replacer Relationship Specialty Start Date End Date Ottoniel [place] [address] PCP - General Internal Medicine 06/19/18 Fluorescent Lamp Replacer Relationship Specialty Start Date End Date Ottoniel Goyal DO [address] [place] [place] [id number] PCP - General Internal Medicine 06/19/18 Fluorescent Lamp Replacer Relationship Specialty Start Date End Date Ottoniel Goyal DO [address] [place] [address] PCP - General Internal Medicine 06/19/18 Fluorescent Lamp Replacer Relationship Specialty Start Date End Date Ottoniel Goyal DO [address] [facility] [place] [id number] PCP - General Internal Medicine 06/19/18 Fluorescent Lamp Replacer Relationship Specialty Start Date End Date Ottoniel Goyal [facility] [place] [address] PCP - General Internal Medicine 06/19/18 Fluorescent Lamp Replacer Relationship Specialty Start Date End Date Ottoniel Goyal [facility] [place] [address] PCP - General Internal Medicine 06/19/18 Fluorescent Lamp Replacer Relationship Specialty Start Date End Date Ottoniel Goyal [facility] [place] [address] PCP - General Internal Medicine 06/19/18 Fluorescent Lamp Replacer Relationship Specialty Start Date End Date Ottoniel Goyal [facility] [place] [id number] PCP - General Internal Medicine 06/19/18 Fluorescent Lamp Replacer Relationship Specialty Start Date End Date Ottoniel Goyal [facility] [place] [id number] PCP - General Internal Medicine 06/19/18 Goals (unrecognized section and content) Goals may be documented in a n alternate section Scheduled Active and Recently Administ ered Medications (unrecognized section and content) Medication Order 01/11/2023 01/12/2023 01/13/2023 iohexol (OMNIPaque) 350 mg iodine/mL injection 90 mL (COMPLETED) 90 mL, intravenous, Once in imaging, Starting on Rosanna 01/12/23 at 2318, For 1 dose 2319 (Given - Provider: Kaci Fernández) ketorolac (Toradol) injection 15 mg (COMPLETED) 15 mg, intravenous, Once, On 01/13/23 at 0000, For 1 dose 0011 (Given - Provid er: Jennifer Escobar RN) FOR RECORDS PERTAINING TO PATIENTS WHO ARE OR HAVE BEEN ENROLLED IN A CHEMICAL DEPENDENCY/SUBSTANCEABUSE PROGRAM, SOME INFORMATION MAY BE OMITTED. This clinical summary was aggregated from multiple sources. Caution should be exercised in using it in the provision of clinical care. This summary normalizes information from multiple sources, and as a consequence, information in this document may materially change the coding, format and clinical context of patient data. In addition, data may be omitted in some cases. CLINICAL DECISIONS SHOULD BE BASED ON THE PRIMARY CLINICAL RECORDS. [employer] provides no warranty or guarantee of the accuracy or completeness of information in this document.
[2024-09-20] MEDS: Levonorgestrel IUD (Liletta) 1 EACH INTRA-UTER (06:30)
[2024-09-20 06:44] LABS: Internal QC Validated? YES +Cl - CLEAR BKGD; Pregnancy, Urine Negative Negative
[2024-09-20] MEDS: Lactated Ringers 1,000 ML 15 ML IV (06:46)
--- NOTE | 2024-09-20 06:47 | PRE.ANES_ITS ---
ASA Classification* ASA Classification ASA Classification: 2 Assessment & Plan Anesthesia* Anesthesia Assessment Anesthesia Assessment: Discussed sedation and/or anesthesia options, risks, benefits, and alternatives with patient/parents/legal guardian/POA. Questions invited. The patient/parents/legal guardian/POA seems to understand and agrees to proceed with anesthesia plan. Reviewed the physical assessment, medical history, allergy history and patient home medications list prior to surgery/procedure/anesthetic and documented any changes. Performed airway and anesthesia risk assessments. Anesthesia Type Anesthesia Type: General Anesthesia Focused Assessment* Temperature: 97.8 F Pulse Rate: 81 Blood Pressure: 125/83 Respiratory Rate: 16 Pulse Ox: 100 Airway Assessment Mouth opens: >3 cm Mallampati Score: II Labs Anesthesia Preop lab: CBC WBC 8.2 K/mm3 (4.4-11.0) 11/21/23 23:52 11/21/23 RBC 4.92 M/mm3 (4.2-5.4) 11/21/23 23:52 11/21/23 Hgb 12.5 g/dL (12.0-15.0) 11/21/23 23:52 11/21/23 Hct 37.4 % (37-47) 11/21/23 23:52 11/21/23 Plt Count 319 K/mm3 (150-450) 11/21/23 23:52 11/21/23 CHEMISTRY Potassium 4.0 mmol/L (3.5-5.1) 10/18/23 11:40 10/18/23 Sodium 135 mmol/L (136-145) L 10/18/23 11:40 10/18/23 BUN 13 mg/dL (7-18) 10/18/23 11:40 10/18/23 Creatinine 0.68 mg/dL (0.55-1.02) 10/18/23 11:40 10/18/23 Glucose 111 mg/dL (74-106) H 10/18/23 11:40 10/18/23 COAG HCG, Quant 325825 mIU/mL (1-3) H 11/21/23 23:52 11/21/23 Urine Test Negative Negative 09/20/24 06:15 09/20/24 Pre-Assessment Diagnosis/Proposed Procedure Planned Operative Procedure(s): laproScopic, bilateral salpingectomy. Hysteroscopy D&C, fibroid resection. 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 When Was Last Pacemaker Check QUESTION #4 FULL TEXT: You/Your Family Experience fever (hyperthermia) with Anesthesia Last Oral Intake Last Oral intake: Last Oral Intake NPO since Meds taken in AM with sips of water? Meds patient instructed to take am of surgery PONV PONV - bindery production manager: PONV - bindery production manager Female Yes 09/18/24 10:13 HX of Motion Sickness No 09/18/24 10:13 HX of N/V After Surgery No 09/18/24 10:13 Non-Smoker Yes 09/18/24 10:13 Duration of Surgery greater Yes 09/18/24 10:13 than 60 minutes Number of Risk Factors 3 09/18/24 10:13 PONV Score Moderate Risk 09/18/24 10:13 Height & Weight Height & Weight: Anesthesia: Height & Weight Height 5 ft 4 in 09/20/24 06:41 Weight: 96 kg 09/20/24 06:41 Body Mass Index (BMI) 36.3 09/20/24 06:41 Respiratory Assessment Respiratory Assessment - bindery production manager: Respiratory Tract Infection Hx - bindery production manager Hx Respiratory Tract Infection No 09/18/24 10:13 STOP Sleep Apnea STOP Sleep Apnea - bindery production manager: STOP Sleep Apnea - bindery production manager Hx Hypertension Yes: CONTROLLED WITH MEDS 09/18/24 10:13 Hx Sleep Apnea No 09/18/24 10:13 CPAP BIPAP Do you snore loudly (louder No 09/18/24 10:13 than talking or can be heard Do you often feel tired/ No 09/18/24 10:13 fatigued/ sleepy during daytime? Has anyone observed you stop No 09/18/24 10:13 breathing during sleep? STOP Results Negative 09/18/24 10:13 QUESTION #5 FULL TEXT : Do you snore loudly (louder than talking or can be heard through closed doors)? Tobacco Use History Tobacco Use History - bindery production manager: Tobacco Use History - bindery production manager Tobacco Use Smoking Status Never smoker 09/18/24 10:13 Hx Tobacco Use No 09/18/24 10:13 Years Smoking Packs Smoked per Day Smoking Cessation Date was within the last 15 years Hx Smoking Cessation Date Hx Smoking Cessation Counseling Hematologic Medial History Hematologic Hx - bindery production manager: Hematologic Medical Hx - director of home health services Hx of Blood Transfusion No 09/18/24 10:13 Hx of Transfusion in last 3 No 09/18/24 10:13 Months Date of Last Transfusion (if within last 3 months) Ever experience any problems No 09/18/24 10:13 with transfusion(s)? Specify any problems Hx of Preganancy in last 3 No 09/18/24 10:13 Months Nurse Filling Out Transfusion DSCHRIBER 09/18/24 10:13 & Questions: Date: 09/18/24 09/18/24 10:13 Time: 10:14 09/18/24 10:13 Patient unable to answer at this time (ie. confused, unrespo /Reproduction History /Reproductive History - bindery production manager: /Reproductive Hx- bindery production manager Hx Now No 09/18/24 10:13 Gestational Age (in weeks): EDC: Hx Hx Para Hx Section SAB Yes 09/18/24 10:13 Active Medications Active Medications: Current Medications Generic Name Dose Route Start Last Admin Trade Name Freq PRN Reason Stop Dose Admin Lactated Ringer's 1,000 mls @ 15 mls/hr 09/20/24 06:30 IV .Q48H ANMOL PFSH Medical History History of a child Anxiety Syncope Non-smoker Cardiology follow-up encounter History of echocardiogram Hypertension Home Medications ?Medication ?Instructions ?Recorded ?Last Taken ?Type vit no.95-ferrous 1 tab PO DAILY 11/21/2304/03 History fumarate 28 mg-folic acid 800 mcg tablet () hydrochlorothiazide 25 mg tablet 25 mg PO DAILY 09/19/24 History losartan 50 mg tablet 50 mg PO BID 09/18/24 History nifedipine 60 mg tablet,extended 60 mg PO BID 09/18/24 09/19/24 History release 24 hr Allergy/AdvReac Type Severity Reaction Status Date / Time amoxicillin (Amoxicillin) Allergy Hives Verified 09/20/24 06:39 Penicillins Allergy Hives Verified 09/20/24 06:39 Surgical History Hx of colonoscopy Social History Smoking Status: Never smoker Review of Systems (Anesthesia) ROS Narrative System reviewed and no additional complaints, except as documented.
--- NOTE | 2024-09-20 07:30 | FALS_PTH ---
PATIENT: HARRISON DEL CID LOC: [facility] [place] U#:[id number] AGE/SX: 39/F ROOM: RE09/20/[address]: Dr. Jesi Alexander DO : 1985 BED: DIS: 09/20/2024 SPEC #: [id number] RECD: 09/20/24 10:18 STATUS: HCARLES RECliff #: [id number] SAMIRA: 09/20/24 07:[address]: Jesi Alexander DEPT: SURGICAL PATHOLOGY RECD BY: Wilson White ENTERED: 09/20/24 11:20 SP TYPE: FALL TUBES OTHR DR: Dr. Zulma Goyal MD Tissues: A - Fallopian tube B - Endometrium, NOS Procedures: Surgery Specimen Level II Surgery Specimen Level IV HEADER OPERATION: Laparoscopic, bilateral salpingectomy, hysteroscopy PRE-OP DIAGNOSIS: Requested sterilization, menorrhagia, dysmenorrhea TISSUE SUBMITTED: A- Bilateral fallopian tubes, B- Endometrial curettings MICROSCOPIC DIAGNOSIS A. Bilateral fallopian tubes, resection: * No specific pathologic change x2. B. Endometrium, curettage: * Inactive to secretory endometrial glands with extensive shedding stroma consistent with menstrual phase. * Focal squamous cervical mucosa with mild atypia. MICROSCOPIC DESCRIPTION Slides are reviewed. GROSS DESCRIPTION Received in 2 formalin containers labeled with the patient's name and date of .? Designated as: A.? Bilateral fallopian tubes are 2 undesignated pink-lipscomb red fimbriated fallopian tubes, 8.2 cm and 7.9 cm in length by an average diameter of 0.5 cm.? There are few paratubal cyst present, <0.1 cm to 0.2 cm.? Sections are submitted in 4 cassettes as follows:A1-A2: [place] fallopian tube including paratubal cyst and entire fimbriaA 3-A4: Longer fallopian tube including paratubal cyst and entire fimbria B.? Endometrial curettings is a 2.4 x 1.7 x 0.4 cm aggregate of pink-red soft tissue fragments and clotted blood.? Entirely submitted in 1 cassette. NC 09/21/2023 CPT:[id number]
[2024-09-20] MEDS: Bupivacaine Mpf 0.5% 30 ML VIAL (08:55)
--- NOTE | 2024-09-20 09:16 | PCM.POST.ANE ---
Anesthesia: Postop Eval I Current Vital Signs Temperature: 98.4 F Pulse Rate: 101 Blood Pressure: 119/68 Respiratory Rate: 16 Pulse Ox: 97 Oxygen Delivery Method: Room Air Assessment Airway patent: Yes Spontaneous unlabored respirations: Yes Mental status: Awake and Calm nausea: No Vomiting: No Anesthesia Complication: No Fluid Hydration Crystalloid volume administer (ml): 500 Total IV fluid infused: 500 Progress Note Anesthesia document: Postop Eval 1 completed: Yes
--- NOTE | 2024-09-20 09:24 | DCINST_ITS ---
Discharge Instructions Diet Discharge Diet: No restrictions DC O2, CPAP, BIPAP needs Home O2 Discharge instructions: No Dressing / Incision Discharge Activity: May Not Drive (for 24 hours after surgery) and May Not Shower (for 24 hours after surgery) May resume sexual activity in: 1 week (no tampons, no intercourse, no soaking in water) Lifting Restrictions: none Dressing / Incision Call your doctor if you observe: Fever of 101 or Higher, Using more than 1 pad per hour, Shortness of breath, Dizziness, Swelling in the ankles, Chest pain, Increased palpitations (irregular heartbeat), Calf discomfort and Uncontrolled pain Follow Up Care Please Follow Up With: Jesi Alexander DO When: 1 week post op Test Results: Test results from this visit will be discussed in further detail at your follow- up appointment, if applicable. Discharge Plan Admission Primary Reason for Your Visit: surgery Attending Provider: Jesi Alexander Primary Care Provider: Zulma Goyal Instructions Patient Instructions: Dilation and Curettage Print Language: Martiniquais Discharge Orders/Prescriptions Prescriptions: Continued nifedipine 60 mg tablet extended release 24hr 60 mg PO BID losartan 50 mg tablet 50 mg PO BID hydrochlorothiazide 25 mg tablet 25 mg PO DAILY PNV cmb#95-ferrous fumarate-FA [] 28 mg iron- 800 mcg tablet 1 tab PO DAILY Referrals / Follow Up: Zulma Goyal MD [Primary Care Provider] - Disposition Disposition (needs filled in before D/C Order can be placed): Home, Self Care
--- NOTE | 2024-09-20 09:32 | OP.PCM_ITS ---
Problems Associated Problem List Diagnoses (1) Request for sterilization: (2) DUB (dysfunctional uterine bleeding): (3) Uterine fibroid: Operative Report (Standard) Operative Information Date of Procedure: 09/20/24 Pre-Operative Diagnosis: Request for sterilization, DUB, uterine fibroid Post-Operative Diagnosis: As above Surgery/Procedure Performed: Hysteroscopy, D&C, partial resection of uterine f ibroid, Liletta IUD insertion Laparoscopic bilateral salpingectomy ampoule filler and sealer: Yes Straightener Hand: Gregoria Kunz PGY-3 Tasks completed by first coat operator: Closing and Retracting Type of Anesthesia: General RN Documented Start/Stop Times: Operation Date: 09/20/24 07:30 Case Time Into Pre-Op 09/20/24 06:26 Out of Pre-Op 09/20/24 07:26 Anesthesia Start 09/20/24 07:30 Into Room 09/20/24 07:30 Procedure Start 09/20/24 07:54 Procedure End 09/20/24 08:58 Anesthesia End 09/20/24 09:05 Out of Room 09/20/24 09:05 Into Recovery 09/20/24 09:11 Procedure Start Time: 07:54 Procedure Stop Time: 08:58 Select all DRAINS/GRAFTS/IMPLANTS that apply: None Special Medications: None Estimated Blood Loss: < 50 mL Fluids Replaced: 350 mL fluid deficit Specimen collected: Yes Description of specimen(s) removed: Endometrial curettings with fibroid Bilateral fallopian tube Description of surgery: The patient was taken to the operating room where general anesthesia was induced and found to be adequate. She was prepped and draped in the dorsal lithotomy position using yellowfin stirrups. A weighted speculum was placed in the vagina to expose the cervix. The anterior lip of the cervix was grasped with a single- tooth tenaculum. The cervix was serially dilated to accommodate the Symphion hysteroscope. The Symphion hysteroscope was advanced into the uterus, and the uterine cavity was distended with normal saline. Bilateral tubal ostia were visualized. The endometrium was thin appearing. There was a 1 cm submucosal fibroid located anterior and fundal. The Symphion resection device was used to partially resect the fibroid. Given the location of the fibroid, the entire fibroid was unable to be resected. Majority of the fibroid did remain. The hysteroscope was then removed. Uterine manipulator was inserted. Gloves were changed and attention was turned to the abdominal portion of the procedure. Local was infiltrated at all port sites. An incision was made infraumbilically to accommodate a 5 mm port. The 5 mm port was placed under direct visualization using the laparoscope. Once confirmed intraperitoneal, CO2 insufflation was initiated. No injury was noted upon entry. The patient was placed in [place] patient position. A right lateral 5 mm port was placed. A left lateral 5 mm port was placed. Uterus was upheld from below. The uterus was normal- appearing. The bilateral adnexa were normal-appearing. There were 3 endometriosis lesions noted in the pelvic cul-de-sac. The right fallopian tube was elevated, and the LigaSure device was used to serially clamp, cauterize, and transect along the mesosalpinx hugging adjacent to the fallopian tube. Once at the level of the cornua the fallopian tube was transected and removed. Next the left fallopian tube was elevated out of the pelvis, and the LigaSure device was used to serially clamp, cauterize, and transect along the mesosalpinx hugging adjacent to the left fallopian tube until reaching the level of the cornua. Once at the level of the cornua the fallopian tube was transected and removed. Bilateral fallopian tubes were sent to pathology for review. The pelvis was irrigated, and hemostasis was confirmed. The abdomen was exsufflated and ports were removed. The skin was closed with Monocryl and glue. From below the uterine manipulator was removed. A weighted speculum was placed back in the vagina and a single-tooth tenaculum was placed on the anterior lip of the cervix. A sharp curettage was performed for scant endometrial tissue. The endometrial tissue was sent to pathology for review. The uterus sounded to 7 cm. The Liletta IUD was inserted at the fundus of the uterus in usual sterile fashion. The IUD strings were cut to 2 cm in length. All instruments were removed from the vagina. A vaginal sweep was performed. Instrument, sharp, sponge counts were correct x 2 the patient was taken to the cover room in stable condition. Surgical Findings: Normal appearing uterus and bilateral adnexa on laparoscopy. 3 endometriosis lesions noted in pelvic CDS. 1 cm submucosal fibroid noted in the uterine cavity, and cavity was otherwise normal appearing. Complications Complications: No Admit VTE Documentation VTE Present on Admission: No VTE Mechan Device Prophylaxis: SCD's
[2024-09-20] MEDS: Acetaminophen 500 MG Tablet 1000 MG PO (09:54)
--- NOTE | 2024-09-20 11:30 | POSTOPAN2_ITS ---
Anesthesia Postop Eval I Sum Postop Eval Completion status Anesthesia document: Postop Eval 1 completed: Yes Anesthesia Postop Eval I Summary Anesthesia Postop Eval I Summary: Anesthesia Postop Eval I: Assessment Summary Airway patent Yes 09/20/24 09:17 HEAD WOOD GRINDER.[email or web address] Spontaneous unlabored Yes 09/20/24 09:17 HEAD WOOD GRINDER.OT respirations Mental status Awake,Calm 09/20/24 09:17 HEAD WOOD GRINDER.MDOT nausea No 09/20/24 09:17 HEAD WOOD GRINDER.MDOT Vomiting No 09/20/24 09:17 HEAD WOOD GRINDER.MDOT Anesthesia Postop Eval I: Fluid Summary Crystalloid volume administer 500 09/20/24 09:17 HEAD WOOD GRINDER.MDOT (ml) Colloids volume administered ( ml) Blood Product volume administered (ml) Total IV fluid infused 500 09/20/24 09:17 HEAD WOOD GRINDER.OT Anesthesia Postop Eval I: Summary Notes Anesthesia Complication No 09/20/24 09:17 HEAD WOOD GRINDER.OT Anesthesia Complication Comment: Post-operative progress note Anesthesia: Postop Eval II Evaluation Mental status: Awake Pain Level: 0 nausea: No Vomiting: No
--- NOTE | 2024-09-20 11:30 | PCM.POSTANE2 ---
Anesthesia Postop Eval I Sum Postop Eval Completion status Anesthesia document: Postop Eval 1 completed: Yes Anesthesia Postop Eval I Summary Anesthesia Postop Eval I Summary: Anesthesia Postop Eval I: Assessment Summary Airway patent Yes 09/20/24 09:17 WOODWIND INSTRUMENT REPAIRER.MDINOCENTE Spontaneous unlabored Yes 09/20/24 09:17 WOODWIND INSTRUMENT REPAIRER.OT respirations Mental status Awake,Calm 09/20/24 09:17 WOODWIND INSTRUMENT REPAIRER.MDOT nausea No 09/20/24 09:17 WOODWIND INSTRUMENT REPAIRER.MDOT Vomiting No 09/20/24 09:17 WOODWIND INSTRUMENT REPAIRER.MDOT Anesthesia Postop Eval I: Fluid Summary Crystalloid volume administer 500 09/20/24 09:17 WOODWIND INSTRUMENT REPAIRER.MDOT (ml) Colloids volume administered ( ml) Blood Product volume administered (ml) Total IV fluid infused 500 09/20/24 09:17 WOODWIND INSTRUMENT REPAIRER.OT Anesthesia Postop Eval I: Summary Notes Anesthesia Complication No 09/20/24 09:17 WOODWIND INSTRUMENT REPAIRER.OT Anesthesia Complication Comment: Post-operative progress note Anesthesia: Postop Eval II Evaluation Mental status: Awake Pain Level: 0 nausea: No Vomiting: No
== END 2024-09-20 10:40 | disposition home or self-care (01) ==
LOC: SDC 05:57 → AC 05:59
PROVIDERS: PCP Internal Medicine; Referring Provider Obstetrics & Gynecology; Visit Provider Obstetrics & Gynecology
PROC: (CPT 58661; principal; 2024-09-20 07:15)
DX: Z30.2 Encounter for sterilization (principal); D25.9 Leiomyoma of uterus, unspecified; N93.8 Other specified abnormal uterine and vaginal bleeding; N85.02 Endometrial intraepithelial neoplasia [EIN]; Z79.899 Other long term (current) drug therapy
CPT/HCPCS: 58558; 58300; 58661; 00952; 81025; 86850; 86900; 86901; 88302; 88305; J2405